=== PATIENT | female | born 1935 | race Caucasian/White ===

== ENCOUNTER → 2016-06-30 | Outpatient (CLI) | payer MEDICARE, BC ==
--- NOTE | 2016-06-30 11:53 | CT ---
EXAMINATION TYPE: CT chest wo con DATE OF EXAM: 06/30/2016 9:58 AM COMPARISON: 04/14/2016 HISTORY: Pulmonary Nodule CT DLP: 116 mGycm, Automated exposure control for dose reduction was used. CONTRAST: None, abnormal laboratory results TECHNIQUE: Axial images were obtained at 5 mm thick sections. Reconstructed images are reviewed on [employer] computer in the coronal plane. FINDINGS: Portion of the thyroid visualized is normal. Previous 0.5 cm nodule in the right upper lobe is again evident and appears stable. Series 4 image 24 . The area of pneumonitis within the right peripheral midlung was present previously. No enlarged mediastinal or hilar adenopathy is evident. The ascending aorta diameter at the level o f the main pulmonary artery is 3.5 cm. The main pulmonary artery diameter at the bifurcation is 2.4 cm. Coronary artery calcification is present. Vascular calcifications within the aorta. Limited CT sections are obtained through the upper abdomen. Small hiatal hernia is present. Proportio n the abdomen is unremarkable. Splenic cyst present previously are less well-visualized on the curren t examination due to lack of intravenous contrast. Old right rib fractures are evident. There is an area of pneumonitis within the periphery of the righ t middle lobe. Series 4 image 22. Follow-up can be performed. IMPRESSIONS: 1. Stable right midlung nodule. Continued follow-up with a chest CT in 6 months is recommended. This should be followed as stable over the course of 2 years.
== END ==
LOC: RADCTMAIN 08:36
PROVIDERS: ATTEND Internal Medicine Critical Care Medicine
DX: R91.1 Solitary pulmonary nodule (principal)
CPT/HCPCS: 36415; 71250; 82565; 84520

== ENCOUNTER 2016-12-17 11:16 | Emergency (ER) | payer MEDICARE, BC ==
[2016-12-17 11:38] LABS: Glucose,Whole Blood 95 mg/dL (75-99)
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
[2016-12-17 12:09] LABS: Basophils # (A) 0.1 k/uL (0-0.2); Basophils % (A) 1 %; CH 31.7; CHCM 33.1; Eosinophils # (A) 0.5 k/uL (0-0.7); Eosinophils % (A) 8 %; HDW 2.31; HGB 13.1 gm/dL (11.4-16.0); Luc # (Auto) 0.24; Luc % (Auto) 4; Lymphocytes # (A) 1.4 k/uL (1.0-4.8); Lymphocytes % (A) 24 %; MCH 31.6 pg (25.0-35.0); MCHC 32.8 g/dL (31.0-37.0); MCV 96.2 fL (80.0-100.0); Mean Platelet Volume 7.8; Monocytes # (A) 0.4 k/uL (0-1.0); Monocytes % (A) 6 %; Neutrophils # (A) 3.4 k/uL (1.3-7.7); Neutrophils % (A) 57 %; RBC 4.15 m/uL (3.80-5.40); RDW 14.6 % (11.5-15.5); WBC 5.9 k/uL (3.8-10.6); WBC (Perox) 6.13
[2016-12-17 12:19] LABS: ALT 28 U/L (9-52); AST 29 U/L (14-36); Alkaline Phosphatase 67 U/L (38-126); Anion Gap 9 mmol/L; Blood Urea Nitrogen 16 mg/dL (7-17); Calcium 9.5 mg/dL (8.4-10.2); Carbon Dioxide 26 mmol/L (22-30); Chloride 105 mmol/L (98-107); Glucose 86 mg/dL (74-99); Non-African American GFR(MDRD) 52 (>60 ml/min/1.73 sqM); Potassium 4.4 mmol/L (3.5-5.1); Sodium 140 mmol/L (137-145); Total Bilirubin 0.4 mg/dL (0.2-1.3); Total Protein 6.7 g/dL (6.3-8.2)
[2016-12-17 12:21] LABS: INR 0.9 (<1.2); Partial Thromboplastin Time 23.7 sec (22.0-30.0); Prothrombin Time 9.7 sec (9.0-12.0)
[2016-12-17 12:34] LABS: Creatine Kinase 114 U/L (30-135)
[2016-12-17 12:47] LABS: Creatine Kinase MB 1.5 ng/mL (0.0-2.4); Troponin I <0.012 ng/mL (0.000-0.034)
--- NOTE | 2016-12-17 12:59 | CT ---
EXAMINATION TYPE: CT brain wo con DATE OF EXAM: 12/17/2016 COMPARISON: Prior brain CT dated 01/18/2015 HISTORY: visual disturbance and neuro deficits CT DLP: 981.7 mGycm Automated exposure control for dose reduction was used. FINDINGS: Helical acquisition of the brain. Cerebral vascular calcifications are present. No hemorrhage or hydrocephalus. Cortical atrophy again noted. White matter low-attenuation changes are stable and compatible with old infarct left frontal r egion and right internal capsule, chronic small vessel ischemia. Postop change noted to the right tem poral bone is stable. IMPRESSION: STABLE EXAM, NO ACUTE ABNORMALITY, CONSIDER BRAIN MRI FOR BETTER EVALUATION
--- NOTE | 2016-12-17 13:02 | XR ---
EXAMINATION TYPE: XR chest 2V DATE OF EXAM: 12/17/2016 COMPARISON: Prior chest x-ray 07/28/2015 HISTORY: Altered mental status TECHNIQUE: Frontal and lateral views of the chest are obtained. FINDINGS: There is no pleural effusion, or pneumothorax seen. Question scarring in the right midlung . The cardiac silhouette size is enlarged although the patient is rotated. The aorta is dense. The o sseous structures are stable, right fourth rib fracture with chest wall deformity again noted. There are overlying cardiac leads. IMPRESSION: No acute cardiopulmonary process.
[2016-12-17 14:20] VITALS: BP 178/88; PULSE 73; RESP 18; TEMP 97.3
== END 2016-12-17 14:21 | disposition left against medical advice (07) ==
LOC: EC 11:16 → UNDOADMIN 13:53 → 6SEL 13:53 → EC 14:21
DX: I63.9 Cerebral infarction, unspecified (principal); I10 Essential (primary) hypertension; E78.5 Hyperlipidemia, unspecified; Z87.891 Personal history of nicotine dependence; Z53.29 Procedure and treatment not carried out because of patient's decision for other reasons; Z79.01 Long term (current) use of anticoagulants; Z79.899 Other long term (current) drug therapy
CPT/HCPCS: 36415; 70450; 71020; 80053; 82550; 82553; 84484; 85025; 85610; 85730; 93005; 99284

== ENCOUNTER 2017-12-07 13:06 | Emergency (ER) | payer BC, MEDICARE ==
[2017-12-07 13:14] VITALS: RESP 16
[2017-12-07] MEDS ORDERED: SODIUM CHLORIDE 0.9% 500 ML IV STA (13:22)
[2017-12-07] MEDS ORDERED: LORazepam 2 MG/ML INJ IV STA (13:25)
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
[2017-12-07 14:16] LABS: Basophils % (A) 0 %; Eosinophils # (A) 0.1 k/uL (0-0.7); Eosinophils % (A) 1 %; HCT 37.7 % (34.0-46.0); HGB 12.2 gm/dL (11.4-16.0); Lymphocytes # (A) 1.6 k/uL (1.0-4.8); Lymphocytes % (A) 18 %; MCH 30.3 pg (25.0-35.0); MCHC 32.4 g/dL (31.0-37.0); MCV 93.5 fL (80.0-100.0); Mean Platelet Volume 7.1; Monocytes # (A) 0.6 k/uL (0-1.0); Monocytes % (A) 7 %; Neutrophils # (A) 6.3 k/uL (1.3-7.7); Neutrophils % (A) 73 %; Platelet Count 218 k/uL (150-450); RBC 4.04 m/uL (3.80-5.40); RDW 13.5 % (11.5-15.5); WBC 8.7 k/uL (3.8-10.6)
[2017-12-07 14:17] LABS: Albumin 4.3 g/dL (3.5-5.0); Calcium 9.8 mg/dL (8.4-10.2); Magnesium 2.1 mg/dL (1.6-2.3); Potassium 3.3 mmol/L (3.5-5.1); Total Bilirubin 0.4 mg/dL (0.2-1.3); Total Protein 6.9 g/dL (6.3-8.2)
[2017-12-07 14:28] LABS: Creatine Kinase 67 U/L (30-135)
--- NOTE | 2017-12-07 14:39 | XR ---
EXAMINATION TYPE: XR chest 2V DATE OF EXAM: 12/07/2017 COMPARISON: 12/17/2016 HISTORY: 82-year-old female with syncope TECHNIQUE: AP and lateral views FINDINGS: Heart mildly enlarged. Elongation/ectasia of the thoracic aorta. Diffuse interstitial prominence is u nchanged. No consolidation or pleural effusion. IMPRESSION: Mild cardiomegaly. There are chronic changes without acute process seen.
[2017-12-07 14:41] LABS: Creatine Kinase MB 1.3 ng/mL (0.0-2.4); Troponin I <0.012 ng/mL (0.000-0.034)
[2017-12-07 14:43] LABS: Prothrombin Time 9.6 sec (9.0-12.0)
[2017-12-07 14:53] LABS: Partial Thromboplastin Time 18.8 sec (22.0-30.0)
[2017-12-07 15:51] LABS: Appearance,Urine Clear (Clear); Bilirubin,Urine Negative (Negative); Blood,Urine Negative (Negative); Color,Urine Light Yellow; Glucose,Urine (UA) Negative (Negative); Ketones,Urine Negative (Negative); Leukocyte Esterase,Urine Negative (Negative); Nitrite,Urine Negative (Negative); PH, Urine 7.5 (5.0-8.0); Protein,Urine Negative (Negative); Specific Gravity,Urine 1.007 (1.001-1.035); Urobilinogen,Urine <2.0 mg/dL (<2.0)
[2017-12-07 16:40] VITALS: BP 169/85; PULSE 70; TEMP 98
== END 2017-12-07 16:39 | disposition home or self-care (01) ==
LOC: EC 13:06
DX: E86.0 Dehydration (principal); R45.83 Excessive crying of child, adolescent or adult; F43.21 Adjustment disorder with depressed mood; Z63.4 Disappearance and death of family member; E78.5 Hyperlipidemia, unspecified; I10 Essential (primary) hypertension; I69.351 Hemiplegia and hemiparesis following cerebral infarction affecting right dominant side; Z87.891 Personal history of nicotine dependence; Z79.01 Long term (current) use of anticoagulants; Z79.899 Other long term (current) drug therapy; Z87.19 Personal history of other diseases of the digestive system
CPT/HCPCS: 36415; 93005; 80053; 82550; 82553; 83735; 84484; 85025; 85610; 85730; 81003; 71046; 99284; 96374; 96361 ×2; J2060

== ENCOUNTER 2019-04-05 09:56 | Emergency (ER) | payer MEDICARE, BC ==
[2019-04-05 10:06] VITALS: RESP 18; TEMP 97.4
[2019-04-05] MEDS ORDERED: SODIUM CHLORIDE 0.9% 500 ML 500 ML IV STA (10:41)
[2019-04-05] MEDS ORDERED: SODIUM CHLORIDE 0.9% 1,000 ML IV STA (10:41)
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
[2019-04-05 11:22] LABS: Basophils # (A) 0.1 k/uL (0-0.2); Basophils % (A) 1 %; Eosinophils # (A) 0.5 k/uL (0-0.7); Eosinophils % (A) 5 %; HCT 39.8 % (34.0-46.0); HGB 13.1 gm/dL (11.4-16.0); Lymphocytes # (A) 1.1 k/uL (1.0-4.8); Lymphocytes % (A) 13 %; MCH 31.8 pg (25.0-35.0); MCV 96.5 fL (80.0-100.0); Mean Platelet Volume 7.6; Monocytes # (A) 0.4 k/uL (0-1.0); Monocytes % (A) 5 %; Neutrophils # (A) 6.2 k/uL (1.3-7.7); Neutrophils % (A) 74 %; Platelet Count 240 k/uL (150-450); RBC 4.12 m/uL (3.80-5.40); RDW 13.8 % (11.5-15.5); WBC 8.5 k/uL (3.8-10.6)
[2019-04-05 11:28] LABS: Albumin 4.4 g/dL (3.5-5.0); Calcium 10.3 mg/dL (8.4-10.2); Total Bilirubin 0.8 mg/dL (0.2-1.3); Total Protein 7.4 g/dL (6.3-8.2)
--- NOTE | 2019-04-05 11:32 | XR ---
EXAMINATION TYPE: XR chest 2V DATE OF EXAM: 04/05/2019 HISTORY: syncope. REFERENCE: Previous study dated 12/07/2017. FINDINGS: The heart is mildly enlarged. Lungs are clear. Pleural spaces are clear. IMPRESSION: MILD CARDIOMEGALY.
[2019-04-05 11:38] LABS: INR 0.9 (<1.2); Prothrombin Time 9.8 sec (9.0-12.0)
[2019-04-05 11:44] LABS: Partial Thromboplastin Time 21.8 sec (22.0-30.0)
[2019-04-05 12:07] LABS: Potassium 4.6 mmol/L (3.5-5.1)
[2019-04-05] MEDS ORDERED: SODIUM CHLORIDE 0.9% 500 ML 500 ML IV ONE (12:31)
[2019-04-05 13:55] VITALS: BP 163/98; PULSE 65
[2019-04-05 14:06] LABS: Amorphous Sediment,Urine Rare /hpf; Appearance,Urine Turbid (Clear); Bilirubin,Urine Negative (Negative); Blood,Urine Negative (Negative); Color,Urine Yellow; Glucose,Urine (UA) Negative (Negative); Hyaline Casts,Urine 7 /lpf (0-2); Ketones,Urine Negative (Negative); Leukocyte Esterase,Urine Trace (Negative); Mucus,Urine Rare /hpf; Nitrite,Urine Negative (Negative); Protein,Urine Negative (Negative); RBC,Urine 2 /hpf (0-5); Specific Gravity,Urine 1.015 (1.001-1.035); Squamous Epithelial Cell,Urine 1 /hpf (0-4); Urobilinogen,Urine <2.0 mg/dL (<2.0); WBC,Urine 2 /hpf (0-5)
== END 2019-04-05 13:55 | disposition home or self-care (01) ==
LOC: EC 09:56
DX: R42 Dizziness and giddiness (principal); R11.2 Nausea with vomiting, unspecified; E86.0 Dehydration; R53.1 Weakness; R53.83 Other fatigue; E78.5 Hyperlipidemia, unspecified; I11.9 Hypertensive heart disease without heart failure; M19.90 Unspecified osteoarthritis, unspecified site; Z87.891 Personal history of nicotine dependence; Z79.01 Long term (current) use of anticoagulants; Z79.890 Hormone replacement therapy; Z79.899 Other long term (current) drug therapy; Z86.73 Personal history of transient ischemic attack (TIA), and cerebral infarction without residual deficits; Z87.19 Personal history of other diseases of the digestive system; Z90.49 Acquired absence of other specified parts of digestive tract; Z53.8 Procedure and treatment not carried out for other reasons
CPT/HCPCS: 36415; 71046; 80053; 81001; 84484; 85025; 85610; 85730; 93005; 96360; 96361; 99284

== ENCOUNTER → 2019-12-26 | Outpatient (CLI) | payer MEDICARE, BC | END | disposition home or self-care (01) | LOC: RADCTMAIN 15:22 | PROVIDERS: ATTEND Internal Medicine Geriatric Medicine | DX: I65.23 Occlusion and stenosis of bilateral carotid arteries (principal) | CPT/HCPCS: 82565; 84520 ==

== ENCOUNTER 2022-02-22 15:33 | Emergency (ER) | payer BC, MEDICARE ==
[2022-02-22 15:42] LABS: Glucose,Whole Blood 123 mg/dL (70-110)
[2022-02-22 15:43] VITALS: TEMP 97.4
--- NOTE | 2022-02-22 16:04 | CT ---
EXAMINATION TYPE: CT brain wo con DATE OF EXAM: 02/22/2022 HISTORY: Altered mental status CT DLP: 1039.6 mGycm. Automated Exposure Control for Dose Reduction was Utilized. TECHNIQUE: CT scan of the head is performed without contrast. COMPARISON: CT brain December 17, 2016. FINDINGS: There is no acute intracranial hemorrhage or midline shift identified. There is mild to m oderate diffuse ventricular and sulcal prominence consistent with diffuse cerebral atrophy. There is mild to moderate low-attenuation in the periventricular white matter consistent with chronic small v essel ischemic change redemonstrated. Focal encephalomalacia anterior superior left frontal lobe rede monstrated. Old lacunar infarct superior right basal ganglia axial image 29 redemonstrated . The glob es are intact and the visualized sinuses are clear. Persistent anterior metopic suture incidentally n oted. Surgical change right mastoid level redemonstrated. IMPRESSION: No acute intracranial hemorrhage or midline shift. There is mild to moderate diffuse ce rebral atrophy and chronic small vessel ischemic change along with old infarcts redemonstrated. No s ignificant change from 2017 CT.
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
[2022-02-22 16:08] LABS: Basophils # (A) 0.1 k/uL (0-0.2); Basophils % (A) 1 %; Eosinophils # (A) 0.3 k/uL (0-0.7); Eosinophils % (A) 5 %; HCT 38.9 % (34.0-46.0); HGB 12.7 gm/dL (11.4-16.0); Lymphocytes # (A) 1.8 k/uL (1.0-4.8); Lymphocytes % (A) 27 %; MCH 31.3 pg (25.0-35.0); MCHC 32.7 g/dL (31.0-37.0); MCV 95.9 fL (80.0-100.0); Mean Platelet Volume 8.6; Monocytes # (A) 0.4 k/uL (0-1.0); Monocytes % (A) 6 %; Neutrophils # (A) 3.9 k/uL (1.3-7.7); Neutrophils % (A) 59 %; Platelet Count 254 k/uL (150-450); RBC 4.05 m/uL (3.80-5.40); RDW 13.4 % (11.5-15.5); WBC 6.7 k/uL (3.8-10.6)
--- NOTE | 2022-02-22 16:14 | XR ---
EXAMINATION TYPE: XR chest 1V portable DATE OF EXAM: 02/22/2022 COMPARISON: Chest x-ray April 15, 2019 HISTORY: Altered mental status and weakness. TECHNIQUE: Single AP portable follow-up right view of the chest is obtained. FINDINGS: Osseous structures redemonstrated demineralized. Diminished inspiration noted. More promine nt cardiomegaly. New bibasilar opacities. Suspect new small right pleural effusion. 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 IMPRESSION: Diminished inspiration with more prominent cardiomegaly. New bibasilar acute infiltrate and/or atelectasis and likely new small right pleural effusion. Progress study advised.
[2022-02-22 16:15] LABS: Albumin 4.4 g/dL (3.5-5.0); Calcium 10.1 mg/dL (8.4-10.2); Potassium 3.8 mmol/L (3.5-5.1); Total Bilirubin 0.3 mg/dL (0.2-1.3)
[2022-02-22] MEDS ORDERED: ESMOLOL IN SODIUM CHLORIDE PMX 2.5 GM in SALINE 1 250ML.BAG IV ONE (16:41)
[2022-02-22] MEDS ORDERED: LABETALOL SYRINGE 5 MG/ML IVP STA ×2 (16:41→17:33)
[2022-02-22] MEDS ORDERED: ONDANSETRON 4 MG/2 ML VIAL IVP STA (16:42)
[2022-02-22 17:14] LABS: Amorphous Sediment,Urine Rare /hpf; Appearance,Urine Cloudy (Clear); Bacteria,Urine Rare /hpf; Bilirubin,Urine Negative (Negative); Blood,Urine Negative (Negative); Color,Urine Colorless; Glucose,Urine (UA) Negative (Negative); Ketones,Urine Negative (Negative); Leukocyte Esterase,Urine Negative (Negative); Mucus,Urine Rare /hpf; Nitrite,Urine Negative (Negative); PH, Urine 7.5 (5.0-8.0); Protein,Urine Trace (Negative); RBC,Urine 3 /hpf (0-5); Specific Gravity,Urine 1.008 (1.001-1.035); Urobilinogen,Urine <2.0 mg/dL (<2.0); WBC,Urine 2 /hpf (0-5)
[2022-02-22] MEDS ORDERED: Kcentra PER PHARMACY 1 EACH MISC MISCELLANE PRN (17:27)
[2022-02-22 17:43] VITALS: BP 147/87; PULSE 65; RESP 18
[2022-02-22] MEDS ORDERED: HUMAN PROTHROMBIN COMPLX IV ONE ×2 (17:45)
== END 2022-02-22 17:45 | disposition other institution (70) ==
LOC: EC 15:33
DX: I61.4 Nontraumatic intracerebral hemorrhage in cerebellum (principal); I10 Essential (primary) hypertension; G45.9 Transient cerebral ischemic attack, unspecified; E78.5 Hyperlipidemia, unspecified; M19.90 Unspecified osteoarthritis, unspecified site; Z79.811 Long term (current) use of aromatase inhibitors; Z79.899 Other long term (current) drug therapy; Z20.822 Contact with and (suspected) exposure to COVID-19
CPT/HCPCS: 36415; 93005; 83880; 80053; 83605; 84484; 85025; 81001; 87635; 71045; 70450; 99291; 96374; J2405

== ENCOUNTER 2022-04-08 13:19 | Inpatient (IN) | payer MEDICARE ==
[2022-04-08] MEDS ORDERED: PANTOPRAZOLE 40 MG/10 ML VIAL IVP STA (13:53)
[2022-04-08] MEDS ORDERED: SODIUM CHLORIDE 0.9% 1,000 ML IV STA (13:53)
[2022-04-08] MEDS ORDERED: ONDANSETRON 4 MG/2 ML VIAL IM STA (13:53)
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
[2022-04-08 15:09] LABS: Basophils % (A) 0 %; Eosinophils # (A) 0.1 k/uL (0-0.7); Eosinophils % (A) 1 %; HCT 45.3 % (34.0-46.0); Lymphocytes # (A) 0.9 k/uL (1.0-4.8); Lymphocytes % (A) 7 %; MCH 31.8 pg (25.0-35.0); MCV 96.1 fL (80.0-100.0); Mean Platelet Volume 8.8; Monocytes # (A) 0.4 k/uL (0-1.0); Monocytes % (A) 3 %; Neutrophils # (A) 10.8 k/uL (1.3-7.7); Neutrophils % (A) 88 %; Platelet Count 313 k/uL (150-450); RBC 4.71 m/uL (3.80-5.40); RDW 13.6 % (11.5-15.5); WBC 12.3 k/uL (3.8-10.6)
[2022-04-08 15:24] LABS: Albumin 5.2 g/dL (3.5-5.0); Potassium 5.1 mmol/L (3.5-5.1); Total Bilirubin 0.8 mg/dL (0.2-1.3); Total Protein 8.8 g/dL (6.3-8.2)
[2022-04-08 15:35] LABS: INR 0.9 (<1.2); Prothrombin Time 9.4 sec (9.0-12.0)
[2022-04-08 16:00] LABS: Partial Thromboplastin Time 21.2 sec (22.0-30.0)
[2022-04-08] MEDS ORDERED: NALOXONE 0.4 MG/ML 1 ML VIAL IV PRN (16:12)
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
[2022-04-09] MEDS: MELATONIN 3 MG TABLET PO SCH ×2 (06:18→21:46)
[2022-04-09] MEDS: BRIMONIDINE TARTRATE 0.2% DROPS 5 ML BTL BOTH EYES SCH ×3 (06:21→21:46)
--- NOTE | 2022-04-09 07:41 | US ---
EXAMINATION TYPE: US kidneys/renal and bladder DATE OF EXAM: 04/09/2022 COMPARISON: CLINICAL HISTORY: LESLIE. Patient states she is bleeding from somewhere. Abnormal labs. Inpatient. EXAM MEASUREMENTS: Right Kidney: 8.0 x 3.3 x 3.4 cm Left Kidney: 6.8 x 3.4 x 3.9 cm Right Kidney: No hydronephrosis or masses seen, prominent pyramids Left Kidney: No hydronephrosis or masses seen, limited visualization due to bowel Bladder: Mildly distended, anechoic Bilateral Jets not seen Peristalsing bowel visualized Incidental finding: Large heterogenous right adnexal area seen of unknown etiology, internal echoe s slightly mobile= 9.9 x 8.9 x 5.4 cm In There is no evidence for hydronephrosis at this point in time. No nephrolithiasis is seen. No rufus s are identified. The urinary bladder is anechoic. Bilateral ureteral jets are seen. IMPRESSION: 1. Prominent right right-sided medullary pyramids. 2. Large heterogenous right adnexal mass. Neoplasm not excluded.
[2022-04-09] MEDS: PANTOPRAZOLE 40 MG/10 ML VIAL IVP SCH ×2 (08:20→21:46)
[2022-04-09] MEDS: LEVOTHYROXINE 50 MCG TAB PO SCH (08:20)
[2022-04-09] MEDS: cloNIDine HCL 0.1 MG TAB PO SCH ×3 (08:20→21:41)
[2022-04-09] MEDS: amLODIPine 10 MG TAB PO SCH (08:20)
[2022-04-09 09:47] LABS: Basophils # (A) 0.02 X 10*3/uL (0.00-0.10); Basophils % (A) 0.2 %; Eosinophils # (A) 0.01 X 10*3/uL (0.04-0.35); Eosinophils % (A) 0.1 %; HCT 41.9 % (37.2-46.3); HGB 13.3 g/dL (12.0-15.0); Immature Grans, Automated 0.5 %; Lymphocytes % (A) 5.6 %; MCHC 31.7 g/dL (32.0-37.0); MCV 97.7 fL (80.0-97.0); Mean Platelet Volume 11.1 fL (9.5-12.2); Monocytes # (A) 1.01 X 10*3/uL (0.20-1.00); NRBC Per 100 WBC 0 /100 WBCS (0.0-0.0); Neutrophils # (A) 10.81 X 10*3/uL (1.80-7.70); Neutrophils % (A) 85.6 %; Platelet Count 298 X 10*3/uL (140-440); RBC 4.29 X 10*6/uL (4.10-5.20); RDW 13.6 % (11.5-14.5); WBC 12.61 X 10*3/uL (4.50-10.00)
[2022-04-09 09:55] LABS: African American GFR (CKD) 16.3 (60.0-200.0); Albumin 4.3 g/dL (3.8-4.9); Albumin/Globulin Ratio 1.79 (1.60-3.17); Anion Gap 16.2 mmol/L (10.00-18.00); BUN/Creat Ratio 22.34 Ratio (12.00-20.00); Blood Urea Nitrogen 64.8 mg/dL (9.0-27.0); Calcium 10.5 mg/dL (8.7-10.3); Carbon Dioxide 26.8 mmol/L (20.0-27.5); Globulin 2.4 g/dL (1.6-3.3); Non-African American GFR(CKD) 14.1 (60.0-200.0); Potassium 3.5 mmol/L (3.5-5.5); Total Bilirubin 0.7 mg/dL (0.30-1.20); Total Protein 6.7 g/dL (6.2-8.2)
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
[2022-04-09 14:29] LABS: Creatinine,Urine Random 208.7 mg/dL; Protein/Creatinine Ratio,Urine 0.091
[2022-04-09] MEDS: ATORVASTATIN 10 MG TAB PO SCH (21:46)
[2022-04-09] MEDS: MONTELUKAST 10 MG TAB PO SCH (21:46)
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
[2022-04-10] MEDS: amLODIPine 10 MG TAB PO SCH (08:24)
[2022-04-10] MEDS: PANTOPRAZOLE 40 MG/10 ML VIAL IVP SCH ×2 (08:24→20:32)
[2022-04-10] MEDS: LEVOTHYROXINE 50 MCG TAB PO SCH (08:24)
[2022-04-10] MEDS: cloNIDine HCL 0.1 MG TAB PO SCH ×2 (08:25→20:32)
[2022-04-10 08:59] LABS: African American GFR (CKD) 27.2 (60.0-200.0); Anion Gap 11.7 mmol/L (10.00-18.00); BUN/Creat Ratio 36.47 Ratio (12.00-20.00); Blood Urea Nitrogen 69.3 mg/dL (9.0-27.0); Calcium 9.6 mg/dL (8.7-10.3); Carbon Dioxide 25.3 mmol/L (20.0-27.5); Non-African American GFR(CKD) 23.5 (60.0-200.0); Potassium 3.8 mmol/L (3.5-5.5)
[2022-04-10 09:35] LABS: Basophils # (A) 0.02 X 10*3/uL (0.00-0.10); Basophils % (A) 0.3 %; Eosinophils # (A) 0.05 X 10*3/uL (0.04-0.35); Eosinophils % (A) 0.7 %; HCT 39.6 % (37.2-46.3); HGB 12.3 g/dL (12.0-15.0); Immature Grans, Automated 0.4 %; Lymphocytes # (A) 0.98 X 10*3/uL (0.90-5.00); Lymphocytes % (A) 14.7 %; MCH 30.9 pg (27.0-32.0); MCHC 31.1 g/dL (32.0-37.0); MCV 99.5 fL (80.0-97.0); Mean Platelet Volume 11.2 fL (9.5-12.2); Monocytes # (A) 0.79 X 10*3/uL (0.20-1.00); Monocytes % (A) 11.8 %; NRBC Per 100 WBC 0 /100 WBCS (0.0-0.0); Neutrophils # (A) 4.81 X 10*3/uL (1.80-7.70); Neutrophils % (A) 72.1 %; Platelet Count 245 X 10*3/uL (140-440); RBC 3.98 X 10*6/uL (4.10-5.20); RDW 13.4 % (11.5-14.5); WBC 6.68 X 10*3/uL (4.50-10.00)
--- NOTE | 2022-04-10 12:32 | XR ---
EXAMINATION TYPE: XR chest 1V portable DATE OF EXAM: 04/10/2022 COMPARISON: 02/22/2022 HISTORY: Shortness of breath TECHNIQUE: Single frontal view of the chest is obtained. FINDINGS: AC joint arthropathy. Right basilar infiltrate. Limited inspiration. Diffuse osteopenia. H eart size normal. Underlying COPD suspected. IMPRESSION: Right basilar infiltrate.
--- NOTE | 2022-04-10 15:16 | P.PN ---
Subjective Progress Note Date: 04/10/22 CHIEF COMPLAINT: Hematemesis HISTORY OF PRESENT ILLNESS: Patient was having coffee-ground emesis at home. This has resolved. Patient did have one episode of vomiting this morning that had red popsicle. No evidence of blood. She did start having diarrhea multiple loose stools. No blood or black stools reported. Patient does report that the abdomen is still slightly distended. She does have a history of peptic ulcer disease. And had been on Xarelto at home for A. fib. Afebrile. WBC has come d own from 12.61-6.68 hemoglobin is trending down from 15-13.3-12.3 sodium 135 potassium 3.8 creatinine 1.9 stool for C. diff negative PHYSICAL EXAM: VITAL SIGNS: Reviewed. GENERAL: Well-developed in no acute distress. HEENT: No sclera icterus. Extraocular movements grossly intact. Moist buccal m ucosa. Head is atraumatic, normocephalic. ABDOMEN: Soft. Mildly distended. Epigastric tenderness NEUROLOGIC: Alert and oriented. Cranial nerves II through XII grossly intact. ASSESSMENT: 1. Coffee-ground emesis with epigastric tenderness 2. Abdominal distention 3. History of peptic ulcer disease 4. History of A. fib on Xarelto at home PLAN: -Upper GI with esophagram for further evaluation of patient's vomiting -Clear liquid diet today -Nothing by mouth after midnight for upper GI study -Continue supportive care -Continue PPI -Keep Xarelto on hold Physician Signal Person note has been reviewed by physician. Signing provider agrees with the documented findings, assessment, and plan of care. Objective - Vital Signs Vital signs: Vital Signs Temp 98.1 F 04/10/22 11:10 Pulse 72 04/10/22 11:10 Resp 16 04/10/22 11:10 BP 103/61 04/10/22 11:10 Pulse Ox 95 04/10/22 11:10 FiO2 Intake & Output 04/09/22 04/10/22 04/10/22 18:59 06:59 18:59 Output Total 100 Balance -100 Output: Emesis 100 Other: Voiding Method Bedside Commode Toilet # Voids 1 2 1 # Bowel Movements 1 2 1 - Labs CBC & Chem 7: 04/10/22 05:36 04/10/22 05:36 Labs: Abnormal Lab Results - Last 24 Hours (Table) 04/09/22 04/10/22 04/10/22 Range/Units 13:49 05:36 05:36 RBC 3.98 L (4.10-5.20) X 10*6/uL MCV 99.5 H (80.0-97.0) fL MCHC 31.1 L (32.0-37.0) g/dL BUN 69.3 H (9.0-27.0) mg/dL Creatinine 1.9 H (0.6-1.5) mg/dL Est GFR (CKD-EPI)AfAm 27.2 L (60.0-200.0) Est GFR (CKD-EPI)NonAf 23.5 L (60.0-200.0) BUN/Creatinine Ratio 36.47 H (12.00-20.00) Ratio Glucose 113 H (70-110) mg/dL Ur Random Sodium <20 L (40-220) mmol/L
[2022-04-10] MEDS: ATORVASTATIN 10 MG TAB PO SCH (20:32)
[2022-04-10] MEDS: MONTELUKAST 10 MG TAB PO SCH (20:32)
[2022-04-10] MEDS: MELATONIN 3 MG TABLET PO SCH (20:32)
--- NOTE | 2022-04-10 22:56 | PN ---
PROGRESS NOTE DATE OF SERVICE: 04/10/2022 SUBJECTIVE: This 86-year-old woman, who was admitted with hematemesis, is being seen by Surgery. No chest pain. No palpitations. No fever. OBJECTIVE: VITAL SIGNS: Pulse 72, blood pressure ntd, respirations 16. CHEST: Clear to auscultation. CARDIOVASCULAR: S1, S2. ABDOMEN: Soft. NERVOUS SYSTEM: Nonfocal. LABORATORY DATA: Reviewed. Hemoglobin is 12.3. Creatinine is elevated up to 1.9. ASSESSMENT: 1. Acute hematemesis and upper gastrointestinal bleed. 2. Acute on chronic kidney disease. 3. Paroxysmal atrial fibrillation. 4. History of cerebrovascular accident. 5. Multiple medical issues. RECOMMENDATIONS: I recommend to continue current medications and symptomatic treatment. Otherwise, closely follow with Surgery. Symptomatic treatment, possibly endoscope. Otherwise, closely monitor. Repeat labs in the morning. Guarded prognosis. Further recommendations to follow. Resume the home medications once they are confirmed. MMODL / IJN: [id number] / MTDD
[2022-04-11] MEDS: LEVOTHYROXINE 50 MCG TAB PO SCH (08:58)
[2022-04-11] MEDS: amLODIPine 10 MG TAB PO SCH (08:58)
[2022-04-11] MEDS: cloNIDine HCL 0.1 MG TAB PO SCH ×2 (08:58→23:08)
[2022-04-11] MEDS: PANTOPRAZOLE 40 MG/10 ML VIAL IVP SCH ×2 (09:12→23:07)
[2022-04-11 09:27] LABS: African American GFR (CKD) 45.6 (60.0-200.0); Anion Gap 11.7 mmol/L (10.00-18.00); BUN/Creat Ratio 40.4 Ratio (12.00-20.00); Blood Urea Nitrogen 50.1 mg/dL (9.0-27.0); Calcium 9.2 mg/dL (8.7-10.3); Carbon Dioxide 21.9 mmol/L (20.0-27.5); Non-African American GFR(CKD) 39.3 (60.0-200.0); Potassium 3.6 mmol/L (3.5-5.5)
[2022-04-11 10:16] LABS: Basophils # (A) 0.01 X 10*3/uL (0.00-0.10); Basophils % (A) 0.2 %; Eosinophils # (A) 0.15 X 10*3/uL (0.04-0.35); Eosinophils % (A) 2.4 %; HCT 35.2 % (37.2-46.3); HGB 11.9 g/dL (12.0-15.0); Immature Grans, Automated 0.5 %; Lymphocytes # (A) 1.19 X 10*3/uL (0.90-5.00); Lymphocytes % (A) 18.7 %; MCH 31.4 pg (27.0-32.0); MCHC 33.8 g/dL (32.0-37.0); MCV 92.9 fL (80.0-97.0); Monocytes # (A) 0.84 X 10*3/uL (0.20-1.00); Monocytes % (A) 13.2 %; NRBC Per 100 WBC 0 /100 WBCS (0.0-0.0); Neutrophils # (A) 4.16 X 10*3/uL (1.80-7.70); Platelet Count 242 X 10*3/uL (140-440); RBC 3.79 X 10*6/uL (4.10-5.20); RDW 13.2 % (11.5-14.5); WBC 6.38 X 10*3/uL (4.50-10.00)
[2022-04-11] MEDS ORDERED: IOPAMIDOL CONTRAST (ORAL USE) VIAL PO PRN (11:15)
--- NOTE | 2022-04-11 11:23 | XR ---
EXAMINATION TYPE: XR abdomen 1V DATE OF EXAM: 04/11/2022 11:10 AM CLINICAL HISTORY: Vomiting and abdominal pain. TECHNIQUE: Single upright KUB image of the abdomen is obtained. COMPARISON: None. FINDINGS: Images obtained prior to ordered esophagram/upper GI. Gas prominent dilated small and large bowel loops with multiple air-fluid levels is noted. Findings suspicious for distal obstruction. No free air. IMPRESSION: As above. Overall nonspecific but suspicious for small gas pattern. Case discussed with ordering physician language assistant who was agreeable to canceled upper GI and CT evalua tion to further evaluate.
--- NOTE | 2022-04-11 14:05 | CT ---
EXAMINATION TYPE: CT abdomen pelvis wo con DATE OF EXAM: 04/11/2022 HISTORY: Abdominal distention and nausea/vomiting. Abnormal x-ray. CT DLP: 579 mGycm. Automated Exposure Control for Dose Reduction was Utilized. TECHNIQUE: CT scan of the abdomen and pelvis is attempted with oral but without IV contrast. COMPARISON: Abdominal X-ray earlier today. FINDINGS: Within the limitations of a non-contrast study, the following observations are made. LUNG BASES: Coronary artery calcification is present. Calcification at the level of the mitral valve is noted. LIVER/GB: Gallbladder not seen presumed surgically absent. PANCREAS: No significant abnormality is seen. SPLEEN: Nonspecific 2.8 cm heterogeneous hypodense lesion in the left aspect of the spleen on coronal e image 72. Hounsfield units average near 25. Possible complex cystic lesion or solid lesion. Nonemer gent follow-up advised to further evaluate. ADRENALS: No significant abnormality is seen. KIDNEYS: Cortical thinning bilaterally suggestive of chronic medical renal disease. BOWEL: Surgical clips just below diaphragm. There is small slight hiatal hernia. Contrast is seen in nondistended stomach. Oral contrast seen a slightly prominent duodenal sweep. Contrast extends into p rominent jejunal loops in the left abdomen. There are dilated contrast-filled small bowel loops in th e left abdomen which gradually transition into fluid-filled most prominent small bowel loops. Fluid p rominent bowel loops are noted in the right abdomen. Fluid is seen within the rectum with air-fluid level. Sigmoid colonic diverticula and nondistended si gmoid colon. There is nondistended left colon. There is air-fluid level in nondistended transverse co dmitriy. There is fluid prominent right colon. There is dilated gas-filled cecum occupying the inferior r ight mid abdomen measuring up to 3.6 cm diameter axial image 44. Terminal ileum is nondistended axial image 51. GENITAL ORGANS: Uterus surgically absent or markedly atrophic. LYMPH NODES: No greater than 1cm abdominal or pelvic lymph nodes are appreciated. OSSEOUS STRUCTURES: Old right lateral lower rib fractures are seen. Grade 1 anterolisthesis L4 and L5 . Extra convex scoliosis centered at the mid lumbar spine. [id number] disc space narrowing wi th endplate sclerosis and vacuum disc phenomenon at this level. Moderate axial joint space loss of maggie th hips. OTHER: Moderate calcified plaque of the aorta extends into branch vessels. No free air is seen. IMPRESSION: Overall nonspecific bowel gas pattern. Prominent and dilated small bowel loops throughout the abdomen. Dilated wandering cecum is present. Majority of colon is nondistended. Internal hernia needs too be considered. Possible underlying enterocolitis and/or diarrhea. No definitive transition point to suggest complete small bowel obstruction. Partial obstruction and/or ileus is in differentia l.
--- NOTE | 2022-04-11 15:18 | P.PN ---
Subjective Progress Note Date: 04/11/22 CHIEF COMPLAINT: Hematemesis HISTORY OF PRESENT ILLNESS: Patient was having coffee-ground emesis at home. This has resolved. Patient however does continue to have vomiting. She had episode of vomiting last night. Her abdomen is more distended. She is now having diarrhea. Initially she was scheduled for upper GI today however the radiologist did call and notify us that the bowels were no dilated therefore upper GI was canceled and a computed tomography scan of the abdomen and pelvis was ordered. Computed tomography scan addendum shows one must consider cecal bascule given the abnormal location and dilation of the cecum. Prominent and dilated small bowel loops throughout the abdomen. Dilated wondering cecum is present. Majority of colon Is nondistended. Internal hernia needs to be co nsidered. Possible underlying enterocolitis and/or diarrhea. No definitive transition point to suggest complete small bowel obstruction. Partial obstruction and/or ileus is in the differential. Afebrile . WBC is 6.38 hemoglobin to 11.9 platelets 242 sodium is 132 potassium 3.6 creatinine 1.2 Patient seen and examined with Dr. levy. Computed tomography scan findings reviewed with Dr. levy PHYSICAL EXAM: VITAL SIGNS: Reviewed. GENERAL: Well-developed in no acute distress. HEENT: No sclera icterus. Extraocular movements grossly intact. Moist buccal mucosa. Head is atraumatic, normocephalic. ABDOMEN: Soft. Distended NEUROLOGIC: Alert and oriented. Cranial nerves II through XII grossly intact. ASSESSMENT: 1. 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 Coffee-ground emesis with epigastric tenderness 3. History of peptic ulcer disease 4. History of A. fib on Xarelto at home PLAN: -Patient scheduled for right colectomy tomorrow 04/12/[address] levy -Keep patient nothing by mouth -Start IV fluids. Patient does have mild hyponatremia -Repeat labs in a.m. -Continue supportive care -Continue PPI -Keep Xarelto on hold Physician Seo Consultant note has been reviewed by physician. Signing provider agrees with the documented findings, assessment, and plan of care. Objective - Vital Signs Vital signs: Vital Signs Temp 97.5 F L 04/11/22 12:45 Pulse 60 04/11/22 12:45 Resp 16 04/11/22 12:45 BP 131/66 04/11/22 12:45 Pulse Ox 99 04/11/22 12:45 FiO2 Intake & Output 04/10/22 04/11/22 04/11/22 18:59 06:59 18:59 Intake Total 200 Output Total 100 Balance -100 200 Intake: Oral 200 Output: Emesis 100 Other: Voiding Method Toilet Toilet Diaper Diaper # Voids 1 5 1 # Bowel Movements 1 1 - Labs CBC & Chem 7: 04/11/22 05:52 04/11/22 05:52 Labs: Abnormal Lab Results - Last 24 Hours (Table) 04/11/22 04/11/22 Range/Units 05:52 05:52 RBC 3.79 L (4.10-5.20) X 10*6/uL Hgb 11.9 L (12.0-15.0) g/dL Hct 35.2 L (37.2-46.3) % Sodium 132 L (135-145) mmol/L BUN 50.1 H (9.0-27.0) mg/dL Est GFR (CKD-EPI)AfAm 45.6 L (60.0-200.0) Est GFR (CKD-EPI)NonAf 39.3 L (60.0-200.0) BUN/Creatinine Ratio 40.40 H (12.00-20.00) Ratio Glucose 113 H (70-110) mg/dL
[2022-04-11] MEDS: SODIUM CHLORIDE 0.9% 1,000 ML IV SCH (16:09)
[2022-04-11] MEDS: MONTELUKAST 10 MG TAB PO SCH (23:08)
[2022-04-11] MEDS: ATORVASTATIN 10 MG TAB PO SCH (23:08)
[2022-04-11] MEDS: MELATONIN 3 MG TABLET PO SCH (23:08)
--- NOTE | 2022-04-12 02:19 | PN ---
PROGRESS NOTE DATE OF SERVICE: 04/11/2022 HISTORY OF PRESENT ILLNESS: This 86-year-old woman was admitted with acute hematemesis and acute upper GI bleed, scheduled to have possible endoscopes. No chest pain, no palpitation. Hemoglobin is 11.9. PHYSICAL EXAMINATION: VITAL SIGNS: Pulse is 63, blood pressure 119/70, respirations 16. CHEST: Clear to auscultation. ABDOMEN: Soft, nontender. LEGS: No edema. NERVOUS SYSTEM: No focal deficits. LABS: Reviewed. ASSESSMENT: 1. Acute hematemesis and upper GI bleed for evaluation. 2. Acute on chronic kidney disease. 3. Paroxysmal atrial fibrillation. 4. History of cerebrovascular accident. 5. Multiple medical issues. RECOMMENDATIONS: Recommended to continue current medications, symptomatic treatment. Otherwise, continue with Protonix and possible endoscopy by surgery. I would also hold antiplatelet agents at this time and also Xarelto. Guarded prognosis. Further recommendations to follow. See orders for details. MMODL / IJN: [id number] /
[2022-04-12 07:00] LABS: Basophils % (A) 0 %; Eosinophils # (A) 0.2 k/uL (0-0.7); Eosinophils % (A) 2 %; HCT 36.3 % (34.0-46.0); Lymphocytes # (A) 1.1 k/uL (1.0-4.8); Lymphocytes % (A) 15 %; MCH 31.3 pg (25.0-35.0); MCHC 32.9 g/dL (31.0-37.0); MCV 95.1 fL (80.0-100.0); Mean Platelet Volume 9.1; Monocytes # (A) 0.5 k/uL (0-1.0); Monocytes % (A) 7 %; Neutrophils # (A) 5.1 k/uL (1.3-7.7); Neutrophils % (A) 73 %; Platelet Count 234 k/uL (150-450); RBC 3.82 m/uL (3.80-5.40); RDW 13.1 % (11.5-15.5)
[2022-04-12 07:12] LABS: African American GFR (CKD) 57 (>60 ml/min/1.73 sqM); Anion Gap 5 mmol/L; Blood Urea Nitrogen 36 mg/dL (7-17); Calcium 8.6 mg/dL (8.4-10.2); Carbon Dioxide 22 mmol/L (22-30); Chloride 107 mmol/L (98-107); Glucose 97 mg/dL (74-99); Non-African American GFR(CKD) 49 (>60 ml/min/1.73 sqM); Potassium 3.8 mmol/L (3.5-5.1); Sodium 134 mmol/L (137-145)
[2022-04-12] MEDS: SODIUM CHLORIDE 0.9% 1,000 ML IV SCH ×3 (08:00→17:45)
[2022-04-12] MEDS: cloNIDine HCL 0.1 MG TAB PO SCH ×2 (09:00→22:33)
[2022-04-12] MEDS: LEVOTHYROXINE 50 MCG TAB PO SCH (09:00)
[2022-04-12] MEDS: amLODIPine 10 MG TAB PO SCH (09:00)
[2022-04-12] MEDS: PANTOPRAZOLE 40 MG/10 ML VIAL IVP SCH ×2 (09:00→22:11)
[2022-04-12 12:09] LABS: INR 0.9 (<1.2); Prothrombin Time 9.6 sec (9.0-12.0)
[2022-04-12 12:28] LABS: Partial Thromboplastin Time 21.6 sec (22.0-30.0)
[2022-04-12] MEDS ORDERED: LIDOCAINE 1% (10MG/ML) FOR IV START INTRADERMA ONE (13:40)
[2022-04-12] MEDS ORDERED: LACTATED RINGERS 1,000 ML IV ONE ×2 (13:40→15:24)
[2022-04-12] MEDS ORDERED: HEPARIN SODIUM,PORCINE/PF 5,000 UNIT/0.5 ML SYRINGE SQ ONE (13:58)
[2022-04-12] MEDS ORDERED: HEPARIN SODIUM,PORCINE 5,000 UNIT/ML 1 ML VIAL SQ ONE (14:08)
[2022-04-12] MEDS ORDERED: ONDANSETRON 4 MG/2 ML VIAL IVP ONE (14:21)
[2022-04-12] MEDS ORDERED: DEXAMETHASONE SOD PHOSPHATE 4 MG/ML 1 ML VIAL IVP ONE (14:22)
[2022-04-12] MEDS ORDERED: SUCCINYLCHOLINE CHLORIDE 200 MG/10 ML VIAL IV ONE (14:30)
[2022-04-12] MEDS ORDERED: PHENYLEPHRINE-0.9% NACL SYG 1,000 MCG/10 ML SYRINGE ONE (14:30)
[2022-04-12] MEDS ORDERED: PROPOFOL 10 MG/ML 20 ML VIAL IV ONE (14:30)
[2022-04-12] MEDS ORDERED: LIDOCAINE 2% INJ 20 MG/ML (2 ML VIAL) ONE (14:30)
[2022-04-12] MEDS ORDERED: ROCURONIUM 10 MG/ML (5 ML VIAL) IV ONE (14:30)
[2022-04-12] MEDS ORDERED: GLYCOPYRROLATE 0.2 MG/ML 2 ML VIAL ONE (14:30)
[2022-04-12] MEDS ORDERED: fentaNYL (PF) 50 MCG/ML 2 ML AMP ONE (14:30)
[2022-04-12] MEDS ORDERED: NEOSTIGMINE 1 MG/ML 10 ML VIAL ONE (14:30)
[2022-04-12] MEDS ORDERED: SODIUM CHLORIDE 0.9% 50 ML with ceFAZolin 1,000 MG IV ONE ×2 (14:32)
--- NOTE | 2022-04-12 15:13 | P.PN ---
Subjective Progress Note Date: 04/12/22 This is an 86 year old female who was recently presented to the emergency department with hematemesis along with acute upper GI bleed with surgery following with plans for endoscopy. 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 Labs reviewed this morning and WBC is within normal limits, hemoglobin is 12.0, platelets are 234, current INR 0.9, BMP reviewed and within normal limits with a creatinine of 1.03. C. diff testing was negative. Patient denies chest pain or shortness of breath. Patient is afebrile. Review of systems: Constitutional: No reports of fatigue, fever, or chills Cardiovascular: No reports of chest pain or palpitations Respiratory: No reports of shortness of breath or cough GI: No reports of nausea, vomiting, or diarrhea, reports some abdominal discomfort : No reports of dysuria or retention Neurovascular: reports of generalized weakness All medications have been reviewed Active Medications Amlodipine Besylate (Amlodipine 10 Mg Tab) 10 mg PO DAILY [facility] Last Admin: 04/12/22 09:00 Dose: 10 mg Atorvastatin Calcium (Atorvastatin 10 Mg Tab) 10 mg PO [facility] Last Admin: 04/11/22 23:08 Dose: 10 mg Clonidine (Clonidine Hcl 0.1 Mg Tab) 0.1 mg PO BID [facility] Last Admin: 04/12/22 09:00 Dose: 0.1 mg Sodium Chloride (Saline 0.9%) 1,000 mls @ 75 mls/hr IV .[id number] [facility] Last Admin: 04/12/22 09:01 Dose: 75 mls/hr Levothyroxine Sodium (Levothyroxine 50 Mcg Tab) 50 mcg PO AC-BRKFST [facility] Last Admin: 04/12/22 09:00 Dose: 50 mcg Melatonin (Melatonin 3 Mg Tablet) 3 mg PO [facility] Last Admin: 04/11/22 23:08 Dose: 3 mg Montelukast Sodium (Montelukast 10 Mg Tab) 10 mg PO [facility] Last Admin: 04/11/22 23:08 Dose: 10 mg Naloxone HCl (Naloxone 0.4 Mg/Ml 1 Ml Vial) 0.2 mg IV Q2M PRN PRN Reason: Opioid Reversal Ondansetron HCl (Ondansetron 4 Mg/2 Ml Vial) 4 mg IVP Q8HR PRN PRN Reason: Nausea And Vomiting Pantoprazole Sodium (Pantoprazole 40 Mg/10 Ml Vial) 40 mg IVP BID DON Last Admin: 04/12/22 09:00 Dose: 40 mg PHYSICAL EXAMINATION: GENERAL: The patient is alert and oriented x3 Well developed, well nourished. HEENT: Pupils are round and equally reacting to light. EOMI. no scleral icterus. No conjunctival pallor. Normocephalic, atraumatic. No pharyngeal erythema. No thyromegaly. CARDIOVASCULAR: S1 and S2 muffled PULMONARY: diminished breath sounds bilaterally with no wheezing and some scattered rhonchi noted. ABDOMEN: soft. Nontender on exam. non-distended, normoactive bowel sounds. No palpable organomegaly. MUSCULOSKELETAL: No joint swelling or deformity. EXTREMITIES: No cyanosis, clubbing, or pedal edema. NEUROLOGICAL: Gross neurological examination did not reveal any focal deficits. Diffuse weakness SKIN: No rashes. Assessment: Acute hematemesis and upper GI bleed for evaluation Acute on chronic kidney disease Paroxysmal atrial fibrillation History of CVA GI prophylaxis DVT prophylaxis Full code Plan: Recommend to continue with current medications and management of general surgery service is following. Patient was scheduled for endoscopy by surgery and anticoagulation along with antiplatelets being held. Repeat CT abdomen was ordered as mentioned above and patient was made nothing by mouth per surgery and scheduled tentatively for surgical intervention today. Will await report. Family at the bedside with questions and concerns were answered and awaiting to speak with surgeon at this time. Would recommend a chest x-ray post surgery and will follow-up with some repeat labs. Due to multiple complex medical issues, p rognosis is guarded. Patient was no CODE STATUS per their request although status was changed for surgery procedure and is currently full code until recovered from surgery. Again prognosis is extremely guarded. The impression and plan of care has been dictated by Alexia Frazier, nurse practitioner as directed. Dr. Hardeep MD I have performed a history and examination and MDM of this patient, discussed the same with the dictator, and agree with the dictator's assessment and plan as written ,documented as a scribe. Based on total visit time, I have performed more than 50% of the visit. Any additional findings or plans will be noted. Objective - Vital Signs Vital signs: Vital Signs Temp 98.1 F 04/12/22 13:15 Pulse 73 04/12/22 13:15 Resp 16 04/12/22 13:15 BP 117/53 04/12/22 13:15 Pulse Ox 94 L 04/12/22 13:15 FiO2 Intake & Output 04/11/22 04/12/22 04/12/22 18:59 06:59 18:59 Intake Total 100 Balance 100 Weight 48.534 kg Intake: IV 100 Other: Voiding Method Toilet Toilet Diaper Diaper # Voids 2 2 # Bowel Movements 2 3 1 - Labs CBC & Chem 7: 04/12/22 06:20 04/12/22 06:20 Labs: Abnormal Lab Results - Last 24 Hours (Table) 04/12/22 04/12/22 Range/Units 06:20 11:25 APTT 21.6 L (22.0-30.0) sec Sodium 134 L (137-145) mmol/L BUN 36 H (7-17) mg/dL
--- NOTE | 2022-04-12 15:35 | P.OP ---
Date of Procedure: 04/12/22 Preoperative Diagnosis: Cecal bascule causing colonic obstruction Postoperative Diagnosis: Same Procedure(s) Performed: Right colectomy Partial omentectomy Anesthesia: DEREKA Surgeon: Rishabh Garcia Estimated Blood Loss (ml): 15 Pathology: other (Right colon) Condition: stable Disposition: PACU Description of Procedure: Patient's placed on the operative table in the supine position. She received general endotracheal anesthesia. Her abdomen was prepped and draped usual sterile fashion. The abdomen was entered through a midline incision. Left cautery is a dissect the abdominal wall. The the peritoneal cavity is entered. A pair of abdominal wall retractors placed a wound. The cecum was exposed. The cecum was grossly dilated. It measured approximately 15 cm diameter. There there was evidence of a cecal bascule due to adhesive band of the omentum. This was divided using the Enseal device. The portion of nonviable omentum was then transected with the Enseal device sent to pathology. At this point the terminal ileum was transected with a GI stapler. And then the distal right colon was transected with a GI stapler. The Enseal device used to divide the mesentery the bowel. The specimens of pathology. Next using a ANAM and TA stapler a sessile functional and 10 staple anastomosis created. A 3-0 GI silk sutures using a crotch stitch. The abdomen was irrigated resolving seen. The fascia was closed with looped #1 PDS suture. Skin was closed chelle. Patient top she will sent to recovery room in stable condition.
[2022-04-12] MEDS ORDERED: HYDROmorphone 0.5 MG/0.5 ML SYRINGE IVP ONE ×2 (15:39→15:44)
[2022-04-12] MEDS ORDERED: fentaNYL (PF) 50 MCG/1 ML VIAL IVP ONE ×4 (15:49→16:21)
[2022-04-12] MEDS ORDERED: diphenhydrAMINE 50 MG/ML 1 ML VIAL IVP ONE (16:26)
[2022-04-12] MEDS: HYDROmorphone 1 MG/ML 1 ML SYRINGE IVP PRN ×2 (18:02→22:10)
--- NOTE | 2022-04-12 20:17 | XR ---
EXAMINATION TYPE: XR chest 1V portable DATE OF EXAM: 04/12/2022 7:49 PM COMPARISON: Multiple radiographs, with the most recent on 04/10/2022 TECHNIQUE: XR chest 1V portable Portable AP radiograph of the chest. CLINICAL INDICATION:Female, 86 years old with history of shortness of breath; FINDINGS: Lungs/Pleura: Bibasilar infiltrates are present. There is no evidence of pleural effusion, focal cons olidation, or pneumothorax. Pulmonary vascularity: Unremarkable. Heart/mediastinum: Cardiomediastinal silhouette is unremarkable. Musculoskeletal: No acute osseous pathology. IMPRESSION: Bibasilar infiltrates correlate for aspiration is atelectasis.
[2022-04-12] MEDS: ATORVASTATIN 10 MG TAB PO SCH (22:33)
[2022-04-12] MEDS: MELATONIN 3 MG TABLET PO SCH (22:33)
[2022-04-12] MEDS: MONTELUKAST 10 MG TAB PO SCH (22:33)
[2022-04-13] MEDS: HYDROmorphone 1 MG/ML 1 ML SYRINGE IVP PRN ×5 (00:53→21:00)
[2022-04-13] MEDS: SODIUM CHLORIDE 0.9% 1,000 ML IV SCH ×3 (00:53→21:04)
[2022-04-13 08:55] LABS: Basophils % (A) 0 %; Eosinophils % (A) 0 %; HCT 32.3 % (34.0-46.0); HGB 10.9 gm/dL (11.4-16.0); Lymphocytes # (A) 0.7 k/uL (1.0-4.8); Lymphocytes % (A) 8 %; MCH 32.1 pg (25.0-35.0); MCHC 33.9 g/dL (31.0-37.0); MCV 94.7 fL (80.0-100.0); Mean Platelet Volume 9.2; Monocytes # (A) 0.5 k/uL (0-1.0); Monocytes % (A) 6 %; Neutrophils # (A) 6.9 k/uL (1.3-7.7); Neutrophils % (A) 84 %; Platelet Count 231 k/uL (150-450); RBC 3.41 m/uL (3.80-5.40); RDW 12.9 % (11.5-15.5); WBC 8.3 k/uL (3.8-10.6)
[2022-04-13] MEDS ORDERED: ENOXAPARIN 40 MG/0.4 ML SYRINGE SQ SCH (09:00)
[2022-04-13 09:07] LABS: African American GFR (CKD) 67 (>60 ml/min/1.73 sqM); Anion Gap 7 mmol/L; Blood Urea Nitrogen 22 mg/dL (7-17); Carbon Dioxide 19 mmol/L (22-30); Chloride 114 mmol/L (98-107); Glucose 101 mg/dL (74-99); Non-African American GFR(CKD) 58 (>60 ml/min/1.73 sqM); Potassium 3.9 mmol/L (3.5-5.1); Sodium 140 mmol/L (137-145)
[2022-04-13] MEDS: amLODIPine 10 MG TAB PO SCH (09:13)
[2022-04-13] MEDS: ENOXAPARIN 40 MG/0.4 ML SYRINGE SQ SCH (09:13)
[2022-04-13] MEDS: LEVOTHYROXINE 50 MCG TAB PO SCH (09:13)
[2022-04-13] MEDS: cloNIDine HCL 0.1 MG TAB PO SCH ×2 (09:13→20:47)
[2022-04-13] MEDS: PANTOPRAZOLE 40 MG/10 ML VIAL IVP SCH ×2 (09:14→20:48)
[2022-04-13] MEDS: MORPHINE SULFATE 4 MG/ML SYRINGE IVP PRN (11:23)
[2022-04-13] MEDS ORDERED: IPRATROPIUM-ALBUTEROL 3 ML NEB INHALATION PRN (12:31)
[2022-04-13] MEDS: IPRATROPIUM-ALBUTEROL 3 ML NEB INHALATION SCH ×2 (13:18→21:14)
--- NOTE | 2022-04-13 15:29 | P.PN ---
Subjective Progress Note Date: 04/13/22 This is an 86 year old female who was recently presented to the emergency department with hematemesis along with acute upper GI bleed with surgery following with plans for endoscopy. 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 Labs reviewed this morning and WBC is within normal limits, hemoglobin is 12.0, platelets are 234, current INR 0.9, BMP reviewed and within normal limits with a creatinine of 1.03. C. diff testing was negative. Patient denies chest pain or shortness of breath. Patient is afebrile. 04/13/2022 Patient is seen and evaluated and follow-up this morning appears to be slightly confused just received some IV Dilaudid. Patient is status post right colectomy with partial omentectomy due to a cecal bascule causing colonic obstruction. Patient is currently nothing by mouth per surgery recommendations and continues with severe pain. Did have a follow-up chest x-ray yesterday after surgery which shows bibasilar infiltrates correlate for aspiration and atelectasis. Will decrease IV fluids gently, order incentive spirometer encourage the patient to continue using at least 10 times every hour while awake and will also initiate Rocephin empirically along with DuoNeb treatments. Patient is also having fevers and recommend blood cultures with empiric antibiotics. Patient will need physical therapy with possible ECF. Patient is currently nothing by mouth per surgery. Labs reviewed and WBC within normal limits hemoglobin is stable at 10.9, electrolytes are normal and would recommend follow-up labs in a.m. Will also give DuoNeb treatments. Review of systems: Constitutional: No reports of fatigue, fever, or chills Cardiovascular: No reports of chest pain or palpitations Respiratory: No reports of shortness of breath or cough GI: reports of nausea, no reports of vomiting, or diarrhea, reports severe abdominal discomfort : No reports of dysuria or retention Neurovascular: reports of generalized weakness All medications have been reviewed Active Medications Albuterol/Ipratropium (Ipratropium-Albuterol 3 Ml Neb) 3 ml INHALATION RT-TID PRN PRN Reason: Shortness Of Breath Or Wheezing Albuterol/Ipratropium (Ipratropium-Albuterol 3 Ml Neb) 3 ml INHALATION RT-TID [facility] Last Admin: 04/13/22 13:18 Dose: Not Given Amlodipine Besylate (Amlodipine 10 Mg Tab) 10 mg PO DAILY [facility] Last Admin: 04/13/22 09:13 Dose: 10 mg Atorvastatin Calcium (Atorvastatin 10 Mg Tab) 10 mg PO HS [facility] Last Admin: 04/12/22 22:33 Dose: Not Given Clonidine (Clonidine Hcl 0.1 Mg Tab) 0.1 mg PO BID [facility] Last Admin: 04/13/22 09:13 Dose: 0.1 mg Enoxaparin Sodium (Enoxaparin 40 Mg/0.4 Ml Syringe) 40 mg SQ DAILY [facility] Last Admin: 04/13/22 09:13 Dose: 40 mg Hydromorphone HCl (Hydromorphone 1 Mg/Ml 1 Ml Syringe) 1 mg IVP Q3HR PRN PRN Reason: Pain Last Admin: 04/13/22 09:14 Dose: 1 mg Sodium Chloride (Saline 0.9%) 1,000 mls @ 75 mls/hr IV .[id number] [facility] Last Admin: 04/13/22 09:13 Dose: 100 mls/hr Ceftriaxone Sodium 1 gm/ (Sodium Chloride) 50 mls @ 100 mls/hr IVPB Q24HR [facility]; Protocol Last Admin: 04/13/22 13:17 Dose: 100 mls/hr Levothyroxine Sodium (Levothyroxine 50 Mcg Tab) 50 mcg PO AC-BRKFST [facility] Last Admin: 04/13/22 09:13 Dose: 50 mcg Melatonin (Melatonin 3 Mg Tablet) 3 mg PO HS [facility] Last Admin: 04/12/22 22:33 Dose: Not Given Montelukast Sodium (Montelukast 10 Mg Tab) 10 mg PO HS [facility] Last Admin: 04/12/22 22:33 Dose: Not Given Morphine Sulfate (Morphine Sulfate 4 Mg/Ml Syringe) 4 mg IVP Q1HR PRN PRN Reason: Moderate Breakthrough Pain Last Admin: 04/13/22 11:23 Dose: 4 mg Naloxone HCl (Naloxone 0.4 Mg/Ml 1 Ml Vial) 0.2 mg IV Q2M PRN PRN Reason: Opioid Reversal Ondansetron HCl (Ondansetron 4 Mg/2 Ml Vial) 4 mg IVP Q8HR PRN PRN Reason: Nausea And Vomiting Pantoprazole Sodium (Pantoprazole 40 Mg/10 Ml Vial) 40 mg IVP BID DON Last Admin: 04/13/22 09:14 Dose: 40 mg PHYSICAL EXAMINATION: GENERAL: The patient is alert and oriented x2-3, restless, appears uncomfortable and in pain Well developed, well nourished. HEENT: Pupils are round and equally reacting to light. EOMI. no scleral icterus. No conjunctival pallor. Normocephalic, atraumatic. No pharyngeal erythema. No thyromegaly. CARDIOVASCULAR: S1 and S2 muffled PULMONARY: diminished breath sounds bilaterally with no wheezing and some scattered rhonchi noted. ABDOMEN: soft. Extremely tender on light palpation on exam. Mildly distended, hypoactive bowel sounds. No palpable organomegaly. MUSCULOSKELETAL: No joint swelling or deformity. EXTREMITIES: No cyanosis, clubbing, or pedal edema. NEUROLOGICAL: Gross neurological examination did not reveal any focal deficits. Diffuse weakness SKIN: No rashes. Assessment: Acute hematemesis and upper GI bleed for evaluation Status post right colectomy with partial omentectomy secondary to cecal bascule causing colonic obstruction, postop day 1 Fevers of unknown origin, rule out possible pneumonia Acute on chronic kidney disease Paroxysmal atrial fibrillation History of CVA GI prophylaxis DVT prophylaxis no code Plan: Recommend to continue with current medications and management of general surgery service is following. Patient is postop right colectomy with partial omentectomy due to a cecal bascule causing colonic obstruction. Patient is currently nothing by mouth per surgery recommendations and reporting severe 10/10 pain. Patient is weak and recommend physical therapy. Patient did have a follow-up chest x-ray after surgery showing possible infiltrate versus atelectasis. Incentive spirometer ordered and patient to be encouraged to continue using at least 10 times every hour while awake. Recommend pain management on the cautious side with IV narcotics due to age and mentation. Patient is having fevers and have ordered blood cultures and initiating Rocephin empirically with concerns for possible pneumonia. IV fluids decreased and will follow-up with repeat labs. Encouraged increase activity as tolerated. Patient is not having any bowel movements or passing gas as of yet. Due to multiple complex medical issues, prognosis is guarded. CODE STATUS was addressed and changed back to no code per family request. Due to multiple complex medical issues, prognosis is extremely guarded. The impression and plan of care has been dictated by Alexia Frazier, nurse pract itioner as directed. Dr. Hardeep MD I have performed a history and examination and MDM of this patient, discussed the same with the dictator, and agree with the dictator's assessment and plan as written ,documented as a scribe. Based on total visit time, I have performed more than 50% of the visit. Any additional findings or plans will be noted. Objective - Vital Signs Vital signs: Vital Signs Temp 99.7 F H 04/13/22 11:15 Pulse 114 H 04/13/22 11:15 Resp 18 04/13/22 11:15 BP 156/74 04/13/22 11:15 Pulse Ox 94 L 04/13/22 11:15 FiO2 Intake & Output 04/12/22 04/13/22 04/13/22 18:59 06:59 18:59 Intake Total 1550 Output Total 65 550 Balance 1485 -550 Weight 48.534 kg Intake: IV 1550 Output: Urine 50 550 Estimated Blood Loss 15 Other: Voiding Method Toilet Indwelling Catheter Diaper # Bowel Movements 1 - Labs CBC & Chem 7: 04/13/22 08:24 04/13/22 08:24 Labs: Abnormal Lab Results - Last 24 Hours (Table) 04/13/22 04/13/22 Range/Units 08:24 08:24 RBC 3.41 L (3.80-5.40) m/uL Hgb 10.9 L (11.4-16.0) gm/dL Hct 32.3 L (34.0-46.0) % Lymphocytes # 0.7 L (1.0-4.8) k/uL Chloride 114 H (98-107) mmol/L Carbon Dioxide 19 L (22-30) mmol/L BUN 22 H (7-17) mg/dL Glucose 101 H (74-99) mg/dL Calcium 8.0 L (8.4-10.2) mg/dL
--- NOTE | 2022-04-13 15:46 | P.PN ---
Subjective Progress Note Date: 04/13/22 CHIEF COMPLAINT: Hematemesis HISTORY OF PRESENT ILLNESS: Patient is postop day #1 right colectomy and partial omentectomy. She is complaining of abdominal pain. She does have mild nausea. She did have a low-grade temp of her 0.3. She's been mildly tachycardic. Morphine added this morning for pain control. Patient does have improvement of pain with ice packs. WBC 8.3 Hgb 10.9 platelets 231 seconds 140 potassium 3.9 creatinine 0.9. Medicine service did add Rocephin and nebulizer treatments due to low-grade fever Patient seen and examined with Dr. levy PHYSICAL EXAM: VITAL SIGNS: Reviewed. GENERAL: Well-developed in no acute distress. HEENT: No sclera icterus. Extraocular movements grossly intact. Moist buccal mucosa. Head is atraumatic, normocephalic. ABDOMEN: Soft. Distended. Incisional dressing clean dry and intact NEUROLOGIC: Alert and oriented. Cranial nerves II through XII grossly intact. ASSESSMENT: 1. 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 History of A. fib on Xarelto at home 3. Low-grade temp likely due to atelectasis PLAN: -IV Tylenol added for pain -Encouraged deep breathing exercises and incentive spirometer use -Continue ice packs -Continue IV morphine as needed for pain -Keep patient nothing by mouth -Increase activity as tolerated -Continue IV fluids -Continue PPI -Keep Xarelto on hold -GI prophylaxis Protonix and DVT prophylaxis Lovenox Physician Drag [place] note has been reviewed by physician. Signing provider agrees with the documented findings, assessment, and plan of care. Objective - Vital Signs Vital signs: Vital Signs Temp 99.7 F H 04/13/22 11:15 Pulse 114 H 04/13/22 11:15 Resp 18 04/13/22 11:15 BP 156/74 04/13/22 11:15 Pulse Ox 94 L 04/13/22 11:15 FiO2 Intake & Output 04/12/22 04/13/22 04/13/22 18:59 06:59 18:59 Intake Total 1550 Output Total 65 550 Balance 1485 -550 Weight 48.534 kg Intake: IV 1550 Output: Urine 50 550 Estimated Blood Loss 15 Other: Voiding Method Toilet Indwelling Catheter Diaper # Bowel Movements 1 - Labs CBC & Chem 7: 04/13/22 08:24 12 08:24 Labs: Abnormal Lab Results - Last 24 Hours (Table) 04/13/22 04/13/22 Range/Units 08:24 08:24 RBC 3.41 L (3.80-5.40) m/uL Hgb 10.9 L (11.4-16.0) gm/dL Hct 32.3 L (34.0-46.0) % Lymphocytes # 0.7 L (1.0-4.8) k/uL Chloride 114 H (98-107) mmol/L Carbon Dioxide 19 L (22-30) mmol/L BUN 22 H (7-17) mg/dL Glucose 101 H (74-99) mg/dL Calcium 8.0 L (8.4-10.2) mg/dL
[2022-04-13] MEDS: ACETAMINOPHEN IV (For NPO) 750 MG in EMPTY BAG 1 BAG IVPB SCH (16:58)
[2022-04-13] MEDS: ATORVASTATIN 10 MG TAB PO SCH (20:47)
[2022-04-13] MEDS: MONTELUKAST 10 MG TAB PO SCH (20:47)
[2022-04-13] MEDS: MELATONIN 3 MG TABLET PO SCH (20:47)
[2022-04-14] MEDS: ACETAMINOPHEN IV (For NPO) 750 MG in EMPTY BAG 1 BAG IVPB SCH ×3 (00:06→15:03)
[2022-04-14] MEDS: MORPHINE SULFATE 4 MG/ML SYRINGE IVP PRN (00:07)
[2022-04-14] MEDS: HYDROmorphone 1 MG/ML 1 ML SYRINGE IVP PRN ×5 (01:09→20:28)
[2022-04-14] MEDS: amLODIPine 10 MG TAB PO SCH (08:58)
[2022-04-14] MEDS: PANTOPRAZOLE 40 MG/10 ML VIAL IVP SCH ×2 (08:58→20:26)
[2022-04-14] MEDS: cloNIDine HCL 0.1 MG TAB PO SCH ×2 (08:58→20:26)
[2022-04-14] MEDS: LEVOTHYROXINE 50 MCG TAB PO SCH (08:58)
[2022-04-14] MEDS: ENOXAPARIN 40 MG/0.4 ML SYRINGE SQ SCH (08:59)
[2022-04-14 09:00] LABS: Basophils % (A) 0 %; Eosinophils # (A) 0.4 k/uL (0-0.7); Eosinophils % (A) 5 %; HCT 35.4 % (34.0-46.0); HGB 11.7 gm/dL (11.4-16.0); Lymphocytes # (A) 0.9 k/uL (1.0-4.8); Lymphocytes % (A) 12 %; MCH 31.8 pg (25.0-35.0); MCHC 33.1 g/dL (31.0-37.0); Mean Platelet Volume 9.6; Monocytes # (A) 0.5 k/uL (0-1.0); Monocytes % (A) 7 %; Neutrophils # (A) 5.8 k/uL (1.3-7.7); Neutrophils % (A) 74 %; Platelet Count 235 k/uL (150-450); RBC 3.68 m/uL (3.80-5.40); RDW 13.4 % (11.5-15.5); WBC 7.8 k/uL (3.8-10.6)
[2022-04-14] MEDS: SODIUM CHLORIDE 0.9% 1,000 ML IV SCH (09:00)
[2022-04-14 09:04] LABS: African American GFR (CKD) 86 (>60 ml/min/1.73 sqM); Anion Gap 8 mmol/L; Blood Urea Nitrogen 14 mg/dL (7-17); Calcium 8.3 mg/dL (8.4-10.2); Carbon Dioxide 21 mmol/L (22-30); Chloride 112 mmol/L (98-107); Glucose 86 mg/dL (74-99); Non-African American GFR(CKD) 74 (>60 ml/min/1.73 sqM); Potassium 3.4 mmol/L (3.5-5.1); Sodium 141 mmol/L (137-145)
[2022-04-14] MEDS: IPRATROPIUM-ALBUTEROL 3 ML NEB INHALATION SCH ×3 (09:31→20:24)
[2022-04-14] MEDS ORDERED: Potassium Replacement Protocol 1 EACH MISC MISCELLANE PRN (09:56)
[2022-04-14] MEDS: POTASSIUM CHLORIDE 10 MEQ in WATER FOR INJECTION 1 100ML.BAG IVPB SCH ×4 (12:11→17:09)
[2022-04-14] MEDS ORDERED: ACETAMINOPHEN TAB 325 MG TAB PO PRN (14:47)
--- NOTE | 2022-04-14 14:52 | P.PN ---
Subjective Progress Note Date: 04/14/22 CHIEF COMPLAINT: Hematemesis HISTORY OF PRESENT ILLNESS: Patient is postop day #2 right colectomy and partial omentectomy. Patient appears more comfortable today. She is more awake and alert. She had been up sitting in chair. Her pain is better controlled. She denies any nausea or vomiting. Denies any bowel activity. Afebrile. No longer having low-grade temps. WBC 7.8 Hgb 11.7 platelets 235 seconds 131 potassium is 3.4 creatinine 0.74 Patient seen and examined with Dr. levy PHYSICAL EXAM: VITAL SIGNS: Reviewed. GENERAL: Well-developed in no acute distress. HEENT: No sclera icterus. Extraocular movements grossly intact. Moist buccal mucosa. Head is atraumatic, normocephalic. ABDOMEN: Soft. Nondistended Incisional dressing clean dry and intact NEUROLOGIC: Alert and oriented. Cranial nerves II through XII grossly intact. ASSESSMENT: 1. 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 History of A. fib on Xarelto at home 3. Low-grade temp likely due to atelectasis 4. Hypokalemia PLAN: -Advance diet to full liquids -Tylenol and [place] added for oral pain medication -Consult PT OT -Consult social work for possible ECF placement -Replace potassium -Continue ice packs -Increase activity as tolerated -Encouraged patient to use incentive spirometer -Continue IV fluids -Continue PPI -Keep Xarelto on hold -GI prophylaxis Protonix and DVT prophylaxis Lovenox Physician Dehairer note has been reviewed by physician. Signing provider agrees with the documented findings, assessment, and plan of care. Objective - Vital Signs Vital signs: Vital Signs Temp 98.6 F 04/14/22 11:08 Pulse 91 04/14/22 11:08 Resp 16 04/14/22 11:08 BP 124/71 04/14/22 11:08 Pulse Ox 96 04/14/22 11:08 FiO2 Intake & Output 04/13/22 04/14/22 04/14/22 18:59 06:59 18:59 Output Total 1000 1150 700 Balance -1000 -1150 -700 Weight 48.534 kg Output: Urine 1000 1150 700 Other: Voiding Method Indwelling Catheter Toilet Bedside Commode Diaper # Voids 0 1 # Bowel Movements 0 - Labs CBC & Chem 7: 04/14/22 08:07 04/14/22 08:07 Labs: Abnormal Lab Results - Last 24 Hours (Table) 04/14/22 04/14/22 Range/Units 08:07 08:07 RBC 3.68 L (3.80-5.40) m/uL Lymphocytes # 0.9 L (1.0-4.8) k/uL Potassium 3.4 L (3.5-5.1) mmol/L Chloride 112 H (98-107) mmol/L Carbon Dioxide 21 L (22-30) mmol/L Calcium 8.3 L (8.4-10.2) mg/dL
[2022-04-14] MEDS: HYDROcodone/APAP 5-325MG 1 EACH TAB PO PRN (16:36)
--- NOTE | 2022-04-14 19:49 | P.PN ---
Subjective Progress Note Date: 04/14/22 This is an 86 year old female who was recently presented to the emergency department with hematemesis along with acute upper GI bleed with surgery following with plans for endoscopy. 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 Labs reviewed this morning and WBC is within normal limits, hemoglobin is 12.0, platelets are 234, current INR 0.9, BMP reviewed and within normal limits with a creatinine of 1.03. C. diff testing was negative. Patient denies chest pain or shortness of breath. Patient is afebrile. 04/13/2022 Patient is seen and evaluated and follow-up this morning appears to be slightly confused just received some IV Dilaudid. Patient is status post right colectomy with partial omentectomy due to a cecal bascule causing colonic obstruction. Patient is currently nothing by mouth per surgery recommendations and continues with severe pain. Did have a follow-up chest x-ray yesterday after surgery which shows bibasilar infiltrates correlate for aspiration and atelectasis. Will decrease IV fluids gently, order incentive spirometer encourage the patient to continue using at least 10 times every hour while awake and will also initiate Rocephin empirically along with DuoNeb treatments. Patient is also having fevers and recommend blood cultures with empiric antibiotics. Patient will need physical therapy with possible ECF. Patient is currently nothing by mouth per surgery. Labs reviewed and WBC within normal limits hemoglobin is stable at 10.9, electrolytes are normal and would recommend follow-up labs in a.m. Will also give DuoNeb treatments. 04/14/2022 Patient is seen in follow-up today currently sitting up at the side of the bed working with physical therapy. Patient reports her pain is better controlled today and able to get up and move around although continues to be significantly weak. Patient is maintained on 2 L via nasal cannula and recommend to wean as tolerated. Patient will be encouraged to continue with incentive spirometer at least 10 times every hour while awake. Patient has been started on empiric antibiotics and will continue for now along with DuoNeb breathing treatments. Potassium slightly low and will replace per protocol recommend follow-up labs. Patient is currently afebrile and continues to be nothing by mouth while awaiting for surgery recommendations for possible starting of diet. Recommend physical therapy daily with case management following and working on possible ECF once stabilized. Patient denies passing gas or having bowel movements as of yet. [place] catheter is being replaced. Encouraged increased activity as tolerated. Home Xarelto currently on hold per surgery recommendations and will continue subcutaneous Lovenox for DVT prophylaxis. Review of systems: Constitutional: No reports of fatigue, fever, or chills Cardiovascular: No reports of chest pain or palpitations Respiratory: No reports of shortness of breath or cough GI: No reports of nausea, no reports of vomiting, or diarrhea, reports improvement in abdominal discomfort : No reports of dysuria or retention Neurovascular: reports of generalized weakness All medications have been reviewed Active Medications Acetaminophen (Acetaminophen Tab 325 Mg Tab) 650 mg PO Q4HR PRN PRN Reason: Fever and/ or Pain Hydrocodone Bitart/Acetaminophen (Hydrocodone/Apap 5-325mg 1 Each Tab) 1 each PO Q4HR PRN PRN Reason: Pain Last Admin: 04/14/22 16:36 Dose: 1 each Albuterol/Ipratropium (Ipratropium-Albuterol 3 Ml Neb) 3 ml INHALATION RT-TID PRN PRN Reason: Shortness Of Breath Or Wheezing Albuterol/Ipratropium (Ipratropium-Albuterol 3 Ml Neb) 3 ml INHALATION RT-TID [facility] Last Admin: 04/14/22 16:10 Dose: 3 ml Amlodipine Besylate (Amlodipine 10 Mg Tab) 10 mg PO DAILY [facility] Last Admin: 04/14/22 08:58 Dose: 10 mg Atorvastatin Calcium (Atorvastatin 10 Mg Tab) 10 mg PO HS [facility] Last Admin: 04/13/22 20:47 Dose: 10 mg Clonidine (Clonidine Hcl 0.1 Mg Tab) 0.1 mg PO BID [facility] Last Admin: 04/14/22 08:58 Dose: 0.1 mg Enoxaparin Sodium (Enoxaparin 40 Mg/0.4 Ml Syringe) 40 mg SQ DAILY [facility] Last Admin: 04/14/22 08:59 Dose: 40 mg Hydromorphone HCl (Hydromorphone 1 Mg/Ml 1 Ml Syringe) 1 mg IVP Q3HR PRN PRN Reason: Pain Last Admin: 04/14/22 15:36 Dose: 1 mg Sodium Chloride (Saline 0.9%) 1,000 mls @ 75 mls/hr IV .[id number] [facility] Last Admin: 04/14/22 09:00 Dose: 75 mls/hr Ceftriaxone Sodium 1 gm/ (Sodium Chloride) 50 mls @ 100 mls/hr IVPB Q24HR [facility]; Protocol Last Admin: 04/14/22 08:58 Dose: 100 mls/hr Levothyroxine Sodium (Levothyroxine 50 Mcg Tab) 50 mcg PO [id number] [facility] Last Admin: 04/14/22 08:58 Dose: 50 mcg Melatonin (Melatonin 3 Mg Tablet) 3 mg PO [facility] Last Admin: 04/13/22 20:47 Dose: 3 mg Miscellaneous Information (Potassium Replacement Protocol 1 Each Misc) 1 each MISCELLANE DAILY PRN; Protocol PRN Reason: Per Protocol Montelukast Sodium (Montelukast 10 Mg Tab) 10 mg PO [facility] Last Admin: 04/13/22 20:47 Dose: 10 mg Morphine Sulfate (Morphine Sulfate 4 Mg/Ml Syringe) 4 mg IVP Q1HR PRN PRN Reason: Moderate Breakthrough Pain Last Admin: 04/14/22 00:07 Dose: 4 mg Naloxone HCl (Naloxone 0.4 Mg/Ml 1 Ml Vial) 0.2 mg IV Q2M PRN PRN Reason: Opioid Reversal Ondansetron HCl (Ondansetron 4 Mg/2 Ml Vial) 4 mg IVP Q8HR PRN PRN Reason: Nausea And Vomiting Pantoprazole Sodium (Pantoprazole 40 Mg/10 Ml Vial) 40 mg IVP BID [facility] Last Admin: 04/14/22 08:58 Dose: 40 mg PHYSICAL EXAMINATION: GENERAL: The patient is alert and oriented x-3, appears more comfortable today, Well developed, well nourished. HEENT: Pupils are round and equally reacting to light. EOMI. no scleral icterus. No conjunctival pallor. Normocephalic, atraumatic. No pharyngeal erythema. No thyromegaly. CARDIOVASCULAR: S1 and S2 muffled PULMONARY: diminished breath sounds bilaterally with no wheezing and some scattered rhonchi noted. ABDOMEN: soft. Mildly tender on light palpation on exam. Less distended, hypoac tive bowel sounds. No palpable organomegaly. MUSCULOSKELETAL: No joint swelling or deformity. EXTREMITIES: No cyanosis, clubbing, or pedal edema. NEUROLOGICAL: Gross neurological examination did not reveal any focal deficits. Diffuse weakness SKIN: No rashes. Assessment: Acute hematemesis and upper GI bleed for evaluation Status post right colectomy with partial omentectomy secondary to cecal bascule causing colonic obstruction, postop day 2 Fevers of unknown origin, rule out possible pneumonia Hypokalemia Acute on chronic kidney disease Paroxysmal atrial fibrillation History of CVA GI prophylaxis DVT prophylaxis, subcutaneous Lovenox no code Plan: Recommend to continue with current medications and management of general surgery service is following. Patient is postop right colectomy with partial omentectomy due to a cecal bascule causing colonic obstruction. Patient is currently nothing by mouth and surgery evaluating today recommending possibly advancing diet to monitor for tolerance. Patient denies bowel activity as of yet although appears more comfortable today. Patient is maintained on IV ceftriaxone and will continue for now. Patient is afebrile. Potassium slightly low at 3.3 placed per protocol recommending follow-up labs in the a.m. Patient with significant weakness recommending physical therapy daily. Encouraged increase activity as tolerated. Patient is not having any bowel movements or passing gas as of yet. Cain bandages management is following and will be working on discharge planning to possible ECF once patient is stabilized and discharged. Due to multiple complex medical issues, prognosis is guarded. The impression and plan of care has been dictated by Alexia Frazier, nurse practitioner as directed. Dr. Hardeep MD I have performed a history and examination and MDM of this patient, discussed the same with the dictator, and agree with the dictator's assessment and plan as written ,documented as a scribe. Based on total visit time, I have performed more than 50% of the visit. Any additional findings or plans will be noted. Objective - Vital Signs Vital signs: Vital Signs Temp 98.4 F 04/14/22 17:25 Pulse 113 H 04/14/22 17:25 Resp 18 04/14/22 17:25 BP 123/74 04/14/22 17:25 Pulse Ox 96 04/14/22 17:25 FiO2 Intake & Output 04/14/22 04/14/22 04/15/22 06:59 18:59 06:59 Output Total 1150 700 Balance -1150 -700 Weight 48.534 kg Output: Urine 1150 700 Other: Voiding Method Indwelling Catheter Toilet Bedside Commode Diaper # Voids 0 1 # Bowel Movements 0 - Labs CBC & Chem 7: 04/14/22 08:07 04/14/22 08:07 Labs: Abnormal Lab Results - Last 24 Hours (Table) 04/14/22 04/14/22 Range/Units 08:07 08:07 RBC 3.68 L (3.80-5.40) m/uL Lymphocytes # 0.9 L (1.0-4.8) k/uL Potassium 3.4 L (3.5-5.1) mmol/L Chloride 112 H (98-107) mmol/L Carbon Dioxide 21 L (22-30) mmol/L Calcium 8.3 L (8.4-10.2) mg/dL Microbiology - Last 24 Hours (Table) 04/13/22 15:45 Blood Culture - Preliminary Blood No Growth after 24 hours
[2022-04-14] MEDS: MONTELUKAST 10 MG TAB PO SCH (20:26)
[2022-04-14] MEDS: MELATONIN 3 MG TABLET PO SCH (20:26)
[2022-04-14] MEDS: ATORVASTATIN 10 MG TAB PO SCH (20:26)
[2022-04-15] MEDS: HYDROmorphone 1 MG/ML 1 ML SYRINGE IVP PRN ×3 (01:49→17:05)
[2022-04-15] MEDS: SODIUM CHLORIDE 0.9% 1,000 ML IV SCH ×2 (02:25→17:06)
[2022-04-15] MEDS: HYDROcodone/APAP 5-325MG 1 EACH TAB PO PRN (03:58)
[2022-04-15] MEDS: IPRATROPIUM-ALBUTEROL 3 ML NEB INHALATION SCH ×3 (07:50→19:32)
[2022-04-15] MEDS: MORPHINE SULFATE 4 MG/ML SYRINGE IVP PRN (08:10)
[2022-04-15] MEDS: ONDANSETRON 4 MG/2 ML VIAL IVP PRN (08:14)
[2022-04-15 08:21] LABS: Glucose,Whole Blood 126 mg/dL (70-110)
[2022-04-15 09:06] LABS: Basophils % (A) 0 %; Eosinophils # (A) 0.2 k/uL (0-0.7); Eosinophils % (A) 3 %; HCT 35.8 % (34.0-46.0); HGB 12.1 gm/dL (11.4-16.0); Lymphocytes # (A) 1.2 k/uL (1.0-4.8); Lymphocytes % (A) 19 %; MCH 31.8 pg (25.0-35.0); MCHC 33.7 g/dL (31.0-37.0); MCV 94.5 fL (80.0-100.0); Mean Platelet Volume 8.8; Monocytes # (A) 0.4 k/uL (0-1.0); Monocytes % (A) 7 %; Neutrophils # (A) 4.5 k/uL (1.3-7.7); Neutrophils % (A) 69 %; Platelet Count 272 k/uL (150-450); RBC 3.79 m/uL (3.80-5.40); RDW 13.1 % (11.5-15.5); WBC 6.6 k/uL (3.8-10.6)
[2022-04-15 09:14] LABS: Magnesium 1.4 mg/dL (1.5-2.4)
--- NOTE | 2022-04-15 09:55 | XR ---
EXAMINATION TYPE: XR abdomen 2V DATE OF EXAM: 04/15/2022 9:22 AM INDICATION: Patient age:Female; 86 years old; Reason for study: Abdominal pain; PHH. COMPARISON: Prior CT and abdominal radiograph 04/11/2022. TECHNIQUE: One radiographic view of the abdomen was obtained. FINDINGS: Dilated small bowel abdomen measuring up to 5.2 cm in the right lower quadrant. There is re tained contrast within the colon along the descending colon. No evidence of abnormal calcifications. Skin chelle are present. No acute osseous abnormality. IMPRESSION: Dilated loops of bowel which could represent ileus given recent surgery.
[2022-04-15 09:58] LABS: African American GFR (CKD) 77.4 (60.0-200.0); Anion Gap 12.2 mmol/L (10.00-18.00); BUN/Creat Ratio 16.5 Ratio (12.00-20.00); Blood Urea Nitrogen 13.2 mg/dL (9.0-27.0); Carbon Dioxide 19.8 mmol/L (20.0-27.5); Non-African American GFR(CKD) 66.8 (60.0-200.0)
--- NOTE | 2022-04-15 10:46 | XR ---
EXAMINATION TYPE: XR chest 1V portable DATE OF EXAM: 04/15/2022 10:07 AM COMPARISON: Chest radiographs from 04/12/2022, 04/11/2022 CT TECHNIQUE: XR chest 1V portable Portable AP radiograph of the chest. CLINICAL INDICATION:Female, 86 years old with history of pna; FINDINGS: Lungs/Pleura: Prominent interstitial lung markings are seen scattered throughout the lungs. No eviden ce of focal consolidation, pneumothorax or pleural effusion. Pulmonary vascularity: Unremarkable. Heart/mediastinum: Cardiomediastinal silhouette is unremarkable. Musculoskeletal: No acute osseous pathology. IMPRESSION: Chronic interstitial changes, no definitive airspace opacities. Less prominent opacities on today's e xam compared to immediate prior radiograph, there was no finding on CT in the lower lungs.
--- NOTE | 2022-04-15 11:13 | P.PN ---
Subjective Progress Note Date: 04/15/22 Principal diagnosis: Abdominal pain Patient describes increased abdominal pain to the nursing staff this morning. Some nausea. No vomiting. No bowel function. Abdominal x-rays show adynamic ileus with dilated small bowel loops. White blood cell count is normal. Lactic acid is normal. Objective - Vital Signs Vital signs: Vital Signs Temp 98.6 F 04/15/22 05:00 Pulse 78 04/15/22 08:03 Resp 16 04/15/22 05:00 BP 161/88 04/15/22 05:00 Pulse Ox 94 L 04/15/22 07:50 FiO2 Intake & Output 04/14/22 04/15/22 04/15/22 18:59 06:59 18:59 Output Total 700 Balance -700 Weight 48.534 kg Output: Urine 700 Other: Voiding Method Toilet Toilet Bedside Commode Bedside Commode Diaper Diaper # Voids 1 1 # Bowel Movements 0 - Exam Abdomen: Soft, distended, mild diffuse tenderness, incision clean and dry - Labs CBC & Chem 7: 04/15/22 08:50 04/15/22 05:21 Labs: Abnormal Lab Results - Last 24 Hours (Table) 04/15/22 04/15/22 04/15/22 Range/Units 05:21 05:21 08:18 RBC (3.80-5.40) m/uL Carbon Dioxide 19.8 L (20.0-27.5) mmol/L Glucose 131 H (70-110) mg/dL POC Glucose (mg/dL) 126 H (70-110) mg/dL Magnesium 1.4 L (1.5-2.4) mg/dL Procalcitonin 1.34 H (0.02-0.09) ng/mL 04/15/22 Range/Units 08:50 RBC 3.79 L (3.80-5.40) m/uL Carbon Dioxide (20.0-27.5) mmol/L Glucose (70-110) mg/dL POC Glucose (mg/dL) (70-110) mg/dL Magnesium (1.5-2.4) mg/dL Procalcitonin (0.02-0.09) ng/mL Microbiology - Last 24 Hours (Table) 04/13/22 15:45 Blood Culture - Preliminary Blood No Growth after 24 hours Assessment and Plan (1) Abdominal pain Narrative/Plan: Patient with ileus on today's x-ray. That would explain the patient's increased discomfort and nausea. Will place nasogastric tube to suction. Current Visit: Yes Status: Acute Code(s): R10.9 - UNSPECIFIED ABDOMINAL PAIN [facility] Code(s): 83218291
[2022-04-15] MEDS: PANTOPRAZOLE 40 MG/10 ML VIAL IVP SCH ×2 (11:37→20:12)
[2022-04-15] MEDS: ENOXAPARIN 40 MG/0.4 ML SYRINGE SQ SCH (11:38)
[2022-04-15] MEDS: amLODIPine 10 MG TAB PO SCH (11:44)
[2022-04-15] MEDS: cloNIDine HCL 0.1 MG TAB PO SCH (11:44)
[2022-04-15] MEDS ORDERED: hydrALAZINE HCL 20 MG/ML 1 ML VIAL IVP PRN (13:45)
--- NOTE | 2022-04-15 13:45 | P.PN ---
Subjective This is an 86 year old female who was recently presented to the emergency department with hematemesis along with acute upper GI bleed with surgery f latha with plans for endoscopy. 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 Labs reviewed this morning and WBC is within normal limits, hemoglobin is 12.0, platelets are 234, current INR 0.9, BMP reviewed and within normal limits with a creatinine of 1.03. C. diff testing was negative. Patient denies chest pain or shortness of breath. Patient is afebrile. 04/13/2022 Patient is seen and evaluated and follow-up this morning appears to be slightly confused just received some IV Dilaudid. Patient is status post right colectomy with partial omentectomy due to a cecal bascule causing colonic obstruction. Patient is currently nothing by mouth per surgery recommendations and continues with severe pain. Did have a follow-up chest x-ray yesterday after surgery which shows bibasilar infiltrates correlate for aspiration and atelectasis. Will decrease IV fluids gently, order incentive spirometer encourage the patient to continue using at least 10 times every hour while awake and will also initiate Rocephin empirically along with DuoNeb treatments. Patient is also having fevers and recommend blood cultures with empiric antibiotics. Patient will need physical therapy with possible ECF. Patient is currently nothing by mouth per surgery. Labs reviewed and WBC within normal limits hemoglobin is stable at 10.9, electrolytes are normal and would recommend follow-up labs in a.m. Will also give DuoNeb treatments. 04/14/2022 Patient is seen in follow-up today currently sitting up at the side of the bed working with physical therapy. Patient reports her pain is better controlled today and able to get up and move around although continues to be significantly weak. Patient is maintained on 2 L via nasal cannula and recommend to wean as tolerated. Patient will be encouraged to continue with incentive spirometer at least 10 times every hour while awake. Patient has been started on empiric antibiotics and will continue for now along with DuoNeb breathing treatments. Potassium slightly low and will replace per protocol recommend follow-up labs. Patient is currently afebrile and continues to be nothing by mouth while awaiti ng for surgery recommendations for possible starting of diet. Recommend physical therapy daily with case management following and working on possible ECF once stabilized. Patient denies passing gas or having bowel movements as of yet. Thapa catheter is being replaced. Encouraged increased activity as tolerated. Home Xarelto currently on hold per surgery recommendations and will continue subcutaneous Lovenox for DVT prophylaxis. Resume the care of the patient today 04/15/2020 This is a pleasant 86 years old female who presents with signs and symptoms of bowel obstruction status post right colectomy and partial omentectomy by surgery team on 04/14. Today is postoperative day #1, she has significant abdominal distention with x-ray showing postop ileus. NG tube was placed and that was an immediate return of 500 mL of greenish discharge. Also she has some abdominal pain and tenderness which is expected from her surgery. She is nothing by mouth currently and getting normal saline at 75 mL/h. proCalcitonin is elevated 1.3. Currently she is on ceftriaxone however I think it is more appropriate to change her antibiotics to Zosyn to cover and aerobes especially patient clinically is symptomatic and not improving repeat chest x- ray showed chronic changes with no evidence of aspiration. She had fever yesterday but no more fever today Also she is on normal saline 75 mL/h Patient also has evidence of 9.98.95.4 cm right large adrenal mass, patient informed and she verbalized understanding for the need for outpatient follow-up once stabilized. We change her by mouth Norvasc and clonidine into clonidine patch, and IV levothyroxine send off oral dose Review of systems CONSTITUTIONAL: No fever, no malaise, no fatigue. HEENT: No recent visual problems or hearing problems. Denied any sore throat. CARDIOVASCULAR: No orthopnea, PND, no palpitations, no syncope. PULMONARY: No shortness of breath, no cough, no hemoptysis. NEUROLOGICAL: No headaches, no weakness, no numbness. Active Medications Generic Name Dose Route Start Last Admin Trade Name Freq PRN Reason Stop Dose Admin Acetaminophen 650 mg 04/14/22 14:47 Acetaminophen Tab 325 Mg Tab PO Q4HR PRN Fever and/ or Pain Hydrocodone Bitart/Acetaminophen 1 each 04/14/22 14:47 04/15/22 03:58 Hydrocodone/Apap 5-325mg 1 Each Tab PO 1 each Q4HR PRN Administration Pain Albuterol/Ipratropium 3 ml 04/13/22 12:31 Ipratropium-Albuterol 3 Ml Neb INHALATION RT-TID PRN Shortness Of Breath Or Wheezing Albuterol/Ipratropium 3 ml 04/13/22 13:00 04/15/22 11:49 Ipratropium-Albuterol 3 Ml Neb INHALATION 3 ml RT-TID DON Administration Atorvastatin Calcium 10 mg 04/09/22 21:00 04/14/22 20:26 Atorvastatin 10 Mg Tab PO 10 mg HS DON Administration Clonidine HCl 1 patch 04/15/22 15:00 Clonidine 0.2 Mg/24hr Patch TRANSDERM Q7D DON Enoxaparin Sodium 40 mg 04/13/22 09:00 04/15/22 11:38 Enoxaparin 40 Mg/0.4 Ml Syringe SQ 40 mg DAILY DON Administration Hydromorphone HCl 1 mg 04/12/22 15:35 04/15/22 01:49 Hydromorphone 1 Mg/Ml 1 Ml Syringe IVP 1 mg Q3HR PRN Administration Pain Sodium Chloride 1,000 mls @ 75 mls/hr 04/12/22 15:45 04/15/22 02:25 Saline 0.9% IV 75 mls/hr .[id number] DON Administration Piperacillin Sod/Tazobactam 100 mls @ 25 mls/hr 04/15/22 16:00 Sod 3.375 gm/ Sodium Chloride IVPB Q8HR DON Protocol Levothyroxine Sodium 37.5 mcg 04/16/22 09:00 Levothyroxine Ivp 100 Mcg/5 Ml Vial IV DAILY DON Melatonin 3 mg 04/08/22 23:30 04/14/22 20:26 Melatonin 3 Mg Tablet PO 3 mg HS DON Administration Miscellaneous Information 1 each 04/14/22 09:56 Potassium Replacement Protocol 1 Each Misc MISCELLANE DAILY PRN Per Protocol Protocol Montelukast Sodium 10 mg 04/09/22 21:00 04/14/22 20:26 Montelukast 10 Mg Tab PO 10 mg HS DON Administration Morphine Sulfate 4 mg 04/13/22 11:01 04/15/22 08:10 Morphine Sulfate 4 Mg/Ml Syringe IVP 4 mg Q1HR PRN Administration Moderate Breakthrough Pain Naloxone HCl 0.2 mg 04/08/22 16:12 Naloxone 0.4 Mg/Ml 1 Ml Vial IV Q2M PRN Opioid Reversal Ondansetron HCl 4 mg 04/08/22 16:12 04/15/22 08:14 Ondansetron 4 Mg/2 Ml Vial IVP 4 mg Q8HR PRN Administration Nausea And Vomiting Pantoprazole Sodium 40 mg 04/09/22 09:00 04/15/22 11:37 Pantoprazole 40 Mg/10 Ml Vial IVP 40 mg BID DON Administration Objective - Vital Signs Vital signs: Vital Signs Temp 98.5 F 04/15/22 11:30 Pulse 72 04/15/22 11:59 Resp 20 04/15/22 11:30 BP 145/82 04/15/22 11:30 Pulse Ox 96 04/15/22 11:30 FiO2 Intake & Output 04/14/22 04/15/22 04/15/22 18:59 06:59 18:59 Output Total 700 Balance -700 Weight 48.534 kg Output: Urine 700 Other: Voiding Method Toilet Toilet Bedside Commode Bedside Commode Diaper Diaper # Voids 1 1 # Bowel Movements 0 - Exam GENERAL: The patient is alert and oriented x3, not in any acute distress. Well d eveloped, well nourished. HEENT: Pupils are round and equally reacting to light. EOMI. No scleral icterus. No conjunctival pallor. Normocephalic, atraumatic. No pharyngeal erythema. No thyromegaly. CARDIOVASCULAR: S1 and S2 present. No murmurs, rubs, or gallops. PULMONARY: Chest is clear to auscultation, no wheezing or crackles. -ABDOMEN: Soft, tender, distended, normoactive bowel sounds. No palpable organomegaly. Surgical wound with dressing in a Place soft exam is deferred for surgery team, MUSCULOSKELETAL: No joint swelling or deformity. EXTREMITIES: No cyanosis, clubbing, or pedal edema. NEUROLOGICAL: Gross neurological examination did not reveal any focal deficits. SKIN: No rashes. no petechiae. - Labs CBC & Chem 7: 04/15/22 08:50 04/15/22 05:21 Labs: Abnormal Lab Results - Last 24 Hours (Table) 04/15/22 04/15/22 04/15/22 Range/Units 05:21 05:21 08:18 RBC (3.80-5.40) m/uL Carbon Dioxide 19.8 L (20.0-27.5) mmol/L Glucose 131 H (70-110) mg/dL POC Glucose (mg/dL) 126 H (70-110) mg/dL Magnesium 1.4 L (1.5-2.4) mg/dL Procalcitonin 1.34 H (0.02-0.09) ng/mL 04/15/22 Range/Units 08:50 RBC 3.79 L (3.80-5.40) m/uL Carbon Dioxide (20.0-27.5) mmol/L Glucose (70-110) mg/dL POC Glucose (mg/dL) (70-110) mg/dL Magnesium (1.5-2.4) mg/dL Procalcitonin (0.02-0.09) ng/mL Microbiology - Last 24 Hours (Table) 04/13/22 15:45 Blood Culture - Preliminary Blood No Growth after 24 hours Assessment and Plan Assessment: Acute Bowel obstruction status post right colectomy and partial omentectomy Postoperative ileus Enterocolitis Large right adrenal mass Chronic atrial fibrillation on Xarelto (currently on hold) History of CVA Plan: Continue with normal saline Change antibiotics to Zosyn Keep NG tube Bowel rest Pain management Surgery team consult on the case Labs and medication were reviewed.. Continue same treatment. Continue with symptomatic treatment. Resume home medication. Monitor labs and vitals. DVT and GI prophylaxis. Further recommendations as per clinical course of the patient DVT prophylaxis: Subcutaneous Lovenox while his adult on hold GI Prophylaxis: Ppi PT/OT: Pending Prognosis is guarded
[2022-04-15] MEDS ORDERED: cloNIDine 0.2 MG/24HR PATCH TRANSDERM SCH (15:00)
[2022-04-15] MEDS: PIPERACILLIN-TAZOBACTAM 3.375 GM in SODIUM CHLORIDE 0.9% 100 ML IVPB SCH (15:09)
[2022-04-15] MEDS: LEVOTHYROXINE 50 MCG TAB PO SCH (17:33)
[2022-04-15] MEDS: ACETAMINOPHEN IV (For NPO) 650 MG in EMPTY BAG 1 BAG IVPB PRN (20:11)
[2022-04-15] MEDS: ATORVASTATIN 10 MG TAB PO SCH (20:12)
[2022-04-15] MEDS: MELATONIN 3 MG TABLET PO SCH (20:12)
[2022-04-15] MEDS: MONTELUKAST 10 MG TAB PO SCH (20:13)
[2022-04-15] MEDS ORDERED: Magnesium Replacement Protocol 1 EACH MISC MISCELLANE PRN (21:13)
[2022-04-16] MEDS: HYDROmorphone 1 MG/ML 1 ML SYRINGE IVP PRN ×2 (00:23→03:09)
[2022-04-16] MEDS: PIPERACILLIN-TAZOBACTAM 3.375 GM in SODIUM CHLORIDE 0.9% 100 ML IVPB SCH ×4 (00:24→23:16)
[2022-04-16 04:51] LABS: Glucose,Whole Blood 109 mg/dL (70-110)
[2022-04-16 05:13] LABS: African American GFR (CKD) 90 (>60 ml/min/1.73 sqM); Anion Gap 4 mmol/L; Blood Urea Nitrogen 9 mg/dL (7-17); Calcium 8.5 mg/dL (8.4-10.2); Carbon Dioxide 25 mmol/L (22-30); Chloride 112 mmol/L (98-107); Glucose 114 mg/dL (74-99); Magnesium 1.4 mg/dL (1.6-2.3); Non-African American GFR(CKD) 78 (>60 ml/min/1.73 sqM); Sodium 141 mmol/L (137-145)
[2022-04-16 05:17] LABS: Basophils % (A) 0 %; Eosinophils # (A) 0.2 k/uL (0-0.7); Eosinophils % (A) 4 %; HCT 35.3 % (34.0-46.0); HGB 11.6 gm/dL (11.4-16.0); Lymphocytes # (A) 0.9 k/uL (1.0-4.8); Lymphocytes % (A) 14 %; MCH 30.7 pg (25.0-35.0); MCHC 32.9 g/dL (31.0-37.0); MCV 93.4 fL (80.0-100.0); Mean Platelet Volume 8.8; Monocytes # (A) 0.5 k/uL (0-1.0); Monocytes % (A) 8 %; Neutrophils # (A) 4.4 k/uL (1.3-7.7); Neutrophils % (A) 71 %; Platelet Count 278 k/uL (150-450); RBC 3.78 m/uL (3.80-5.40); RDW 13.5 % (11.5-15.5); WBC 6.2 k/uL (3.8-10.6)
[2022-04-16 05:23] LABS: Potassium 3.3 mmol/L (3.5-5.1)
[2022-04-16] MEDS ORDERED: MORPHINE SULFATE 2 MG/ML SYRINGE IVP PRN (05:41)
[2022-04-16 05:42] LABS: Glucose,Whole Blood 115 mg/dL (70-110)
--- NOTE | 2022-04-16 05:49 | CT ---
EXAMINATION TYPE: CT brain wo con DATE OF EXAM: 04/16/2022 COMPARISON: 02/22/2022 HISTORY: STROKE LIKE SYMPTOMS CT DLP: 2163.2 mGycm Automated exposure control for dose reduction was used. Images obtained of the brain without contrast. There is cerebral atrophy. There is no mass effect or midline shift. No sign of intracranial hemorrha ge. There is hypodensity in the periventricular white matter. There is old left-sided frontal lobe co rtical infarct. The calvarium is intact. IMPRESSION: Cerebral atrophy and chronic small vessel ischemia. Old left frontal lobe cortical infarct. No acute intracranial abnormality. No change compared to old exam.
[2022-04-16] MEDS ORDERED: Magnesium Replacement Protocol 1 EACH MISC MISCELLANE PRN (06:25)
[2022-04-16] MEDS: SODIUM CHLORIDE 0.9% 1,000 ML IV SCH ×2 (06:53→20:24)
[2022-04-16] MEDS: MAGNESIUM SULFATE-D5W PMX 1 GM in DEXTROSE/WATER 1 100ML.BAG IVPB SCH ×3 (06:54→12:05)
[2022-04-16] MEDS: IPRATROPIUM-ALBUTEROL 3 ML NEB INHALATION SCH ×3 (09:33→20:20)
[2022-04-16] MEDS: LEVOTHYROXINE IVP 100 MCG/5 ML VIAL IV SCH (10:00)
[2022-04-16] MEDS: PANTOPRAZOLE 40 MG/10 ML VIAL IVP SCH ×2 (10:01→21:17)
[2022-04-16] MEDS: POTASSIUM CHLORIDE 10 MEQ in WATER FOR INJECTION 1 100ML.BAG IVPB SCH ×7 (10:01→23:16)
[2022-04-16] MEDS: ENOXAPARIN 40 MG/0.4 ML SYRINGE SQ SCH (10:01)
--- NOTE | 2022-04-16 10:01 | P.PN ---
Subjective Progress Note Date: 04/16/22 Principal diagnosis: Abdominal pain Patient was transferred to the ICU last night because of neuro status changes. There was concern for possible CVA. Patient had A. fib last night. Possible TIA per neurology. Doing better this morning. She is somewhat confused. She has not had complaints of abdominal pain per the nursing staff. Nasogastric tube remains in place. Objective - Vital Signs Vital signs: Vital Signs Temp 98.7 F 04/15/22 21:00 Pulse 118 H 04/16/22 09:44 Resp 16 04/15/22 21:00 BP 162/82 04/15/22 21:00 Pulse Ox 93 L 04/15/22 21:00 FiO2 Intake & Output 04/15/22 04/16/22 04/16/22 18:59 06:59 18:59 Intake Total 950 0 Output Total 1350 325 Balance 950 -1350 -325 Intake: IV 0 Sodium Chloride 0.9% 1, 0 000 ml @ 75 mls/hr IV . [id number] DON Rx#:[id number] Intake, IV Titration 950 Amount Sodium Chloride 0.9% 1, 900 000 ml @ 75 mls/hr IV . [id number] DON Rx#:[id number] cefTRIAXone 1 gm In 50 Sodium Chloride 0.9% 50 ml @ 100 mls/hr IVPB Q24HR DON Rx#:[id number] Output: Urine 1350 325 Other: Voiding Method Bedside Commode Bedside Commode # Voids 0 # Bowel Movements 0 - Exam Abdomen: Soft, mild diffuse tenderness, dressing clean and dry - Labs CBC & Chem 7: 04/16/22 04:50 04/16/22 04:50 Labs: Abnormal Lab Results - Last 24 Hours (Table) 04/16/22 04/16/22 04/16/22 Range/Units 04:50 04:50 05:39 RBC 3.78 L (3.80-5.40) m/uL Lymphocytes # 0.9 L (1.0-4.8) k/uL Potassium 3.3 L (3.5-5.1) mmol/L Chloride 112 H (98-107) mmol/L Glucose 114 H (74-99) mg/dL POC Glucose (mg/dL) 115 H (70-110) mg/dL Magnesium 1.4 L (1.6-2.3) mg/dL Microbiology - Last 24 Hours (Table) 04/13/22 15:45 Blood Culture - Preliminary Blood No Growth after 48 hours Assessment and Plan (1) Abdominal pain Narrative/Plan: From an abdominal point of view patient seems to be doing somewhat better today. She is less distended. She is having less discomfort. Keep nasogastric tube to low intermittent suction for now. Continue neuro evaluation. Current Visit: Yes Status: Acute Code(s): R10.9 - UNSPECIFIED ABDOMINAL PAIN SNOMED Code(s): 49730187
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
--- NOTE | 2022-04-16 11:12 | US ---
EXAMINATION TYPE: US carotid duplex BILAT DATE OF EXAM: 04/16/2022 COMPARISON: US 2015 CLINICAL HISTORY: stroke. TECHNIQUE: Carotid duplex ultrasound examination. Indirect Doppler criteria was utilized. FINDINGS: EXAM MEASUREMENTS: RIGHT: Peak Systolic Velocity (PSV) cm/sec ----- Right CCA: 57.7 ----- Right ICA: 60.0 ----- Right ECA: 133.4 ICA/CCA ratio: 1.0 RIGHT: End Diastole cm/sec ----- Right CCA: 10.1 ----- Right ICA: 13.8 ----- Right ECA: 7.4 LEFT: Peak Systolic Velocity (PSV) cm/sec ----- Left CCA: 52.9 ----- Left ICA: 114.0 ----- Left ECA: 123.7 ICA/CCA ratio: 2.2 LEFT: End Diastole cm/sec ----- Left CCA: 10.1 ----- Left ICA: 12.3 ----- Left ECA: 0.0 VERTEBRALS (direction of flow): Right Vertebral: Antegrade Left Vertebral: Antegrade Rhythm: Normal [place]URL[place] MAN NOTES: Somewhat technically difficult due to patient position. Moderate atherosclerotic c hanges without significant velocity increases. IMPRESSION: 1. 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 2. Less than 50% stenosis of the right carotid bifurcation. Criteria for Assigning % of Stenosis / Diameter reduction (Estimation based on the indirect measurements of the internal carotid artery velocities (ICA PSV). 1. Normal (no stenosis)=ICA PSV < 125 cm/s: ratio < 2.0: ICA EDV<40 cm/s. 2. Less than 50% stenosis=ICA PSV < 125 cm/s: ratio < 2.0: ICA EDV<40 cm/s. 3. 50 to 69% stenosis=ICA PSV of 125 to 230 cm/s: ration 2.0 ? 4.0: ICA EDV 40-100 cm/s. 4. Greater than 70% stenosis to near occlusion= ICA PSV > 230 cm/s: ratio > 4.0: ICA EDV > 100 cm/s. 5. Near occlusion= ICA PSV velocities may be low or undetectable: variable ratio and ICA EDV. 6. Total occlusion=unable to detect flow.
[2022-04-16] MEDS: ONDANSETRON 4 MG/2 ML VIAL IVP PRN (13:29)
[2022-04-16 17:20] LABS: Chol/HDL Ratio 2.06 Ratio; LDL Cholesterol,Calculated 30.5 mg/dL (0.0-131.0)
--- NOTE | 2022-04-16 19:28 | P.PN ---
Subjective This is an 86 year old female who was recently presented to the emergency department with hematemesis along with acute upper GI bleed with surgery f latha with plans for endoscopy. 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 Labs reviewed this morning and WBC is within normal limits, hemoglobin is 12.0, platelets are 234, current INR 0.9, BMP reviewed and within normal limits with a creatinine of 1.03. C. diff testing was negative. Patient denies chest pain or shortness of breath. Patient is afebrile. 04/13/2022 Patient is seen and evaluated and follow-up this morning appears to be slightly confused just received some IV Dilaudid. Patient is status post right colectomy with partial omentectomy due to a cecal bascule causing colonic obstruction. Patient is currently nothing by mouth per surgery recommendations and continues with severe pain. Did have a follow-up chest x-ray yesterday after surgery which shows bibasilar infiltrates correlate for aspiration and atelectasis. Will decrease IV fluids gently, order incentive spirometer encourage the patient to continue using at least 10 times every hour while awake and will also initiate Rocephin empirically along with DuoNeb treatments. Patient is also having fevers and recommend blood cultures with empiric antibiotics. Patient will need physical therapy with possible ECF. Patient is currently nothing by mouth per surgery. Labs reviewed and WBC within normal limits hemoglobin is stable at 10.9, electrolytes are normal and would recommend follow-up labs in a.m. Will also give DuoNeb treatments. 04/14/2022 Patient is seen in follow-up today currently sitting up at the side of the bed working with physical therapy. Patient reports her pain is better controlled today and able to get up and move around although continues to be significantly weak. Patient is maintained on 2 L via nasal cannula and recommend to wean as tolerated. Patient will be encouraged to continue with incentive spirometer at least 10 times every hour while awake. Patient has been started on empiric antibiotics and will continue for now along with DuoNeb breathing treatments. Potassium slightly low and will replace per protocol recommend follow-up labs. Patient is currently afebrile and continues to be nothing by mouth while awaiti ng for surgery recommendations for possible starting of diet. Recommend physical therapy daily with case management following and working on possible ECF once stabilized. Patient denies passing gas or having bowel movements as of yet. Thapa catheter is being replaced. Encouraged increased activity as tolerated. Home Xarelto currently on hold per surgery recommendations and will continue subcutaneous Lovenox for DVT prophylaxis. Resume the care of the patient today 04/15/2020 This is a pleasant 86 years old female who presents with signs and symptoms of bowel obstruction status post right colectomy and partial omentectomy by surgery team on 04/14. Today is postoperative day #1, she has significant abdominal distention with x-ray showing postop ileus. NG tube was placed and that was an immediate return of 500 mL of greenish discharge. Also she has some abdominal pain and tenderness which is expected from her surgery. She is nothing by mouth currently and getting normal saline at 75 mL/h. proCalcitonin is elevated 1.3. Currently she is on ceftriaxone however I think it is more appropriate to change her antibiotics to Zosyn to cover and aerobes especially patient clinically is symptomatic and not improving repeat chest x- ray showed chronic changes with no evidence of aspiration. She had fever yesterday but no more fever today Also she is on normal saline 75 mL/h Patient also has evidence of 9.98.95.4 cm right large adrenal mass, patient informed and she verbalized understanding for the need for outpatient follow-up once stabilized. We change her by mouth Norvasc and clonidine into clonidine patch, and IV levothyroxine send off oral dose 04/16/2022 Last night patient developed periods of unresponsiveness, stroke was suspected because of her history of atrial fibrillation, patient was moved to the ICU as3 [facility] unit overflow. 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 Neurology team evaluated the patient and recommended EEG, carotid Doppler's was showing left internal carotid artery stenosis about 50-69% and echocardiogram which is pending. Patient is still is on hold because she had recent surgery and today is postoperative day #4. Anticoagulation is on hold with recommendation from surgery team. We will discuss with surgeons tomorrow about anticoagulation management as well. Currently no signs of active bleeding and hemoglobin stable. Patient remains on Zosyn, normal saline at 75 mL/h. NG tube is in place because of this we switched her by mouth medication to IV, today patient developed some tachycardia because we held her clonidine pills and put her on a clonidine patch. Also she is on IV hydralazine when necessary for high blood pressure Review of systems CONSTITUTIONAL: No fever, no malaise, no fatigue. HEENT: No recent visual problems or hearing problems. Denied any sore throat. CARDIOVASCULAR: No orthopnea, PND, no palpitations, no syncope. PULMONARY: No shortness of breath, no cough, no hemoptysis. NEUROLOGICAL: No headaches, no weakness, no numbness. HEMATOLOGICAL: Denies any bleeding or petechiae. GENITOURINARY: Denies any burning micturition, frequency, or urgency. MUSCULOSKELETAL/RHEUMATOLOGICAL: Denies any joint pain, swelling, or any muscle pain. ENDOCRINE: Denies any polyuria or polydipsia. Active Medications Generic Name Dose Route Start Last Admin Trade Name Freq PRN Reason Stop Dose Admin Acetaminophen 650 mg 04/14/22 14:47 Acetaminophen Tab 325 Mg Tab PO Q4HR PRN Fever and/ or Pain Hydrocodone Bitart/Acetaminophen 1 each 04/16/22 05:42 Hydrocodone/Apap 5-325mg 1 Each Tab PO Q6H PRN Pain Albuterol/Ipratropium 3 ml 04/13/22 12:31 Ipratropium-Albuterol 3 Ml Neb INHALATION RT-TID PRN Shortness Of Breath Or Wheezing Albuterol/Ipratropium 3 ml 04/13/22 13:00 04/16/22 12:34 Ipratropium-Albuterol 3 Ml Neb INHALATION 3 ml RT-TID DON Administration Atorvastatin Calcium 40 mg 04/16/22 21:00 Atorvastatin 40 Mg Tab PO HS DON Clonidine HCl 1 patch 04/15/22 15:00 04/15/22 14:49 Clonidine 0.2 Mg/24hr Patch TRANSDERM 1 patch Q7D DON Administration Enoxaparin Sodium 40 mg 04/13/22 09:00 04/16/22 10:01 Enoxaparin 40 Mg/0.4 Ml Syringe SQ 40 mg DAILY DON Administration Hydralazine HCl 10 mg 04/15/22 13:45 04/16/22 04:51 Hydralazine Hcl 20 Mg/Ml 1 Ml Vial IVP 10 mg Q4HR PRN Administration Blood Pressure - High SBP>160 Sodium Chloride 1,000 mls @ 75 mls/hr 04/12/22 15:45 04/16/22 06:53 Saline 0.9% IV 75 mls/hr .[id number] DON Administration Piperacillin Sod/Tazobactam 100 mls @ 25 mls/hr 04/15/22 16:00 04/16/22 16:47 Sod 3.375 gm/ Sodium Chloride IVPB 25 mls/hr Q8HR DON Administration Protocol Acetaminophen 650 mg/ IV 65 mls @ 260 mls/hr 04/15/22 16:47 04/15/22 20:11 Solution IVPB 260 mls/hr Q6H PRN Administration FEVER/ MILD PAIN Levothyroxine Sodium 37.5 mcg 04/16/22 09:00 04/16/22 10:00 Levothyroxine Ivp 100 Mcg/5 Ml Vial IV 37.5 mcg DAILY DON Administration Melatonin 3 mg 04/08/22 23:30 04/15/22 20:12 Melatonin 3 Mg Tablet PO Not Given HS DON Miscellaneous Information 1 each 04/14/22 09:56 Potassium Replacement Protocol 1 Each Misc MISCELLANE DAILY PRN Per Protocol Protocol Miscellaneous Information 1 each 04/15/22 21:13 Magnesium Replacement Protocol 1 Each Misc MISCELLANE DAILY PRN Per Protocol Protocol Miscellaneous Information 1 each 04/16/22 06:25 Magnesium Replacement Protocol 1 Each Misc MISCELLANE DAILY PRN Per Protocol Protocol Montelukast Sodium 10 mg 04/09/22 21:00 04/15/22 20:13 Montelukast 10 Mg Tab PO Not Given HS DON Morphine Sulfate 2 mg 04/16/22 05:41 Morphine Sulfate 2 Mg/Ml Syringe IVP Q4HR PRN Pain/Discomfort Naloxone HCl 0.2 mg 04/08/22 16:12 Naloxone 0.4 Mg/Ml 1 Ml Vial IV Q2M PRN Opioid Reversal Ondansetron HCl 4 mg 04/08/22 16:12 04/16/22 13:29 Ondansetron 4 Mg/2 Ml Vial IVP 4 mg Q8HR PRN Administration Nausea And Vomiting Pantoprazole Sodium 40 mg 04/09/22 09:00 04/16/22 10:01 Pantoprazole 40 Mg/10 Ml Vial IVP 40 mg BID DON Administration Objective - Vital Signs Vital signs: Vital Signs Temp 98.4 F 04/16/22 08:00 Pulse 118 H 04/16/22 09:44 Resp 24 04/16/22 08:00 BP 158/91 04/16/22 08:00 Pulse Ox 95 04/16/22 08:00 FiO2 Intake & Output 04/15/22 04/16/22 04/16/22 18:59 06:59 18:59 Intake Total 950 0 Output Total 1350 325 Balance 950 -1350 -325 Intake: IV 0 Sodium Chloride 0.9% 1, 0 000 ml @ 75 mls/hr IV . [id number] [facility] Rx#:[id number] Intake, IV Titration 950 Amount Sodium Chloride 0.9% 1, 900 000 ml @ 75 mls/hr IV . [id number] [facility] Rx#:[id number] cefTRIAXone 1 gm In 50 Sodium Chloride 0.9% 50 ml @ 100 mls/hr IVPB Q24HR [facility] Rx#:[id number] Output: Urine 1350 325 Other: Voiding Method Bedside Commode Bedside Commode # Voids 0 # Bowel Movements 0 - Exam GENERAL: The patient is alert and oriented x3, not in any acute distress. Well developed, well nourished. HEENT: Pupils are round and equally reacting to light. EOMI. No scleral icterus. No conjunctival pallor. Normocephalic, atraumatic. No pharyngeal erythema. No thyromegaly. CARDIOVASCULAR: S1 and S2 present. No murmurs, rubs, or gallops. PULMONARY: Chest is clear to auscultation, no wheezing or crackles. -ABDOMEN: Soft, tender, distended, normoactive bowel sounds. No palpable organomegaly. Surgical wound with dressing in a Place soft exam is deferred for surgery team, MUSCULOSKELETAL: No joint swelling or deformity. EXTREMITIES: No cyanosis, clubbing, or pedal edema. NEUROLOGICAL: Gross neurological examination did not reveal any focal deficits. SKIN: No rashes. no petechiae. - Labs CBC & Chem 7: 04/16/22 04:50 04/16/22 04:50 Labs: Abnormal Lab Results - Last 24 Hours (Table) 04/16/22 04/16/22 04/16/22 Range/Units 04:50 04:50 05:39 RBC 3.78 L (3.80-5.40) m/uL Lymphocytes # 0.9 L (1.0-4.8) k/uL Potassium 3.3 L (3.5-5.1) mmol/L Chloride 112 H (98-107) mmol/L Glucose 114 H (74-99) mg/dL POC Glucose (mg/dL) 115 H (70-110) mg/dL Magnesium 1.4 L (1.6-2.3) mg/dL Microbiology - Last 24 Hours (Table) 04/13/22 15:45 Blood Culture - Preliminary Blood No Growth after 48 hours Assessment and Plan Assessment: Acute Bowel obstruction status post right colectomy and partial omentectomy Postoperative ileus Enterocolitis Large right adrenal mass Chronic atrial fibrillation on Xarelto (currently on hold) History of CVA periods of unresponsiveness on 04/16, rule out seizure, less likely stroke Plan: Continue with normal saline Change antibiotics to Zosyn Keep NG tube Continue with the neurologist evaluation and workup Bowel rest Pain management Surgery team consult on the case Xarelto remains on hold until cleared by surgery team, there is risk of stroke but also starting Xarelto in this patient with high risk of bleeding from recent surgery therefore risks more than benefits for this medication at this point. We got to resume anticoagulation once cleared by surgery, we will assess on daily basis as well Labs and medication were reviewed.. Continue same treatment. Continue with symptomatic treatment. Resume home medication. Monitor labs and vitals. DVT and GI prophylaxis. Further recommendations as per clinical course of the patient DVT prophylaxis: Subcutaneous Lovenox while his adult on hold GI Prophylaxis: Ppi PT/OT: Pending Prognosis is guarded
[2022-04-16] MEDS: MELATONIN 3 MG TABLET PO SCH (21:29)
[2022-04-16] MEDS: ATORVASTATIN 40 MG TAB PO SCH (21:29)
[2022-04-16] MEDS: MONTELUKAST 10 MG TAB PO SCH (21:29)
[2022-04-17] MEDS: POTASSIUM CHLORIDE 10 MEQ in WATER FOR INJECTION 1 100ML.BAG IVPB SCH ×3 (00:40→05:32)
[2022-04-17 03:54] LABS: Basophils % (A) 0 %; Eosinophils # (A) 0.2 k/uL (0-0.7); Eosinophils % (A) 2 %; HCT 32.6 % (34.0-46.0); HGB 10.7 gm/dL (11.4-16.0); Lymphocytes # (A) 0.8 k/uL (1.0-4.8); Lymphocytes % (A) 12 %; MCH 31.3 pg (25.0-35.0); MCHC 32.9 g/dL (31.0-37.0); MCV 94.9 fL (80.0-100.0); Mean Platelet Volume 8.7; Monocytes # (A) 0.4 k/uL (0-1.0); Monocytes % (A) 6 %; Neutrophils # (A) 5.3 k/uL (1.3-7.7); Neutrophils % (A) 77 %; Platelet Count 255 k/uL (150-450); RBC 3.43 m/uL (3.80-5.40); WBC 6.8 k/uL (3.8-10.6)
[2022-04-17 04:13] LABS: ALT 15 U/L (4-34); AST 30 U/L (14-36); African American GFR (CKD) >90 (>60 ml/min/1.73 sqM); Albumin 2.7 g/dL (3.5-5.0); Alkaline Phosphatase 58 U/L (38-126); Anion Gap 5 mmol/L; Bilirubin, Delta 0.3 mg/dL (0.0-0.2); Bilirubin,Unconjugated 0.4 mg/dL (0.0-1.1); Blood Urea Nitrogen 6 mg/dL (7-17); Calcium 7.9 mg/dL (8.4-10.2); Carbon Dioxide 24 mmol/L (22-30); Chloride 107 mmol/L (98-107); Glucose 100 mg/dL (74-99); Magnesium 1.6 mg/dL (1.6-2.3); Non-African American GFR(CKD) 82 (>60 ml/min/1.73 sqM); Potassium 3.7 mmol/L (3.5-5.1); Sodium 136 mmol/L (137-145); Total Bilirubin 0.7 mg/dL (0.2-1.3)
[2022-04-17] MEDS: ACETAMINOPHEN IV (For NPO) 650 MG in EMPTY BAG 1 BAG IVPB PRN (04:22)
[2022-04-17] MEDS: MAGNESIUM SULFATE-D5W PMX 1 GM in DEXTROSE/WATER 1 100ML.BAG IVPB SCH ×2 (04:43→05:42)
[2022-04-17] MEDS: SODIUM CHLORIDE 0.9% 1,000 ML IV SCH ×2 (06:37→22:15)
[2022-04-17] MEDS: IPRATROPIUM-ALBUTEROL 3 ML NEB INHALATION SCH ×3 (08:38→19:27)
[2022-04-17] MEDS: PIPERACILLIN-TAZOBACTAM 3.375 GM in SODIUM CHLORIDE 0.9% 100 ML IVPB SCH ×3 (08:56→23:54)
[2022-04-17] MEDS: LEVOTHYROXINE IVP 100 MCG/5 ML VIAL IV SCH (08:56)
[2022-04-17] MEDS: PANTOPRAZOLE 40 MG/10 ML VIAL IVP SCH ×2 (08:56→20:30)
[2022-04-17] MEDS: ENOXAPARIN 40 MG/0.4 ML SYRINGE SQ SCH (08:57)
[2022-04-17 10:42] VITALS: BMI 22.6
--- NOTE | 2022-04-17 12:03 | P.PN ---
Subjective Progress Note Date: 04/17/22 The patient is accompanied by her [id number] who is at bedside. No further episodes of non-verbal. Patient feels she is doing drastically better today compared to yesterday. Objective - Vital Signs Vital signs: Vital Signs Temp 98.1 F 04/17/22 08:00 Pulse 85 04/17/22 08:49 Resp 20 04/17/22 08:00 BP 127/54 04/17/22 08:00 Pulse Ox 97 04/17/22 08:00 FiO2 Intake & Output 04/16/22 04/17/22 04/17/22 18:59 06:59 18:59 Intake Total 1800 950 600 Output Total 1225 800 350 Balance 575 150 250 Weight 50.9 kg 50.9 kg Intake: IV 1800 950 600 Magnesium Sulfate-D5w Pmx 300 1 gm In Dextrose/Water 1 100ml.bag @ 100 mls/hr IVPB Q1H [facility] Rx#: [id number] Piperacillin-Tazobactam 3 200 100 .375 gm In Sodium Chloride 0.9% 100 ml @ 25 mls/hr IVPB Q8HR [facility] Rx# :[id number] Potassium Chloride 10 meq 400 400 In Water For Injection 1 100ml.bag @ 100 mls/hr IVPB Q1HR [facility] Rx#: [id number] Sodium Chloride 0.9% 1, 900 450 600 000 ml @ 75 mls/hr IV . [id number] [facility] Rx#:[id number] Output: Urine 1225 800 350 Other: Voiding Method Indwelling Catheter Indwelling Catheter Indwelling Catheter - Exam GENERAL: The patient is lying in bed and is not in acute distress. NEUROLOGICAL: Higher mental function: The patient is awake, alert, oriented to self, place and time. Is faster responding to questions today compared to yesterday. Patient is following commands. No aphasia and no neglect. Cranial nerves: The pupils are round, equal and reactive to light and accommodation. Visual hazel are full to confrontation throughout. Extraocular movement is intact no nystagmus is noted. Facial sensation is normal to touch throughout. The facial strength is normal throughout. Hearing is moderately decreased bilaterally to hand rub. Tongue is midline and moved [id number] without any difficulty. No dysarthria is noted. Shoulder shrug is normal bilaterally. Motor: The strength is right lower extremity is 4+ (old). Otherwise 5 over 5 throughout. Normal tone and bulk. Cerebellum: Normal finger to nose bilaterally. Sensation: Sensation is normal to touch throughout. Reflexes (right/left): 2+ throughout. Plantars are downgoing bilaterally. SOME OF THE WORK-UP DURING THIS HOSPITAL VISIT CONSISTED OF: Lipid panel: TG 123, cholestrol 107, LDL [address] of the head is reported as cerebral atrophy and chronic small vessel ischemia. Old left frontal lobe cortical infarct. No acute intracranial abnormality. No change compared to old exam. Duplex was reported as 50-69% stenosis of the left carotid bifurcation. Less than 50% stenosis of the right carotid bifurcation. - Labs CBC & Chem 7: 04/17/22 03:12 04/17/22 03:12 Labs: Abnormal Lab Results - Last 24 Hours (Table) 04/16/22 04/17/22 04/17/22 Range/Units 19:30 03:12 03:12 RBC 3.43 L (3.80-5.40) m/uL Hgb 10.7 L (11.4-16.0) gm/dL Hct 32.6 L (34.0-46.0) % Lymphocytes # 0.8 L (1.0-4.8) k/uL Sodium 136 L (137-145) mmol/L Potassium 3.1 L (3.5-5.1) mmol/L BUN 6 L (7-17) mg/dL Glucose 100 H (74-99) mg/dL Calcium 7.9 L (8.4-10.2) mg/dL Delta Bilirubin 0.3 H (0.0-0.2) mg/dL Total Protein 5.0 L (6.3-8.2) g/dL Albumin 2.7 L (3.5-5.0) g/dL Microbiology - Last 24 Hours (Table) 04/13/22 15:45 Blood Culture - Preliminary Blood No Growth after 72 hours Assessment and Plan Assessment: Episode of nonverbal on 04/16/2022: Probable TIA since has hx of atrial fibr illation and her anticoagulation has been held. Cannot exclude seizure especially since has history of old stroke that can cause cortical irritability. 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 Postoperative ileus Enterocolitis Chronic atrial fibrillation on Xarelto (held during this admission) Plan: Pending 2D echo. I consulted vascular surgery team for carotid stenosis ( I wou ld recommend more medical management). Recommend starting ASA 81mg daily for secondary stroke prophylaxis if safe. Xarelto is held since because GI issues and will leave the start decision to primary team and GI team. Increased Lipitor from 10mg to 40mg qhs for secondary stroke prophylaxis. Pending routine EEG for episode of unresponsiveness to rule out any underlying discharges or active seizures. Q4 hour neuro checks PT and OT are consulted. Will defer the rest of medical management to primary team. For DVT prophylaxis on Lovenox. The plan is discussed with patient and her [id number] who is at bedside. Also plan discussed with nurse. Time with Patient: Less than 30
--- NOTE | 2022-04-17 12:31 | CA ---
Transthoracic Echo Report Name: Lorna Le Age: 86 Gender: F : 1935 Exam Date: 04/17/2022 08:23 Exam Location: [place] [facility] Ht (in): 52 Wt (lb): 112 Ordering Physician: Eben Stallings MD Attending/Referring Phys: Food Cashier Mary Ann Berumen RDCS Procedure CPT: Indications: stroke Cardiac Hx: Technical Quality: Contrast 1: Total Dose (mL): Contrast 2: Total Dose (mL): MEASUREMENTS (Male / Female) Normal Values 2D ECHO LV Diastolic Diameter PLAX 3.7 cm 4.2 - 5.9 / 3.9 - 5.3 cm LV Systolic Diameter PLAX 2.3 cm IVS Diastolic Thickness 1.0 cm 0.6 - 1.0 / 0.6 - 0.9 cm LVPW Diastolic Thickness 0.9 cm 0.6 - 1.0 / 0.6 - 0.9 cm LV Relative Wall Thickness 0.5 RV Internal Dim ED PLAX 2.3 cm LA Systolic Diameter LX 2.0 cm 3.0 - 4.0 / 2.7 - 3.8 cm M-MODE Aortic Root Diameter MM 2.4 cm LA Systolic Diameter MM 3.3 cm LA Ao Ratio MM 1.4 MV E Point Septal Separation 0.4 cm AV Cusp Separation MM 1.7 cm DOPPLER MV Area PHT 2.9 cm??? Mitral E Point Velocity 47.9 cm/s Mitral A Point Velocity 96.5 cm/s Mitral E to A Ratio 0.5 MV Deceleration Time 259.1 ms TR Peak Velocity 306.1 cm/s TR Peak Gradient 37.5 mmHg Right Ventricular Systolic Press 42.5 mmHg FINDINGS Left Ventricle Left ventricular ejection fraction is estimated at 55%. Left ventricular cavity size normal. Mildly increased left ventricular wall thickness. Right Ventricle Normal right ventricular size and function. Mild pulmonary hypertension. Right ventricular systolic pressure estimated at 42 mm hg. Right Atrium Normal right atrial size. Left Atrium Normal left atrial size. Mitral Valve Structurally normal mitral valve. Mild to moderate mitral regurgitation. Aortic Valve Trileaflet aortic valve. Tricuspid Valve Structurally normal tricuspid valve. Mild tricuspid regurgitation. Pulmonic Valve Structurally normal pulmonic valve. Mild pulmonic regurgitation. Pericardium Normal pericardium. Aorta Normal size aortic root and proximal ascending aorta. CONCLUSIONS Normal left ventricular dimension and systolic [id number] mitral regurgitation Previewed by: Dr. Cooper Osman MD (Electronically Signed) Final Date: 17 April 2022 12:31
--- NOTE | 2022-04-17 12:59 | P.PN ---
Subjective Progress Note Date: 04/17/22 CHIEF COMPLAINT: Hematemesis HISTORY OF PRESENT ILLNESS: Patient is postop day #5 right colectomy and partial omentectomy. Patient required transfer to the ICU on Sunday due to possible TIA. She is followed by neurology. Vascular surgery following in regards to carotid artery stenosis. She had NG tube placed due to ileus. Patient reports having had bowel movement. She reports her abdominal pain is improving. She denies any nausea. Abdomen still remains slightly distended. NG tube with mini mal output. Afebrile. WBC 6.8 Hgb 10.7 platelets 255 seconds 136 potassium 3.6 creatinine 0.62 Patient seen and examined with Dr. elvy PHYSICAL EXAM: VITAL SIGNS: Reviewed. GENERAL: Well-developed in no acute distress. HEENT: No sclera icterus. Extraocular movements grossly intact. Moist buccal mucosa. Head is atraumatic, normocephalic. ABDOMEN: Soft. Mildly distended. Incision site is clean dry and intact. There is some dry old blood on gauze. NEUROLOGIC: Alert and oriented. Cranial nerves II through XII grossly intact. ASSESSMENT: 1. 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 History of A. fib on Xarelto at home 3. Low-grade temp likely due to atelectasis 4. Ileus PLAN: -Discontinue NG tube -Start clear liquid diet and advanced to full liquids at dinner -Increase activity as tolerated -Okay to resume Xarelto -Encouraged patient to use incentive spirometer -Continue IV fluids -Continue PPI -GI prophylaxis Protonix and DVT prophylaxis Lovenox Physician Product Evangelist note has been reviewed by physician. Signing provider agrees with the documented findings, assessment, and plan of care. Objective - Vital Signs Vital signs: Vital Signs Temp 98.1 F 04/17/22 08:00 Pulse 85 04/17/22 08:49 Resp 20 04/17/22 08:00 BP 127/54 04/17/22 08:00 Pulse Ox 97 04/17/22 08:00 FiO2 Intake & Output 04/16/22 04/17/22 04/17/22 18:59 06:59 18:59 Intake Total 1800 950 600 Output Total 1225 800 350 Balance 575 150 250 Weight 50.9 kg 50.9 kg Intake: IV 1800 950 600 Magnesium Sulfate-D5w Pmx 300 1 gm In Dextrose/Water 1 100ml.bag @ 100 mls/hr IVPB Q1H [facility] Rx#: [id number] Piperacillin-Tazobactam 3 200 100 .375 gm In Sodium Chloride 0.9% 100 ml @ 25 mls/hr IVPB Q8HR [facility] Rx# :[id number] Potassium Chloride 10 meq 400 400 In Water For Injection 1 100ml.bag @ 100 mls/hr IVPB Q1HR [facility] Rx#: [id number] Sodium Chloride 0.9% 1, 900 450 600 000 ml @ 75 mls/hr IV . [id number] [facility] Rx#:[id number] Output: Urine 1225 800 350 Other: Voiding Method Indwelling Catheter Indwelling Catheter Indwelling Catheter - Labs CBC & Chem 7: 04/17/22 03:12 04/17/22 03:12 Labs: Abnormal Lab Results - Last 24 Hours (Table) 04/16/22 04/17/22 04/17/22 Range/Units 19:30 03:12 03:12 RBC 3.43 L (3.80-5.40) m/uL Hgb 10.7 L (11.4-16.0) gm/dL Hct 32.6 L (34.0-46.0) % Lymphocytes # 0.8 L (1.0-4.8) k/uL Sodium 136 L (137-145) mmol/L Potassium 3.1 L (3.5-5.1) mmol/L BUN 6 L (7-17) mg/dL Glucose 100 H (74-99) mg/dL Calcium 7.9 L (8.4-10.2) mg/dL Delta Bilirubin 0.3 H (0.0-0.2) mg/dL Total Protein 5.0 L (6.3-8.2) g/dL Albumin 2.7 L (3.5-5.0) g/dL Microbiology - Last 24 Hours (Table) 04/13/22 15:45 Blood Culture - Preliminary Blood No Growth after 72 hours
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
[2022-04-17 14:18] LABS: Magnesium 1.9 mg/dL (1.6-2.3); Phosphorus 1.6 mg/dL (2.5-4.5)
[2022-04-17 14:24] LABS: Ionized Calcium 4.7 mg/dL (4.5-5.3)
--- NOTE | 2022-04-17 15:26 | CT ---
EXAMINATION TYPE: CT angio head neck DATE OF EXAM: 04/17/2022 HISTORY: Left ICA stenosis on carotid duplex, TIA COMPARISON: Ultrasound carotid 04/16/2022 CT DLP: 368 mGycm. Automated Exposure Control for Dose Reduction was Utilized. TECHNIQUE: CTA scan of the neck is performed with IV Contrast, patient injected with 65ml mL of Isov ue 370, axial images are obtained, coronal and sagittal reformatted images are reviewed. Three-D za nstructed images are created on an independent workstation and reviewed. Source images are reviewed. FINDINGS: Carotid/Vascular Structures: There is a three-vessel arch. Vertebral arteries are codominant. Common carotid arteries appear normal. Atheromatous plaquing is at the carotid bifurcations on the left cont ributing to stenosis estimated between 60 and 70%.. This measures 62% based on NASCET Criteria. Steno sis of less than 50% is present on the right. Cervical of [place]: Vertebral basilar system appears normal. Posterior cerebral vasculature is unrema rkable. Internal carotid arteries bifurcate normally into A1 and M1 segments. Left A1 segment appears somewhat hypoplastic. A2 segments are normal. The anterior communicating artery is patent. Left Post erior communicating artery is patent. Right posterior communicating artery is patent. IMPRESSION: 1. 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 2. Normal [place] of [place] NASCET criteria was used in interpretation of this exam?
[2022-04-17] MEDS ORDERED: RIVAROXABAN 15 MG TAB PO SCH (17:30)
[2022-04-17 19:50] LABS: Glucose,Whole Blood 172 mg/dL (70-110)
--- NOTE | 2022-04-17 20:24 | P.PN ---
Subjective This is an 86 year old female who was recently presented to the emergency department with hematemesis along with acute upper GI bleed with surgery f latha with plans for endoscopy. 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 Labs reviewed this morning and WBC is within normal limits, hemoglobin is 12.0, platelets are 234, current INR 0.9, BMP reviewed and within normal limits with a creatinine of 1.03. C. diff testing was negative. Patient denies chest pain or shortness of breath. Patient is afebrile. 04/13/2022 Patient is seen and evaluated and follow-up this morning appears to be slightly confused just received some IV Dilaudid. Patient is status post right colectomy with partial omentectomy due to a cecal bascule causing colonic obstruction. Patient is currently nothing by mouth per surgery recommendations and continues with severe pain. Did have a follow-up chest x-ray yesterday after surgery which shows bibasilar infiltrates correlate for aspiration and atelectasis. Will decrease IV fluids gently, order incentive spirometer encourage the patient to continue using at least 10 times every hour while awake and will also initiate Rocephin empirically along with DuoNeb treatments. Patient is also having fevers and recommend blood cultures with empiric antibiotics. Patient will need physical therapy with possible ECF. Patient is currently nothing by mouth per surgery. Labs reviewed and WBC within normal limits hemoglobin is stable at 10.9, electrolytes are normal and would recommend follow-up labs in a.m. Will also give DuoNeb treatments. 04/14/2022 Patient is seen in follow-up today currently sitting up at the side of the bed working with physical therapy. Patient reports her pain is better controlled today and able to get up and move around although continues to be significantly weak. Patient is maintained on 2 L via nasal cannula and recommend to wean as tolerated. Patient will be encouraged to continue with incentive spirometer at least 10 times every hour while awake. Patient has been started on empiric antibiotics and will continue for now along with DuoNeb breathing treatments. Potassium slightly low and will replace per protocol recommend follow-up labs. Patient is currently afebrile and continues to be nothing by mouth while awaiti ng for surgery recommendations for possible starting of diet. Recommend physical therapy daily with case management following and working on possible ECF once stabilized. Patient denies passing gas or having bowel movements as of yet. Thapa catheter is being replaced. Encouraged increased activity as tolerated. Home Xarelto currently on hold per surgery recommendations and will continue subcutaneous Lovenox for DVT prophylaxis. Resume the care of the patient today 04/15/2020 This is a pleasant 86 years old female who presents with signs and symptoms of bowel obstruction status post right colectomy and partial omentectomy by surgery team on 04/14. Today is postoperative day #1, she has significant abdominal distention with x-ray showing postop ileus. NG tube was placed and that was an immediate return of 500 mL of greenish discharge. Also she has some abdominal pain and tenderness which is expected from her surgery. She is nothing by mouth currently and getting normal saline at 75 mL/h. proCalcitonin is elevated 1.3. Currently she is on ceftriaxone however I think it is more appropriate to change her antibiotics to Zosyn to cover and aerobes especially patient clinically is symptomatic and not improving repeat chest x- ray showed chronic changes with no evidence of aspiration. She had fever yesterday but no more fever today Also she is on normal saline 75 mL/h Patient also has evidence of 9.98.95.4 cm right large adrenal mass, patient informed and she verbalized understanding for the need for outpatient follow-up once stabilized. We change her by mouth Norvasc and clonidine into clonidine patch, and IV levothyroxine send off oral dose 04/16/2022 Last night patient developed periods of unresponsiveness, stroke was suspected because of her history of atrial fibrillation, patient was moved to the ICU as3 [facility] unit overflow. 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 Neurology team evaluated the patient and recommended EEG, carotid Doppler's was showing left internal carotid artery stenosis about 50-69% and echocardiogram which is pending. Patient is still is on hold because she had recent surgery and today is postoperative day #4. Anticoagulation is on hold with recommendation from surgery team. We will discuss with surgeons tomorrow about anticoagulation management as well. Currently no signs of active bleeding and hemoglobin stable. Patient remains on Zosyn, normal saline at 75 mL/h. NG tube is in place because of this we switched her by mouth medication to IV, today patient developed some tachycardia because we held her clonidine pills and put her on a clonidine patch. Also she is on IV hydralazine when necessary for high blood pressure 04/17/2022 The morning patient was awake and alert, no abdominal distention or pain, NG tube was in place. After evaluation the plan for her is to remove NG tube tonight. Also I discussed the case with surgery team recommended to start Xarelto tonight. Labs look stable She remains on Zosyn and normal saline advance diet as per surgery team Objective - Vital Signs Vital signs: Vital Signs Temp 98.1 F 04/17/22 08:00 Pulse 85 04/17/22 08:49 Resp 20 04/17/22 08:00 BP 127/54 04/17/22 08:00 Pulse Ox 97 04/17/22 08:00 FiO2 Intake & Output 04/16/22 04/17/22 04/17/22 18:59 06:59 18:59 Intake Total 1800 950 600 Output Total 1225 800 350 Balance 575 150 250 Weight 50.9 kg 50.9 kg Intake: IV 1800 950 600 Magnesium Sulfate-D5w Pmx 300 1 gm In Dextrose/Water 1 100ml.bag @ 100 mls/hr IVPB Q1H DON Rx#: [id number] Piperacillin-Tazobactam 3 200 100 .375 gm In Sodium Chloride 0.9% 100 ml @ 25 mls/hr IVPB Q8HR DON Rx# :[id number] Potassium Chloride 10 meq 400 400 In Water For Injection 1 100ml.bag @ 100 mls/hr IVPB Q1HR DON Rx#: [id number] Sodium Chloride 0.9% 1, 900 450 600 000 ml @ 75 mls/hr IV . [id number] DON Rx#:[id number] Output: Urine 1225 800 350 Other: Voiding Method Indwelling Catheter Indwelling Catheter Indwelling Catheter - Exam GENERAL: The patient is alert and oriented x3, not in any acute distress. Well developed, well nourished. HEENT: Pupils are round and equally reacting to light. EOMI. No scleral icterus. No conjunctival pallor. Normocephalic, atraumatic. No pharyngeal erythema. No thyromegaly. CARDIOVASCULAR: S1 and S2 present. No murmurs, rubs, or gallops. PULMONARY: Chest is clear to auscultation, no wheezing or crackles. -ABDOMEN: Soft, tender, distended, normoactive bowel sounds. No palpable organomegaly. Surgical wound with dressing in a Place soft exam is deferred for surgery team, MUSCULOSKELETAL: No joint swelling or deformity. EXTREMITIES: No cyanosis, clubbing, or pedal edema. NEUROLOGICAL: Gross neurological examination did not reveal any focal deficits. SKIN: No rashes. no petechiae. - Labs CBC & Chem 7: 04/17/22 03:12 04/17/22 03:12 Labs: Abnormal Lab Results - Last 24 Hours (Table) 04/16/22 04/17/22 04/17/22 Range/Units 19:30 03:12 03:12 RBC 3.43 L (3.80-5.40) m/uL Hgb 10.7 L (11.4-16.0) gm/dL Hct 32.6 L (34.0-46.0) % Lymphocytes # 0.8 L (1.0-4.8) k/uL Sodium 136 L (137-145) mmol/L Potassium 3.1 L (3.5-5.1) mmol/L BUN 6 L (7-17) mg/dL Glucose 100 H (74-99) mg/dL Calcium 7.9 L (8.4-10.2) mg/dL Delta Bilirubin 0.3 H (0.0-0.2) mg/dL Total Protein 5.0 L (6.3-8.2) g/dL Albumin 2.7 L (3.5-5.0) g/dL Microbiology - Last 24 Hours (Table) 04/13/22 15:45 Blood Culture - Preliminary Blood No Growth after 72 hours Assessment and Plan Assessment: Acute Bowel obstruction status post right colectomy and partial omentectomy Postoperative ileus Enterocolitis Large right adrenal mass Chronic atrial fibrillation on Xarelto (currently on hold) History of CVA periods of unresponsiveness on 04/16, rule out seizure, less likely stroke Plan: Continue with normal saline Change antibiotics to Zosyn discontinue NG tubeas per surgery team and advanced diet as tolerated per surgery team recommendation Continue with the neurologist evaluation and workup Bowel rest Pain management Surgery team consult on the case Labs and medication were reviewed.. Continue same treatment. Continue with symptomatic treatment. Resume home medication. Monitor labs and vitals. DVT and GI prophylaxis. Further recommendations as per clinical course of the patient DVT prophylaxis: Xarelto GI Prophylaxis: Ppi PT/OT: Pending Prognosis is guarded
[2022-04-17] MEDS: MELATONIN 3 MG TABLET PO SCH (20:30)
[2022-04-17] MEDS: MONTELUKAST 10 MG TAB PO SCH (20:30)
[2022-04-17] MEDS: ATORVASTATIN 40 MG TAB PO SCH (20:30)
[2022-04-17] MEDS: RIVAROXABAN 15 MG TAB PO SCH (20:31)
[2022-04-17] MEDS ORDERED: ENOXAPARIN 60 MG/0.6 ML SYRINGE SQ SCH (21:00)
--- NOTE | 2022-04-17 22:19 | EEG ---
ELECTROENCEPHALOGRAM REPORT CLINICAL HISTORY: This is an 86-year-old woman with episode of unresponsiveness. The video EEG is obtained to evaluate for seizure epileptiform activity. ANTIEPILEPTIC DRUGS: The patient is not on any antiepileptic drugs. EEG TYPE: A routine 21-channel EEG is performed with video using the 10/20 electrode placement system. DESCRIPTION: Wakefulness is only obtained. During awake state, the background consists of low to moderate voltage of 8 hertz that is well modulated, well sustained and at times, the background consists of diffuse 5 hertz theta activity. There is no physiological focal slowing. Interictal and ictal is none. ACTIVATION PROCEDURE: Photic stimulation did not evoke a posterior driving response. There is no abnormality during the photic stimulation. Hyperventilation is not performed. CLINICAL INTERPRETATION: This is an abnormal routine EEG. The background slowing is suggestive of moderate encephalopathy. There is no focal slowing, epileptiform discharge or seizure on the EEG. Clinical correlation is recommended. LESLIE / RENEA: [id number] /
[2022-04-18] MEDS: HYDROcodone/APAP 5-325MG 1 EACH TAB PO PRN ×3 (03:14→19:58)
[2022-04-18 06:00] LABS: Glucose,Whole Blood 104 mg/dL (70-110)
[2022-04-18 08:24] LABS: African American GFR (CKD) >90 (>60 ml/min/1.73 sqM); Anion Gap 1 mmol/L; Blood Urea Nitrogen 6 mg/dL (7-17); Calcium 7.9 mg/dL (8.4-10.2); Carbon Dioxide 26 mmol/L (22-30); Chloride 110 mmol/L (98-107); Glucose 93 mg/dL (74-99); Magnesium 1.6 mg/dL (1.6-2.3); Non-African American GFR(CKD) 83 (>60 ml/min/1.73 sqM); Phosphorus 2.2 mg/dL (2.5-4.5); Potassium 3.3 mmol/L (3.5-5.1); Sodium 137 mmol/L (137-145)
[2022-04-18] MEDS: IPRATROPIUM-ALBUTEROL 3 ML NEB INHALATION SCH ×3 (08:58→21:22)
[2022-04-18] MEDS: PIPERACILLIN-TAZOBACTAM 3.375 GM in SODIUM CHLORIDE 0.9% 100 ML IVPB SCH ×3 (09:11→23:32)
[2022-04-18] MEDS: LEVOTHYROXINE IVP 100 MCG/5 ML VIAL IV SCH (09:12)
[2022-04-18] MEDS: PANTOPRAZOLE 40 MG/10 ML VIAL IVP SCH ×2 (09:12→19:59)
--- NOTE | 2022-04-18 10:06 | P.PN ---
Subjective Progress Note Date: 04/18/22 Principal diagnosis: Left ICA stenosis Patient was seen and examined today as a follow-up for consult for left ICA stenosis. She had a CT angiogram head and neck yesterday that confirms 60-70% left ICA stenosis. Today patient states she the best that she has. She denies any focal deficits. Neurology is following and she had an EEG done yesterday that reported abnormal routine EEG with background slowing suggestive of moderate encephalopathy. No focal slowing, or deformed discharge or seizure on EEG. In speaking with neurology deeply patient's symptoms may have been related to a TIA as she had been off of her Xarelto for surgery and also has a history of previous CVA. Objective - Vital Signs Vital signs: Vital Signs Temp 98.4 F 04/18/22 03:09 Pulse 85 04/18/22 03:09 Resp 16 04/18/22 03:09 BP 153/75 04/18/22 03:09 Pulse Ox 96 04/18/22 03:09 FiO2 Intake & Output 04/17/22 04/18/22 04/18/22 18:59 06:59 18:59 Intake Total 840 Output Total 1075 1200 Balance -235 -1200 Weight 50.9 kg Intake: IV 600 Sodium Chloride 0.9% 1, 600 000 ml @ 75 mls/hr IV . [id number] [facility] Rx#:[id number] Oral 240 Output: Urine 1075 1200 Other: Voiding Method Indwelling Catheter Indwelling Catheter # Bowel Movements 3 - Exam General appearance: The patient is alert, oriented, appears in no acute distress. HET: Head is normocephalic and atraumatic. Pupils are equal and reactive. Neck: Supple without lymphadenopathy. Trachea midline. No audible carotid bruit. Heart: Regular. Lungs: Equal expansion, normal respiratory effort. Abdomen: Soft, nontender, nondistended. Extremities: Normal skin color and turgor. No cyanosis, rash, ulceration, clubbing, or edema. Radial and pedal pulses are 2/4 bilaterally. Neurological: No focal deficits. - Labs CBC & Chem 7: 04/17/22 03:12 04/18/22 07:20 Labs: Abnormal Lab Results - Last 24 Hours (Table) 04/17/22 04/17/22 04/18/22 Range/Units 13:52 19:48 07:20 Potassium 3.3 L (3.5-5.1) mmol/L Chloride 110 H (98-107) mmol/L BUN 6 L (7-17) mg/dL POC Glucose (mg/dL) 172 H (70-110) mg/dL Calcium 7.9 L (8.4-10.2) mg/dL Phosphorus 1.6 L 2.2 L (2.5-4.5) mg/dL Microbiology - Last 24 Hours (Table) 04/13/22 15:45 Blood Culture - Preliminary Blood No Growth after 96 hours Assessment and Plan Assessment: 1. Left ICA stenosis, 50-69% per carotid duplex 2. Nonverbal episode on 04/16/2021, neurology believes probable TIA A related to history of atrial fibrillation with anticoagulation on hold 3. History of stroke left frontal with residual right lower extremity weakness 4. Postoperative ileus 5. Chronic atrial fibrillation on Xarelto, currently on hol Plan: Carotid duplex reviewed, CT angiogram ordered. Recommend Plavix, hold aspirin and start anticoagulation when cleared by general surgery. We will follow-up with patient in 1-2 weeks and discuss further surgical intervention, chelitai joseng probable trans-carotid artery stent. Q for this consultation, she is cleared from vascular surgery for discharge. We will sign off at this time. The impression and plan of care has been dictated as directed. I performed a history and examination of this patient, discussed the same with the dictator. I agree with the dictator's note ,documented as a scribe. Any additional findings or plans will be noted.
--- NOTE | 2022-04-18 10:35 | P.PN ---
Subjective This is an 86 year old female who was recently presented to the emergency department with hematemesis along with acute upper GI bleed with surgery f latha with plans for endoscopy. 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 Labs reviewed this morning and WBC is within normal limits, hemoglobin is 12.0, platelets are 234, current INR 0.9, BMP reviewed and within normal limits with a creatinine of 1.03. C. diff testing was negative. Patient denies chest pain or shortness of breath. Patient is afebrile. 04/13/2022 Patient is seen and evaluated and follow-up this morning appears to be slightly confused just received some IV Dilaudid. Patient is status post right colectomy with partial omentectomy due to a cecal bascule causing colonic obstruction. Patient is currently nothing by mouth per surgery recommendations and continues with severe pain. Did have a follow-up chest x-ray yesterday after surgery which shows bibasilar infiltrates correlate for aspiration and atelectasis. Will decrease IV fluids gently, order incentive spirometer encourage the patient to continue using at least 10 times every hour while awake and will also initiate Rocephin empirically along with DuoNeb treatments. Patient is also having fevers and recommend blood cultures with empiric antibiotics. Patient will need physical therapy with possible ECF. Patient is currently nothing by mouth per surgery. Labs reviewed and WBC within normal limits hemoglobin is stable at 10.9, electrolytes are normal and would recommend follow-up labs in a.m. Will also give DuoNeb treatments. 04/14/2022 Patient is seen in follow-up today currently sitting up at the side of the bed working with physical therapy. Patient reports her pain is better controlled today and able to get up and move around although continues to be significantly weak. Patient is maintained on 2 L via nasal cannula and recommend to wean as tolerated. Patient will be encouraged to continue with incentive spirometer at least 10 times every hour while awake. Patient has been started on empiric antibiotics and will continue for now along with DuoNeb breathing treatments. Potassium slightly low and will replace per protocol recommend follow-up labs. Patient is currently afebrile and continues to be nothing by mouth while awaiti ng for surgery recommendations for possible starting of diet. Recommend physical therapy daily with case management following and working on possible ECF once stabilized. Patient denies passing gas or having bowel movements as of yet. Thapa catheter is being replaced. Encouraged increased activity as tolerated. Home Xarelto currently on hold per surgery recommendations and will continue subcutaneous Lovenox for DVT prophylaxis. Resume the care of the patient today 04/15/2020 This is a pleasant 86 years old female who presents with signs and symptoms of bowel obstruction status post right colectomy and partial omentectomy by surgery team on 04/14. Today is postoperative day #1, she has significant abdominal distention with x-ray showing postop ileus. NG tube was placed and that was an immediate return of 500 mL of greenish discharge. Also she has some abdominal pain and tenderness which is expected from her surgery. She is nothing by mouth currently and getting normal saline at 75 mL/h. proCalcitonin is elevated 1.3. Currently she is on ceftriaxone however I think it is more appropriate to change her antibiotics to Zosyn to cover and aerobes especially patient clinically is symptomatic and not improving repeat chest x- ray showed chronic changes with no evidence of aspiration. She had fever yesterday but no more fever today Also she is on normal saline 75 mL/h Patient also has evidence of 9.98.95.4 cm right large adrenal mass, patient informed and she verbalized understanding for the need for outpatient follow-up once stabilized. We change her by mouth Norvasc and clonidine into clonidine patch, and IV levothyroxine send off oral dose 04/16/2022 Last night patient developed periods of unresponsiveness, stroke was suspected because of her history of atrial fibrillation, patient was moved to the ICU as3 [facility] unit overflow. 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 Neurology team evaluated the patient and recommended EEG, carotid Doppler's was showing left internal carotid artery stenosis about 50-69% and echocardiogram which is pending. Patient is still is on hold because she had recent surgery and today is postoperative day #4. Anticoagulation is on hold with recommendation from surgery team. We will discuss with surgeons tomorrow about anticoagulation management as well. Currently no signs of active bleeding and hemoglobin stable. Patient remains on Zosyn, normal saline at 75 mL/h. NG tube is in place because of this we switched her by mouth medication to IV, today patient developed some tachycardia because we held her clonidine pills and put her on a clonidine patch. Also she is on IV hydralazine when necessary for high blood pressure 04/17/2022 The morning patient was awake and alert, no abdominal distention or pain, NG tube was in place. After evaluation the plan for her is to remove NG tube tonight. Also I discussed the case with surgery team recommended to start Xarelto tonight. Labs look stable She remains on Zosyn and normal saline advance diet as per surgery team 04/18/2022 patient NG tube is out, she is tolerating liquid diet, no abdominal pain. No bowel movement yet. Her blood pressure is stable, she has mild basilar crepitations therefore we will lower her fluids to 50 mL per hour. Continue with Zosyn Vascular surgery recommended Plavix and follow-up outpatient Xarelto was restarted yesterday, monitor hemoglobin Patient is very weak and PT OT, rehab recommended Objective - Vital Signs Vital signs: Vital Signs Temp 97.9 F 04/18/22 08:00 Pulse 76 04/18/22 08:00 Resp 17 04/18/22 08:00 BP 155/76 04/18/22 08:00 Pulse Ox 93 L 04/18/22 08:00 FiO2 Intake & Output 04/17/22 04/18/22 04/18/22 18:59 06:59 18:59 Intake Total 840 Output Total 1075 1200 Balance -235 -1200 Weight 50.9 kg Intake: IV 600 Sodium Chloride 0.9% 1, 600 000 ml @ 75 mls/hr IV . [id number] [facility] Rx#:[id number] Oral 240 Output: Urine 1075 1200 Other: Voiding Method Indwelling Catheter Indwelling Catheter # Bowel Movements 3 - Exam GENERAL: The patient is alert and oriented x3, not in any acute distress. Well developed, well nourished. HEENT: Pupils are round and equally reacting to light. EOMI. No scleral icterus. No conjunctival pallor. Normocephalic, atraumatic. No pharyngeal erythema. No thyromegaly. CARDIOVASCULAR: S1 and S2 present. No murmurs, rubs, or gallops. PULMONARY: Chest is clear to auscultation, no wheezing or crackles. -ABDOMEN: Soft, tender, distended, normoactive bowel sounds. No palpable organomegaly. Surgical wound with dressing in a Place soft exam is deferred for surgery team, MUSCULOSKELETAL: No joint swelling or deformity. EXTREMITIES: No cyanosis, clubbing, or pedal edema. NEUROLOGICAL: Gross neurological examination did not reveal any focal deficits. SKIN: No rashes. no petechiae. - Labs CBC & Chem 7: 04/17/22 03:12 04/18/22 07:20 Labs: Abnormal Lab Results - Last 24 Hours (Table) 04/17/22 04/17/22 04/18/22 Range/Units 13:52 19:48 07:20 Potassium 3.3 L (3.5-5.1) mmol/L Chloride 110 H (98-107) mmol/L BUN 6 L (7-17) mg/dL POC Glucose (mg/dL) 172 H (70-110) mg/dL Calcium 7.9 L (8.4-10.2) mg/dL Phosphorus 1.6 L 2.2 L (2.5-4.5) mg/dL Microbiology - Last 24 Hours (Table) 04/13/22 15:45 Blood Culture - Preliminary Blood No Growth after 96 hours Assessment and Plan Assessment: Acute Bowel obstruction status post right colectomy and partial omentectomy Postoperative ileus Enterocolitis Large right adrenal mass Chronic atrial fibrillation on Xarelto (currently on hold) History of CVA periods of unresponsiveness on 04/16, rule out seizure, less likely stroke Plan: Continue with normal saline Change antibiotics to Zosyn discontinue NG tubeas per surgery team and advanced diet as tolerated per surgery team recommendation Continue with the neurologist evaluation and workup Advanced diet per surgery team Pain management Follow-up with vascular surgery as an outpatient Surgery team consult on the case Labs and medication were reviewed.. Continue same treatment. Continue with symptomatic treatment. Resume home medication. Monitor labs and vitals. DVT and GI prophylaxis. Further recommendations as per clinical course of the patient DVT prophylaxis: Xarelto GI Prophylaxis: Ppi PT/OT: Pending Prognosis is guarded
[2022-04-18] MEDS ORDERED: MVI, ADULT NO.4 WITH VIT K 10 ML, TRACE (CONC-1ML/DOSE) 1 ML in AMINO ACID 5%-D15W+LYTE... IV SCH ×3 (11:00)
[2022-04-18] MEDS ORDERED: FAT EMULSION 20% 250 ML IV SCH (11:00)
[2022-04-18] MEDS: SODIUM CHLORIDE 0.9% 1,000 ML IV SCH (11:12)
[2022-04-18] MEDS: POTASSIUM BICARBONATE/CIT AC 20 MEQ TABLET.EFF PO SCH ×2 (11:12→12:54)
[2022-04-18 11:33] LABS: Basophils % (A) 0 %; Eosinophils # (A) 0.5 k/uL (0-0.7); Eosinophils % (A) 5 %; HCT 33.3 % (34.0-46.0); HGB 10.3 gm/dL (11.4-16.0); Hypochromasia Slight; Lymphocytes # (A) 0.9 k/uL (1.0-4.8); Lymphocytes % (A) 9 %; MCH 30.2 pg (25.0-35.0); MCV 97.3 fL (80.0-100.0); Mean Platelet Volume 9.5; Monocytes # (A) 0.5 k/uL (0-1.0); Monocytes % (A) 5 %; Neutrophils # (A) 7.9 k/uL (1.3-7.7); Neutrophils % (A) 79 %; Platelet Count 271 k/uL (150-450); RBC 3.42 m/uL (3.80-5.40); RDW 13.5 % (11.5-15.5)
[2022-04-18 11:48] LABS: Glucose,Whole Blood 100 mg/dL (70-110)
--- NOTE | 2022-04-18 13:39 | P.PN ---
Subjective Progress Note Date: 04/18/22 CHIEF COMPLAINT: Hematemesis HISTORY OF PRESENT ILLNESS: Patient is postop day #6 right colectomy and partial omentectomy. Patient transferred out of the ICU yesterday. Currently on cardiac floor. She is followed by neurology regarding a possible TIA. She's followed by vascular surgery regarding left internal carotid artery stenosis. NG tube was discontinued yesterday. Patient tolerated her clear liquid dinner last night she had 100% and 50% of her breakfast this morning. Patient denies any abdominal pain. Denies any nausea vomiting. She is having loose bowel movements. Afebrile. WBCs 10 Hgb is 10.3 platelets 271 symptoms 137 potassium is 3.3 creatinine 0.60 magnesium 1.6 Patient seen and examined with Dr. levy PHYSICAL EXAM: VITAL SIGNS: Reviewed. GENERAL: Well-developed in no acute distress. HEENT: No sclera icterus. Extraocular movements grossly intact. Moist buccal m ucosa. Head is atraumatic, normocephalic. ABDOMEN: Soft. Mildly distended. Incision site is clean dry and intact. There is some dry old blood on gauze. NEUROLOGIC: Alert and oriented. Cranial nerves II through XII grossly intact. ASSESSMENT: 1. 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 History of A. fib on Xarelto at home 3. Low-grade temp likely due to atelectasis 4. Postoperative ileus 5. TIA 6. Hypokalemia and hypomagnesemia PLAN: -Advanced at full liquids for lunch and regular diet for breakfast tomorrow -Replace electrolytes -Increase activity as tolerated -Okay to resume Xarelto -Encouraged patient to use incentive spirometer -Discontinue IV fluids -Discontinue order for PICC line and TPN. Patient is tolerating diet -GI prophylaxis Protonix Physician Car Supervisor note has been reviewed by physician. Signing provider agrees with the documented findings, assessment, and plan of care. Objective - Vital Signs Vital signs: Vital Signs Temp 98.0 F 04/18/22 12:00 Pulse 74 04/18/22 12:00 Resp 16 04/18/22 12:00 BP 155/82 04/18/22 12:00 Pulse Ox 98 04/18/22 12:00 FiO2 Intake & Output 04/17/22 04/18/22 04/18/22 18:59 06:59 18:59 Intake Total 840 Output Total 1075 1200 Balance -235 -1200 Weight 50.9 kg Intake: IV 600 Sodium Chloride 0.9% 1, 600 000 ml @ 50 mls/hr IV . Q[facility]H [facility] Rx#:[id number] Oral 240 Output: Urine 1075 1200 Other: Voiding Method Indwelling Catheter Indwelling Catheter Indwelling Catheter # Bowel Movements 3 1 - Labs CBC & Chem 7: 04/18/22 07:20 04/18/22 07:20 Labs: Abnormal Lab Results - Last 24 Hours (Table) 04/17/22 04/17/22 04/18/22 Range/Units 13:52 19:48 07:20 RBC (3.80-5.40) m/uL Hgb (11.4-16.0) gm/dL Hct (34.0-46.0) % Neutrophils # (1.3-7.7) k/uL Lymphocytes # (1.0-4.8) k/uL Potassium 3.3 L (3.5-5.1) mmol/L Chloride 110 H (98-107) mmol/L BUN 6 L (7-17) mg/dL POC Glucose (mg/dL) 172 H (70-110) mg/dL Calcium 7.9 L (8.4-10.2) mg/dL Phosphorus 1.6 L 2.2 L (2.5-4.5) mg/dL 04/18/22 Range/Units 07:20 RBC 3.42 L (3.80-5.40) m/uL Hgb 10.3 L (11.4-16.0) gm/dL Hct 33.3 L (34.0-46.0) % Neutrophils # 7.9 H (1.3-7.7) k/uL Lymphocytes # 0.9 L (1.0-4.8) k/uL Potassium (3.5-5.1) mmol/L Chloride (98-107) mmol/L BUN (7-17) mg/dL POC Glucose (mg/dL) (70-110) mg/dL Calcium (8.4-10.2) mg/dL Phosphorus (2.5-4.5) mg/dL Microbiology - Last 24 Hours (Table) 12/15/22 15:45 Blood Culture - Preliminary Blood No Growth after 96 hours
[2022-04-18] MEDS: MAGNESIUM SULFATE-D5W PMX 1 GM in DEXTROSE/WATER 1 100ML.BAG IVPB SCH ×2 (14:20→16:07)
--- NOTE | 2022-04-18 15:45 | P.PN ---
Subjective Progress Note Date: 04/18/22 The patient is seen at bedside and feels is doing better. No further non-verbal episodes. Objective - Vital Signs Vital signs: Vital Signs Temp 98.0 F 04/18/22 12:00 Pulse 74 04/18/22 12:00 Resp 16 04/18/22 12:00 BP 155/82 04/18/22 12:00 Pulse Ox 98 04/18/22 12:00 FiO2 Intake & Output 04/17/22 04/18/22 04/18/22 18:59 06:59 18:59 Intake Total 840 Output Total 1075 1200 Balance -235 -1200 Weight 50.9 kg 50.9 kg Intake: IV 600 Sodium Chloride 0.9% 1, 600 000 ml @ 50 mls/hr IV . Q20H [facility] Rx#:[id number] Oral 240 Output: Urine 1075 1200 Other: Voiding Method Indwelling Catheter Indwelling Catheter External Catheter # Bowel Movements 3 1 - Exam GENERAL: The patient is lying in bed and is not in acute distress. NEUROLOGICAL: Higher mental function: The patient is awake, alert, oriented to self, place and time. Is faster responding to questions today compared to yesterday. Patient is following commands. No aphasia and no neglect. Cranial nerves: The pupils are round, equal and reactive to light and accommodation. Visual hazel are full to confrontation throughout. Extraocular movement is intact no nystagmus is noted. Facial sensation is normal to touch throughout. The facial strength is normal throughout. Hearing is moderately decreased bilaterally to hand rub. Tongue is midline and moved [id number] without any difficulty. No dysarthria is noted. Shoulder shrug is normal bilaterally. Motor: The strength is right lower extremity is 4+ (old). Otherwise 5 over 5 throughout. Normal tone and bulk. Cerebellum: Normal finger to nose bilaterally. Sensation: Sensation is normal to touch throughout. Reflexes (right/left): 2+ throughout. Plantars are downgoing bilaterally. SOME OF THE WORK-UP DURING THIS HOSPITAL VISIT CONSISTED OF: Lipid panel: TG 123, cholestrol 107, LDL [address] of the head is reported as cerebral atrophy and chronic small vessel ischemia. Old left frontal lobe cortical infarct. No acute intracranial abnormality. No change compared to old exam. Carotid Duplex was reported as 50-69% stenosis of the left carotid bifurcation. Less than 50% stenosis of the right carotid bifurcation. CT angiography of the head and neck is reported as moderate stenosis of the left ICA between 60-70%. Normal [place] of [place]. Routine EEG: It is reported as abnormal. The background slowing is suggestive of moderate encephalopathy. There is no focal slowing, epileptiform discharges or seizure on the EEG 2-D echo was reported as normal left ventricular dye mention and systolic. Mild to moderate mitral regurgitation. - Labs CBC & Chem 7: 04/18/22 07:20 04/18/22 07:20 Labs: Abnormal Lab Results - Last 24 Hours (Table) 04/17/22 04/18/22 04/18/22 Range/Units 19:48 07:20 07:20 RBC 3.42 L (3.80-5.40) m/uL Hgb 10.3 L (11.4-16.0) gm/dL Hct 33.3 L (34.0-46.0) % Neutrophils # 7.9 H (1.3-7.7) k/uL Lymphocytes # 0.9 L (1.0-4.8) k/uL Potassium 3.3 L (3.5-5.1) mmol/L Chloride 110 H (98-107) mmol/L BUN 6 L (7-17) mg/dL POC Glucose (mg/dL) 172 H (70-110) mg/dL Calcium 7.9 L (8.4-10.2) mg/dL Phosphorus 2.2 L (2.5-4.5) mg/dL Microbiology - Last 24 Hours (Table) 04/13/22 15:45 Blood Culture - Preliminary Blood No Growth after 96 hours Assessment and Plan Assessment: Episode of nonverbal on 04/16/2022: Probable TIA since has hx of atrial fibrillation and her anticoagulation has been held. Cannot exclude seizure especially since has history of old stroke that can cause cortical irritability. 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 Postoperative ileus Enterocolitis Chronic atrial fibrillation on Xarelto (held during this admission) Plan: Vascular surgery team is consulted for carotid stenosis ( I would recommend more medical management). Recommend starting ASA 81mg daily or Plavix for carotid stenosis and will decision to vascular surgery team.. Xarelto is held since because GI issues and will leave the start decision to primary team and GI team but it seems it was restarted by primary for later today. Increased Lipitor from 10mg to 40mg qhs for secondary stroke prophylaxis. Q4 hour neuro checks PT and OT are consulted. Will defer the rest of medical management to primary team. For DVT prophylaxis on Lovenox. The plan is discussed with patient and her nurse. There is no further neurological work-up. Please notify neurology team if any further concerns. Time with Patient: Less than 30
[2022-04-18 16:54] LABS: Glucose,Whole Blood 132 mg/dL (70-110)
[2022-04-18] MEDS: RIVAROXABAN 15 MG TAB PO SCH (17:52)
[2022-04-18 19:54] LABS: Glucose,Whole Blood 150 mg/dL (70-110)
[2022-04-18] MEDS: MONTELUKAST 10 MG TAB PO SCH (19:58)
[2022-04-18] MEDS: MELATONIN 3 MG TABLET PO SCH (19:58)
[2022-04-18] MEDS: ATORVASTATIN 40 MG TAB PO SCH (19:58)
[2022-04-19] MEDS: HYDROcodone/APAP 5-325MG 1 EACH TAB PO PRN ×3 (02:34→20:26)
[2022-04-19 08:15] LABS: African American GFR (CKD) >90 (>60 ml/min/1.73 sqM); Anion Gap 3 mmol/L; Blood Urea Nitrogen 7 mg/dL (7-17); Calcium 8.5 mg/dL (8.4-10.2); Carbon Dioxide 28 mmol/L (22-30); Chloride 105 mmol/L (98-107); Glucose 88 mg/dL (74-99); Non-African American GFR(CKD) 80 (>60 ml/min/1.73 sqM); Potassium 3.4 mmol/L (3.5-5.1); Sodium 136 mmol/L (137-145)
[2022-04-19] MEDS: IPRATROPIUM-ALBUTEROL 3 ML NEB INHALATION SCH ×3 (08:33→19:10)
[2022-04-19 08:43] LABS: Basophils % (A) 0 %; Eosinophils # (A) 0.4 k/uL (0-0.7); Eosinophils % (A) 4 %; HCT 35.5 % (34.0-46.0); HGB 11.5 gm/dL (11.4-16.0); Lymphocytes # (A) 1.3 k/uL (1.0-4.8); Lymphocytes % (A) 11 %; MCHC 32.5 g/dL (31.0-37.0); MCV 95.2 fL (80.0-100.0); Mean Platelet Volume 9.3; Monocytes # (A) 0.5 k/uL (0-1.0); Monocytes % (A) 4 %; Neutrophils # (A) 8.8 k/uL (1.3-7.7); Neutrophils % (A) 79 %; Platelet Count 301 k/uL (150-450); RBC 3.73 m/uL (3.80-5.40); RDW 13.6 % (11.5-15.5); WBC 11.1 k/uL (3.8-10.6)
[2022-04-19] MEDS: PANTOPRAZOLE 40 MG/10 ML VIAL IVP SCH ×2 (08:52→20:26)
[2022-04-19] MEDS: LEVOTHYROXINE IVP 100 MCG/5 ML VIAL IV SCH (08:53)
[2022-04-19] MEDS: PIPERACILLIN-TAZOBACTAM 3.375 GM in SODIUM CHLORIDE 0.9% 100 ML IVPB SCH ×3 (08:53→23:43)
[2022-04-19] MEDS ORDERED: 1: AMINO ACID 5%-D15W+LYTES*E* 1,000 ML 2: MVI, ADULT NO.4 WITH VIT K 10 ML, TRACE (CON IV SCH ×3 (11:00)
[2022-04-19] MEDS ORDERED: POTASSIUM BICARBONATE/CIT AC 20 MEQ TABLET.EFF PO ONE (12:00)
--- NOTE | 2022-04-19 12:46 | P.PN ---
Subjective Progress Note Date: 04/19/22 CHIEF COMPLAINT: Hematemesis HISTORY OF PRESENT ILLNESS: Patient is postop day #7 right colectomy and partial omentectomy. Patient is currently on the cardiac floor. She does complain of abdominal pain. She did have a bowel movement. Denies any nausea or vomiting. She did eat a small amount of regular diet today. Afebrile. WBC is up from 10 to 11.1 H Pieter 0.5 platelets are 1 sodium is 136 potassium 3.4 creatinine 0.67. Patient had Thapa catheter placed for urinary retention. Xarelto has been restarted Patient seen and examined with Dr. levy PHYSICAL EXAM: VITAL SIGNS: Reviewed. GENERAL: Well-developed in no acute distress. HEENT: No sclera icterus. Extraocular movements grossly intact. Moist buccal mucosa. Head is atraumatic, normocephalic. ABDOMEN: Soft. Mildly distended. Incision site is clean dry and intact. NEUROLOGIC: Alert and oriented. Cranial nerves II through XII grossly intact. ASSESSMENT: 1. 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 History of A. fib on Xarelto at home 3. Low-grade temp likely due to atelectasis 4. Postoperative ileus 5. TIA and left internal carotid artery stenosis 6. Hypokalemia and hypomagnesemia PLAN: -Okay from surgical standpoint to start Plavix -continue regular diet -Continue supportive care -Replace potassium -Check magnesium level -Increase activity as tolerated -Encouraged patient to use incentive spirometer -GI prophylaxis Protonix And DVT prophylaxis Xarelto Physician Auto Electrical Technician note has been reviewed by physician. Signing provider agrees with the documented findings, assessment, and plan of care. Objective - Vital Signs Vital signs: Vital Signs Temp 98.3 F 04/19/22 04:00 Pulse 80 04/19/22 11:34 Resp 16 04/19/22 08:00 BP 127/75 04/19/22 08:00 Pulse Ox 97 04/19/22 08:00 FiO2 Intake & Output 04/18/22 04/19/22 04/19/22 18:59 06:59 18:59 Intake Total 180 Output Total 950 Balance -950 180 Weight 50.9 kg Intake: Oral 180 Output: Urine 950 Straight 950 Other: Voiding Method External Catheter # Bowel Movements 1 1 1 - Labs CBC & Chem 7: 04/19/22 07:24 04/19/22 07:24 Labs: Abnormal Lab Results - Last 24 Hours (Table) 04/18/22 04/18/22 04/19/22 Range/Units 16:52 19:52 07:24 WBC 11.1 H (3.8-10.6) k/uL RBC 3.73 L (3.80-5.40) m/uL Neutrophils # 8.8 H (1.3-7.7) k/uL Sodium (137-145) mmol/L Potassium (3.5-5.1) mmol/L POC Glucose (mg/dL) 132 H 150 H (70-110) mg/dL 04/19/22 Range/Units 07:24 WBC (3.8-10.6) k/uL RBC (3.80-5.40) m/uL Neutrophils # (1.3-7.7) k/uL Sodium 136 L (137-145) mmol/L Potassium 3.4 L (3.5-5.1) mmol/L POC Glucose (mg/dL) (70-110) mg/dL Microbiology - Last 24 Hours (Table) 04/13/22 15:45 Blood Culture - Preliminary Blood No Growth after 120 hours
--- NOTE | 2022-04-19 13:17 | P.PN ---
Subjective This is an 86 year old female who was recently presented to the emergency department with hematemesis along with acute upper GI bleed with surgery f latha with plans for endoscopy. 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 Labs reviewed this morning and WBC is within normal limits, hemoglobin is 12.0, platelets are 234, current INR 0.9, BMP reviewed and within normal limits with a creatinine of 1.03. C. diff testing was negative. Patient denies chest pain or shortness of breath. Patient is afebrile. 04/13/2022 Patient is seen and evaluated and follow-up this morning appears to be slightly confused just received some IV Dilaudid. Patient is status post right colectomy with partial omentectomy due to a cecal bascule causing colonic obstruction. Patient is currently nothing by mouth per surgery recommendations and continues with severe pain. Did have a follow-up chest x-ray yesterday after surgery which shows bibasilar infiltrates correlate for aspiration and atelectasis. Will decrease IV fluids gently, order incentive spirometer encourage the patient to continue using at least 10 times every hour while awake and will also initiate Rocephin empirically along with DuoNeb treatments. Patient is also having fevers and recommend blood cultures with empiric antibiotics. Patient will need physical therapy with possible ECF. Patient is currently nothing by mouth per surgery. Labs reviewed and WBC within normal limits hemoglobin is stable at 10.9, electrolytes are normal and would recommend follow-up labs in a.m. Will also give DuoNeb treatments. 04/14/2022 Patient is seen in follow-up today currently sitting up at the side of the bed working with physical therapy. Patient reports her pain is better controlled today and able to get up and move around although continues to be significantly weak. Patient is maintained on 2 L via nasal cannula and recommend to wean as tolerated. Patient will be encouraged to continue with incentive spirometer at least 10 times every hour while awake. Patient has been started on empiric antibiotics and will continue for now along with DuoNeb breathing treatments. Potassium slightly low and will replace per protocol recommend follow-up labs. Patient is currently afebrile and continues to be nothing by mouth while awaiti ng for surgery recommendations for possible starting of diet. Recommend physical therapy daily with case management following and working on possible ECF once stabilized. Patient denies passing gas or having bowel movements as of yet. Thapa catheter is being replaced. Encouraged increased activity as tolerated. Home Xarelto currently on hold per surgery recommendations and will continue subcutaneous Lovenox for DVT prophylaxis. Resume the care of the patient today 04/15/2020 This is a pleasant 86 years old female who presents with signs and symptoms of bowel obstruction status post right colectomy and partial omentectomy by surgery team on 04/14. Today is postoperative day #1, she has significant abdominal distention with x-ray showing postop ileus. NG tube was placed and that was an immediate return of 500 mL of greenish discharge. Also she has some abdominal pain and tenderness which is expected from her surgery. She is nothing by mouth currently and getting normal saline at 75 mL/h. proCalcitonin is elevated 1.3. Currently she is on ceftriaxone however I think it is more appropriate to change her antibiotics to Zosyn to cover and aerobes especially patient clinically is symptomatic and not improving repeat chest x- ray showed chronic changes with no evidence of aspiration. She had fever yesterday but no more fever today Also she is on normal saline 75 mL/h Patient also has evidence of 9.98.95.4 cm right large adrenal mass, patient informed and she verbalized understanding for the need for outpatient follow-up once stabilized. We change her by mouth Norvasc and clonidine into clonidine patch, and IV levothyroxine send off oral dose 04/16/2022 Last night patient developed periods of unresponsiveness, stroke was suspected because of her history of atrial fibrillation, patient was moved to the ICU as3 [facility] unit overflow. 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 Neurology team evaluated the patient and recommended EEG, carotid Doppler's was showing left internal carotid artery stenosis about 50-69% and echocardiogram which is pending. Patient is still is on hold because she had recent surgery and today is postoperative day #4. Anticoagulation is on hold with recommendation from surgery team. We will discuss with surgeons tomorrow about anticoagulation management as well. Currently no signs of active bleeding and hemoglobin stable. Patient remains on Zosyn, normal saline at 75 mL/h. NG tube is in place because of this we switched her by mouth medication to IV, today patient developed some tachycardia because we held her clonidine pills and put her on a clonidine patch. Also she is on IV hydralazine when necessary for high blood pressure 04/17/2022 The morning patient was awake and alert, no abdominal distention or pain, NG tube was in place. After evaluation the plan for her is to remove NG tube tonight. Also I discussed the case with surgery team recommended to start Xarelto tonight. Labs look stable She remains on Zosyn and normal saline advance diet as per surgery team 04/18/2022 patient NG tube is out, she is tolerating liquid diet, no abdominal pain. No bowel movement yet. Her blood pressure is stable, she has mild basilar crepitations therefore we will lower her fluids to 50 mL per hour. Continue with Zosyn Vascular surgery recommended Plavix and follow-up outpatient Xarelto was restarted yesterday, monitor hemoglobin Patient is very weak and PT OT, rehab recommended 04/19/2022 Diet is advanced to regular diet, no significant abdominal pain. Patient is having bowel movement. We'll monitor for another 24 hours and if she gets cleared by surgery team by tomorrow we will consider discharge to rehab and patient is agreeable to go to rehab upon discharge Neurology team recommended no further necrotic workup while vascular surgery team. The patient for discharge and follow-up outpatient in 1 week for possible stent placement, also they initiated Plavix instead of aspirin which is cleared by surgery team patient is tolerating Xarelto and her hemoglobin is normal today at 11.5 Objective - Vital Signs Vital signs: Vital Signs Temp 98.3 F 04/19/22 04:00 Pulse 111 H 04/19/22 12:00 Resp 16 04/19/22 12:00 BP 139/78 04/19/22 12:00 Pulse Ox 97 04/19/22 12:00 FiO2 Intake & Output 04/18/22 04/19/22 04/19/22 18:59 06:59 18:59 Intake Total 180 Output Total 950 Balance -950 180 Weight 50.9 kg Intake: Oral 180 Output: Urine 950 Straight 950 Other: Voiding Method External Catheter # Bowel Movements 1 1 1 - Exam GENERAL: The patient is alert and oriented x3, not in any acute distress. Well developed, well nourished. HEENT: Pupils are round and equally reacting to light. EOMI. No scleral icterus. No conjunctival pallor. Normocephalic, atraumatic. No pharyngeal erythema. No thyromegaly. CARDIOVASCULAR: S1 and S2 present. No murmurs, rubs, or gallops. PULMONARY: Chest is clear to auscultation, no wheezing or crackles. -ABDOMEN: Soft, tender, distended, normoactive bowel sounds. No palpable organomegaly. Surgical wound with dressing in a Place soft exam is deferred for surgery team, MUSCULOSKELETAL: No joint swelling or deformity. EXTREMITIES: No cyanosis, clubbing, or pedal edema. NEUROLOGICAL: Gross neurological examination did not reveal any focal deficits. SKIN: No rashes. no petechiae. - Labs CBC & Chem 7: 04/19/22 07:24 04/19/22 07:24 Labs: Abnormal Lab Results - Last 24 Hours (Table) 04/18/22 04/18/22 04/19/22 Range/Units 16:52 19:52 07:24 WBC 11.1 H (3.8-10.6) k/uL RBC 3.73 L (3.80-5.40) m/uL Neutrophils # 8.8 H (1.3-7.7) k/uL Sodium (137-145) mmol/L Potassium (3.5-5.1) mmol/L POC Glucose (mg/dL) 132 H 150 H (70-110) mg/dL 04/19/22 Range/Units 07:24 WBC (3.8-10.6) k/uL RBC (3.80-5.40) m/uL Neutrophils # (1.3-7.7) k/uL Sodium 136 L (137-145) mmol/L Potassium 3.4 L (3.5-5.1) mmol/L POC Glucose (mg/dL) (70-110) mg/dL Microbiology - Last 24 Hours (Table) 04/13/22 15:45 Blood Culture - Preliminary Blood No Growth after 120 hours Assessment and Plan Assessment: Acute Bowel obstruction status post right colectomy and partial omentectomy Postoperative ileus Enterocolitis Large right adrenal mass Chronic atrial fibrillation on Xarelto (currently on hold) History of CVA periods of unresponsiveness on 04/16, rule out seizure, less likely stroke Plan: Discontinue normal saline Change antibiotics to Zosyn, can be changed to Augmentin upon discharge discontinue NG tubeas per surgery team and advanced diet as tolerated per surgery team recommendation Continue with the neurologist evaluation and workup Advanced diet per surgery team Pain management Start Plavix per surgery team clearance and vascular surgery recommendation Follow-up with vascular surgery as an outpatient Surgery team consult on the case Labs and medication were reviewed.. Continue same treatment. Continue with symptomatic treatment. Resume home medication. Monitor labs and vitals. DVT and GI prophylaxis. Further recommendations as per clinical course of the jose ent DVT prophylaxis: Xarelto GI Prophylaxis: Ppi PT/OT: Rehab Prognosis is guarded
[2022-04-19] MEDS: RIVAROXABAN 15 MG TAB PO SCH (16:53)
[2022-04-19] MEDS: CLOPIDOGREL 75 MG TAB PO SCH (16:53)
[2022-04-19] MEDS: MELATONIN 3 MG TABLET PO SCH (20:26)
[2022-04-19] MEDS: ATORVASTATIN 40 MG TAB PO SCH (20:26)
[2022-04-19] MEDS: MONTELUKAST 10 MG TAB PO SCH (20:26)
[2022-04-19 21:24] VITALS: RESP 16
[2022-04-20] MEDS: HYDROcodone/APAP 5-325MG 1 EACH TAB PO PRN (04:07)
[2022-04-20] MEDS: IPRATROPIUM-ALBUTEROL 3 ML NEB INHALATION SCH ×2 (08:42→12:50)
[2022-04-20] MEDS: PANTOPRAZOLE 40 MG/10 ML VIAL IVP SCH (08:57)
[2022-04-20] MEDS: PIPERACILLIN-TAZOBACTAM 3.375 GM in SODIUM CHLORIDE 0.9% 100 ML IVPB SCH ×2 (08:57→16:33)
[2022-04-20] MEDS: LEVOTHYROXINE IVP 100 MCG/5 ML VIAL IV SCH (08:57)
[2022-04-20] MEDS: CLOPIDOGREL 75 MG TAB PO SCH (08:58)
--- NOTE | 2022-04-20 10:51 | XR ---
EXAMINATION TYPE: XR chest 1V DATE OF EXAM: 04/20/2022 COMPARISON: 04/15/2022 HISTORY: 86-year-old female with cough TECHNIQUE: Single frontal view of the chest is obtained. FINDINGS: Heart borderline enlarged. Atherosclerotic calcifications throughout the thoracic aorta. Old right-si ded rib fracture deformities. Some focal opacity at the periphery of the right midlung has increased. Additional mild patchy density at the left base also increased. No sizable pleural effusion. IMPRESSION: 1. Mild cardiomegaly and chronic appearing interstitial changes. Correlate to exclude mild pulmonary vascular congestion. 2. Unable to exclude developing infiltrate/pneumonia at the periphery of the right midlung and at the left base. 3. Right-sided rib fracture deformities which appear to have been present on the prior exam as well.
[2022-04-20 12:03] VITALS: BP 113/67; TEMP 97.9
[2022-04-20 13:00] VITALS: PULSE 94
--- NOTE | 2022-04-20 14:27 | P.PN ---
Progress Note - Text Progress Note Date: 04/20/22 patient is resting in her bed. She is alert and orientated today. She has had some crampy abdominal pain. On exam vital signs are stable. Abdomen is soft. Incision is clean dry intact. Status post right colectomy for colonic obstruction secondary to cecal bascule. Patient is progressing. She will continue receive supportive care. She will most likely need inpatient rehab prior to discharge home.
--- NOTE | 2022-04-20 15:13 | P.DS ---
Providers Date of admission: 04/08/22 16:12 Attending physician: Ruddy Galvan Consults: 04/08/22 16:12 Consult Physician Urgent Consulting Provider: Rishabh Garcia Consult Reason/Comments: hematemesis Do you want consulting provider notified?: Already Contacted 04/16/22 05:09 Consult Physician Urgent Consulting Provider: George Carrillo Consult Reason/Comments: stroke symptoms Do you want consulting provider notified?: Yes Primary care physician: Vencor Hospital Course: Diagnoses Acute Bowel obstruction status post right colectomy and partial omentectomy Postoperative ileus, improved Enterocolitis Large right adrenal mass Chronic atrial fibrillation on Xarelto History of CVA periods of unresponsiveness on 04/16, rule out seizure, less likely stroke Left internal carotid artery stenosis 50-69% Hospital course: This is an 86 year old female who was recently presented to the emergency department with hematemesis along with acute upper GI bleed with surgery team were following the case closely since admission. CT abdomen and pelvis was ordered showing concerns for possible cecal bascule given the abnormal location and dilatation of the cecum, prominent and dilated small bowel loops throughout the abdomen with a dilated wandering cecum with possible internal hernia that needs to be considered with possible underlying enterocolitis and/or diarrhea with no definite transition point to suggest complete bowel obstruction partial bowel obstruction . Eventually patient underwent right colectomy and partial omentectomy with surgery team on 04/12. Postoperatively she developed some ileus and NG tube has to be placed, also shows some evidence of infection and enteritis with fever and also possible bilateral pneumonia suspected and causes a aspiration pneumonia suspected patient antibiotic was adjusted to Zosyn, patient showed interval improvement. At least 50%, abdominal pain control and she's been having bowel movements, today patient was cleared for discharge by s urgery team. Currently she is able to consume diet She has some cough and so repeat chest x-ray showing no acute abnormality concerning. She is saturating 97% on room air Patient is fully awake oriented to time place and person, no chest pain or dyspnea, she has some mild occasional coughing. No abdominal pain. No urinary complaints, no headache weakness or numbness. Glucose was completed by previous of unresponsiveness, evaluated by neurologist, workup showing Left internal carotid artery stenosis 50-69%. Vascular surgery evaluated the patient, they recommended Plavix and continue with conservative management and follow-up as an outpatient, informed and she agrees currently patient placed on her home dose of Xarelto as she has chronic/paroxysmal A. fib and Plavix and tolerates that well. Hemoglobin checked yesterday was within the normal limits at 11.5. Also patient was informed about her right large adrenal mass 9.9 cm 8.9 cm 5.4 cm with a recommendation for outpatient follow-up with her PCP as well as with the surgeon Dr. Matamoros (risks including but not limited to cancer are explained to her and she verbalized understanding and acceptance) Patient is Evaluated and cleared by neurologist for discharge. Patient was cleared for discharge by all consultants including surgery team, vascular surgery, neurologist Problems and management plan were discussed with the patient and he verbalized understanding and acceptance Patient was found stable and can be discharged to [facility] for subacute rehab in guarded prognosis however he needs follow-up as an outpatient. Patient was in structed to follow up with PCP Dr. Goel within one week and patient agrees Patient was instructed to follow up with the surgeon Dr. Matamoros in one week. Patient also was instructed to follow up with vascular surgeon Dr. gomez in 1- 2 weeks and she agrees. Patient will benefit from neurology evaluation as an outpatient with Dr. Cerda in 1 to 2 weeks Physical exam -Gen: patient is a AAOx3, no distress. Generally weak CVS: S1-S2, RRR, no murmur Lungs: B/L CTA, no wheezing -Abdomen: soft, no distention, no tenderness, positive bowel sounds. Surgical wound is healinghim a dressing in place, Extremity: no leg edema or induration Time spent more than 35 minutes Patient Condition at Discharge: Stable Plan - Discharge Summary Discharge Rx Participant: No New Discharge Prescriptions: New Clopidogrel [Plavix] 75 mg PO DAILY #90 tablet No Action Levothyroxine Sodium [Synthroid] 50 mcg PO AC-BRKFST Rivaroxaban [Xarelto] 15 mg PO HS Montelukast [Singulair] 10 mg PO HS amLODIPine [Norvasc] 10 mg PO DAILY Atorvastatin [Lipitor] 10 mg PO HS Brimonidine Tartrate [Alphagan P 0.1% Ophth Soln] 1 drop BOTH EYES BID cloNIDine HCL [Catapres] 0.1 mg PO TID Melatonin 3 mg PO HS Discharge Medication List Levothyroxine Sodium [Synthroid] 50 mcg PO AC-BRKFST 12/07/17 [History] Montelukast [Singulair] 10 mg PO HS 12/07/17 [History] Rivaroxaban [Xarelto] 15 mg PO HS 12/07/17 [History] Atorvastatin [Lipitor] 10 mg PO HS 04/08/22 [History] Brimonidine Tartrate [Alphagan P 0.1% Ophth Soln] 1 drop BOTH EYES BID 04/08/22 [History] Melatonin 3 mg PO HS 04/08/22 [History] amLODIPine [Norvasc] 10 mg PO DAILY 04/08/22 [History] cloNIDine HCL [Catapres] 0.1 mg PO TID 04/08/22 [History] Clopidogrel [Plavix] 75 mg PO DAILY #90 tablet 04/19/22 [Rx] Follow up Appointment(s)/Referral(s): Petey Honeycutt DO [STAFF PHYSICIAN] - 1 Week (Vascular surgeon for your carotid artery disease) Saman Bautista MD [Primary Care Provider] - 1-2 days [facility], [NON-STAFF] - 1 Week Rishabh Garcia MD [STAFF PHYSICIAN] - 1 Week
--- NOTE | 2022-04-23 17:05 | CDI ---
Documentation Clarification Form Date: 04/23/2022 04:01:20 PM From: Daniela Oh Phone: Admit Date: 04/08/2022 04:12:00 PM Patient Name: Lorna Le Visit Number: [id number] Discharge Date: 04/20/2022 06:53:00 PM ATTENTION: The Clinical Documentation Specialists (CDI) and [facility] Coding Staff appreciate your assistance in clarifying documentation. Please respond to the clarification below the line at the bottom and electronically sign. The CDI & [facility] Coding staff will review the response and follow-up if needed. Please note: Queries are made part of the Legal Health Record. If you have any questions, please contact the author of this message via ITS. Dr. Eben Stallings TIA is documented per Consult Note 04/16/22. Additional clarification regarding the etiology of the TIA is requested. Patient history/risk factors: 86yo F, Acute LBO s/p colectomy and partial omentectomy, postop ileus, enterocolitis, RT adrenal mass, chronic AFib, Hx CVA, periods of unresponsiveness, LICA stenosis Clinical indicators: CT head: Moderate Stenosis of the LICA between 60 and 70%. Normal [place] of [place] Carotid US: 50-69% stenosis of the LC bifurcation. 2. Less than 50% stenosis of the RC bifurcation. Echo: Normal left ventricular dimension and systolic. [id number] regurgitation Treatment: Vascular surgery team is consulted forcarotid stenosis(I would recommend more medical management). Recommend starting ASA 81mg daily or Plavix forcarotid stenosisand will decision to vascular surgery team. Xarelto is held since because GI issues and will leave the start decision to primary team and GI team but it seems it was restarted by primary for later today. Increased Lipitor from 10mg to 40mg qhs for secondarystrokeprophylaxis. Q4 hour neuro checks PTandOTare consulted. Will defer the rest of medical management to primary team. ForDVTprophylaxison Lovenox. Consult: Episode of nonverbal on04/16/2022:ProbableTIAsince has hx AFib and her anticoagulation has been held. Cannot excludeseizure especially since Hx CVAthatcan causecorticalirritability. Please clarify the etiology of the TIA, if known: [ ] Carotid Stenosis (LICA stenosis) [ ] Sequelae of Cerebrovascular Disease [ ] Other (please specify): [ ] Etiology unknown or Unable to determine (Template Last Revised: June 2020) Etiology is unknown. Could be due to A-fib or carotid stenosis. MTDD
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
== END 2022-04-20 18:53 | DRG 329 ==
LOC: EC 13:19 → 5NMEDONC 16:12 → 2SICU 04-16 05:30 → 3SCARD 04-17 16:01 → 5NMEDONC 04-19 21:17
PROVIDERS: ADMIT Internal Medicine; ATTEND Internal Medicine
PROC: 0DBU0ZZ Excision of Omentum, Open Approach (ICD-10-PCS; 2022-04-12)
PROC: 0DTF0ZZ Resection of Right Large Intestine, Open Approach (ICD-10-PCS; principal; 2022-04-12 07:30)
PROC: 0D9670Z Drainage of Stomach with Drainage Device, Via Natural or Artificial Opening (ICD-10-PCS; 2022-04-15)
DX: K56.2 Volvulus (principal); N17.0 Acute kidney failure with tubular necrosis; K92.0 Hematemesis; I48.20 Chronic atrial fibrillation, unspecified; G45.9 Transient cerebral ischemic attack, unspecified; I69.351 Hemiplegia and hemiparesis following cerebral infarction affecting right dominant side; J98.11 Atelectasis; E27.8 Other specified disorders of adrenal gland; I12.9 Hypertensive chronic kidney disease with stage 1 through stage 4 chronic kidney disease, or unspecified chronic kidney disease; N18.30 Chronic kidney disease, stage 3 unspecified; I08.1 Rheumatic disorders of both mitral and tricuspid valves; I65.22 Occlusion and stenosis of left carotid artery; E78.5 Hyperlipidemia, unspecified; I49.1 Atrial premature depolarization; K56.0 Paralytic ileus; R00.0 Tachycardia, unspecified; R33.9 Retention of urine, unspecified; K52.9 Noninfective gastroenteritis and colitis, unspecified; E87.5 Hyperkalemia; E87.6 Hypokalemia; E83.42 Hypomagnesemia; R47.89 Other speech disturbances; I69.322 Dysarthria following cerebral infarction; Z79.01 Long term (current) use of anticoagulants; Z79.899 Other long term (current) drug therapy; Z79.890 Hormone replacement therapy; Z87.11 Personal history of peptic ulcer disease; Z87.891 Personal history of nicotine dependence
CPT/HCPCS: 36415; 70450; 70496; 70498; 71045; 74018; 74019; 74176; 76770; 80048; 80053; 80061; 80076; 82330; 82570; 83605; 83690; 83735; 84100; 84132; 84145; 84156; 84300; 85025; 85610; 85730; 86850; 86900; 86901; 87040; 87324; 87635; 88307; 93005; 93306; 93880; 94640; 94760; 95816; 96361; 96372; 96374; 99285

== ENCOUNTER 2022-05-09 19:11 | Emergency (ER) | payer MEDICARE ==
[2022-05-09 19:19] VITALS: TEMP 97.3
[2022-05-09] MEDS ORDERED: ACETAMINOPHEN TAB 325 MG TAB PO STA (19:32)
--- NOTE | 2022-05-09 20:28 | CT ---
EXAMINATION TYPE: CT brain wo con CT DLP: 1099.4 mGycm, Automated exposure control for dose reduction was used. DATE OF EXAM: 05/09/2022 8:04 PM COMPARISON: 04/16/2022 CLINICAL INDICATION:Female, 86 years old with history of Head trauma, mod-severe, fall. head trauma. TECHNIQUE: Brain: Axial CT images of the brain were obtained with coronal and sagittal reformats created and rev iewed. Contrast used: None. Oral contrast used: None. FINDINGS: Brain: Extra-axial spaces: No abnormal extra-axial fluid collections. Ventricular system: Dilatation in proportion to cerebral atrophy. Cerebral parenchyma: Remote left frontal lobe injury with encephalomalacia similar prior. Right coron a radiata injuries similar prior No acute intraparenchymal hemorrhage or mass effect. Cerebral atroph y is present. The remainder of the conroy-white junctions are well differentiated. Scattered hypoattenu ating areas are seen within the white matter. Cerebellum: Unremarkable. Mass effect: No evidence of midline shift. Intracranial vasculature: Atherosclerotic calcifications of the intracranial vessels. Soft tissues: Posterior right scalp hematoma measuring up to 5.3 x 1.8 cm. Calvarium/osseous structures: No depressed skull fracture. Paranasal sinuses and mastoid air cells: Mild scattered paranasal sinus disease. Remote left zygomati c arch injury Visualized orbits: Bilateral aphakia IMPRESSION: 1. No acute intracranial process. 2. Posterior right scalp hematoma without evidence of fracture. 3. Remote injury to the left frontal lobe and right parsons radiata. 4. Nonspecific white matter changes.
[2022-05-09 20:38] VITALS: RESP 16
--- NOTE | 2022-05-09 20:40 | XR ---
EXAMINATION TYPE: XR elbow complete RT DATE OF EXAM: 05/09/2022 8:29 PM INDICATION: Patient age:Female; 86 years old; Reason for study: fracture; COMPARISON: None TECHNIQUE: The right elbow was examined in AP, lateral, and oblique projections. FINDINGS: No evidence of any acute osseous pathology, joint dislocation, or soft tissue swelling is n oted. No evidence of joint effusion is present. IMPRESSION: No evidence of acute fracture.
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
[2022-05-09 22:25] VITALS: BP 141/78; PULSE 75
== END 2022-05-09 22:29 | disposition home or self-care (01) ==
LOC: SUPCPDRO 19:11 → EC 19:11
DX: S50.01XA Contusion of right elbow, initial encounter (principal); S09.90XA Unspecified injury of head, initial encounter; Z86.73 Personal history of transient ischemic attack (TIA), and cerebral infarction without residual deficits; E78.5 Hyperlipidemia, unspecified; M19.90 Unspecified osteoarthritis, unspecified site; I12.9 Hypertensive chronic kidney disease with stage 1 through stage 4 chronic kidney disease, or unspecified chronic kidney disease; N18.30 Chronic kidney disease, stage 3 unspecified; Z87.891 Personal history of nicotine dependence; Z79.01 Long term (current) use of anticoagulants; Z79.899 Other long term (current) drug therapy; W01.0XXA Fall on same level from slipping, tripping and stumbling without subsequent striking against object, initial encounter; Y92.009 Unspecified place in unspecified non-institutional (private) residence as the place of occurrence of the external cause
CPT/HCPCS: 70450; 99285

== ENCOUNTER 2022-06-19 05:38 | Inpatient (IN) | payer MEDICARE ==
[2022-06-19] MEDS ORDERED: ASPIRIN 81 MG PO PRN (05:45)
[2022-06-19] MEDS ORDERED: MIDAZOLAM 2 MG/2 ML VIAL IV PRN (05:45)
[2022-06-19] MEDS ORDERED: ALPRAZolam 0.25 MG TAB PO PRN (05:45)
[2022-06-19] MEDS ORDERED: ONDANSETRON 4 MG/2 ML VIAL IVP ONE (05:45)
[2022-06-19] MEDS ORDERED: DEXAMETHASONE SOD PHOSPHATE 4 MG/ML 1 ML VIAL IV ONE (05:45)
[2022-06-19] MEDS ORDERED: NITROGLYCERIN SL TABS 0.4 MG TAB SUBLINGUAL PRN (05:45)
[2022-06-19] MEDS ORDERED: ASPIRIN 325 MG TAB PO PRN (05:45)
[2022-06-19] MEDS ORDERED: SODIUM CHLORIDE 0.9% 1,000 ML in EMPTY BAG 1 BAG IV ONE (05:45)
[2022-06-19] MEDS ORDERED: CLOPIDOGREL 75 MG TAB PO PRN (05:45)
[2022-06-19 06:30] LABS: Glucose,Whole Blood 93 mg/dL (70-110)
[2022-06-19 06:45] LABS: Basophils # (A) 0.1 k/uL (0-0.2); Basophils % (A) 1 %; Eosinophils # (A) 0.8 k/uL (0-0.7); Eosinophils % (A) 12 %; HGB 10.9 gm/dL (11.4-16.0); Hypochromasia Slight; Lymphocytes # (A) 1.6 k/uL (1.0-4.8); Lymphocytes % (A) 24 %; MCH 28.6 pg (25.0-35.0); MCV 92.4 fL (80.0-100.0); Mean Platelet Volume 7.6; Monocytes # (A) 0.5 k/uL (0-1.0); Monocytes % (A) 8 %; Neutrophils # (A) 3.6 k/uL (1.3-7.7); Neutrophils % (A) 53 %; Platelet Count 337 k/uL (150-450); RBC 3.79 m/uL (3.80-5.40); RDW 14.8 % (11.5-15.5); WBC 6.7 k/uL (3.8-10.6)
[2022-06-19] MEDS ORDERED: ceFAZolin 2 GM in SODIUM CHLORIDE 0.9% 500 ML 500 ML IRRIGATION PRN (07:00)
[2022-06-19 07:10] LABS: Calcium 9.9 mg/dL (8.4-10.2); Potassium 4.8 mmol/L (3.5-5.1)
[2022-06-19] MEDS ORDERED: DEXMEDETOMIDINE 200 MCG/2 ML VIAL IV ONE (07:34)
[2022-06-19] MEDS ORDERED: GLYCOPYRROLATE 0.2 MG/ML 2 ML VIAL ONE (07:34)
[2022-06-19] MEDS ORDERED: ePHEDrine 50 MG/ML 1 ML VIAL ONE (07:34)
[2022-06-19] MEDS ORDERED: MIDAZOLAM 2 MG/2 ML VIAL ONE ×2 (07:34→18:33)
[2022-06-19] MEDS ORDERED: HEPARIN SODIUM,PORCINE 10,000 UNIT/ML 1 ML VIAL ONE (07:34)
[2022-06-19] MEDS ORDERED: fentaNYL (PF) 50 MCG/ML 2 ML AMP ONE ×2 (07:34→18:33)
[2022-06-19] MEDS ORDERED: LIDOCAINE 1% INJ 10MG/ML (30 ML VIAL-PF) SQ ONE (08:04)
[2022-06-19] MEDS ORDERED: RX INFO: IV CONTRAST WAS GIVEN 1 EACH MISC MISCELLANE PRN (09:00)
[2022-06-19] MEDS ORDERED: IOPAMIDOL-250 100ML BTL INTRAARTER ONE (09:17)
[2022-06-19] MEDS ORDERED: IV FLUID CONTINUATION 1,000 ML IV ONE ×3 (09:23→18:15)
[2022-06-19] MEDS ORDERED: MAG HYDROX/AL HYDROX/SIMETH 30 ML CUP PO PRN (09:28)
[2022-06-19] MEDS ORDERED: ATROPINE SULFATE 0.1 MG/ML 10ML SYRINGE IV PRN (09:28)
--- NOTE | 2022-06-19 09:28 | P.OP ---
Description of Procedure: Date: 06/19/2022 Preoperative diagnosis: Symptomatic carotid stenosis left ICA greater than 55% Postoperative diagnosis: Same Procedure: Left Transcarotid artery revascularization with stenting Surgeon: Petey Honeycutt DO Classroom Teacher: None Anesthesia: Conscious sedation and local Complications: None Condition: Stable Flow reversal time: 7 minutes Indication for procedure: 86-year-old female with history of 4 strokes with right-sided weakness presented to the office secondary to CTA and carotid Doppler demonstrating 50-69% stenosis of the left internal carotid artery. Due to the fact that she has had multiple strokes we discussed options including medical management versus TCAR. After long discussion patient opted for TCAR procedure. Operative narrative: After written and informed consent was obtained the patient all risks benefits and complications were described the patient was brought to the Health And Safety Manager and laid in a supine position. The area of the neck and groins were prepped and draped in usual sterile fashion after appropriate anesthetic was performed per the anesthesiologist. A timeout was performed in normal f ashion and antibiotics were administered prior to incision. Utilizing ultrasound the left common carotid artery was located and a transverse incision was created overlying this area. Dissection was carried between the sternocleidomastoid musculature down to the carotid sheath. The sheath was then incised and the common carotid artery was located and dissected free in a circumferential manner and controlled with umbilical tape. Once controlled attention was placed down to the common femoral vein on the right and utilizing ultrasound the vein was cannulated and the 8-[place] sheath was placed in normal fashion. Attention was then placed back to the carotid artery and the patient was administered heparin and followed with ACTs and redosed as needed for ACT above 200. A pursestring suture was then placed at the common carotid artery with 6-0 Prolene and utilizing a multipurpose needle the common carotid artery was accessed and wire was placed followed by a 4-[place] sheath. Carotid an giogram was then obtained demonstrating significant stenosis greater than 55% in the internal carotid artery. Stiff wire was then placed followed by the 8 [place] sheath. Flow reversal was then established with the enroute DIGITAL ASSOCIATE MEDIA DIRECTOR system after patient's blood pressure was increased to above 160, heart rate above 60 and ACT above 250. 014 wire was then placed across the lesion followed by a 6 x 15 mm balloon and balloon angioplasty was performed followed by an 9 x 30 mm [place] stent. Postdilatation was performed and final angiogram was obtained demonstrating complete resolution of the stenosis. All guidewires and catheters were removed and the sheath was removed and the arteriotomy was secured with the previously placed pursestring suture. Hemostasis was assured with Gelfoam and thrombin. The femoral sheath was also removed and pressure was held for hemostasis. The patient all procedure well and was moving all extremities and following commands. She was then sent to PACU for recovery.
--- NOTE | 2022-06-19 09:56 | IR ---
EXAMINATION TYPE: IR stent intravas non coronary DATE OF EXAM: 06/19/2022 CLINICAL HISTORY: Left carotid stenosis TECHNIQUE: Fluoroscopy. COMPARISON: None. FINDINGS: Fluoroscopic guidance was provided during carotid angiogram procedure performed by Dr. David roberson. A total of 6.9 minutes of fluoroscopic time was utilized during the procedure and 418 spot hannah ges was acquired. Please refer to procedure note for further details. Total DAP 6.13 Gy cm2 IMPRESSION: As Above.
[2022-06-19] MEDS: HYDROmorphone 0.5 MG/0.5 ML SYRINGE IVP PRN ×3 (10:42→12:59)
[2022-06-19] MEDS: LACTATED RINGERS 1,000 ML IV SCH (14:23)
--- NOTE | 2022-06-19 14:30 | P.PN ---
Progress Note - Text Progress Note Date: 06/19/22 Patient is a status post left trans-carotid artery revascularization with stent from this morning with access through the right groin. Patient in postop recovery room, initially seen around 1300 with concerns for swelling of her left neck. Patient did have swelling and ecchymosis surrounding incision site with dressing intact and small amount of bleeding noted. Posterior aspect surrounding incision with swelling and some firmness along with tenderness to palpation. Instructed nursing to keep ice and apply IV back to the left neck for pressure. Right groin with dressing with small amount of blood noted on dressing without any hematoma or active bleeding. Patient then reevaluated nathan roximately 1400 with no increase in swelling or ecchymosis. Neuro exam intact. Blood pressure has been stable when 133/63, heart rate 83 respiratory rate 18 O2 saturation 100% on 2 L of nasal cannula. Patient was able to take small sips of water without any difficulty. Discussed with postop nurse Angie to apply pressure and keep ice to the left side of her neck checked hourly. If there is any increase in swelling or hematoma nor any changes in neuro exam notify Dr. Honeycutt. This was all discussed with Dr. Honeycutt, and patient is stable to go to selective care unit. The impression and plan of care has been dictated as directed. I performed a history and examination of this patient, discussed the same with the dictator. I agree with the dictator's note ,documented as a scribe. Any additional findings or plans will be noted.
[2022-06-19] MEDS ORDERED: ACETAMINOPHEN TAB 325 MG TAB PO PRN (15:42)
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
[2022-06-19 17:06] LABS: Glucose,Whole Blood 156 mg/dL (70-110)
[2022-06-19] MEDS ORDERED: NOREPINEPHRIN 4 MG-0.9% NS PMX 4 MG/250 ML ML IV ONE (17:07)
[2022-06-19] MEDS: NOREPINEPHRINE 4 MG in SODIUM CHLORIDE 0.9% 250 ML IV SCH (17:10)
--- NOTE | 2022-06-19 17:40 | XR ---
EXAMINATION TYPE: XR chest 1V portable DATE OF EXAM: 06/19/2022 5:33 PM COMPARISON: Chest radiographs from 04/18/2022 TECHNIQUE: XR chest 1V portable Portable AP radiograph of the chest. CLINICAL INDICATION:Female, 86 years old with history of intubation; FINDINGS: Lungs/Pleura: Scattered airspace opacities with interstitial edema. Low lung volumes are present. No pneumothorax. No large pleural effusion. Pulmonary vascularity: Unremarkable. Heart/mediastinum: Cardiomediastinal silhouette is partially obscured due to overlying and adjacent o pacities. Musculoskeletal: No acute osseous pathology. Remote right rib fracture suggested. Other findings: None Lines/Tubes: Endotracheal tube at the elio. Consider retraction of 3 to 4 cm for optimal placement. Nasogastric tube with distal tip and side-port within the stomach lumen. IMPRESSION: 1. Endotracheal tube in low position, retraction of 3-4 cm for optimal placement is recommended. 2. Nasogastric tube within the gastric lumen. There is some redundant tubing in the stomach consider retraction 6 to 7 cm for optimal placement 3. Scattered airspace opacities which have worsened since 04/18/2022. Correlate for congestive heart failure.
[2022-06-19 17:51] LABS: HCT 24.3 % (34.0-46.0); HGB 7.3 gm/dL (11.4-16.0); Hypochromasia Marked; MCH 28.7 pg (25.0-35.0); MCHC 30.1 g/dL (31.0-37.0); MCV 95.2 fL (80.0-100.0); Mean Platelet Volume 8.3; Platelet Count 294 k/uL (150-450); RBC 2.56 m/uL (3.80-5.40); RDW 14.7 % (11.5-15.5); WBC 12.1 k/uL (3.8-10.6)
[2022-06-19 17:52] LABS: ABG Base Excess -3.2 mmol/L; ABG HCO3 23 mmol/L (21-25); ABG PCO2 42 mmHg (35-45); ABG PH 7.34 (7.35-7.45); ABG PO2 314 mmHg (83-108); ABG TCO2 24 mmol/L (19-24); Allen Test Performed? Yes
[2022-06-19 17:53] LABS: Calcium 7.7 mg/dL (8.4-10.2)
[2022-06-19 17:58] LABS: INR 0.9 (<1.2)
[2022-06-19] MEDS: ACETAMINOPHEN IV (For NPO) 1,000 MG in EMPTY BAG 1 BAG IVPB SCH ×2 (18:01→23:04)
[2022-06-19] MEDS ORDERED: ROCURONIUM 10 MG/ML (5 ML VIAL) IV ONE (18:33)
--- NOTE | 2022-06-19 18:43 | P.PN ---
Progress Note - Text Progress Note Date: 06/19/22 Called regarding increasing size of hematoma and increased work of breathing with evidence of stridor. Had patient transferred to ICU and evaluation which then subsequently led to intubation to protect the airway. Laboratories were reviewed, blood as ordered. Planning to take the patient back emergently for open hematoma evacuation, exploration and control of hemorrhage. Risks discussed with family. They seemingly understand. They understand and are in agreement that during the surgery patient is full code. After surgery she had preserved to no code. They also discussed that she would not like any life supportive measures, we discussed that in the perioperative period we will con tinue to reevaluate this regularly and try to extubate and decrease the IV pressor support when able.
[2022-06-19] MEDS: ALBUTEROL HFA INHALER INHALATION SCH (18:58)
--- NOTE | 2022-06-19 19:53 | P.PN ---
Subjective Progress Note Date: 06/19/22 Preoperative diagnosis: Left neck hematoma Postoperative diagnosis: Same Procedure: Evacuation of hematoma, control of hemorrhage, drain placement Surgeon: Day Thapa D.O. Asst.: Yinka EBL: 10 mL IV fluids: 400 mL Urine output: See records Drains: 10 Asad-Tanner Complications: None immediately apparent Condition: Critical but stable to ICU Operative indication and findings: Patient is 86 showed female who previously underwent a left transverse carotid artery revascularization and stent. She subsequently started developing worsening hematoma and eventually did develop into stridor with breathing difficulty. She was intubated and brought urgently to the operating room for evacuation and control bleeding. Patient was brought to the operative suite and placed in supine position. The left neck was prepped and draped in usual sterile fashion. A preprocedure timeout was performed, all parties were in agreement. Previous incision was opened. Hematoma was expressed. There was a moderate amount of clot and more collagenous-appearing clot. There was significant amount of swelling through the muscle. There was a bleeding vessel in the muscle belly that was treated with electrocautery. The area was then copiously irrigated. The access sites were investigated showing no evidence of active bleeding. Again the area was copiously irrigated. The thrombin and Gelfoam previously placed was removed. Further areas of possible site oozing were controlled with electrocautery. The drain was placed. The drain was sutured in place with a 3-0 nylon. The platysma was reapproximated with interrupted sutures of 3-0 Vicryl. The skin was approximate using running 4-0 Monocryl. Patient was left intubated at the conclusion of the procedure and transported back to ICU Objective - Vital Signs Vital signs: Vital Signs Temp 98.2 F 06/19/22 17:30 Pulse 64 06/19/22 18:30 Resp 20 06/19/22 18:30 BP 86/53 06/19/22 18:30 Pulse Ox 100 06/19/22 18:30 FiO2 50 06/19/22 18:00 Intake & Output 06/19/22 06/19/22 06/20/22 06:59 18:59 06:59 Intake Total 100 2922.646 310 Output Total 1830 160 Balance 100 1092.646 150 Weight 50.6 kg 50.6 kg Intake: IV 100 2900 0.9 1050 Intake, IV Titration 22.646 Amount Norepinephrine 4 mg In 7.389 Sodium Chloride 0.9% 250 ml @ 0.03 MCG/KG/MIN 5. 784 mls/hr IV .Q24H [facility] Rx#:[id number] propofoL 1,000 mg In 15.257 Empty Bag 1 bag @ 15 MCG/ KG/MIN 4.554 mls/hr IV . [id number] [facility] Rx#:[id number] Blood Product 310 Rc As-1 Unit 310 [id number] Output: Urine 1630 150 Estimated Blood Loss 200 10 Other: Voiding Method Indwelling Catheter ABP, PAP, CO, CI - Last Documented Arterial Blood Pressure 102/45 - Labs CBC & Chem 7: 06/19/22 17:30 06/19/22 17:30 Labs: Abnormal Lab Results - Last 24 Hours (Table) 06/19/22 06/19/22 06/19/22 Range/Units 06:15 06:15 06:15 WBC (3.8-10.6) k/uL RBC 3.79 L (3.80-5.40) m/uL Hgb 10.9 L (11.4-16.0) gm/dL Hct (34.0-46.0) % MCHC (31.0-37.0) g/dL Eosinophils # 0.8 H (0-0.7) k/uL ABG pH (7.35-7.45) ABG pO2 (83-108) mmHg ABG O2 Saturation (94-97) % Chloride (98-107) mmol/L Carbon Dioxide (22-30) mmol/L BUN 25 H (7-17) mg/dL Glucose (74-99) mg/dL POC Glucose (mg/dL) (70-110) mg/dL Calcium (8.4-10.2) mg/dL Crossmatch See Detail 06/19/22 06/19/22 06/19/22 Range/Units 17:03 17:30 17:30 WBC 12.1 H (3.8-10.6) k/uL RBC 2.56 L (3.80-5.40) m/uL Hgb 7.3 L D (11.4-16.0) gm/dL Hct 24.3 L (34.0-46.0) % MCHC 30.1 L (31.0-37.0) g/dL Eosinophils # (0-0.7) k/uL ABG pH (7.35-7.45) ABG pO2 (83-108) mmHg ABG O2 Saturation (94-97) % Chloride 113 H (98-107) mmol/L Carbon Dioxide 21 L (22-30) mmol/L BUN 21 H (7-17) mg/dL Glucose 126 H (74-99) mg/dL POC Glucose (mg/dL) 156 H (70-110) mg/dL Calcium 7.7 L (8.4-10.2) mg/dL Crossmatch 06/19/22 Range/Units 17:47 WBC (3.8-10.6) k/uL RBC (3.80-5.40) m/uL Hgb (11.4-16.0) gm/dL Hct (34.0-46.0) % MCHC (31.0-37.0) g/dL Eosinophils # (0-0.7) k/uL ABG pH 7.34 L (7.35-7.45) ABG pO2 314 H (83-108) mmHg ABG O2 Saturation 100.0 H (94-97) % Chloride (98-107) mmol/L Carbon Dioxide (22-30) mmol/L BUN (7-17) mg/dL Glucose (74-99) mg/dL POC Glucose (mg/dL) (70-110) mg/dL Calcium (8.4-10.2) mg/dL Crossmatch
[2022-06-19] MEDS: CHLORHEXIDINE GLUCONATE 15 ML CUP MUCOUS MEM SCH (20:20)
[2022-06-19] MEDS: ATORVASTATIN 40 MG TAB PO SCH (20:20)
[2022-06-19 23:01] LABS: Basophils % (A) 0 %; Eosinophils # (A) 0.1 k/uL (0-0.7); Eosinophils % (A) 1 %; HGB 8.1 gm/dL (11.4-16.0); Hypochromasia Moderate; Lymphocytes % (A) 9 %; MCH 28.7 pg (25.0-35.0); MCHC 31.2 g/dL (31.0-37.0); Mean Platelet Volume 8.6; Monocytes # (A) 0.5 k/uL (0-1.0); Monocytes % (A) 5 %; Neutrophils # (A) 9.3 k/uL (1.3-7.7); Neutrophils % (A) 84 %; Platelet Count 231 k/uL (150-450); RBC 2.82 m/uL (3.80-5.40); WBC 11.1 k/uL (3.8-10.6)
[2022-06-19 23:20] LABS: Calcium 7.8 mg/dL (8.4-10.2); Potassium 4.7 mmol/L (3.5-5.1)
[2022-06-20 04:21] LABS: Basophils % (A) 1 %; Eosinophils # (A) 0.2 k/uL (0-0.7); Eosinophils % (A) 3 %; HCT 25.6 % (34.0-46.0); HGB 8.2 gm/dL (11.4-16.0); Hypochromasia Moderate; Lymphocytes # (A) 1.1 k/uL (1.0-4.8); Lymphocytes % (A) 14 %; MCH 29.2 pg (25.0-35.0); MCV 91.5 fL (80.0-100.0); Mean Platelet Volume 8.9; Monocytes # (A) 0.4 k/uL (0-1.0); Monocytes % (A) 5 %; Neutrophils # (A) 6.2 k/uL (1.3-7.7); Neutrophils % (A) 75 %; Platelet Count 234 k/uL (150-450); Poikilocytosis Slight; RBC 2.79 m/uL (3.80-5.40); RDW 15.4 % (11.5-15.5); WBC 8.2 k/uL (3.8-10.6)
[2022-06-20 04:32] LABS: Calcium 7.9 mg/dL (8.4-10.2); Potassium 4.5 mmol/L (3.5-5.1)
[2022-06-20] MEDS: LACTATED RINGERS 1,000 ML IV SCH (05:19)
[2022-06-20] MEDS: ACETAMINOPHEN IV (For NPO) 1,000 MG in EMPTY BAG 1 BAG IVPB SCH ×2 (05:21→12:32)
[2022-06-20 06:00] LABS: ABG HCO3 22 mmol/L (21-25); ABG Oxygen Saturation 98.6 % (94-97); ABG PCO2 39 mmHg (35-45); ABG PH 7.35 (7.35-7.45); ABG PO2 101 mmHg (83-108); ABG TCO2 23 mmol/L (19-24); Allen Test Performed? Yes
[2022-06-20] MEDS: ALPRAZolam 0.5 MG TAB PO PRN (06:21)
[2022-06-20] MEDS ORDERED: HYDROcodone/APAP 5-325MG 1 EACH TAB PO PRN (07:34)
--- NOTE | 2022-06-20 08:51 | P.PN ---
Subjective Progress Note Date: 06/20/22 Principal diagnosis: Symptomatic left ICA stenosis status post trans-carotid artery revascularization with stenting Patient is seen and examined today as a follow-up. She is postop day #1 for left trans-carotid artery revascularization with stenting. Patient is currently in the ICU sedated on mechanical ventilation. Yesterday post procedure patient was noted to have a hematoma and some swelling around the incision site. Vascular surgery was notified that the hematoma continued to increase in size and swelling, patient began having difficulty with breathing and stridor. Nursing was instructed to intubate to protect her airway and transfer to the ICU. She was taken back to the operating room for evacuation of hematoma, control of hemorrhage and drain placement. She had approximately 10 mL of serosanguineous drainage from the CECIL drain overnight. Swelling improved, no hematoma noted at this time. Some areas of ecchymosis to the left side of the neck. Patient received 1 unit of blood yesterday with repeat hemoglobin this morning of 8.2. Plan to transfuse 1 unit of blood. Blood pressure 145/53 heart rate 80 FiO2 40 with oxygen saturation 97%. WBC 8.2 hemoglobin 8.2 platelet count 234,000 sodium 136 potassium 4.5 BUN 21 creatinine 0.8 glucose 100 Objective - Vital Signs Vital signs: Vital Signs Temp 98.6 F 06/20/22 04:00 Pulse 80 06/20/22 07:00 Resp 20 06/20/22 07:00 BP 84/43 06/19/22 19:20 Pulse Ox 97 06/20/22 07:00 FiO2 40 06/20/22 07:00 Intake & Output 06/19/22 06/20/22 06/20/22 18:59 06:59 18:59 Intake Total 2922.646 953.078 20 Output Total 1830 540 55 Balance 1092.646 413.078 -35 Weight 50.6 kg 54.6 kg Intake: IV 2900 460 20 0.9 1050 Lactated Ringers 1,000 ml 60 20 @ 20 mls/hr IV .Q24H [facility] Rx#:[id number] Sodium Chloride 0.9% 1, 400 000 ml In Empty Bag 1 bag @ 1 ML/KG/HR 49.895 mls/ hr IV .Q20H3M [facility] Rx#: [id number] Intake, IV Titration 22.646 133.078 Amount Norepinephrine 4 mg In 7.389 Sodium Chloride 0.9% 250 ml @ 0.03 MCG/KG/MIN 5. 784 mls/hr IV .Q24H [facility] Rx#:[id number] propofoL 1,000 mg In 15.257 133.078 Empty Bag 1 bag @ 15 MCG/ KG/MIN 4.554 mls/hr IV . [id number] [facility] Rx#:[id number] Blood Product 310 Rc As-1 Unit 310 [id number] Other 50 Output: Drainage 10 Left Neck 10 Urine 1630 520 55 Estimated Blood Loss 200 10 Other: Voiding Method Indwelling Catheter Indwelling Catheter ABP, PAP, CO, CI - Last Documented Arterial Blood Pressure 145/53 - Exam General appearance: The patient is sedated and intubated. Is arousable. HET: Head is normocephalic and atraumatic. Pupils are equal and reactive. Neck: Left side of neck with incision and CECIL drain with approximately 10 mL serosanguineous drainage. Some noted soft tissue swelling, no hematoma noted. Some surrounding ecchymosis. Heart: Regular. Lungs: Equal expansion, on mechanical ventilation. Abdomen: Soft, nontender, nondistended. Extremities: Right groin access site clean dry and intact, no hematoma or ble eding noted. Normal skin color and turgor. No cyanosis, rash, ulceration, clubbing, or edema. Radial pulses +2 bilaterally. Neurological: Sedated and intubated. - Labs CBC & Chem 7: 06/20/22 04:05 06/20/22 04:05 Labs: Abnormal Lab Results - Last 24 Hours (Table) 06/19/22 06/19/22 06/19/22 Range/Units 06:15 17:03 17:30 WBC 12.1 H (3.8-10.6) k/uL RBC 2.56 L (3.80-5.40) m/uL Hgb 7.3 L D (11.4-16.0) gm/dL Hct 24.3 L (34.0-46.0) % MCHC 30.1 L (31.0-37.0) g/dL Neutrophils # (1.3-7.7) k/uL ABG pH (7.35-7.45) ABG pO2 (83-108) mmHg ABG O2 Saturation (94-97) % Sodium (137-145) mmol/L Chloride (98-107) mmol/L Carbon Dioxide (22-30) mmol/L BUN (7-17) mg/dL Glucose (74-99) mg/dL POC Glucose (mg/dL) 156 H (70-110) mg/dL Calcium (8.4-10.2) mg/dL Crossmatch See Detail 06/19/22 06/19/22 06/19/22 Range/Units 17:30 17:47 22:50 WBC 11.1 H (3.8-10.6) k/uL RBC 2.82 L (3.80-5.40) m/uL Hgb 8.1 L (11.4-16.0) gm/dL Hct 26.0 L (34.0-46.0) % MCHC (31.0-37.0) g/dL Neutrophils # 9.3 H (1.3-7.7) k/uL ABG pH 7.34 L (7.35-7.45) ABG pO2 314 H (83-108) mmHg ABG O2 Saturation 100.0 H (94-97) % Sodium (137-145) mmol/L Chloride 113 H (98-107) mmol/L Carbon Dioxide 21 L (22-30) mmol/L BUN 21 H (7-17) mg/dL Glucose 126 H (74-99) mg/dL POC Glucose (mg/dL) (70-110) mg/dL Calcium 7.7 L (8.4-10.2) mg/dL Crossmatch 06/19/22 06/20/22 06/20/22 Range/Units 22:50 04:05 04:05 WBC (3.8-10.6) k/uL RBC 2.79 L (3.80-5.40) m/uL Hgb 8.2 L (11.4-16.0) gm/dL Hct 25.6 L (34.0-46.0) % MCHC (31.0-37.0) g/dL Neutrophils # (1.3-7.7) k/uL ABG pH (7.35-7.45) ABG pO2 (83-108) mmHg ABG O2 Saturation (94-97) % Sodium 136 L (137-145) mmol/L Chloride 113 H 111 H (98-107) mmol/L Carbon Dioxide 21 L (22-30) mmol/L BUN 22 H 21 H (7-17) mg/dL Glucose 118 H 100 H (74-99) mg/dL POC Glucose (mg/dL) (70-110) mg/dL Calcium 7.8 L 7.9 L (8.4-10.2) mg/dL Crossmatch 06/20/22 Range/Units 05:56 WBC (3.8-10.6) k/uL RBC (3.80-5.40) m/uL Hgb (11.4-16.0) gm/dL Hct (34.0-46.0) % MCHC (31.0-37.0) g/dL Neutrophils # (1.3-7.7) k/uL ABG pH (7.35-7.45) ABG pO2 (83-108) mmHg ABG O2 Saturation 98.6 H (94-97) % Sodium (137-145) mmol/L Chloride (98-107) mmol/L Carbon Dioxide (22-30) mmol/L BUN (7-17) mg/dL Glucose (74-99) mg/dL POC Glucose (mg/dL) (70-110) mg/dL Calcium (8.4-10.2) mg/dL Crossmatch Assessment and Plan Assessment: 1. Postop day #1 left trans-carotid artery revascularization for symptomatic left ICA stenosis 2. Left neck Hematoma status post TCAR status post evacuation of hematoma, control of hemorrhage and drain placement 3. Acute blood loss anemia secondary to #2 4. History atrial fibrillation 5. History of coronary artery disease 6. History of heart failure 7. History of CVA/TIA with residual right-sided weakness 8. Chronic renal disease 9. Hyperlipidemia and hypertension Plan: 1. Continue ICU management, trial extubation per recommendations from critical care team 2. Transfuse 1 unit PRBC 3. Repeat CBC post-transfusion 4. Daily CBC, BMP 5. Recommend PT/OT 6. Medical management per primary medicine team 7. Continue Plavix The impression and plan of care has been dictated as directed. I performed a history and examination of this patient, discussed the same with the dictator. I agree with the dictator's note ,documented as a scribe. Any additional findings or plans will be noted.
[2022-06-20] MEDS: CHLORHEXIDINE GLUCONATE 15 ML CUP MUCOUS MEM SCH ×2 (08:58→21:21)
[2022-06-20] MEDS: CLOPIDOGREL 75 MG TAB PO SCH (08:58)
[2022-06-20] MEDS: ALBUTEROL HFA INHALER INHALATION SCH ×6 (09:24→19:16)
--- NOTE | 2022-06-20 09:56 | XR ---
EXAMINATION TYPE: XR chest 1V portable DATE OF EXAM: 06/20/2022 4:45 AM COMPARISON: Chest radiographs from 06/19/2022 TECHNIQUE: XR chest 1V portable Portable AP radiograph of the chest. CLINICAL INDICATION:Female, 86 years old with history of Tube placement; FINDINGS: Lungs/Pleura: Improved scattered airspace opacities from prior examination. No pleural effusion or pn eumothorax. Pulmonary vascularity: Unremarkable. Heart/mediastinum: Cardiomediastinal silhouette is enlarged and stable. Musculoskeletal: No acute osseous pathology. Remote right-sided rib fractures again suggested. Degene rative changes of the spine. Other findings: None Lines/Tubes: Endotracheal tube in stable position. Nasogastric tube with its distal tip and side-port projecting under the diaphragm. IMPRESSION: 1. Improved scattered airspace opacities from prior examination. 2. Persistent cardiomegaly. 3. Stable support tubes.
[2022-06-20] MEDS: HYDROmorphone 0.5 MG/0.5 ML SYRINGE IVP PRN ×3 (10:03→19:39)
[2022-06-20 12:21] LABS: ABG Base Excess -2.8 mmol/L; ABG HCO3 23 mmol/L (21-25); ABG Oxygen Saturation 99.4 % (94-97); ABG PCO2 41 mmHg (35-45); ABG PH 7.35 (7.35-7.45); ABG PO2 137 mmHg (83-108); ABG TCO2 24 mmol/L (19-24)
[2022-06-20] MEDS: DEXAMETHASONE SOD PHOSPHATE 10 MG/ML 1 ML VIAL IVP SCH ×3 (12:51→23:03)
[2022-06-20 13:56] LABS: HCT 29.3 % (34.0-46.0); HGB 9.4 gm/dL (11.4-16.0); Hypochromasia Slight; MCH 29.2 pg (25.0-35.0); MCV 91.5 fL (80.0-100.0); Mean Platelet Volume 9.3; Platelet Count 203 k/uL (150-450); Poikilocytosis Slight; RDW 15.1 % (11.5-15.5); WBC 7.7 k/uL (3.8-10.6)
[2022-06-20 13:59] VITALS: BMI 24.3
--- NOTE | 2022-06-20 14:55 | P.PN ---
Progress Note - Text Progress Note Date: 06/20/22 Was notified by patient's nurse that a small area of patient's left upper thigh incision opened with ambulation. I went to evaluate approximately 1.5 cm opening with scant to small amount of serosanguineous drainage. 4 x 4 applied, Dr. Honeycutt notified. Will send patient home on antibiotics, Keflex ordered. Patient has reported ALLERGY to penicillin, she states that she was told she had a rash from it as a child. Believes she may have had keflex in the past. Home health care will be visiting tomorrow for dressing change, patient to follow-up with Dr. Honeycutt in one week. The impression and plan of care has been dictated as directed. I performed a history and examination of this patient, discussed the same with the dictator. I agree with the dictator's note ,documented as a scribe. Any additional findings or plans will be noted.
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
--- NOTE | 2022-06-20 15:48 | P.PN ---
Subjective Progress Note Date: 06/20/22 Patient is admitted for elective left and plans carotid artery revascularization by stenting. I saw her postoperatively patient was although she denied any shortness of breath patient is saturating well on 2 L of oxygen. does have multiple other medical problems discussed with vascular surgery consisting stridor, patient is being transferred to ICU and patient will be nothing by mouth patient's home medications are being held as patient is going to be nothing by mouth. Once a stridor resolves patient probably can be initiated back on by mouth medications. 06/20/2022 Patient is evaluated today in intensive care unit. Postoperative day #1 left carotid endartectomy. Patient developed hematoma at surgical site and was taken for evacuation of hematoma by vascular services yesterday evening and control of hemorrhage and drain placement. Hemoglobin had dropped to 7.3 and patient received 1 unit of PRBC and will receive a second unit today. Patient has been resumed on plavix. Patient is currently intubated on mechanical ventilator with FiO2 of 40% and PEEP of 5. Patient is sedated with propofol. There is significant edema surrounding surgical site and plan to continue patient on mechanical ventilator and has been started on decadron and re-evaluation tomorrow for possible extubation. Chest xray today showing improved scattered airspace opacities from prior exam. Persistent cardiomegaly. Labs today showing a white count of 8.2, hemoglobin of 8.2, sodium 136, BUN 21, creatinine 0.86. Unable to complete review of systems currently intubated and sedated. PHYSICAL EXAMINATION: GENERAL: The patient is intubated and sedated in ICU. Pale. Well developed, well nourished. HEENT: Pupils are round and equally reacting to light. EOMI. No scleral icterus. No conjunctival pallor. Normocephalic, atraumatic. Edema surrounding left neck surgical site. CARDIOVASCULAR: S1 and S2 present. No murmurs, rubs, or gallops. PULMONARY: Chest is clear to auscultation, no wheezing or crackles. ABDOMEN: Soft, nontender, nondistended, normoactive bowel sounds. No palpable organomegaly. MUSCULOSKELETAL: No joint swelling or deformity. EXTREMITIES: No cyanosis, clubbing, or pedal edema. NEUROLOGICAL: Gross neurological examination did not reveal any focal deficits. SKIN: No rashes. Assessment and plan Assessment -Left carotid revascularization by stent POD #1: postoperatively had slight stridor and was found to have hematoma and underwent evacuation of hematoma, control of hemorrhage/draine placement and received 2 units PRBC. -Acute hypoxic respiratory failure secondary to stridor/neck hematoma currently intubated and sedated in ICU for airway protection. -Shock hypovolemic acute blood loss from hemorrhage at surgical site hemoglobin dropped to 7.3 and patient receive 2 packed red blood cells. Currently off pressor support. -Atrial fibrillation chronic anticoagulation is currently on hold -Coronary artery disease -Hyperlipidemia -Hypertension -Hypothyroidism -History of multiple stroke GI prophylaxis DVT prophylaxis SCDs and recommend to hold oral anticoagulation for now No Code Plan Intubation/Mechanical ventilator per pulmonary fire investigator Patient has been started on IV decadron Plavix has been resumed on vascular services Protonix added for GI prophylaxis The impression and plan of care has been dictated by Nita Garcia, Nurse Practitioner as directed. Dr. Ania MD I have performed a history and physical examination and medical decision making of this patient, discussed the same with the dictator, and agree with the dictators assessment and plan as written, documented as a scribe. Based on total visit time, I have performed more than 50% of this visit. Objective - Vital Signs Vital signs: Vital Signs Temp 100.0 F H 06/20/22 08:00 Pulse 80 06/20/22 08:00 Resp 20 06/20/22 08:00 BP 84/43 06/19/22 19:20 Pulse Ox 97 06/20/22 08:00 FiO2 40 06/20/22 08:00 Intake & Output 06/19/22 06/20/22 06/20/22 18:59 06:59 18:59 Intake Total 2922.646 953.078 20 Output Total 1830 540 55 Balance 1092.646 413.078 -35 Weight 50.6 kg 54.6 kg Intake: IV 2900 460 20 0.9 1050 Lactated Ringers 1,000 ml 60 20 @ 20 mls/hr IV .Q24H [facility] Rx#:[id number] Sodium Chloride 0.9% 1, 400 000 ml In Empty Bag 1 bag @ 1 ML/KG/HR 49.895 mls/ hr IV .Q20H3M [facility] Rx#: [id number] Intake, IV Titration 22.646 133.078 Amount Norepinephrine 4 mg In 7.389 Sodium Chloride 0.9% 250 ml @ 0.03 MCG/KG/MIN 5. 784 mls/hr IV .Q24H [facility] Rx#:[id number] propofoL 1,000 mg In 15.257 133.078 Empty Bag 1 bag @ 15 MCG/ KG/MIN 4.554 mls/hr IV . [id number] [facility] Rx#:[id number] Blood Product 310 Rc As-1 Unit 310 [id number] Other 50 Output: Drainage 10 Left Neck 10 Urine 1630 520 55 Estimated Blood Loss 200 10 Other: Voiding Method Indwelling Catheter Indwelling Catheter ABP, PAP, CO, CI - Last Documented Arterial Blood Pressure 123/44 - Labs CBC & Chem 7: 06/20/22 13:45 06/20/22 04:05 Labs: Abnormal Lab Results - Last 24 Hours (Table) 06/19/22 06/19/22 06/19/22 Range/Units 06:15 17:03 17:30 WBC 12.1 H (3.8-10.6) k/uL RBC 2.56 L (3.80-5.40) m/uL Hgb 7.3 L D (11.4-16.0) gm/dL Hct 24.3 L (34.0-46.0) % MCHC 30.1 L (31.0-37.0) g/dL Neutrophils # (1.3-7.7) k/uL ABG pH (7.35-7.45) ABG pO2 (83-108) mmHg ABG O2 Saturation (94-97) % Sodium (137-145) mmol/L Chloride (98-107) mmol/L Carbon Dioxide (22-30) mmol/L BUN (7-17) mg/dL Glucose (74-99) mg/dL POC Glucose (mg/dL) 156 H (70-110) mg/dL Calcium (8.4-10.2) mg/dL Crossmatch See Detail 06/19/22 06/19/22 06/19/22 Range/Units 17:30 17:47 22:50 WBC 11.1 H (3.8-10.6) k/uL RBC 2.82 L (3.80-5.40) m/uL Hgb 8.1 L (11.4-16.0) gm/dL Hct 26.0 L (34.0-46.0) % MCHC (31.0-37.0) g/dL Neutrophils # 9.3 H (1.3-7.7) k/uL ABG pH 7.34 L (7.35-7.45) ABG pO2 314 H (83-108) mmHg ABG O2 Saturation 100.0 H (94-97) % Sodium (137-145) mmol/L Chloride 113 H (98-107) mmol/L Carbon Dioxide 21 L (22-30) mmol/L BUN 21 H (7-17) mg/dL Glucose 126 H (74-99) mg/dL POC Glucose (mg/dL) (70-110) mg/dL Calcium 7.7 L (8.4-10.2) mg/dL Crossmatch 06/19/22 06/20/22 06/20/22 Range/Units 22:50 04:05 04:05 WBC (3.8-10.6) k/uL RBC 2.79 L (3.80-5.40) m/uL Hgb 8.2 L (11.4-16.0) gm/dL Hct 25.6 L (34.0-46.0) % MCHC (31.0-37.0) g/dL Neutrophils # (1.3-7.7) k/uL ABG pH (7.35-7.45) ABG pO2 (83-108) mmHg ABG O2 Saturation (94-97) % Sodium 136 L (137-145) mmol/L Chloride 113 H 111 H (98-107) mmol/L Carbon Dioxide 21 L (22-30) mmol/L BUN 22 H 21 H (7-17) mg/dL Glucose 118 H 100 H (74-99) mg/dL POC Glucose (mg/dL) (70-110) mg/dL Calcium 7.8 L 7.9 L (8.4-10.2) mg/dL Crossmatch 06/20/22 Range/Units 05:56 WBC (3.8-10.6) k/uL RBC (3.80-5.40) m/uL Hgb (11.4-16.0) gm/dL Hct (34.0-46.0) % MCHC (31.0-37.0) g/dL Neutrophils # (1.3-7.7) k/uL ABG pH (7.35-7.45) ABG pO2 (83-108) mmHg ABG O2 Saturation 98.6 H (94-97) % Sodium (137-145) mmol/L Chloride (98-107) mmol/L Carbon Dioxide (22-30) mmol/L BUN (7-17) mg/dL Glucose (74-99) mg/dL POC Glucose (mg/dL) (70-110) mg/dL Calcium (8.4-10.2) mg/dL Crossmatch Assessment and Plan Time with Patient: Less than 30
[2022-06-20] MEDS: PANTOPRAZOLE 40 MG/10 ML VIAL IVP SCH (16:14)
[2022-06-20] MEDS: NOREPINEPHRINE 4 MG in SODIUM CHLORIDE 0.9% 250 ML IV SCH (16:29)
[2022-06-20] MEDS: CARBIDOPA-LEVODOPA 10-100 MG 1 EACH TAB PO SCH ×2 (17:40→21:22)
[2022-06-20] MEDS: ATORVASTATIN 40 MG TAB PO SCH (21:21)
[2022-06-20] MEDS: BRIMONIDINE TARTRATE 0.2% DROPS 5 ML BTL BOTH EYES SCH (21:21)
[2022-06-21] MEDS ORDERED: PROPOFOL 10 MG/ML 100 ML VIAL IV ONE (00:04)
[2022-06-21] MEDS ORDERED: HYDROmorphone 0.5 MG/0.5 ML SYRINGE ONE (00:04)
[2022-06-21 05:27] LABS: ABG PCO2 35 mmHg (35-45); ABG PH 7.47 (7.35-7.45); ABG PO2 128 mmHg (83-108); Allen Test Performed? Yes
[2022-06-21 05:28] LABS: ABG Base Excess 1.1 mmol/L; ABG HCO3 25 mmol/L (21-25); ABG TCO2 26 mmol/L (19-24)
[2022-06-21 05:51] LABS: Calcium 9.1 mg/dL (8.4-10.2); Potassium 3.8 mmol/L (3.5-5.1)
[2022-06-21] MEDS ORDERED: Potassium Replacement Protocol 1 EACH MISC MISCELLANE PRN (05:53)
[2022-06-21] MEDS: POTASSIUM CHLORIDE 10 MEQ in WATER FOR INJECTION 1 100ML.BAG IVPB SCH ×2 (05:59→06:49)
[2022-06-21] MEDS: DEXAMETHASONE SOD PHOSPHATE 10 MG/ML 1 ML VIAL IVP SCH ×2 (05:59→11:54)
[2022-06-21 06:08] LABS: Basophils % (A) 0 %; Eosinophils % (A) 0 %; HCT 31.8 % (34.0-46.0); HGB 10.2 gm/dL (11.4-16.0); Hypochromasia Slight; Lymphocytes # (A) 0.7 k/uL (1.0-4.8); Lymphocytes % (A) 7 %; MCH 28.5 pg (25.0-35.0); MCHC 32.1 g/dL (31.0-37.0); MCV 88.7 fL (80.0-100.0); Mean Platelet Volume 8.3; Monocytes # (A) 0.2 k/uL (0-1.0); Monocytes % (A) 2 %; Neutrophils # (A) 9.2 k/uL (1.3-7.7); Neutrophils % (A) 90 %; Platelet Count 239 k/uL (150-450); Poikilocytosis Slight; RBC 3.59 m/uL (3.80-5.40); RDW 15.4 % (11.5-15.5); WBC 10.2 k/uL (3.8-10.6)
[2022-06-21] MEDS: LEVOTHYROXINE 50 MCG TAB PO SCH (06:49)
[2022-06-21] MEDS: ALBUTEROL HFA INHALER INHALATION SCH ×4 (08:12→20:01)
[2022-06-21] MEDS: CHLORHEXIDINE GLUCONATE 15 ML CUP MUCOUS MEM SCH (08:18)
[2022-06-21] MEDS: CARBIDOPA-LEVODOPA 10-100 MG 1 EACH TAB PO SCH ×3 (08:19→18:08)
[2022-06-21] MEDS: PANTOPRAZOLE 40 MG/10 ML VIAL IVP SCH (08:19)
[2022-06-21] MEDS: HYDROmorphone 0.5 MG/0.5 ML SYRINGE IVP PRN ×4 (08:19→20:11)
[2022-06-21] MEDS: CLOPIDOGREL 75 MG TAB PO SCH (08:19)
[2022-06-21] MEDS: BRIMONIDINE TARTRATE 0.2% DROPS 5 ML BTL BOTH EYES SCH (08:20)
--- NOTE | 2022-06-21 08:37 | XR ---
EXAMINATION TYPE: XR chest 1V portable DATE OF EXAM: 06/21/2022 COMPARISON: 06/20/2022 HISTORY: Shortness of breath TECHNIQUE: Single frontal view of the chest is obtained. FINDINGS: Endotracheal tube, nasogastric tube, are in stable position. There is additional tubular s tructures overlying the chest likely external to the patient. There is minor haziness at the lung bases and may represent minor atelectasis. There is no significan t pleural effusion. No pneumothorax. No obvious evidence of pneumonia. Heart appears prominent. Mediastinum is within normal limits. Soft tissues about the chest are grossl y unremarkable. IMPRESSION: No significant change.
[2022-06-21] MEDS ORDERED: DEXTROSE 50% SYRINGE 50 ML IVP PRN ×2 (08:40)
[2022-06-21] MEDS: CLEVIDIPINE BUTYRATE 25 MG in EMPTY BAG 1 BAG IV SCH ×3 (10:30→20:12)
[2022-06-21 11:52] LABS: Glucose,Whole Blood 161 mg/dL (70-110)
[2022-06-21] MEDS: INSULIN ASPART (NovoLOG) 100 UNIT/ML VIAL SQ SCH ×2 (11:54→18:08)
--- NOTE | 2022-06-21 12:43 | P.PN ---
Subjective Progress Note Date: 06/21/22 Patient is admitted for elective left and plans carotid artery revascularization by stenting. I saw her postoperatively patient was although she denied any shortness of breath patient is saturating well on 2 L of oxygen. does have multiple other medical problems discussed with vascular surgery consisting stridor, patient is being transferred to ICU and patient will be nothing by mouth patient's home medications are being held as patient is going to be nothing by mouth. Once a stridor resolves patient probably can be initiated back on by mouth medications. 06/20/2022 Patient is evaluated today in intensive care unit. Postoperative day #1 left carotid endartectomy. Patient developed hematoma at surgical site and was taken for evacuation of hematoma by vascular services yesterday evening and control of hemorrhage and drain placement. Hemoglobin had dropped to 7.3 and patient received 1 unit of PRBC and will receive a second unit today. Patient has been resumed on plavix. Patient is currently intubated on mechanical ventilator with FiO2 of 40% and PEEP of 5. Patient is sedated with propofol. There is significant edema surrounding surgical site and plan to continue patient on mechanical ventilator and has been started on decadron and re-evaluation tomorrow for possible extubation. Chest xray today showing improved scattered airspace opacities from prior exam. Persistent cardiomegaly. Labs today showing a white count of 8.2, hemoglobin of 8.2, sodium 136, BUN 21, creatinine 0.86. 06/21/2022 Patient remains in intensive care unit and is currently intubated and sedated on mechanical ventilator with FiO2 of 40%. ABGs done today showing pH of 7.47, pO2 of 128, pCO2 of 35, Total CO2 of 26, HCO3 of 25. Patient is postoperative day #2 left carotid endartectomy. Chest xray today showing minor atelectasis at the lung bases with no obvious evidence of pneumonia. Labs today showing white count of 10.2, hgb 10.2, electrolytes and kidney function are stable. Patient has been started on enteral tube feeding with vital high protein currently running at 28 ml/hr with free water flush of 30 ml every 4 hours. Blood glucose is elevated in the 160s and novolog will be added today. Plan to undergo sedation holiday today. Neck edema is improving. Unable to complete review of systems currently intubated and sedated. PHYSICAL EXAMINATION: GENERAL: The patient is intubated and sedated in ICU. Well developed, well nourished. HEENT: Pupils are round and equally reacting to light. EOMI. No scleral icterus. No conjunctival pallor. Normocephalic, atraumatic. Edema surrounding left neck surgical site improving. CARDIOVASCULAR: S1 and S2 present. No murmurs, rubs, or gallops. PULMONARY: Chest is clear to auscultation, no wheezing or crackles. ABDOMEN: Soft, nontender, nondistended, normoactive bowel sounds. No palpable organomegaly. MUSCULOSKELETAL: No joint swelling or deformity. EXTREMITIES: No cyanosis, clubbing, or pedal edema. NEUROLOGICAL: Gross neurological examination did not reveal any focal deficits. SKIN: No rashes. Assessment and plan Assessment -Left carotid revascularization by stent POD #2: postoperatively had slight stridor and was found to have hematoma and underwent evacuation of hematoma, control of hemorrhage/draine placement and received 2 units PRBC. -Acute hypoxic respiratory failure secondary to stridor/neck hematoma currently intubated and sedated in ICU for airway protection. -Shock hypovolemic acute blood loss from hemorrhage at surgical site hemoglobin dropped to 7.3 and patient receive 2 packed red blood cells. Currently off pressor support. Hemoglobin stable at 10.2. -Atrial fibrillation chronic anticoagulation is currently on hold resume when cleared by primary -Coronary artery disease -Hyperlipidemia -Hypertension -Hypothyroidism -History of multiple stroke GI prophylaxis DVT prophylaxis SCDs and recommend to hold oral anticoagulation for now No Code Plan Intubation/Mechanical ventilator per pulmonary surveillance director Patient continues on IV decadron Plavix has been resumed on vascular services Resume xarelto when cleared by primary Protonix added for GI prophylaxis Hydralazine added for BP control The impression and plan of care has been dictated by Nita Garcia Nurse Practitioner as directed. Dr. Ania MD I have performed a history and physical examination and medical decision making of this patient, discussed the same with the dictator, and agree with the dictators assessment and plan as written, documented as a scribe. Based on total visit time, I have performed more than 50% of this visit. Objective - Vital Signs Vital signs: Vital Signs Temp 98.3 F 06/21/22 04:00 Pulse 60 06/21/22 07:00 Resp 20 06/21/22 07:00 BP 146/67 06/21/22 07:00 Pulse Ox 98 06/21/22 07:00 FiO2 40 06/21/22 07:37 Intake & Output 06/20/22 06/21/22 06/21/22 18:59 06:59 18:59 Intake Total 782.660 915.828 Output Total 1425 1255 Balance -642.340 -339.172 Weight 54.6 kg 53.7 kg Intake: IV 240 460 0.9 140 260 Lactated Ringers 1,000 ml 100 @ 20 mls/hr IV .Q24H DON Rx#:[id number] Potassium Chloride 10 meq 200 In Water For Injection 1 100ml.bag @ 100 mls/hr IVPB Q1H DON Rx#: [id number] Intake, IV Titration 152.660 69.828 Amount propofoL 1,000 mg In 152.660 69.828 Empty Bag 1 bag @ 15 MCG/ KG/MIN 4.554 mls/hr IV . [id number] DON Rx#:[id number] Tube Feeding 50 246 Blood Product 310 Rc As-1 Unit 310 [id number] Other 30 140 Output: Drainage 5 Left Neck 5 Urine 1425 1250 Other: Voiding Method Indwelling Catheter Indwelling Catheter ABP, PAP, CO, CI - Last Documented Arterial Blood Pressure 161/161 - Labs CBC & Chem 7: 06/21/22 04:43 06/21/22 04:43 Labs: Abnormal Lab Results - Last 24 Hours (Table) 06/19/22 06/20/22 06/20/22 Range/Units 06:15 12:18 13:45 RBC 3.20 L (3.80-5.40) m/uL Hgb 9.4 L (11.4-16.0) gm/dL Hct 29.3 L (34.0-46.0) % Neutrophils # (1.3-7.7) k/uL Lymphocytes # (1.0-4.8) k/uL ABG pH (7.35-7.45) ABG pO2 137 H (83-108) mmHg ABG Total CO2 (19-24) mmol/L ABG O2 Saturation 99.4 H (94-97) % Glucose (74-99) mg/dL Crossmatch See Detail 06/21/22 06/21/22 06/21/22 Range/Units 04:43 04:43 04:48 RBC 3.59 L (3.80-5.40) m/uL Hgb 10.2 L (11.4-16.0) gm/dL Hct 31.8 L (34.0-46.0) % Neutrophils # 9.2 H (1.3-7.7) k/uL Lymphocytes # 0.7 L (1.0-4.8) k/uL ABG pH 7.47 H (7.35-7.45) ABG pO2 128 H (83-108) mmHg ABG Total CO2 26 H (19-24) mmol/L ABG O2 Saturation 100.0 H (94-97) % Glucose 165 H (74-99) mg/dL Crossmatch Microbiology - Last 24 Hours (Table) 06/20/22 04:45 Gram Stain - Preliminary Sputum Sputum Culture - Preliminary Assessment and Plan Time with Patient: Less than 30
--- NOTE | 2022-06-21 14:28 | P.PN ---
Subjective Progress Note Date: 06/21/22 Principal diagnosis: Status post left carotid endarterectomy complicated by postoperative neck hematoma stridor, and respiratory failure This is an 86-year-old female with history of 4 strokes and right-sided weakness, had recent carotid Doppler demonstrating 50-69 stenosis of the left internal carotid. Due to her multiple strokes, and symptoms, patient underwent left carotid artery revascularization with stenting, this was done on 06/19/2022, performed by Dr. Honeycutt postoperatively, patient was sent to a monitor bed on . Late in the afternoon on 06/19/22, patient developed a large left neck hematoma and she also developed increased work of breathing with evidence of stridor. I was notified about this patient around 5 PM, I recommended immediate intubation by FARM LOAN REPRESENTATIVE and immediate transfer to the ICU. In the meantime vascular surgery was notified, pressure was applied on the left neck area, and vascular surgery reevaluated the patient within a relatively short period of time, patient was taken back to the operating room late yesterday, she was found to have a left neck hematoma, she underwent evacuation of hematoma, control of hemorrhage and a drain placement. Post surgery patient was kept on mechanical ventilation, transferred to the ICU, and I was asked to see her on consultation. I saw the patient this morning, she is on assist control rate of 20-2400 FiO2 40% and PEEP of 5. ABG showed a pO2 of 101 pCO2 of 39 pH of 7.35. Patient was on propofol at 50 mcg/kg/m, I considered weaning parameters, however the patient had a relatively good weaning parameters except for leak was noted. Hence I'm recommending Decadron, and we will hold on further weaning until tomorrow morning. CBC showed WBC of 7.7 hemoglobin 9.4. Patient received a total of 2 units of packed RBCs since her neck hematoma yesterday chest x-ray showed multiple opacities consistent with chronic parenchymal changes and atelectasis. No clear-cut evidence of any acute infiltrate Patient was reevaluated today on 06/21/22, patient remains in the ICU, intubated and mechanically ventilated. Remains on assist control rate of 20, tidal volume 400, FiO2 40% and PEEP of 5. ABG showed a pO2 of 128 pCO2 35 pH of 7.47 hence FiO2 was cut down to 35%. Her CBC is basically unremarkable hemoglobin is 10.2. Basic metabolic profile is normal, renal profile is normal, patient is on propofol, patient is not arousable, however we checked today for cough leak, and the patient is actually having a cough leak, went ahead and recommended weaning parameters and they seem to be reasonable, hence proceeded to pressure support and CPAP and eventual extubation of the patient. Patient was extubated to 4 L nasal cannula, O2 saturation 97%. Patient is hemodynamically stable, and her chest x-ray labs were reviewed today. Chest x-ray showed minimal haziness at the bases mostly atelectasis related, no evidence of effusion and no evidence of pneumonia. Objective - Vital Signs Vital signs: Vital Signs Temp 98.7 F 06/21/22 12:00 Pulse 82 06/21/22 13:00 Resp 17 06/21/22 13:00 BP 132/62 06/21/22 13:00 Pulse Ox 97 06/21/22 13:00 FiO2 35 06/21/22 10:42 Intake & Output 06/20/22 06/21/22 06/21/22 18:59 06:59 18:59 Intake Total 782.660 915.828 478.133 Output Total 1425 1255 485 Balance -642.340 -339.172 -6.867 Weight 54.6 kg 53.7 kg Intake: IV 240 460 240 0.9 140 260 140 Lactated Ringers 1,000 ml 100 @ 20 mls/hr IV .Q24H DON Rx#:[id number] Potassium Chloride 10 meq 200 100 In Water For Injection 1 100ml.bag @ 100 mls/hr IVPB Q1H DON Rx#: [id number] Intake, IV Titration 152.660 69.828 152.133 Amount Clevidipine Butyrate 25 52.133 mg In Empty Bag 1 bag @ 1 MG/HR 2 mls/hr IV .Q24H DON Rx#:[id number] propofoL 1,000 mg In 152.660 69.828 100 Empty Bag 1 bag @ 15 MCG/ KG/MIN 4.554 mls/hr IV . [id number] DON Rx#:[id number] Tube Feeding 50 246 56 Blood Product 310 Rc As-1 Unit 310 [id number] Other 30 140 30 Output: Drainage 5 Left Neck 5 Urine 1425 1250 485 Other: Voiding Method Indwelling Catheter Indwelling Catheter Indwelling Catheter ABP, PAP, CO, CI - Last Documented Arterial Blood Pressure 161/161 - Exam Physical Exam: Revealed 86-year-old female sedated, intubated and mechanically ventilated, in no distress. Head: Atraumatic normocephalic. HEENT:[Neck is supple.] [No neck masses.] [No thyromegaly.] [No JVD.] Ecchymos is/Minimal left neck swelling, CECIL drain is noted. Minimal bloody drainage noted. Chest: [Clear throughout, no crackles, no rhonchi, no wheezes.] Cardiac Exam: [Normal S1 and S2, no S3 gallop, no murmur.] Abdomen: [Soft, nontender, no megaly, no rebound, no guarding, normal bowel sounds.] Extremities: [No clubbing, no edema, no cyanosis.] Neurological Exam: Could not assess, patient is sedated Psychiatric: Could not be assessed patient is sedated on propofol - Labs CBC & Chem 7: 06/21/22 04:43 06/21/22 04:43 Labs: Abnormal Lab Results - Last 24 Hours (Table) 06/21/22 06/21/22 06/21/22 Range/Units 04:43 04:43 04:48 RBC 3.59 L (3.80-5.40) m/uL Hgb 10.2 L (11.4-16.0) gm/dL Hct 31.8 L (34.0-46.0) % Neutrophils # 9.2 H (1.3-7.7) k/uL Lymphocytes # 0.7 L (1.0-4.8) k/uL ABG pH 7.47 H (7.35-7.45) ABG pO2 128 H (83-108) mmHg ABG Total CO2 26 H (19-24) mmol/L ABG O2 Saturation 100.0 H (94-97) % Glucose 165 H (74-99) mg/dL POC Glucose (mg/dL) (70-110) mg/dL 06/21/22 Range/Units 11:50 RBC (3.80-5.40) m/uL Hgb (11.4-16.0) gm/dL Hct (34.0-46.0) % Neutrophils # (1.3-7.7) k/uL Lymphocytes # (1.0-4.8) k/uL ABG pH (7.35-7.45) ABG pO2 (83-108) mmHg ABG Total CO2 (19-24) mmol/L ABG O2 Saturation (94-97) % Glucose (74-99) mg/dL POC Glucose (mg/dL) 161 H (70-110) mg/dL Microbiology - Last 24 Hours (Table) 06/20/22 04:45 Gram Stain - Preliminary Sputum Sputum Culture - Preliminary Assessment and Plan Assessment: Impression: Acute hypoxic respiratory failure secondary to stridor secondary to neck hematoma Status post left carotid revascularization and stenting complicated by neck hematoma causing stridor and respiratory failure, postoperative day #2 patient is status post hematoma evacuation control of hemorrhage and drain placement postoperative day #2 Chronic atrial fibrillation, maintained on Xarelto, presently on hold. Coronary arteriosclerosis Hypertension Dyslipidemia Hypothyroidism History of GI bleeding History of multiple strokes/CVA Chronic kidney disease stage III History of macular degeneration right History of right foot drop Recommendation: Continue ventilatory support however I plan to give the patient a trial of pressure support and CPAP, since the patient is having a cough leak, and I would likely proceed to extubation. Hold propofol. Discontinue Decadron. Continue to hold Xarelto Continue GI prophylaxis Continue DVT prophylaxis/SCDs for now Discussed her condition with [id number] at bedside Care time is over 30 minutes Time with Patient: Greater than 30
--- NOTE | 2022-06-21 14:46 | P.PN ---
Subjective Progress Note Date: 06/21/22 Principal diagnosis: carotid stenosis doing well. extubated this morning. per nursing and family at bedside neck has improved. Objective - Vital Signs Vital signs: Vital Signs Temp 98.7 F 06/21/22 12:00 Pulse 101 H 06/21/22 14:00 Resp 13 06/21/22 14:00 BP 140/67 06/21/22 14:00 Pulse Ox 97 06/21/22 14:00 FiO2 35 06/21/22 10:42 Intake & Output 06/20/22 06/21/22 06/21/22 18:59 06:59 18:59 Intake Total 782.660 915.828 508.133 Output Total 1425 1255 535 Balance -642.340 -339.172 -26.867 Weight 54.6 kg 53.7 kg Intake: IV 240 460 270 0.9 140 260 170 Lactated Ringers 1,000 ml 100 @ 20 mls/hr IV .Q24H DON Rx#:[id number] Potassium Chloride 10 meq 200 100 In Water For Injection 1 100ml.bag @ 100 mls/hr IVPB Q1H DON Rx#: [id number] Intake, IV Titration 152.660 69.828 152.133 Amount Clevidipine Butyrate 25 52.133 mg In Empty Bag 1 bag @ 1 MG/HR 2 mls/hr IV .Q24H DON Rx#:[id number] propofoL 1,000 mg In 152.660 69.828 100 Empty Bag 1 bag @ 15 MCG/ KG/MIN 4.554 mls/hr IV . [id number] DON Rx#:[id number] Tube Feeding 50 246 56 Blood Product 310 Rc As-1 Unit 310 [id number] Other 30 140 30 Output: Drainage 5 Left Neck 5 Urine 1425 1250 535 Other: Voiding Method Indwelling Catheter Indwelling Catheter Indwelling Catheter ABP, PAP, CO, CI - Last Documented Arterial Blood Pressure 161/161 - Exam left neck incision site clean, dry and intact, edema improved slightly patient is alert, following commands slowly. moving all extremities. - Constitutional General appearance: Present: average body habitus - EENT Eyes: Present: PERRLA - Respiratory Respiratory: bilateral: CTA - Cardiovascular Rhythm: regular - Psychiatric Psychiatric: Present: A&O x's 3 - Labs CBC & Chem 7: 06/21/22 04:43 06/21/22 04:43 Labs: Abnormal Lab Results - Last 24 Hours (Table) 06/21/22 06/21/22 06/21/22 Range/Units 04:43 04:43 04:48 RBC 3.59 L (3.80-5.40) m/uL Hgb 10.2 L (11.4-16.0) gm/dL Hct 31.8 L (34.0-46.0) % Neutrophils # 9.2 H (1.3-7.7) k/uL Lymphocytes # 0.7 L (1.0-4.8) k/uL ABG pH 7.47 H (7.35-7.45) ABG pO2 128 H (83-108) mmHg ABG Total CO2 26 H (19-24) mmol/L ABG O2 Saturation 100.0 H (94-97) % Glucose 165 H (74-99) mg/dL POC Glucose (mg/dL) (70-110) mg/dL 06/21/22 Range/Units 11:50 RBC (3.80-5.40) m/uL Hgb (11.4-16.0) gm/dL Hct (34.0-46.0) % Neutrophils # (1.3-7.7) k/uL Lymphocytes # (1.0-4.8) k/uL ABG pH (7.35-7.45) ABG pO2 (83-108) mmHg ABG Total CO2 (19-24) mmol/L ABG O2 Saturation (94-97) % Glucose (74-99) mg/dL POC Glucose (mg/dL) 161 H (70-110) mg/dL Microbiology - Last 24 Hours (Table) 06/20/22 04:45 Gram Stain - Preliminary Sputum Sputum Culture - Preliminary Assessment and Plan Assessment: carotid stenosis s/p left TCAR and s/p hematoma evacuation left neck hematoma VDRF Plan: continue supportive care maintain drain till tomorrow. Possible d/c at that time. continue current meds, plavix, asa, statin.
[2022-06-21] MEDS ORDERED: LORazepam 2 MG/ML INJ IV STA (15:41)
[2022-06-21] MEDS: NOREPINEPHRINE 4 MG in SODIUM CHLORIDE 0.9% 250 ML IV SCH (16:47)
[2022-06-21 18:07] LABS: Glucose,Whole Blood 167 mg/dL (70-110)
[2022-06-21 23:28] LABS: Glucose,Whole Blood 149 mg/dL (70-110)
[2022-06-22] MEDS: ATORVASTATIN 40 MG TAB PO SCH ×2 (00:07→21:45)
[2022-06-22] MEDS: CARBIDOPA-LEVODOPA 10-100 MG 1 EACH TAB PO SCH ×5 (00:07→21:45)
[2022-06-22] MEDS: BRIMONIDINE TARTRATE 0.2% DROPS 5 ML BTL BOTH EYES SCH ×2 (00:07→11:23)
[2022-06-22] MEDS: INSULIN ASPART (NovoLOG) 100 UNIT/ML VIAL SQ SCH ×4 (00:08→19:17)
[2022-06-22] MEDS: HYDROmorphone 0.5 MG/0.5 ML SYRINGE IVP PRN ×2 (00:26→12:37)
[2022-06-22] MEDS: CLEVIDIPINE BUTYRATE 25 MG in EMPTY BAG 1 BAG IV SCH ×2 (01:36→11:31)
[2022-06-22 06:08] LABS: Basophils % (A) 0 %; Eosinophils % (A) 0 %; HCT 31.4 % (34.0-46.0); Hypochromasia Slight; Lymphocytes % (A) 8 %; MCH 28.7 pg (25.0-35.0); MCHC 31.7 g/dL (31.0-37.0); MCV 90.4 fL (80.0-100.0); Mean Platelet Volume 8.2; Monocytes % (A) 8 %; Neutrophils # (A) 10.1 k/uL (1.3-7.7); Neutrophils % (A) 81 %; Platelet Count 250 k/uL (150-450); Poikilocytosis Slight; RBC 3.48 m/uL (3.80-5.40); RDW 15.1 % (11.5-15.5); WBC 12.5 k/uL (3.8-10.6)
[2022-06-22 06:18] LABS: Glucose,Whole Blood 120 mg/dL (70-110)
[2022-06-22 06:20] LABS: African American GFR (CKD) >90 (>60 ml/min/1.73 sqM); Anion Gap 5 mmol/L; Blood Urea Nitrogen 22 mg/dL (7-17); Calcium 9.5 mg/dL (8.4-10.2); Carbon Dioxide 26 mmol/L (22-30); Chloride 109 mmol/L (98-107); Glucose 117 mg/dL (74-99); Magnesium 2.1 mg/dL (1.6-2.3); Non-African American GFR(CKD) 79 (>60 ml/min/1.73 sqM); Sodium 140 mmol/L (137-145)
[2022-06-22] MEDS: LEVOTHYROXINE 50 MCG TAB PO SCH (06:38)
[2022-06-22] MEDS: ALBUTEROL HFA INHALER INHALATION SCH ×4 (08:06→21:09)
--- NOTE | 2022-06-22 09:24 | P.PN ---
Subjective Progress Note Date: 06/22/22 Principal diagnosis: Symptomatic left ICA stenosis status post trans-carotid artery revascularization with stenting Patient seen and examined today as a follow-up for trans-carotid artery revascularization. She is postop day #3. He was extubated yesterday. Thapa catheter remains in place. Patient has a oral suction that she is using for increased saliva and patient is initiating cough. She is alert and oriented to self and place. She did state that she thought she was in the hospital and Dr. Garcia did surgery on her. Patient was reoriented that she had TCAR with Dr. Honeycutt on Sunday. EP drain in place with approximately 10 mL of serosanguineous drainage. The swelling improved and neck. She remains on Cleviprex at this time. Yesterday she underwent a speech evaluation and both failed and is currently nothing by mouth. They're to reevaluate patient today. PT and OT are consulted. Patient denies any shortness of breath or chest pain. She has residual right-sided weakness from previous stroke, otherwise no other focal deficits noted. Blood pressures running in the 140s/80s, heart rate 79, oxygen saturation 95% on 2 L nasal cannula, patient has been afebrile. WBC 12.5 hemoglobin 10.0 platelet count 250,000 sodium 140 potassium 4.0 BUN 22 creat inine 0.6 glucose 117 Objective - Vital Signs Vital signs: Vital Signs Temp 98.5 F 06/22/22 00:00 Pulse 79 06/22/22 06:00 Resp 14 06/22/22 06:00 BP 140/83 06/22/22 06:00 Pulse Ox 95 06/22/22 06:00 FiO2 35 06/21/22 10:42 Intake & Output 06/21/22 06/22/22 06/22/22 18:59 06:59 18:59 Intake Total 639.866 439.334 Output Total 985 1085 Balance -345.134 -645.666 Weight 52.4 kg Intake: IV 390 360 0.9 290 360 Potassium Chloride 10 meq 100 In Water For Injection 1 100ml.bag @ 100 mls/hr IVPB Q1H [facility] Rx#: [id number] Intake, IV Titration 163.866 79.334 Amount Clevidipine Butyrate 25 63.866 79.334 mg In Empty Bag 1 bag @ 1 MG/HR 2 mls/hr IV .Q24H DON Rx#:[id number] propofoL 1,000 mg In 100 Empty Bag 1 bag @ 15 MCG/ KG/MIN 4.554 mls/hr IV . [id number] DON Rx#:[id number] Tube Feeding 56 Other 30 Output: Drainage 5 Left Neck 5 Urine 980 1085 Other: Voiding Method Indwelling Catheter Indwelling Catheter ABP, PAP, CO, CI - Last Documented Arterial Blood Pressure 161/161 - Exam General appearance: The patient is alert and oriented. HET: Head is normocephalic and atraumatic. Pupils are equal and reactive. Neck: Left side of neck with incision and CECIL drain with approximately 10 mL serosanguineous drainage. Incision with dressing clean dry and intact. Swelling much improved. Heart: Regular. Lungs: Normal expansion, clear to auscultation. Abdomen: Soft, nontender, nondistended. Extremities: Right groin access site clean dry and intact, no hematoma or bleeding noted. Normal skin color and turgor. No cyanosis, rash, ulceration, clubbing, or edema. Radial pulses +2 bilaterally. Neurological: The patient has some right-sided residual weakness from previous stroke however no other focal deficits noted. Patient able to follow commands, has facial symmetry, is alert and oriented. Reportedly having some difficulty with swallowing, speech to follow up today. - Labs CBC & Chem 7: 06/22/22 05:26 06/22/22 05:26 Labs: Abnormal Lab Results - Last 24 Hours (Table) 06/21/22 06/21/22 06/21/22 Range/Units 11:50 18:05 23:27 WBC (3.8-10.6) k/uL RBC (3.80-5.40) m/uL Hgb (11.4-16.0) gm/dL Hct (34.0-46.0) % Neutrophils # (1.3-7.7) k/uL Chloride (98-107) mmol/L BUN (7-17) mg/dL Glucose (74-99) mg/dL POC Glucose (mg/dL) 161 H 167 H 149 H (70-110) mg/dL 06/22/22 06/22/22 06/22/22 Range/Units 05:26 05:26 06:16 WBC 12.5 H (3.8-10.6) k/uL RBC 3.48 L (3.80-5.40) m/uL Hgb 10.0 L (11.4-16.0) gm/dL Hct 31.4 L (34.0-46.0) % Neutrophils # 10.1 H (1.3-7.7) k/uL Chloride 109 H (98-107) mmol/L BUN 22 H (7-17) mg/dL Glucose 117 H (74-99) mg/dL POC Glucose (mg/dL) 120 H (70-110) mg/dL Microbiology - Last 24 Hours (Table) 06/20/22 04:45 Gram Stain - Preliminary Sputum Sputum Culture - Preliminary Gram Neg Bacilli Assessment and Plan Assessment: 1. Postop day #3 left trans-carotid artery revascularization for symptomatic left ICA stenosis 2. Left neck Hematoma status post TCAR status post evacuation of hematoma, control of hemorrhage and drain placement 3. Acute blood loss anemia secondary to #2 4. History atrial fibrillation 5. History of coronary artery disease 6. History of heart failure 7. History of CVA/TIA with residual right-sided weakness 8. Chronic renal disease 9. Hyperlipidemia and hypertension Plan: 1. Continue supportive care 2. Continue current medications Plavix aspirin and statin 3. Discontinue Thapa catheter 4. Encourage ambulation/getting up to chair 5. PT/OT/ST on consult appreciate their recommendations 6. Diet per recommendations from speech therapy 7. Medical management per primary medicine team 8. Continue with recommendations from ICU user experience developer 9. May resume Xarelto The impression and plan of care has been dictated as directed. I performed a history and examination of this patient, discussed the same with the dictator. I agree with the dictator's note ,documented as a scribe. Any additional findings or plans will be noted.
[2022-06-22] MEDS ORDERED: cloNIDine 0.2 MG/24HR PATCH TRANSDERM SCH (11:00)
[2022-06-22] MEDS: PANTOPRAZOLE 40 MG/10 ML VIAL IVP SCH (11:19)
[2022-06-22] MEDS: CLOPIDOGREL 75 MG TAB PO SCH (11:19)
[2022-06-22] MEDS: SODIUM CHLORIDE 0.9% 1,000 ML IV SCH (11:20)
[2022-06-22 12:49] LABS: Glucose,Whole Blood 113 mg/dL (70-110)
--- NOTE | 2022-06-22 13:31 | P.PN ---
Subjective Progress Note Date: 06/22/22 Principal diagnosis: Status post left carotid endarterectomy complicated by postoperative neck hematoma stridor, and respiratory failure This is an 86-year-old female with history of 4 strokes and right-sided weakness, had recent carotid Doppler demonstrating 50-69 stenosis of the left internal carotid. Due to her multiple strokes, and symptoms, patient underwent left carotid artery revascularization with stenting, this was done on 06/19/2022, performed by Dr. Honeycutt postoperatively, patient was sent to a monitor bed on . Late in the afternoon on 06/19/22, patient developed a large left neck hematoma and she also developed increased work of breathing with evidence of stridor. I was notified about this patient around 5 PM, I recommended immediate intubation by MUSIC CRITIC and immediate transfer to the ICU. In the meantime vascular surgery was notified, pressure was applied on the left neck area, and vascular surgery reevaluated the patient within a relatively short period of time, patient was taken back to the operating room late yesterday, she was found to have a left neck hematoma, she underwent evacuation of hematoma, control of hemorrhage and a drain placement. Post surgery patient was kept on mechanical ventilation, transferred to the ICU, and I was asked to see her on consultation. I saw the patient this morning, she is on assist control rate of 20-2400 FiO2 40% and PEEP of 5. ABG showed a pO2 of 101 pCO2 of 39 pH of 7.35. Patient was on propofol at 50 mcg/kg/m, I considered weaning parameters, however the patient had a relatively good weaning parameters except for leak was noted. Hence I'm recommending Decadron, and we will hold on further weaning until tomorrow morning. CBC showed WBC of 7.7 hemoglobin 9.4. Patient received a total of 2 units of packed RBCs since her neck hematoma yesterday chest x-ray showed multiple opacities consistent with chronic parenchymal changes and atelectasis. No clear-cut evidence of any acute infiltrate Patient was reevaluated today on 06/21/22, patient remains in the ICU, intubated and mechanically ventilated. Remains on assist control rate of 20, tidal volume 400, FiO2 40% and PEEP of 5. ABG showed a pO2 of 128 pCO2 35 pH of 7.47 hence FiO2 was cut down to 35%. Her CBC is basically unremarkable hemoglobin is 10.2. Basic metabolic profile is normal, renal profile is normal, patient is on propofol, patient is not arousable, however we checked today for cough leak, and the patient is actually having a cough leak, went ahead and recommended weaning parameters and they seem to be reasonable, hence proceeded to pressure support and CPAP and eventual extubation of the patient. Patient was extubated to 4 L nasal cannula, O2 saturation 97%. Patient is hemodynamically stable, and her chest x-ray labs were reviewed today. Chest x-ray showed minimal haziness at the bases mostly atelectasis related, no evidence of effusion and no evidence of pneumonia. Reevaluated today on 06/22/22, patient remains in the ICU, she was extubated on 06/21, tolerated the extubation well. However the patient remains nothing by mouth, and she failed the swallow evaluation today. Patient is kept nothing by mouth, her IV fluid is a 50 mL/h, patient is requiring clevidipine X. Hence we are recommending that the patient gets restarted on her Catapres patch, IV fluid is up to 75 mL/h using normal saline. Patient is on 2 L nasal cannula.WBC count is 12.5 hemoglobin is 10 with a normal renal profile is normal Objective - Vital Signs Vital signs: Vital Signs Temp 97.8 F 06/22/22 08:00 Pulse 85 06/22/22 11:00 Resp 17 06/22/22 11:00 BP 136/63 06/22/22 11:00 Pulse Ox 96 06/22/22 11:00 FiO2 35 06/21/22 10:42 Intake & Output 06/21/22 06/22/22 06/22/22 18:59 06:59 18:59 Intake Total 639.866 439.334 200 Output Total 985 1085 520 Balance -345.134 -645.666 -320 Weight 52.4 kg Intake: IV 390 360 150 0.9 290 360 150 Potassium Chloride 10 meq 100 In Water For Injection 1 100ml.bag @ 100 mls/hr IVPB Q1H DON Rx#: [id number] Intake, IV Titration 163.866 79.334 50 Amount Clevidipine Butyrate 25 63.866 79.334 50 mg In Empty Bag 1 bag @ 1 MG/HR 2 mls/hr IV .Q24H DON Rx#:[id number] propofoL 1,000 mg In 100 Empty Bag 1 bag @ 15 MCG/ KG/MIN 4.554 mls/hr IV . [id number] [facility] Rx#:[id number] Tube Feeding 56 Other 30 Output: Drainage 5 Left Neck 5 Urine 980 1085 520 Other: Voiding Method Indwelling Catheter Indwelling Catheter Indwelling Catheter ABP, PAP, CO, CI - Last Documented Arterial Blood Pressure 161/161 - Exam Physical Exam: Revealed 86-year-old female , in no distress, on 2 L nasal cannu la. Head: Atraumatic normocephalic. HEENT:[Neck is supple.] [No neck masses.] [No thyromegaly.] [No JVD.] Left side of neck with incision and CECIL drain with approximately 10 mL serosanguineous drainage. Incision with dressing clean dry and intact. Swelling much improved. Chest: [Clear throughout, no crackles, no rhonchi, no wheezes.] Cardiac Exam: [Normal S1 and S2, no S3 gallop, no murmur.] Abdomen: [Soft, nontender, no megaly, no rebound, no guarding, normal bowel sounds.] Extremities: [No clubbing, no edema, no cyanosis.] Neurological Exam: alert oriented 3, chronic right-sided weakness. Related to previous stroke Psychiatric: anxious, flat affect, normal mental status otherwise. - Labs CBC & Chem 7: 06/22/22 05:26 06/22/22 05:26 Labs: Abnormal Lab Results - Last 24 Hours (Table) 06/21/22 06/21/22 06/22/22 Range/Units 18:05 23:27 05:26 WBC 12.5 H (3.8-10.6) k/uL RBC 3.48 L (3.80-5.40) m/uL Hgb 10.0 L (11.4-16.0) gm/dL Hct 31.4 L (34.0-46.0) % Neutrophils # 10.1 H (1.3-7.7) k/uL Chloride (98-107) mmol/L BUN (7-17) mg/dL Glucose (74-99) mg/dL POC Glucose (mg/dL) 167 H 149 H (70-110) mg/dL 06/22/22 06/22/22 06/22/22 Range/Units 05:26 06:16 12:47 WBC (3.8-10.6) k/uL RBC (3.80-5.40) m/uL Hgb (11.4-16.0) gm/dL Hct (34.0-46.0) % Neutrophils # (1.3-7.7) k/uL Chloride 109 H (98-107) mmol/L BUN 22 H (7-17) mg/dL Glucose 117 H (74-99) mg/dL POC Glucose (mg/dL) 120 H 113 H (70-110) mg/dL Microbiology - Last 24 Hours (Table) 06/20/22 04:45 Gram Stain - Preliminary Sputum Sputum Culture - Preliminary Gram Neg Bacilli Assessment and Plan Assessment: Impression: Acute hypoxic respiratory failure secondary to stridor secondary to neck hematoma Status post left carotid revascularization and stenting complicated by neck hematoma causing stridor and respiratory failure, postoperative day #3 patient is status post hematoma evacuation control of hemorrhage and drain placement postoperative day #2 Chronic atrial fibrillation, maintained on Xarelto, presently on hold. Coronary arteriosclerosis Hypertension Dyslipidemia Hypothyroidism History of GI bleeding History of multiple strokes/CVA Chronic kidney disease stage III History of macular degeneration right History of right foot drop Recommendation: extubated on 06/21/22, tolerated the extubation well. Continue to hold Xareltofor now. Continue GI prophylaxis Continue DVT prophylaxis/SCDs for now continue patient nothing by mouth, speech pathology is reevaluated. Continue to monitor the patient in the ICU for the next 24 hours. Time with Patient: Less than 30
--- NOTE | 2022-06-22 13:50 | P.PN ---
Subjective Progress Note Date: 06/22/22 Patient is admitted for elective left and plans carotid artery revascularization by stenting. I saw her postoperatively patient was although she denied any shortness of breath patient is saturating well on 2 L of oxygen. does have multiple other medical problems discussed with vascular surgery consisting stridor, patient is being transferred to ICU and patient will be nothing by mouth patient's home medications are being held as patient is going to be nothing by mouth. Once a stridor resolves patient probably can be initiated back on by mouth medications. 06/20/2022 Patient is evaluated today in intensive care unit. Postoperative day #1 left carotid endartectomy. Patient developed hematoma at surgical site and was taken for evacuation of hematoma by vascular services yesterday evening and control of hemorrhage and drain placement. Hemoglobin had dropped to 7.3 and patient received 1 unit of PRBC and will receive a second unit today. Patient has been resumed on plavix. Patient is currently intubated on mechanical ventilator with FiO2 of 40% and PEEP of 5. Patient is sedated with propofol. There is significant edema surrounding surgical site and plan to continue patient on mechanical ventilator and has been started on decadron and re-evaluation tomorrow for possible extubation. Chest xray today showing improved scattered airspace opacities from prior exam. Persistent cardiomegaly. Labs today showing a white count of 8.2, hemoglobin of 8.2, sodium 136, BUN 21, creatinine 0.86. 06/21/2022 Patient remains in intensive care unit and is currently intubated and sedated on mechanical ventilator with FiO2 of 40%. ABGs done today showing pH of 7.47, pO2 of 128, pCO2 of 35, Total CO2 of 26, HCO3 of 25. Patient is postoperative day #2 left carotid endartectomy. Chest xray today showing minor atelectasis at the lung bases with no obvious evidence of pneumonia. Labs today showing white count of 10.2, hgb 10.2, electrolytes and kidney function are stable. Patient has been started on enteral tube feeding with vital high protein currently running at 28 ml/hr with free water flush of 30 ml every 4 hours. Blood glucose is elevated in the 160s and novolog will be added today. Plan to undergo sedation holiday today. Neck edema is improving. 06/22/2022 Patient is evaluated in intensive care unit sitting up in the chair. postoperative day #3 left carotid endartectomy. Patient has been extubated and is currently maintaining oxygen saturation on 2L of nasal cannula. Speech hai will re-evaluate the patient today. Patients main complaint is a feeling sore. She is confused alert x 2 at the time of assessment. Neck edema has significantly improved and Dexamethasone has been discontinued. Patient has been started on IV cleviprex overnight for elevated blood pressures which have improved into the 130s systolic and home clonidine patch and amlodipine will be resumed and patient to be weaned off cleviprex. Xarelto has been resumed today. Hemoglobin has remained stable at 10.0 no signs of acute bleeding. Dressing in tact and CECIL drain in place with serosangueinous drainage to left neck. Unable to complete review of systems currently intubated and sedated. PHYSICAL EXAMINATION: GENERAL: The patient is intubated and sedated in ICU. Well developed, well nourished. HEENT: Pupils are round and equally reacting to light. EOMI. No scleral icterus. No conjunctival pallor. Normocephalic, atraumatic. Edema surrounding left neck surgical site improving. CARDIOVASCULAR: S1 and S2 present. No murmurs, rubs, or gallops. PULMONARY: Chest is clear to auscultation, no wheezing or crackles. ABDOMEN: Soft, nontender, nondistended, normoactive bowel sounds. No palpable organomegaly. MUSCULOSKELETAL: No joint swelling or deformity. EXTREMITIES: No cyanosis, clubbing, or pedal edema. NEUROLOGICAL: Gross neurological examination did not reveal any focal deficits. SKIN: No rashes. Assessment and plan Assessment -Left carotid revascularization by stent POD #3: postoperatively had slight stridor and was found to have hematoma and underwent evacuation of hematoma, control of hemorrhage/draine placement and received 2 units PRBC. hemoglobin stable and patient is resumed on xarelto/plavix. -Acute hypoxic respiratory failure secondary to stridor/neck hematoma extubated and currently on 2L nasal cannula. -Shock hypovolemic acute blood loss from hemorrhage at surgical site. resolved. -Atrial fibrillation chronic -Coronary artery disease -Hyperlipidemia -Hypertension -Hypothyroidism -History of multiple stroke GI prophylaxis DVT prophylaxis SCDs and recommend to hold oral anticoagulation for now No Code Plan Patient has been resumed on plavix/xarelto Resume home blood pressure medication and wean off cleviprex PT/OT on consultation The impression and plan of care has been dictated by Nita Garcia Nurse Practitioner as directed. Dr. Ania MD I have performed a history and physical examination and medical decision making of this patient, discussed the same with the dictator, and agree with the dictators assessment and plan as written, documented as a scribe. Based on total visit time, I have performed more than 50% of this visit. Objective - Vital Signs Vital signs: Vital Signs Temp 97.8 F 06/22/22 08:00 Pulse 85 06/22/22 11:00 Resp 17 06/22/22 11:00 BP 136/63 06/22/22 11:00 Pulse Ox 96 06/22/22 11:00 FiO2 35 06/21/22 10:42 Intake & Output 06/21/22 06/22/22 06/22/22 18:59 06:59 18:59 Intake Total 639.866 439.334 200 Output Total 985 1085 520 Balance -345.134 -645.666 -320 Weight 52.4 kg Intake: IV 390 360 150 0.9 290 360 150 Potassium Chloride 10 meq 100 In Water For Injection 1 100ml.bag @ 100 mls/hr IVPB Q1H DON Rx#: [id number] Intake, IV Titration 163.866 79.334 50 Amount Clevidipine Butyrate 25 63.866 79.334 50 mg In Empty Bag 1 bag @ 1 MG/HR 2 mls/hr IV .Q24H DON Rx#:[id number] propofoL 1,000 mg In 100 Empty Bag 1 bag @ 15 MCG/ KG/MIN 4.554 mls/hr IV . [id number] DON Rx#:[id number] Tube Feeding 56 Other 30 Output: Drainage 5 Left Neck 5 Urine 980 1085 520 Other: Voiding Method Indwelling Catheter Indwelling Catheter Indwelling Catheter ABP, PAP, CO, CI - Last Documented Arterial Blood Pressure 161/161 - Labs CBC & Chem 7: 06/22/22 05:26 06/22/22 05:26 Labs: Abnormal Lab Results - Last 24 Hours (Table) 06/21/22 06/21/22 06/22/22 Range/Units 18:05 23:27 05:26 WBC 12.5 H (3.8-10.6) k/uL RBC 3.48 L (3.80-5.40) m/uL Hgb 10.0 L (11.4-16.0) gm/dL Hct 31.4 L (34.0-46.0) % Neutrophils # 10.1 H (1.3-7.7) k/uL Chloride (98-107) mmol/L BUN (7-17) mg/dL Glucose (74-99) mg/dL POC Glucose (mg/dL) 167 H 149 H (70-110) mg/dL 06/22/22 06/22/22 Range/Units 05:26 06:16 WBC (3.8-10.6) k/uL RBC (3.80-5.40) m/uL Hgb (11.4-16.0) gm/dL Hct (34.0-46.0) % Neutrophils # (1.3-7.7) k/uL Chloride 109 H (98-107) mmol/L BUN 22 H (7-17) mg/dL Glucose 117 H (74-99) mg/dL POC Glucose (mg/dL) 120 H (70-110) mg/dL Microbiology - Last 24 Hours (Table) 06/20/22 04:45 Gram Stain - Preliminary Sputum Sputum Culture - Preliminary Gram Neg Bacilli Assessment and Plan Time with Patient: Less than 30
[2022-06-22] MEDS: amLODIPine 2.5 MG TAB PO SCH (14:13)
--- NOTE | 2022-06-22 14:40 | FL ---
EXAMINATION TYPE: FL barium swallow w video DATE OF EXAM: 06/22/2022 CLINICAL HISTORY: 86-year-old female with history of strokes, recent extubation, coughing at the beds yuliya, assess for aspiration. TECHNIQUE: Deglutition study is performed utilizing thin liquid barium, barium thick pudding, and ba rium coated chopped cracker. Total fluoroscopy time: 2 minutes 4 seconds. Total images: None. Real-time fluoroscopy support was provided to speech pathology. Total DAP: 110.52. COMPARISON: None. FINDINGS: Suspect underlying internal carotid artery stent. Degenerative grade 1 or grade 2 anterolisthesis at C3-C4 noted. The oral and pharyngeal phases show satisfactory initiation and propagation with all modalities teste d. Normal mastication is seen with solid modalities tested. There is an episode of transient penetration with thin liquids. Otherwise, no other penetration or as piration is seen. Surgical drain noted anteriorly. IMPRESSION: An episode of transient penetration with thin liquids. No other penetration or aspiration seen. Please refer to speech therapist notes for further details if necessary.
[2022-06-22] MEDS ORDERED: RIVAROXABAN 15 MG TAB PO SCH (21:00)
[2022-06-22] MEDS: ALPRAZolam 0.5 MG TAB PO PRN (21:46)
[2022-06-23] MEDS: hydrALAZINE HCL 20 MG/ML 1 ML VIAL IVP PRN ×2 (00:08→05:39)
[2022-06-23] MEDS: SODIUM CHLORIDE 0.9% 1,000 ML IV SCH (00:23)
[2022-06-23] MEDS: ALPRAZolam 0.5 MG TAB PO PRN ×2 (03:20→09:46)
[2022-06-23 03:59] LABS: Basophils % (A) 0 %; Eosinophils # (A) 0.3 k/uL (0-0.7); Eosinophils % (A) 2 %; HCT 33.5 % (34.0-46.0); HGB 10.7 gm/dL (11.4-16.0); Hypochromasia Slight; Lymphocytes # (A) 1.5 k/uL (1.0-4.8); Lymphocytes % (A) 13 %; MCH 28.4 pg (25.0-35.0); MCHC 31.8 g/dL (31.0-37.0); MCV 89.3 fL (80.0-100.0); Mean Platelet Volume 8.2; Monocytes # (A) 0.9 k/uL (0-1.0); Monocytes % (A) 8 %; Neutrophils # (A) 8.3 k/uL (1.3-7.7); Neutrophils % (A) 73 %; Platelet Count 267 k/uL (150-450); Poikilocytosis Slight; RBC 3.76 m/uL (3.80-5.40); RDW 15.7 % (11.5-15.5); WBC 11.4 k/uL (3.8-10.6)
[2022-06-23 04:16] LABS: African American GFR (CKD) >90 (>60 ml/min/1.73 sqM); Anion Gap 5 mmol/L; Blood Urea Nitrogen 21 mg/dL (7-17); Calcium 9.2 mg/dL (8.4-10.2); Carbon Dioxide 26 mmol/L (22-30); Chloride 107 mmol/L (98-107); Glucose 101 mg/dL (74-99); Non-African American GFR(CKD) 83 (>60 ml/min/1.73 sqM); Potassium 3.7 mmol/L (3.5-5.1); Sodium 138 mmol/L (137-145)
[2022-06-23] MEDS: ALBUTEROL HFA INHALER INHALATION SCH ×2 (08:18→11:19)
--- NOTE | 2022-06-23 09:16 | P.DS ---
Providers Date of admission: 06/19/22 05:38 Attending physician: Petey Honeycutt DO Consults: 06/19/22 12:34 Consult Physician Routine Consulting Provider: Willam Jorge Consult Reason/Comments: Medical Management post TCAR with stent Do you want consulting provider notified?: Yes 06/19/22 16:29 Consult Physician Stat Consulting Provider: Pablo Storm Consult Reason/Comments: ICU management Do you want consulting provider notified?: Already Contacted Primary care physician: Arlene Collis P[facility] Course: 86-year-old female with a history of bilateral carotid artery stenosis, TIAs and CVA 4. She was scheduled and underwent left trans-carotid artery revascularization with stent placement for left ICA stenosis on 06/19/2022. Following surgery patient started having some swelling in her neck region and developed a hematoma and subsequently stridor. She was intubated and transferred to the intensive care unit. She was brought back to the operating room that day for evacuation of hematoma, control of hemorrhage and drain placement. She was extubated on 06/21/2022. She is work with PT and OT as well as speech therapy. Patient initially failed her swallow test on 06/21/2022. S he was reevaluated by speech therapy and underwent a modified barium swallow study however reported episode of transient penetration with thin liquids however no other penetration or aspiration seen. She was started on a dysphasia level to ground diet with thickened liquids. She has tolerated it well. Swelling surrounding patient's neck is significantly improved, there is no noted hematoma. CECIL drain with approximately 10-20 mL out daily. CECIL drain removed today. Patient is without any focal deficits other than her previous right- sided weakness from prior CVA. She currently denies any chest pain, any shortness of breath, abdominal pain, nausea or vomiting. Incentive spirometer at the bedside. Sputum culture came back positive for Enterobacter cloacae, pulmonary started patient on Levaquin 500 mg daily. Plan for discharge to [facility] today or tomorrow. Exam General appearance: The patient is alert and oriented. HET: Head is normocephalic and atraumatic. Pupils are equal and reactive. Neck: Left side of neck with incision and CECIL drain with approximately 10 mL serosanguineous drainage. Incision with dressing clean dry and intact. Swelling much improved. Heart: Regular. Lungs: Normal expansion, clear to auscultation. Abdomen: Soft, nontender, nondistended. Extremities: Right groin access site clean dry and intact, no hematoma or bleeding noted. Normal skin color and turgor. No cyanosis, rash, ulceration, clubbing, or edema. Radial pulses +2 bilaterally. Neurological: The patient has some right-sided residual weakness from previous stroke however no other focal deficits noted. Patient able to follow commands, has facial symmetry, is alert and oriented. Assessment and plan 1. Status post left trans-carotid artery revascularization for symptomatic left ICA stenosis 2. Left neck Hematoma status post TCAR status post evacuation of hematoma, control of hemorrhage and drain placement 3. Acute blood loss anemia secondary to #2 4. History atrial fibrillation 5. History of coronary artery disease 6. History of heart failure 7. History of CVA/TIA with residual right-sided weakness 8. Chronic renal disease 9. Hyperlipidemia and hypertension Plan: 1. Continue supportive care 2. Continue current medications Plavix aspirin and statin 3. May resume Xarelto 4. Encourage ambulation/getting up to chair 5. PT/OT/ST on consult appreciate their recommendations 6. Diet per recommendations from speech therapy 7. Medical management per primary medicine team 8. Levaquin 500 mg every 24 hours started by pulmonary team, patient will be discharged with prescription 9. Plan for discharge to [facility] today The impression and plan of care has been dictated as directed. Dr. Thapa I performed a history and examination of this patient, discussed the same with the dictator. I agree with the dictator's note ,documented as a scribe. Any additional findings or plans will be noted. Procedures: Procedure: Left Transcarotid artery revascularization with stenting Surgeon: Petey Honeycutt DO Plan - Discharge Summary Discharge Rx Participant: No New Discharge Prescriptions: New Atorvastatin [Lipitor] 40 mg PO HS tab Mag Hydrox/Al Hydrox/Simeth [Maalox] 30 ml PO Q4HR PRN ml PRN Reason: Heartburn ALPRAZolam [Xanax] 0.25 mg PO BID #4 tab Nitroglycerin Sl Tabs [Nitrostat] 0.4 mg SUBLINGUAL Q5M PRN tab PRN Reason: Chest Pain Levofloxacin [Levaquin] 500 mg PO DAILY 7 Days #7 tab Continue Levothyroxine Sodium [Synthroid] 50 mcg PO AC-BRKFST Rivaroxaban [Xarelto] 15 mg PO HS Montelukast [Singulair] 10 mg PO HS Melatonin 3 mg PO HS Brimonidine Tartrate [Alphagan P 0.1% Ophth Soln] 1 drop BOTH EYES BID Clopidogrel [Plavix] 75 mg PO DAILY #90 tablet cloNIDine 0.2 MG/24HR PATCH [Catapres-TTS] 1 patch TRANSDERM Q7D patch Pantoprazole Sodium [Protonix] 40 mg PO DAILY #30 tab Acetaminophen Tab [Tylenol] 650 mg PO Q4HR PRN tab PRN Reason: Fever And/ Or Pain Albuterol Inhaler [Ventolin Hfa Inhaler] 2 puff INHALATION QID #8 gm Sertraline [Zoloft] 50 mg PO DAILY Cyanocobalamin [Vitamin B-12] 500 mcg PO DAILY Carbidopa-Levodopa 10-100 mg [Sinemet 10-100 mg] 1 each PO QID HYDROcodone/APAP 5-325MG [Crane 5-325] 1 each PO Q12H PRN #6 tab PRN Reason: Pain Changed amLODIPine BESYLATE 5 mg PO DAILY #0 Discontinued Heparin Sodium,Porcine [Heparin Sodium] 5,000 unit SQ Q12HR Atorvastatin [Lipitor] 10 mg PO HS Atorvastatin [Lipitor] 10 mg PO HS Discharge Medication List Levothyroxine Sodium [Synthroid] 50 mcg PO AC-BRKFST 12/07/17 [History] Montelukast [Singulair] 10 mg PO HS 12/07/17 [History] Rivaroxaban [Xarelto] 15 mg PO HS 12/07/17 [History] Brimonidine Tartrate [Alphagan P 0.1% Oph Soln] 1 drop BOTH EYES BID 04/08/22 [History] Clopidogrel [Plavix] 75 mg PO DAILY #90 tablet 04/19/22 [Rx] Acetaminophen Tab [Tylenol] 650 mg PO Q4HR PRN tab 04/20/22 [Rx] Albuterol Inhaler [Ventolin Hfa Inhaler] 2 puff INHALATION QID #8 gm 04/20/22 [Rx] Pantoprazole Sodium [Protonix] 40 mg PO DAILY #30 tab 04/20/22 [Rx] cloNIDine 0.2 MG/24HR PATCH [Catapres-TTS] 1 patch TRANSDERM Q7D patch 12/22/22 [Rx] Carbidopa-Levodopa 10-100 mg [Sinemet 10-100 mg] 1 each PO QID 06/14/22 [History] Cyanocobalamin [Vitamin B-12] 500 mcg PO DAILY 06/14/22 [History] Melatonin 3 mg PO HS 06/14/22 [History] Sertraline [Zoloft] 50 mg PO DAILY 06/14/22 [History] ALPRAZolam [Xanax] 0.25 mg PO BID #4 tab 06/23/22 [Rx] Atorvastatin [Lipitor] 40 mg PO HS tab 06/23/22 [Rx] HYDROcodone/APAP 5-325MG [Crane 5-325] 1 each PO Q12H PRN #6 tab 06/23/22 [Rx] Levofloxacin [Levaquin] 500 mg PO DAILY 7 Days #7 tab 06/23/22 [Rx] Mag Hydrox/Al Hydrox/Simeth [Maalox] 30 ml PO Q4HR PRN ml 06/23/22 [Rx] Nitroglycerin Sl Tabs [Nitrostat] 0.4 mg SUBLINGUAL Q5M PRN tab 06/23/22 [Rx] amLODIPine BESYLATE 5 mg PO DAILY #0 06/23/22 [Rx] Follow up Appointment(s)/Referral(s): Arlene Rojas MD [Primary Care Provider] - 3 Days Petey Honeycutt DO [STAFF PHYSICIAN] - 2 Weeks Patient Instructions/Handouts: Carotid Artery Stent Placement (DC) Activity/Diet/Wound Care/Special Instructions: No strenuous activity or heavy lifting greater than 10 pounds. May shower but no tub bathing or soaking. Watch incision site for infection including redness, drainage, or temperature greater than 100.4. If you notice he symptoms please call office Activity as tolerated Patient encouraged to take Levaquin daily for the next 1 week Continue current diet, patient chopped diet, nectar thickened liquids Continue Xanax low-dose as needed, recommend holding if drowsy Discharge Disposition: TRANSFER TO SNF/ECF
[2022-06-23] MEDS: BRIMONIDINE TARTRATE 0.2% DROPS 5 ML BTL BOTH EYES SCH ×2 (09:46→09:48)
[2022-06-23] MEDS: CARBIDOPA-LEVODOPA 10-100 MG 1 EACH TAB PO SCH ×2 (09:47→13:01)
[2022-06-23] MEDS: PANTOPRAZOLE 40 MG/10 ML VIAL IVP SCH (09:47)
[2022-06-23] MEDS: amLODIPine 2.5 MG TAB PO SCH (09:47)
[2022-06-23] MEDS: LEVOTHYROXINE 50 MCG TAB PO SCH (09:48)
[2022-06-23] MEDS: CLOPIDOGREL 75 MG TAB PO SCH (09:49)
[2022-06-23] MEDS ORDERED: LEVOFLOXACIN 500 MG TAB PO SCH (11:00)
[2022-06-23 11:53] LABS: Glucose,Whole Blood 115 mg/dL (70-110)
[2022-06-23 12:44] VITALS: TEMP 98.4
--- NOTE | 2022-06-23 13:05 | P.PN ---
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 Due to her multiple strokes, and symptoms, patient underwent left carotid artery revascularization with stenting, this was done on 06/19/2022, performed by Dr. Honeycutt postoperatively, patient was sent to a monitor bed on . Late in the afternoon on 06/19/22, patient developed a large left neck hematoma and she also developed increased work of breathing with evidence of stridor. I was notified about this patient around 5 PM, I recommended immediate intubation by [employer] ASSISTANT and immediate transfer to the ICU. In the meantime vascular surgery was notified, pressure was applied on the left neck area, and vascular surgery reevaluated the patient within a relatively short period of time, patient was taken back to the operating room late yesterday, she was found to have a left neck hematoma, she underwent evacuation of hematoma, control of hemorrhage and a drain placement. Post surgery patient was kept on mechanical ventilation, transferred to the ICU, and I was asked to see her on consultation. I saw the patient this morning, she is on assist control rate of 20-2400 FiO2 40% and PEEP of 5. ABG showed a pO2 of 101 pCO2 of 39 pH of 7.35. Patient was on propofol at 50 mcg/kg/m, I considered weaning parameters, however the patient had a relatively good weaning parameters except for leak was noted. Hence I'm recommending Decadron, and we will hold on further weaning until tomorrow morning. CBC showed WBC of 7.7 hemoglobin 9.4. Patient received a total of 2 units of packed RBCs since her neck hematoma yesterday chest x-ray showed multiple opacities consistent with chronic parenchymal changes and atelectasis. No clear-cut evidence of any acute infiltrate Patient was reevaluated today on 06/21/22, patient remains in the ICU, intubated and mechanically ventilated. Remains on assist control rate of 20, tidal volume 400, FiO2 40% and PEEP of 5. ABG showed a pO2 of 128 pCO2 35 pH of 7.47 hence FiO2 was cut down to 35%. Her CBC is basically unremarkable hemoglobin is 10.2. Basic metabolic profile is normal, renal profile is normal, patient is on propofol, patient is not arousable, however we checked today for cough leak, and the patient is actually having a cough leak, went ahead and recommended weaning parameters and they seem to be reasonable, hence proceeded to pressure support and CPAP and eventual extubation of the patient. Patient was extubated to 4 L nasal cannula, O2 saturation 97%. Patient is hemodynamically stable, and her chest x-ray labs were reviewed today. Chest x-ray showed minimal haziness at the bases mostly atelectasis related, no evidence of effusion and no evidence of pneumonia. Reevaluated today on 06/22/22, patient remains in the ICU, she was extubated on 06/21, tolerated the extubation well. However the patient remains nothing by mouth, and she failed the swallow evaluation today. Patient is kept nothing by mouth, her IV fluid is a 50 mL/h, patient is requiring clevidipine X. Hence we are recommending that the patient gets restarted on her Catapres patch, IV fluid is up to 75 mL/h using normal saline. Patient is on 2 L nasal cannula.WBC count is 12.5 hemoglobin is 10 with a normal renal profile is normal Reevaluated today on 06/23/22, patient remains in the ICU, she was extubated actu ally 2 days ago, tolerated the extubation well, his sputum is positive for Enterobacter cloaca, hence I'm recommending Levaquin for at least 7-10 days. Patient is being considered for discharge to rehab/prison, I will clear the patient for discharge, however the decision will have to be made by vascular surgery as when to restart Xarelto. If cleared by vascular surgery, the patient should go back on her usual Xarelto dose Objective - Vital Signs Vital signs: Vital Signs Temp 98.4 F 06/23/22 12:00 Pulse 87 06/23/22 12:00 Resp 16 06/23/22 12:00 BP 147/73 06/23/22 12:00 Pulse Ox 93 L 06/23/22 12:00 FiO2 35 06/21/22 10:42 Intake & Output 06/22/22 06/23/22 06/23/22 18:59 06:59 18:59 Intake Total 1089.867 900 300 Output Total 1210 1390 215 Balance -120.133 -490 85 Weight 49.4 kg Intake: IV 675 900 300 0.9 675 900 300 Intake, IV Titration 64.867 Amount Clevidipine Butyrate 25 64.867 mg In Empty Bag 1 bag @ 1 MG/HR 2 mls/hr IV .Q24H [facility] Rx#:[id number] Oral 350 Output: Urine 1210 1390 215 Other: Voiding Method Indwelling Catheter Indwelling Catheter # Voids 1 # Bowel Movements 1 ABP, PAP, CO, CI - Last Documented Arterial Blood Pressure 161/161 - Exam Physical Exam: Revealed 86-year-old female , in no distress, on room air, O2 saturations 93-94% Head: Atraumatic normocephalic. HEENT:[Neck is supple.] [No neck masses.] [No thyromegaly.] [No JVD.] Neck [Hematoma has been resolved and CECIL drain has been removed Chest: [Clear throughout, no crackles, no rhonchi, no wheezes.] Cardiac Exam: [Normal S1 and S2, no S3 gallop, no murmur.] Abdomen: [Soft, nontender, no megaly, no rebound, no guarding, normal bowel sounds.] Extremities: [No clubbing, no edema, no cyanosis.] Neurological Exam: alert oriented 3, chronic right-sided weakness. Related to previous stroke Psychiatric: anxious, flat affect, normal mental status otherwise. - Labs CBC & Chem 7: 06/23/22 03:28 06/23/22 03:28 Labs: Abnormal Lab Results - Last 24 Hours (Table) 06/23/22 06/23/22 06/23/22 Range/Units 03:28 03:28 11:52 WBC 11.4 H (3.8-10.6) k/uL RBC 3.76 L (3.80-5.40) m/uL Hgb 10.7 L (11.4-16.0) gm/dL Hct 33.5 L (34.0-46.0) % RDW 15.7 H (11.5-15.5) % Neutrophils # 8.3 H (1.3-7.7) k/uL BUN 21 H (7-17) mg/dL Glucose 101 H (74-99) mg/dL POC Glucose (mg/dL) 115 H (70-110) mg/dL Microbiology - Last 24 Hours (Table) 06/20/22 04:45 Gram Stain - Final Sputum Sputum Culture - Final Enterobacter cloacae Assessment and Plan Assessment: Impression: Acute hypoxic respiratory failure secondary to stridor secondary to neck hematoma Status post left carotid revascularization and stenting complicated by neck hematoma causing stridor and respiratory failure, postoperative day #3 patient is status post hematoma evacuation control of hemorrhage and drain pl acement postoperative day #3 Chronic atrial fibrillation, maintained on Xarelto, presently on hold. Coronary arteriosclerosis Hypertension Dyslipidemia Hypothyroidism History of GI bleeding History of multiple strokes/CVA Chronic kidney disease stage III History of macular degeneration right History of right foot drop Recommendation: extubated on 06/21/22, tolerated the extubation well. Recommended Levaquin 500 milligrams daily for her Enterobacter cloaca he in the sputum. Patient to be restarted back on Xarelto apparently this was cleared by vascular surgery on the case. Continue GI prophylaxis Continue DVT prophylaxis/SCDs for now Agree with discharge planning if cleared by primary admitting service Time with Patient: Less than 30
[2022-06-23 13:30] VITALS: BP 141/77; PULSE 105; RESP 18
--- NOTE | 2022-06-23 13:59 | P.PN ---
Subjective Progress Note Date: 06/23/22 Chief complaint: Admitted under vascular surgery services for left carotid artery revascularization Patient is admitted for elective left and plans carotid artery revascularization by stenting. I saw her postoperatively patient was although she denied any shortness of breath patient is saturating well on 2 L of oxygen. does have multiple other medical problems discussed with vascular surgery consisting stridor, patient is being transferred to ICU and patient will be nothing by mouth patient's home medications are being held as patient is going to be nothing by mouth. Once a stridor resolves patient probably can be initiated back on by mouth medications. 06/20/2022 Patient is evaluated today in intensive care unit. Postoperative day #1 left carotid endartectomy. Patient developed hematoma at surgical site and was taken for evacuation of hematoma by vascular services yesterday evening and control of hemorrhage and drain placement. Hemoglobin had dropped to 7.3 and patient received 1 unit of PRBC and will receive a second unit today. Patient has been resumed on plavix. Patient is currently intubated on mechanical ventilator with FiO2 of 40% and PEEP of 5. Patient is sedated with propofol. There is significant edema surrounding surgical site and plan to continue patient on [facility] anical ventilator and has been started on decadron and re-evaluation tomorrow for possible extubation. Chest xray today showing improved scattered airspace opacities from prior exam. Persistent cardiomegaly. Labs today showing a white count of 8.2, hemoglobin of 8.2, sodium 136, BUN 21, creatinine 0.86. 06/21/2022 Patient remains in intensive care unit and is currently intubated and sedated on mechanical ventilator with FiO2 of 40%. ABGs done today showing pH of 7.47, pO2 of 128, pCO2 of 35, Total CO2 of 26, HCO3 of 25. Patient is postoperative day #2 left carotid endartectomy. Chest xray today showing minor atelectasis at the lung bases with no obvious evidence of pneumonia. Labs today showing white count of 10.2, hgb 10.2, electrolytes and kidney function are stable. Patient has been started on enteral tube feeding with vital high protein currently running at 28 ml/hr with free water flush of 30 ml every 4 hours. Blood glucose is elevated in the 160s and novolog will be added today. Plan to undergo sedation holiday today. Neck edema is improving. 06/22/2022 Patient is evaluated in intensive care unit sitting up in the chair. postoperative day #3 left carotid endartectomy. Patient has been extubated and is currently maintaining oxygen saturation on 2L of nasal cannula. Speech therapy will re-evaluate the patient today. Patients main complaint is a feeling sore. She is confused alert x 2 at the time of assessment. Neck edema has significantly improved and Dexamethasone has been discontinued. Patient has been started on IV cleviprex overnight for elevated blood pressures which have improved into the 130s systolic and home clonidine patch and amlodipine will be resumed and patient to be weaned off cleviprex. Xarelto has been resumed today. Hemoglobin has remained stable at 10.0 no signs of acute bleeding. Dressing in tact and CECIL drain in place with serosangueinous drainage to left neck. 06/23/2022 Patient is seen and evaluated in follow-up this morning in the ICU with multiple medical consultations following. Patient was extubated successfully maintained on 2 L via nasal cannula. Patient is tolerating oral intake and has been resumed on appropriate medications. Patient has been cleared by consultations including pulmonary and were awaiting for sputum culture which finalized showing Enterobacter cloacae with some sensitivities and will be given Levaquin and instructed to continue for 1 week. Patient also resumed on Xarelto with no further bleeding noted. Patient is going to [facility] and hasn't returned there and has received authorization. Patient is currently afebrile with no reports of chest pain or shortness of breath. Patient is a little drowsy although arousable and nursing staff reports she did receive a Xanax this morning. Recommend to continue with Xanax low-dose only as needed and if patient is lethargic during the day would recommend holding. Recommend outpatient follow- up with vascular surgery as instructed. Patient is medically stable for transfer to [facility] today. Active Medications Hydrocodone Bitart/Acetaminophen (Hydrocodone/Apap 5-325mg 1 Each Tab) 1 each PO Q6HR PRN PRN Reason: Pain Al Hydroxide/Mg Hydroxide (Mag Hydrox/Al Hydrox/Simeth 30 Ml Cup) 30 ml PO Q4HR PRN PRN Reason: Heartburn Albuterol Sulfate (Albuterol Hfa Inhaler) 2 puff INHALATION RT-QID DON Last Admin: 06/23/22 11:19 Dose: Not Given Alprazolam (Alprazolam 0.25 Mg Tab) 0.25 mg PO Q6HR PRN PRN Reason: Mild Anxiety Alprazolam (Alprazolam 0.5 Mg Tab) 0.5 mg PO Q6HR PRN PRN Reason: Moderate Anxiety Last Admin: 06/23/22 09:46 Dose: 0.5 mg Amlodipine Besylate (Amlodipine 2.5 Mg Tab) 2.5 mg PO DAILY [facility] Last Admin: 06/23/22 09:47 Dose: 2.5 mg Atorvastatin Calcium (Atorvastatin 40 Mg Tab) 40 mg PO HS [facility] Last Admin: 06/22/22 21:45 Dose: 40 mg Atropine Sulfate (Atropine Sulfate 0.1 Mg/Ml 10ml Syringe) 0.5 mg IV ONCE PRN PRN Reason: Symptomatic Bradycardia Brimonidine Tartrate (Brimonidine Tartrate 0.2% Drops 5 Ml Btl) 1 drops BOTH EYES BID [facility] Last Admin: 06/23/22 09:48 Dose: 1 drops Carbidopa/Levodopa (Carbidopa-Levodopa 10-100 Mg 1 Each Tab) 1 each PO QID [facility] Last Admin: 06/23/22 13:01 Dose: 1 each Clonidine HCl (Clonidine 0.2 Mg/24hr Patch) 1 patch TRANSDERM Q7D [facility] Last Admin: 06/22/22 11:17 Dose: 1 patch Clopidogrel Bisulfate (Clopidogrel 75 Mg Tab) 75 mg PO DAILY [facility] Last Admin: 06/23/22 09:49 Dose: 75 mg Dextrose/Water (Dextrose 50% Syringe 50 Ml) 25 ml IVP PER PROTOCOL PRN; Protocol PRN Reason: Hypoglycemia Dextrose/Water (Dextrose 50% Syringe 50 Ml) 50 ml IVP PER PROTOCOL PRN; Protocol PRN Reason: Hypoglycemia Hydralazine HCl (Hydralazine Hcl 20 Mg/Ml 1 Ml Vial) 10 mg IVP Q4HR PRN PRN Reason: Blood Pressure - High Last Admin: 06/23/22 05:39 Dose: 10 mg Hydromorphone HCl (Hydromorphone 0.5 Mg/0.5 Ml Syringe) 0.5 mg IVP Q4HR PRN PRN Reason: Pain Last Admin: 06/22/22 12:37 Dose: 0.5 mg Clevidipine 25 mg/ IV Solution 50 mls @ 2 mls/hr IV .Q24H [facility]; Protocol Last Titration: 06/22/22 14:44 Dose: 0 mg/hr, 0 mls/hr Sodium Chloride (Saline 0.9%) 1,000 mls @ 75 mls/hr IV .[id number] [facility] Last Admin: 06/23/22 00:23 Dose: 75 mls/hr Levofloxacin (Levofloxacin 500 Mg Tab) 500 mg PO Q24H [facility]; Protocol Last Admin: 06/23/22 13:00 Dose: 500 mg Levothyroxine Sodium (Levothyroxine 50 Mcg Tab) 50 mcg PO AC-BRKFST [facility] Last Admin: 06/23/22 09:48 Dose: 50 mcg Miscellaneous Information (Potassium Replacement Protocol 1 Each Misc) 1 each MISCELLANE DAILY PRN; Protocol PRN Reason: Per Protocol Nitroglycerin (Nitroglycerin Sl Tabs 0.4 Mg Tab) 0.4 mg SUBLINGUAL Q5M PRN PRN Reason: Chest Pain Pantoprazole Sodium (Pantoprazole 40 Mg/10 Ml Vial) 40 mg IVP DAILY [facility] Last Admin: 06/23/22 09:47 Dose: 40 mg Rivaroxaban (Rivaroxaban 15 Mg Tab) 15 mg PO HS [facility]; Protocol Last Admin: 06/22/22 21:45 Dose: 15 mg PHYSICAL EXAMINATION: GENERAL: The patient is sleeping but arousable, continues in ICU. Well developed, well nourished. Thin built, elderly appearing female HEENT: Pupils are round and equally reacting to light. EOMI. No scleral icterus. No conjunctival pallor. Normocephalic, atraumatic. Edema surrounding left neck surgical site improving. CARDIOVASCULAR: S1 and S2 present. No murmurs, rubs, or gallops. PULMONARY: Chest is clear to auscultation, no wheezing or crackles. ABDOMEN: Soft, nontender, nondistended, normoactive bowel sounds. No palpable organomegaly. MUSCULOSKELETAL: No joint swelling or deformity. EXTREMITIES: No cyanosis, clubbing, or pedal edema. NEUROLOGICAL: Gross neurological examination did not reveal any focal deficits. Diffuse weakness SKIN: No rashes. Assessment: -Left carotid revascularization by stent POD #4: postoperatively had slight stridor and was found to have hematoma and underwent evacuation of hematoma, control of hemorrhage/drained placement and received 2 units PRBC. hemoglobin stable and patient is resumed on xarelto/plavix. -Acute hypoxic respiratory failure secondary to stridor/neck hematoma extubated and currently on 2L nasal cannula. -Shock hypovolemic acute blood loss from hemorrhage at surgical site. resolved. -Atrial fibrillation chronic -Coronary artery disease -Hyperlipidemia -Hypertension -Hypothyroidism -History of multiple stroke -GI prophylaxis -DVT prophylaxis Xarelto -No Code Plan: Patient has been resumed on plavix/xarelto Resume home blood pressure medication and recommend monitoring vital signs closely PT/OT evaluated the patient and patient will be returning to [facility] Patient has received insurance authorization scheduled for discharge today per primary services vascular surgery Pulmonary was also following the patient and sputum culture was obtained showing Enterobacter cloacae and will be started on Levaquin and will continue for 1 week Enclosed outpatient monitoring and follow-up with vascular surgery is scheduled Due to multiple complex medical issues, prognosis is guarded She is medically stable for transfer to [facility] today Thank you Kindly for this consultation The impression and plan of care has been dictated by Alexia Frazier, Nurse Practitioner as directed. Dr. Hardeep MD I have performed a history and examination and MDM of this patient, discussed the same with the dictator, and agree with the dictator's assessment and plan as written ,documented as a scribe. Based on total visit time, I have performed more than 50% of the visit. Objective - Vital Signs Vital signs: Vital Signs Temp 98.3 F 06/23/22 09:00 Pulse 105 H 06/23/22 10:00 Resp 22 06/23/22 10:00 BP 151/85 06/23/22 10:00 Pulse Ox 92 L 06/23/22 10:00 FiO2 35 06/21/22 10:42 Intake & Output 06/22/22 06/23/22 06/23/22 18:59 06:59 18:59 Intake Total 1089.867 900 75 Output Total 1210 1390 65 Balance -120.133 -490 10 Weight 49.4 kg Intake: IV 675 900 75 0.9 675 900 75 Intake, IV Titration 64.867 Amount Clevidipine Butyrate 25 64.867 mg In Empty Bag 1 bag @ 1 MG/HR 2 mls/hr IV .Q24H [facility] Rx#:[id number] Oral 350 Output: Urine 1210 1390 65 Other: Voiding Method Indwelling Catheter Indwelling Catheter # Bowel Movements 1 ABP, PAP, CO, CI - Last Documented Arterial Blood Pressure 161/161 - Labs CBC & Chem 7: 06/23/22 03:28 06/23/22 03:28 Labs: Abnormal Lab Results - Last 24 Hours (Table) 06/22/22 06/23/22 06/23/22 Range/Units 12:47 03:28 03:28 WBC 11.4 H (3.8-10.6) k/uL RBC 3.76 L (3.80-5.40) m/uL Hgb 10.7 L (11.4-16.0) gm/dL Hct 33.5 L (34.0-46.0) % RDW 15.7 H (11.5-15.5) % Neutrophils # 8.3 H (1.3-7.7) k/uL BUN 21 H (7-17) mg/dL Glucose 101 H (74-99) mg/dL POC Glucose (mg/dL) 113 H (70-110) mg/dL Microbiology - Last 24 Hours (Table) 06/20/22 04:45 Gram Stain - Final Sputum Sputum Culture - Final Enterobacter cloacae
[2022-06-25] MEDS ORDERED: cloNIDine 0.2 MG/24HR PATCH TRANSDERM SCH (09:00)
--- NOTE | 2022-06-26 20:11 | CDI ---
Documentation Clarification Form Date: 06/26/2022 7:47:35 PM From: Daniela Oh Phone: Admit Date: 06/19/2022 5:38:00 AM Patient Name: Lorna Le Visit Number: [id number] Discharge Date: 06/23/2022 2:04:00 PM ATTENTION: The Clinical Documentation Specialists (CDI) and [facility] Coding Staff appreciate your assistance in clarifying documentation. Please respond to the clarification below the line at the bottom and electronically sign. The CDI & [facility] Coding staff will review the response and follow-up if needed. Please note: Queries are made part of the Legal Health Record. If you have any questions, please contact the author of this message via ITS. Dr. Willam Jorge AHRecondary tostridor/neck hematoma is documented Progress Note 06/20/22. Additional clarification regarding AHRF is requested. Patients Admitting Diagnosis: SymptomaticLICA greater than 55% Post-Operative Diagnosis: AHRF d/t stridord/tneck hematoma s/p LICA revascularization &stenting Procedure performed: Left Transcarotid artery revascularization withstenting History/Risk Factors: 86yo F, LICA, postop Leftneck Hematomastatus postTCAR, ABLA, A Fib, CAD, CHF, Hx CVA/TIAwithresidualright-sided weakness, LESLIE on CKD, HLD, HTN, Shock hypovolemic Clinical Indicators: Tobacco use: Former Vital signs: 06/20/22Temp 100.0 F; Pulse 80; Resp 20; BP 84/43; Pulse Ox 97; FiO2 40 06/21 06/20 06/20 06/19 ABG PO2 (mmHg) 128H 137H 101 314 ABG PCO2 (mmHg) 35 41 39 42 ABG PH 7.47H 7.35 7.35 7.34L Treatment: intubated andsedated in ICU for airway protection. Please clarify if acute hypoxic respiratory failure is a complication of the surgical procedure? [x ] Yes [ ] No [ ] Other, please specify [ ] Unable to determine (Template Last Revised: June 2020) MTDD
--- NOTE | 2022-06-26 20:21 | CDI ---
Documentation Clarification Form Date: 06/26/2022 7:47:35 PM From: Daniela Oh Phone: Admit Date: 06/19/2022 5:38:00 AM Patient Name: Lorna Le Visit Number: [id number] Discharge Date: 06/23/2022 2:04:00 PM ATTENTION: The Clinical Documentation Specialists (CDI) and [facility] Coding Staff appreciate your assistance in clarifying documentation. Please respond to the clarification below the line at the bottom and electronically sign. The CDI & [facility] Coding staff will review the response and follow-up if needed. Please note: Queries are made part of the Legal Health Record. If you have any questions, please contact the author of this message via ITS. Dr. Willam Jorge [facility] with Hematoma Progress Note 06/20/22. Additional clarification regarding hemorrhage is requested. Patients Admitting Diagnosis: SymptomaticLICA greater than 55% Post-Operative Diagnosis: hemorrhage with neck hematoma s/p LICA revascularization &stenting Procedure performed: Left Transcarotid artery revascularization withstenting History/Risk Factors: 86yo F, LICA, postop Leftneck Hematomastatus postTCAR, ABLA, A Fib, CAD, CHF, Hx CVA/TIAwithresidualright-sided weakness, LESLIE on CKD, HLD, HTN, Shock hypovolemic Clinical Indicators: 06/23 06/22 06/21 06/20 06/19 06/19 HCT (%) 33.5L 31.4L 31.8L 25.6L 26.0L 35.0 HGB (gm/dL) 10.7L 10.0L 10.2L 8.2L 8.1L 10.9L Treatment: Evacuation of hematoma,control of hemorrhage,drainplacement; 2PRBC Please clarify if hemorrhage with neck hematoma is a complication of the surgical procedure? [ x] Yes, complication of the surgical procedure [ ] No, expected outcome [ ] Other, please specify [ ] Unable to determine (Template Last Revised: June 2020) MTDD
== END 2022-06-23 14:04 | DRG 34 ==
LOC: 2ORMAIN 05:38 → EEVIPCON 05:38 → 3SCARD 13:58 → 2SICU 16:50
PROVIDERS: ADMIT Surgery; ATTEND Surgery
PROC: 0W360ZZ Control Bleeding in Neck, Open Approach (ICD-10-PCS; 2022-06-19)
PROC: 0JC50ZZ Extirpation of Matter from Left Neck Subcutaneous Tissue and Fascia, Open Approach (ICD-10-PCS; 2022-06-19)
PROC: 30233N1 Transfusion of Nonautologous Red Blood Cells into Peripheral Vein, Percutaneous Approach (ICD-10-PCS; 2022-06-19)
PROC: 3E033XZ Introduction of Vasopressor into Peripheral Vein, Percutaneous Approach (ICD-10-PCS; 2022-06-19)
PROC: 037L34Z Dilation of Left Internal Carotid Artery with Drug-eluting Intraluminal Device, Percutaneous Approach (ICD-10-PCS; principal; 2022-06-19 07:30)
DX: I65.23 Occlusion and stenosis of bilateral carotid arteries (principal); J95.821 Acute postprocedural respiratory failure; R57.1 Hypovolemic shock; I97.618 Postprocedural hemorrhage of a circulatory system organ or structure following other circulatory system procedure; I13.0 Hypertensive heart and chronic kidney disease with heart failure and stage 1 through stage 4 chronic kidney disease, or unspecified chronic kidney disease; I69.351 Hemiplegia and hemiparesis following cerebral infarction affecting right dominant side; D62 Acute posthemorrhagic anemia; I48.20 Chronic atrial fibrillation, unspecified; I50.9 Heart failure, unspecified; N18.30 Chronic kidney disease, stage 3 unspecified; E03.9 Hypothyroidism, unspecified; I48.0 Paroxysmal atrial fibrillation; R73.9 Hyperglycemia, unspecified; E78.5 Hyperlipidemia, unspecified; R47.02 Dysphasia; Y83.8 Other surgical procedures as the cause of abnormal reaction of the patient, or of later complication, without mention of misadventure at the time of the procedure; M21.371 Foot drop, right foot; B96.89 Other specified bacterial agents as the cause of diseases classified elsewhere; H35.30 Unspecified macular degeneration; I25.10 Atherosclerotic heart disease of native coronary artery without angina pectoris; Z87.11 Personal history of peptic ulcer disease; Z87.891 Personal history of nicotine dependence; Z79.890 Hormone replacement therapy; Z79.899 Other long term (current) drug therapy; Z79.02 Long term (current) use of antithrombotics/antiplatelets; Z79.01 Long term (current) use of anticoagulants; Z87.19 Personal history of other diseases of the digestive system; Z88.0 Allergy status to penicillin
CPT/HCPCS: 37215; 71045; 74230; 80048; 82805; 83036; 83735; 85025; 85027; 85610; 86850; 86900; 86901; 86920; 87070; 87077; 87186; 87205; 94640

== ENCOUNTER 2022-08-14 15:59 | Emergency (ER) | payer MEDICARE ==
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
[2022-08-14 16:52] LABS: Basophils % (A) 0 %; Eosinophils # (A) 0.5 k/uL (0-0.7); Eosinophils % (A) 7 %; HCT 35.1 % (34.0-46.0); Lymphocytes # (A) 1.3 k/uL (1.0-4.8); Lymphocytes % (A) 19 %; MCH 27.5 pg (25.0-35.0); MCHC 31.3 g/dL (31.0-37.0); MCV 88.1 fL (80.0-100.0); Mean Platelet Volume 8.2; Monocytes # (A) 0.5 k/uL (0-1.0); Monocytes % (A) 7 %; Neutrophils # (A) 4.3 k/uL (1.3-7.7); Neutrophils % (A) 64 %; Platelet Count 270 k/uL (150-450); RBC 3.98 m/uL (3.80-5.40); RDW 15.9 % (11.5-15.5); WBC 6.7 k/uL (3.8-10.6)
[2022-08-14 16:55] VITALS: BP 146/67; PULSE 75; RESP 22; TEMP 97.7
[2022-08-14 17:04] LABS: Calcium 9.8 mg/dL (8.4-10.2); Magnesium 2.1 mg/dL (1.6-2.3); Potassium 4.9 mmol/L (3.5-5.1); Total Bilirubin 0.3 mg/dL (0.2-1.3); Total Protein 6.9 g/dL (6.3-8.2)
--- NOTE | 2022-08-14 17:22 | CT ---
EXAMINATION TYPE: CT brain wo con DATE OF EXAM: 08/14/2022 COMPARISON: 05/09/2022 INDICATION: Seizure. Hx CVA. DLP: 1099.4 mGycm, Automated exposure control for dose reduction was used. CONTRAST: None CT of the brain is performed utilizing 3 mm thick sections through the posterior fossa and 3 mm thick sections through the remaining calvarium. Study is performed within 24 hours of arrival to the hosp ital. No abnormal hyperdensity is present to suggest an acute intracranial hemorrhage. No mass lesion is evident. No acute infarcts are evident. There is an old left frontal lobe infarct. Confluent periventricular w remington matter hypodensity is present compatible with microvascular ischemic change. Old lacunar infarct in the right parsons radiata is evident. Ventricles and sulci are prominent for the patient age. Paranasal sinuses and mastoid air cells within the [id number] are clear. IMPRESSIONS: 1. No acute intracranial process. Follow-up MRI can be performed as clinically indicated. 2. Old left frontal lobe infarct with an old right parsons radiata lacunar infarct. Chronic appearing microvascular ischemic change likewise appears stable from comparison.
== END 2022-08-14 19:45 | disposition home or self-care (01) ==
LOC: EC 15:59
DX: R41.82 Altered mental status, unspecified (principal); I13.0 Hypertensive heart and chronic kidney disease with heart failure and stage 1 through stage 4 chronic kidney disease, or unspecified chronic kidney disease; I50.9 Heart failure, unspecified; N18.30 Chronic kidney disease, stage 3 unspecified; I25.10 Atherosclerotic heart disease of native coronary artery without angina pectoris; I48.91 Unspecified atrial fibrillation; E78.5 Hyperlipidemia, unspecified; G20 Parkinson's disease; E07.9 Disorder of thyroid, unspecified; F32.A Depression, unspecified; Z79.01 Long term (current) use of anticoagulants; Z79.890 Hormone replacement therapy; Z79.02 Long term (current) use of antithrombotics/antiplatelets; Z79.899 Other long term (current) drug therapy; Z87.891 Personal history of nicotine dependence; Z86.73 Personal history of transient ischemic attack (TIA), and cerebral infarction without residual deficits
CPT/HCPCS: 36415; 70450; 80053; 83735; 85025; 93005; 99285

== ENCOUNTER 2023-03-24 16:13 | Emergency (ER) | payer MEDICARE ==
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
[2023-03-24 17:05] VITALS: RESP 20; TEMP 98.1
--- NOTE | 2023-03-24 17:27 | XR ---
Pelvis. HISTORY: Pain status post fall. COMPARISON: None TECHNIQUE: Single AP view the pelvis is obtained. FINDINGS: The pelvic ring is intact and there is no fracture or focal intraosseous abnormality. The pubic symph ysis and SI joints normal. The hips are normal and symmetric bilaterally without fracture, dislocation or significant degenerati ve change. IMPRESSION: No significant abnormality seen.
--- NOTE | 2023-03-24 17:28 | XR ---
Right femur. HISTORY: Pain following fall. COMPARISON: None TECHNIQUE: 4 views the right femur were obtained FINDINGS: There is no fracture, focal intraosseous modality, cortical disruption or periosteal reaction. There is marked arteriovascular calcifications in the thigh. IMPRESSION: No acute trauma to the right femur.
--- NOTE | 2023-03-24 18:21 | CT ---
EXAMINATION TYPE: CT brain wo con CT DLP: 1034.4 mGycm, Automated exposure control for dose reduction was used. DATE OF EXAM: 03/24/2023 6:05 PM COMPARISON: 08/14/2022 CLINICAL INDICATION:Female, 87 years old with history of fall on thinners, fall on blood thinners TECHNIQUE: Brain: Axial CT images of the brain were obtained with coronal and sagittal reformats created and rev iewed. Contrast used: None. Oral contrast used: None. FINDINGS: Brain: Extra-axial spaces: No abnormal extra-axial fluid collections. Ventricular system: Appear dilated in proportion to the degree of cerebral atrophy. Cerebral parenchyma: No increased attenuation to suggest acute intraparenchymal hemorrhage. The gra y-white matter interface appears maintained. Moderate to severe generalized brain atrophy. Scattere d hypoattenuating areas are seen within the cerebral white matter, nonspecific but most often seen wi th chronic microvascular ischemic changes; moderate/severe in degree. Remote lacunar infarct in the right anterior periventricular white matter near the caudate in the region of the elio radiata. Rem ote infarct in the left frontal lobe anteromedially. Cerebellum: No acute abnormality. Mass effect: No evidence of mass effect or midline shift. Intracranial vasculature: Atherosclerotic calcifications of the larger arteries near the skull base. Soft tissues: Normal. Visualized orbits: Orbital contents appear grossly intact. Prior ophthalmologic surgery bilaterally . Calvarium/osseous structures: No evidence of calvarial fracture. Paranasal sinuses and mastoid air cells: Clear. Small amount material in the auditory canals likely c erumen. MRI is more sensitive for detecting acute processes such as infarct, and may be considered if clinica lly warranted. IMPRESSION: 1. No acute intracranial CT abnormality. 2. Atrophy and chronic microvascular ischemic white matter changes. Remote left frontal lobe infarct and lacunar right parsons radiata infarct.
[2023-03-24] MEDS ORDERED: ACET/COD 300 MG/30 MG STARTER PACK 6 TAB BTL PO STA (18:52)
[2023-03-24 19:10] VITALS: BP 116/77; PULSE 90
== END 2023-03-24 19:01 | disposition home or self-care (01) ==
LOC: EC 16:13
DX: M25.551 Pain in right hip (principal); I25.10 Atherosclerotic heart disease of native coronary artery without angina pectoris; I48.91 Unspecified atrial fibrillation; E78.5 Hyperlipidemia, unspecified; I13.0 Hypertensive heart and chronic kidney disease with heart failure and stage 1 through stage 4 chronic kidney disease, or unspecified chronic kidney disease; I50.9 Heart failure, unspecified; N18.30 Chronic kidney disease, stage 3 unspecified; M19.90 Unspecified osteoarthritis, unspecified site; E07.9 Disorder of thyroid, unspecified; Z87.891 Personal history of nicotine dependence; Z86.73 Personal history of transient ischemic attack (TIA), and cerebral infarction without residual deficits; Z79.890 Hormone replacement therapy; Z79.02 Long term (current) use of antithrombotics/antiplatelets; Z79.01 Long term (current) use of anticoagulants; W01.0XXA Fall on same level from slipping, tripping and stumbling without subsequent striking against object, initial encounter
CPT/HCPCS: 70450; 72170; 99284

== ENCOUNTER 2023-10-22 11:20 | Emergency (ER) | payer MEDICARE ==
[2023-10-22 11:31] VITALS: RESP 18
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
[2023-10-22] MEDS: MORPHINE SULFATE 2 MG/ML SYRINGE IM STA (11:58)
[2023-10-22] MEDS: KETOROLAC 15 MG/ML 1 ML VIAL IM STA (11:59)
--- NOTE | 2023-10-22 12:42 | XR ---
EXAMINATION TYPE: XR shoulder complete RT DATE OF EXAM: 10/22/2023 12:00 PM CLINICAL INDICATION:Female, 87 years old with history of Fall; COMPARISON: 10/22/2023. CT 04/14/2016 TECHNIQUE: XR shoulder complete RT; examined in AP, internally rotated and scapular Y projections. FINDINGS: No evidence of acute osseous pathology, joint dislocation, or soft tissue swelling. The remaining po rtions of the visualized chest are unremarkable. Degeneration changes of the acromion, distal clavic le with osteophyte formation. There is osteophyte formation of the glenoid and humeral head. There is joint space narrowing of glenohumeral joint. Remote appearing right rib fracture. IMPRESSION: 1. No acute osseous pathology. 2. [id number] shoulder osteoarthrosis.
[2023-10-22] MEDS ORDERED: ACET/COD 300 MG/30 MG STARTER PACK 6 TAB BTL PO STA (13:21)
[2023-10-22 13:32] VITALS: BP 133/80; PULSE 76; TEMP 98.1
== END 2023-10-22 13:32 | disposition home or self-care (01) ==
LOC: EC 11:20
DX: S49.91XA Unspecified injury of right shoulder and upper arm, initial encounter (principal); Z87.891 Personal history of nicotine dependence; W18.30XA Fall on same level, unspecified, initial encounter
CPT/HCPCS: 73030; 99283; 96372 ×2; J2270; J1885

== ENCOUNTER 2023-12-20 12:52 | Emergency (ER) | payer MEDICARE ==
[2023-12-20] MEDS ORDERED: ONDANSETRON 4 MG/2 ML VIAL ONE (14:39)
[2023-12-20] MEDS ORDERED: FAMOTIDINE 20 MG/2 ML VIAL ONE (14:39)
[2023-12-20] MEDS ORDERED: SODIUM CHLORIDE 0.9% 1,000 ML BAG ONE (14:58)
[2023-12-20] MEDS ORDERED: ONDANSETRON 4 MG ODT STARTER PACK 2 TAB BTL ONE (17:29)
== END 2023-12-20 17:40 | disposition home or self-care (01) ==
LOC: EC 12:52
DX: R11.2 Nausea with vomiting, unspecified (principal)
CPT/HCPCS: 96361; 96374; 96375; 99283

== ENCOUNTER 2023-12-25 11:39 | Emergency (ER) | payer MEDICARE ==
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
[2023-12-25] MEDS: SODIUM CHLORIDE 0.9% 500 ML 500 ML IV STA (12:12)
[2023-12-25 12:31] LABS: Basophils % (A) 1 %; Eosinophils # (A) 0.3 k/uL (0-0.7); Eosinophils % (A) 4 %; HCT 38.7 % (34.0-46.0); HGB 12.8 gm/dL (11.4-16.0); Lymphocytes # (A) 1.3 k/uL (1.0-4.8); Lymphocytes % (A) 15 %; MCH 31.2 pg (25.0-35.0); MCV 94.5 fL (80.0-100.0); Mean Platelet Volume 9.1; Monocytes # (A) 0.5 k/uL (0-1.0); Monocytes % (A) 6 %; Neutrophils # (A) 5.9 k/uL (1.3-7.7); Neutrophils % (A) 72 %; Platelet Count 185 k/uL (150-450); RDW 14.2 % (11.5-15.5); WBC 8.2 k/uL (3.8-10.6)
[2023-12-25 12:36] LABS: Appearance,Urine Clear (Clear); Bilirubin,Urine Negative (Negative); Blood,Urine Negative (Negative); Color,Urine Colorless; Glucose,Urine (UA) 3+ (Negative); Ketones,Urine Negative (Negative); Leukocyte Esterase,Urine Negative (Negative); Nitrite,Urine Negative (Negative); Protein,Urine Negative (Negative); Specific Gravity,Urine 1.007 (1.001-1.035); Urobilinogen,Urine <2.0 mg/dL (<2.0)
[2023-12-25 12:39] LABS: ALT <6 U/L (4-34); AST 23 U/L (14-36); African American GFR (CKD) 47 (>60 ml/min/1.73 sqM); Albumin 4.1 g/dL (3.5-5.0); Alkaline Phosphatase 83 U/L (38-126); Anion Gap 3 mmol/L; Blood Urea Nitrogen 33 mg/dL (7-17); Calcium 10.1 mg/dL (8.4-10.2); Carbon Dioxide 31 mmol/L (22-30); Chloride 102 mmol/L (98-107); Glucose 107 mg/dL (74-99); Non-African American GFR(CKD) 41 (>60 ml/min/1.73 sqM); Potassium 3.5 mmol/L (3.5-5.1); Sodium 136 mmol/L (137-145); Total Bilirubin 0.8 mg/dL (0.2-1.3); Total Protein 6.7 g/dL (6.3-8.2)
--- NOTE | 2023-12-25 13:17 | XR ---
EXAMINATION TYPE: XR KUB DATE OF EXAM: 12/25/2023 12:37 PM CLINICAL INDICATION: Female, 88 years old with history of constipation; [facility] COMPARISON: None. TECHNIQUE: One radiographic view of the abdomen was obtained. FINDINGS: There is a moderate to large stool burden, otherwise, the bowel gas pattern is nonspecific without dilated loops of small or large bowel. . Fecal material and gas are demonstrated throughout t he colon and rectum. There is no evidence for organomegaly or pneumoperitoneum. The osseous structures are intact. No ab normal calcifications are present. Scoliosis changes present. IMPRESSION: Moderate to large amount stool in the rectum. Nonspecific bowel gas pattern without radiographic evid ence for acute process.
[2023-12-25] MEDS: ACETAMINOPHEN TAB 500 MG TAB PO STA (20:20)
[2023-12-26 01:15] VITALS: RESP 16
[2023-12-26 02:02] VITALS: BP 150/73; PULSE 63; TEMP 98.2
== END 2023-12-26 03:10 | disposition home or self-care (01) ==
LOC: EC 11:39
DX: E86.0 Dehydration
CPT/HCPCS: 36415; 74018; 80053; 81003; 82075; 83605; 85025; 99285

== ENCOUNTER 2024-01-04 21:31 | Observation (INO) | payer MEDICARE ==
[2024-01-04 22:53] LABS: Basophils % (A) 1 %; Eosinophils # (A) 0.2 k/uL (0-0.7); Eosinophils % (A) 4 %; HCT 36.1 % (34.0-46.0); HGB 11.8 gm/dL (11.4-16.0); Lymphocytes # (A) 0.8 k/uL (1.0-4.8); Lymphocytes % (A) 15 %; MCH 31.1 pg (25.0-35.0); MCHC 32.8 g/dL (31.0-37.0); MCV 94.7 fL (80.0-100.0); Mean Platelet Volume 8.6; Monocytes # (A) 0.5 k/uL (0-1.0); Monocytes % (A) 8 %; Neutrophils % (A) 71 %; Platelet Count 186 k/uL (150-450); RBC 3.81 m/uL (3.80-5.40); RDW 14.2 % (11.5-15.5); WBC 5.7 k/uL (3.8-10.6)
[2024-01-04 22:59] LABS: ALT <6 U/L (4-34); AST 29 U/L (14-36); African American GFR (CKD) 30 (>60 ml/min/1.73 sqM); Albumin 4.2 g/dL (3.5-5.0); Alkaline Phosphatase 62 U/L (38-126); Anion Gap 6 mmol/L; Blood Urea Nitrogen 25 mg/dL (7-17); Calcium 10.7 mg/dL (8.4-10.2); Carbon Dioxide 28 mmol/L (22-30); Chloride 98 mmol/L (98-107); Glucose 113 mg/dL (74-99); Magnesium 2.2 mg/dL (1.6-2.3); Non-African American GFR(CKD) 26 (>60 ml/min/1.73 sqM); Potassium 4.8 mmol/L (3.5-5.1); Sodium 132 mmol/L (137-145); Total Bilirubin 0.9 mg/dL (0.2-1.3); Total Protein 6.8 g/dL (6.3-8.2)
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
[2024-01-05] MEDS ORDERED: NALOXONE 0.4 MG/ML 1 ML VIAL IV PRN
[2024-01-05] MEDS: SODIUM CHLORIDE 0.9% 1,000 ML IV SCH (00:08)
[2024-01-05] MEDS: ACETAMINOPHEN TAB 325 MG TAB PO STA (00:08)
[2024-01-05 00:54] LABS: INR 0.9 (<1.2); Partial Thromboplastin Time 22.2 sec (22.0-30.0)
--- NOTE | 2024-01-05 01:17 | CT ---
EXAM: CT Cervical Spine Without Intravenous Contrast CLINICAL HISTORY: ITS.REASON CT Reason: neck pain TECHNIQUE: Axial computed tomography images of the cervical spine without intravenous contrast. CTDI is 8.1 mGy and DLP is 208.8 mGy-cm. This CT exam was performed using one or more of the following dose reduction techniques: automated exposure control, adjustment of the mA and/or kV according to patient size, and/or use of iterative reconstruction technique. COMPARISON: No relevant prior studies available. FINDINGS: The vertebral body heights are maintained. The craniocervical junction is intact. The atlanto-dens interval is maintained. The dens is intact. Grade 1 anterolisthesis of C3 on C4, measures 3 mm. Multilevel cervical spondylosis and degenerative disc disease. Straightening of the cervical lordosis. The unenhanced neck soft tissues are grossly unremarkable. The visualized lung apices are grossly clear. IMPRESSION: No acute fracture of the cervical spine. Grade 1 anterolisthesis of C3 on C4, measures 3 mm.
--- NOTE | 2024-01-05 01:18 | XR ---
EXAM: XR Thoracic Spine, 2 Views CLINICAL HISTORY: ITS.REASON XR Reason: pain after fall TECHNIQUE: Frontal and lateral views of the thoracic spine. COMPARISON: No relevant prior studies available. FINDINGS: Vertebrae: Multilevel thoracic spondylosis and disc space narrowing. No acute fracture. Normal alignment. Osseous demineralization. Disc spaces: See above. Soft tissues: Unremarkable. IMPRESSION: No acute findings in the thoracic spine.
--- NOTE | 2024-01-05 01:34 | XR ---
EXAM: XR Chest, 1 View CLINICAL HISTORY: ITS.REASON XR Reason: Weakness TECHNIQUE: Frontal view of the chest. COMPARISON: CXR June 21, 2022. FINDINGS: Lungs: Unremarkable. No consolidation. Pleural space: Unremarkable. No pneumothorax. Heart: Cardiomegaly. Mediastinum: Unremarkable. Normal mediastinal contour. Bones/joints: Unremarkable. No acute fracture. IMPRESSION: No acute findings in the chest.
--- NOTE | 2024-01-05 01:37 | XR ---
EXAM: XR Pelvis, 1 or 2 Views CLINICAL HISTORY: ITS.REASON XR Reason: fall, pain TECHNIQUE: Frontal view of the pelvis. COMPARISON: No relevant prior studies available. FINDINGS: Bones/joints: Diffuse osseous demineralization. No acute fracture or subluxation. Soft tissues: Unremarkable. IMPRESSION: No acute fracture or subluxation.
[2024-01-05] MEDS: DEXTROSE 5% IN WATER 250 ML with AMIODARONE 300 MG IV ONE (04:06)
[2024-01-05 04:15] LABS: Appearance,Urine Clear (Clear); Bilirubin,Urine Negative (Negative); Blood,Urine Negative (Negative); Color,Urine Light Yellow; Glucose,Urine (UA) 3+ (Negative); Ketones,Urine Negative (Negative); Leukocyte Esterase,Urine Negative (Negative); Nitrite,Urine Negative (Negative); PH, Urine 6.5 (5.0-8.0); Protein,Urine Negative (Negative); Specific Gravity,Urine 1.013 (1.001-1.035); Urobilinogen,Urine <2.0 mg/dL (<2.0)
[2024-01-05] MEDS: AMIODARONE 360 MG in DEXTROSE 5% IN WATER 200 ML IV ONE (04:24)
[2024-01-05] MEDS: AMIODARONE 450 MG in DEXTROSE 5% IN WATER 250 ML IV SCH (10:22)
[2024-01-05] MEDS ORDERED: LACTULOSE 20 GM/30 ML CUP PO PRN (10:34)
[2024-01-05] MEDS ORDERED: ALBUTEROL HFA INHALER INHALATION PRN (10:34)
[2024-01-05] MEDS ORDERED: ALPRAZolam 0.25 MG TAB PO PRN (10:34)
[2024-01-05] MEDS: ACETAMINOPHEN TAB 500 MG TAB PO PRN (13:34)
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
[2024-01-05] MEDS ORDERED: CARBIDOPA-LEVODOPA 25-250 MG 1 EACH TAB PO SCH (16:00)
[2024-01-05] MEDS: ARTIFICIAL TEARS-HYPROMELLOSE DROPS 15 ML BTL BOTH EYES SCH (16:55)
[2024-01-05] MEDS: CARBIDOPA-LEVODOPA ER 50-200MG 1 EACH TABLET.ER PO SCH (17:00)
[2024-01-05] MEDS: Netarsudil Mesylat/Latanoprost [Rocklatan 0.02%-0.005% Eye Drp] 2.5 ML BOTH EYES SCH (20:31)
[2024-01-05] MEDS: MAGNESIUM OXIDE 400 MG TAB PO SCH (20:31)
[2024-01-05] MEDS: FAMOTIDINE 20 MG TAB PO SCH (20:32)
[2024-01-05] MEDS: traMADol 50 MG TAB PO SCH (20:32)
[2024-01-05] MEDS: traZODone HCL 100 MG TAB PO SCH (20:43)
[2024-01-05] MEDS ORDERED: FAMOTIDINE 20 MG TAB PO SCH (21:00)
[2024-01-06] MEDS: PANTOPRAZOLE 40 MG TABLET PO SCH (06:25)
[2024-01-06] MEDS: LEVOTHYROXINE 50 MCG TAB PO SCH (06:25)
[2024-01-06 06:34] LABS: Basophils % (A) 1 %; Eosinophils # (A) 0.4 k/uL (0-0.7); Eosinophils % (A) 6 %; HCT 35.3 % (34.0-46.0); HGB 11.3 gm/dL (11.4-16.0); Hypochromasia Slight; Lymphocytes # (A) 1.1 k/uL (1.0-4.8); Lymphocytes % (A) 16 %; MCH 30.9 pg (25.0-35.0); MCHC 31.9 g/dL (31.0-37.0); MCV 96.7 fL (80.0-100.0); Mean Platelet Volume 8.3; Monocytes # (A) 0.5 k/uL (0-1.0); Monocytes % (A) 8 %; Neutrophils # (A) 4.5 k/uL (1.3-7.7); Neutrophils % (A) 68 %; Platelet Count 177 k/uL (150-450); RBC 3.65 m/uL (3.80-5.40); WBC 6.6 k/uL (3.8-10.6)
[2024-01-06 06:57] LABS: ALT <6 U/L (4-34); AST 22 U/L (14-36); African American GFR (CKD) 47 (>60 ml/min/1.73 sqM); Albumin 3.3 g/dL (3.5-5.0); Alkaline Phosphatase 67 U/L (38-126); Anion Gap 3 mmol/L; Blood Urea Nitrogen 17 mg/dL (7-17); Calcium 10.3 mg/dL (8.4-10.2); Carbon Dioxide 29 mmol/L (22-30); Chloride 106 mmol/L (98-107); Glucose 96 mg/dL (74-99); Non-African American GFR(CKD) 41 (>60 ml/min/1.73 sqM); Potassium 4.3 mmol/L (3.5-5.1); Sodium 138 mmol/L (137-145); Total Bilirubin 0.4 mg/dL (0.2-1.3); Total Protein 5.7 g/dL (6.3-8.2)
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
[2024-01-06] MEDS: LOSARTAN 25 MG TAB PO SCH (08:41)
[2024-01-06] MEDS: cloNIDine 0.1 MG/24HR PATCH TRANSDERM SCH (08:41)
[2024-01-06] MEDS: DONEPEZIL 10 MG TAB PO SCH (08:42)
[2024-01-06] MEDS: DAPAGLIFLOZIN PROPANEDIOL 5 MG TABLET PO SCH (08:42)
[2024-01-06] MEDS: LORATADINE 10 MG TAB PO SCH (08:42)
[2024-01-06] MEDS: CHOLECALCIFEROL 25 MCG (1000 IU) TABLET PO SCH (08:42)
[2024-01-06] MEDS: ONDANSETRON ODT 4 MG TAB PO SCH (08:42)
[2024-01-06] MEDS: RIVAROXABAN 15 MG TAB PO SCH (08:42)
[2024-01-06] MEDS: ATORVASTATIN 40 MG TAB PO SCH (08:42)
[2024-01-06] MEDS: amLODIPine 5 MG TAB PO SCH (08:42)
[2024-01-06] MEDS ORDERED: FUROSEMIDE 20 MG TAB PO SCH (09:00)
[2024-01-06] MEDS ORDERED: amLODIPine 5 MG TAB PO SCH (09:00)
[2024-01-06] MEDS ORDERED: DOCUSATE 100 MG CAP PO PRN (09:55)
[2024-01-06 10:38] LABS: HCT 36.8 % (34.0-46.0); HGB 12.2 gm/dL (11.4-16.0); Hypochromasia Slight; MCHC 33.1 g/dL (31.0-37.0); MCV 96.7 fL (80.0-100.0); Mean Platelet Volume 8.6; Platelet Count 177 k/uL (150-450); WBC 7.5 k/uL (3.8-10.6)
[2024-01-06 10:44] LABS: ALT 8 U/L (4-34); AST 24 U/L (14-36); African American GFR (CKD) 53 (>60 ml/min/1.73 sqM); Albumin 3.7 g/dL (3.5-5.0); Alkaline Phosphatase 51 U/L (38-126); Anion Gap 6 mmol/L; Blood Urea Nitrogen 19 mg/dL (7-17); Calcium 10.5 mg/dL (8.4-10.2); Carbon Dioxide 27 mmol/L (22-30); Chloride 105 mmol/L (98-107); Glucose 53 mg/dL (74-99); Non-African American GFR(CKD) 46 (>60 ml/min/1.73 sqM); Potassium 4.6 mmol/L (3.5-5.1); Sodium 138 mmol/L (137-145); Total Bilirubin 0.4 mg/dL (0.2-1.3); Total Protein 6.2 g/dL (6.3-8.2)
[2024-01-06 10:51] LABS: NT-Pro-B-Type Natriuretic Pept 485 pg/mL
[2024-01-06] MEDS: PSYLLIUM HUSK 100% 6 GM PACKET PO SCH (12:01)
[2024-01-06 12:04] LABS: Glucose,Whole Blood 78 mg/dL (70-110)
--- NOTE | 2024-01-06 12:36 | CT ---
EXAMINATION TYPE: CT brain wo con DATE OF EXAM: 01/06/2024 COMPARISON: 03/24/2023 HISTORY: Closed head trauma Technique: Multiple axial images are obtained from the skull base to vertex without the use of IV con trast material. Findings: The ventricles, basal cisterns and sulci over the convexities are moderately enlarged consistent with moderate generalized atrophy appropriate for the patient's age. There is no mass effect or shift of midline structures. There is a large area of decreased density involving the left frontal lobe cortex and subcortical whi te matter consistent with a remote left frontal infarct. There is remote infarct in the right centrum semiovale. There is moderate decreased density in the periventricular white matter consistent with chronic ische arabella white matter demyelination. There is no acute intra or extra-axial hemorrhage. The posterior fossa including the brainstem, fourth ventricle and cerebellar pontine angles appear no rmal. Intraorbital contents appear normal and symmetric. Visualized paranasal sinuses and mastoid air cells are well aerated. The calvarium is intact. IMPRESSION: 1. No acute bleed or mass effect. 2. Remote left frontal lobe infarct. 3. Remote white matter infarction the right cerebral hemisphere. 4. No significant interval change compared to previous.
--- NOTE | 2024-01-06 13:05 | P.PN ---
Subjective Progress Note Date: 01/06/24 HISTORY OF PRESENT ILLNESS: 88-year-old with active medical history of A-fib, coronary artery disease, congestive heart failure, previous history of CVA/TIA, hypertension, hyperlip idemia, hypothyroidism, memory loss, mild parkinsonism who has problem with mobility and balance has been living in assisted living and has a guardian. She was seen in the office recently for follow-up complaining of tiredness and fatigue testing are up-to-date she is still suffering from her previous history of stroke with generalized weakness with abnormal balance and gait. Patient had multi fall last few months mostly have been with her balance and gait when she is not using her walker and pain. She sustained a fall where she lives was not witnessed not clear whether she had syncopal episode or not with it that she developed to have severe headache with lightheadedness and generalized fatigue and tiredness ended up coming to the emergency department by EMS where was seen and evaluated her Original assessment including lab value shows worsening kidney function with creatinine at 1.73 with bun 25 GFR down to 26 she usually runs pretty normal. No finding consistent with any abnormality, her cervical spine x-ray shows mostly arthritis with no fracture, thoracic spine showed no acute fracture as well. Chest x-ray shows no infiltrate and pelvic x-ray showed no fracture or dislocation. Original EKG showed sinus bradycardia with pulse running in the 50s with prolonged QT. The patient was started hydration and admitted to the hospital CAT scan of the brain was not done. As she is in the emergency department she developed to have few episode of ventricular tachycardia she was more tired fatigued did not have any syncopal episode. Emergency department started her on amiodarone drip at the time decided to consult cardiology in the morning. I could not place any evidence of V. tach on a monitoring analyst but showing slight tachycardia with narrow PVCs mostly. Cardiology be seen patient in consultation still waiting for an echocardiogram no troponin was done at the time will continue hydration and supportive care at this point till she is seen and evaluated by cardiology. 01/06/2024: She was seen and evaluated by cardiology: And clearly was going on with her is not V. tach at this point but continued to have slight arrhythmia require probably longer-term heart monitor. Of course she is off amiodarone since yesterday did not require to be on any antiarrhythmic medication at this point there is a smaller dose of beta-ty will be helpful. Her kidney function has improved significantly and hydration with creatinine down to 1.3. Patient is back on anticoagulation still confused back on her parkinsonism medication as well. Continue complain of debility with not been able to ambulate and walk require some physical therapy to help her out. REVIEW OF SYSTEMS: CONSTITUTIONAL: Well-developed no acute respiratory distress. EYES: No icterus sclerae, no conjunctivitis. EARS, NOSE, MOUTH, THROAT, and FACE: No sore throat, lymphadenopathy, carotid bruits or deformity. RESPIRATORY: Slight shortness of breath no cough or wheezes. CARDIOVASCULAR: Mild arrhythmia positive PND no orthopnea no angina. GASTROINTESTINAL: No Abd pain, Nausea or vomiting, no Diarrhea or constipation, No GI Bleed, no distention or masses. GENITOURINARY: Negative for Hematuria or UTI, no kidney stones. Has history of incontinence. INTEGUMENT/BREAST: Generalized muscle and joint pain. HEMATOLOGIC/LYMPHATIC: Negative for bleed or purpura. MUSCULOSKELTAL: Negative for Myalgia or arthralgia. NEURLOGICAL: Previous history of stroke with significant balance and gait problem, mild parkinsonism with mild memory loss.. BEHAVIORAL/PSYCH: Negative. ENDOCRINE: Negative. PHYSICAL EXAMINATION: General Appearance: Alert, cooperative, no distress, mildly confused. Neck HEENT: Supple, no lymphadenopathy, no thyroid enlargement, no carotid bruits. Slight bruise on the right forehead. Lungs: Clear to auscultation without crackles or wheezes no rhonchi, no deformity. Chest Wall: Chest wall normal expansion with deep inspiration no tenderness and no deformity was found on exam, no costochondral pain or discomfort. Heart: Irregular rate and rhythm, S1, S2 positive S3 positive bradycardia. Back: Symmetric, no curvature, ROM normal, no CVA tenderness. Abdomen: Soft, non-tender, bowel sounds active all four quadrants, no masses, no organomegaly. Extremities: Extremities normal, atraumatic, no cyanosis or edema. Pulses: 2+ and symmetric. Skin: Skin color, texture, tugor normal, no rashes or lesions. Neurologic: Alert oriented with slight confusion cranial nerves II through XII intact, positive generalized weakness worsening on the left than the right side with severe abnormal balance and gait mild resting tremor. ASSESSMENT AND PLAN: _Fall with possible syncope not a clear etiology: Still no finding of any abnormality consistent with her syncope no V. tach was found patient still require longer-term heart monitor. _Close head trauma no CAT scan of the brain was done when the CAT scan of the brain continue watching for any worsening neuropsych. _Acute kidney injury with acute kidney failure most likely acute tubular necrosis and possible severe dehydration symptoms are much better patient is well-hydrated with creatinine down to 1.08 today with GFR up to 53. _Possible ventricular tachycardia: No V. tach was found she is off amiodarone completely will still require longer-term heart monitor. _Atrial fibrillation with no rapid ventricular response pulse rates under control sometimes she is mildly bradycardic she is remain on a smaller dose of beta-ty still on Xarelto 20 mg daily. _Hypertension: With worsening symptoms, remain on clonidine 0.2 mg patch weekly, still on losartan 25 mg a day, and amlodipine 5 mg daily. _Parkinsonism: Remain on carbidopa levodopa extended release 50/200 mg tablet 3 times a day. _Hypothyroidism: Remain on levothyroxine 50 mcg daily continue medication. _Type 2 diabetes with chronic kidney disease: Has been on Jardiance 10 mg a day will titrate dose up to 25 mg a day Accu-Chek with sliding scales coverage 21. _Chronic diastolic congestive heart failure: Remain on losartan, and furosemide continue medication. _Hyperlipidemia: Remain on atorvastatin 40 mg daily. _Chronic pain syndrome: Continue combination of Butrans 10 mg patch along with tramadol for breakthrough pain she is known to have chronic degenerative disc disease which has been better controlled lately with her medication. _Hiatal hernia and severe GERD: Remain on pantoprazole and Pepcid. _Worsening memory loss and dementia: Was switched to Exelon 3 mg twice a day which seem to tolerate medication very well. Discussion continue hydration, PT OT continue to monitor patient on monitoring analyst and hopefully can be discharged tomorrow with home care and physical therapy. Objective - Vital Signs Vital signs: Vital Signs Temp 98 F 01/05/24 19:31 Pulse 51 L 01/06/24 04:17 Resp 16 01/06/24 04:17 BP 119/75 01/06/24 04:17 Pulse Ox 97 01/06/24 04:17 FiO2 Intake & Output 01/05/24 01/06/24 01/06/24 18:59 06:59 18:59 Weight 52.163 kg 47.9 kg Other: # Voids 1 - Labs CBC & Chem 7: 01/06/24 10:12 01/06/24 10:12 Labs: Abnormal Lab Results - Last 24 Hours (Table) 01/06/24 01/06/24 Range/Units 05:48 05:48 RBC 3.65 L (3.80-5.40) m/uL Hgb 11.3 L (11.4-16.0) gm/dL Creatinine 1.19 H (0.52-1.04) mg/dL Calcium 10.3 H (8.4-10.2) mg/dL Total Protein 5.7 L (6.3-8.2) g/dL Albumin 3.3 L (3.5-5.0) g/dL
[2024-01-06] MEDS: CARBIDOPA-LEVODOPA ER 50-200MG 1 EACH TABLET.ER PO SCH (16:32)
--- NOTE | 2024-01-06 19:21 | P.PN ---
Subjective Progress Note Date: 01/06/24 HISTORY OF PRESENTING ILLNESS 88-year-old female who is known to Dr. Goel presents to the hospital from a independent living facility after she experienced a fall. Patient has a fall alerting system [employer] which detected patient's fall and activated the EMS. On admission to ER she was noticed to have low resting blood pressure with heart rate of 90 bpm. Her ECG shows normal sinus rhythm with normal QRS and QTc durations. It did not show any concerns of any ischemia. Her labs showed a creatinine of 1.7 Her troponin was negative, no concerns of UTI on urinalysis Patient's son provided the history at bedside he denies any prior cardiovascular history with the patient. Progress Note Dec Patient is doing well from cardiovascular standpoint. Blood pressure is optimally controlled. Resting heart rate is around mid 50s. No concerns of ventricular tachycardia on telemetry monitoring. Obtain echocardiogram tomorrow, if no concerning findings, consider signing off. PHYSICAL EXAMINATION Head: Normocephalic. Eyes: Sclerae nonicteric. Neck: Brisk carotid upstroke, no jugular venous distention. Lungs: Clear to auscultation. Diminished breath sounds due to poor inspiratory effort Heart: Regular rate and rhythm, S1-S2, mild systolic murmur audible Abdomen: Soft nontender, positive bowel sounds. Extremities: No edema, intact distal pulses. Neuro: Alert, oritented, no focal deficits. Detailed neuro exam was not performed. ASSESSMENT Concern of ventricular tachycardia noticed on telemetry, most likely artifact History of paroxysmal atrial fibrillation, currently in sinus rhythm Prior history of CVA, resting tremors Fall, likely mechanical Generalized weakness Dehydration Failure to thrive Poor oral intake Protein calorie energy malnutrition LESLIE, creatinine 1.7, likely dehydration related PLAN Obtain echocardiogram for valvular heart disease or LVOT obstruction that might explain fall Continue telemetry monitoring to look for any other arrhythmias Consider 7-day Holter monitor at the time of discharge for extended. Of monitoring making sure there is no other underlying arrhythmias. Patient has resting tremor since her stroke with a frequency of around 200 Hz. This is most likely the reason of her artifact that gave the appearance of ventricular tachycardia on the telemetry monitoring. Patient has some distinct QRS interval which are narrow and are occurring at a rate of mid 50s bpm. Discontinue amiodarone drip. Avoid any further AV padmini blocking agents because of low resting heart rate At home she is on amlodipine 5, losartan 25 mg. I would avoid clonidine to be used She is on Jardiance 10 mg and Lasix 20 mg. I will hold these medications because of concerns of LESLIE and dehydration. Continue Xarelto 15 mg daily for paroxysmal atrial fibrillation CVA prophylaxis Evaluate patient for failure to thrive, dehydration, Fall less likely related to ventricular tachycardia Objective - Vital Signs Vital signs: Vital Signs Temp 97.7 F 01/06/24 08:39 Pulse 59 L 01/06/24 15:07 Resp 18 01/06/24 15:07 BP 135/74 01/06/24 15:07 Pulse Ox 95 01/06/24 15:07 FiO2 Intake & Output 01/06/24 01/06/24 01/07/24 06:59 18:59 06:59 Intake Total 1160 Balance 1160 Weight 47.9 kg Intake: IV 20 Invasive Line 1 20 Oral [id number] Other: # Voids 1 3 - Labs CBC & Chem 7: 01/06/24 10:12 01/06/24 10:12 Labs: Abnormal Lab Results - Last 24 Hours (Table) 01/06/24 01/06/24 01/06/24 Range/Units 05:48 05:48 10:12 RBC 3.65 L (3.80-5.40) m/uL Hgb 11.3 L (11.4-16.0) gm/dL BUN 19 H (7-17) mg/dL Creatinine 1.19 H 1.08 H (0.52-1.04) mg/dL Glucose 53 L (74-99) mg/dL Calcium 10.3 H 10.5 H (8.4-10.2) mg/dL Total Protein 5.7 L 6.2 L (6.3-8.2) g/dL Albumin 3.3 L (3.5-5.0) g/dL
[2024-01-07] MEDS: ACETAMINOPHEN TAB 325 MG TAB PO PRN (06:30)
--- NOTE | 2024-01-07 07:46 | P.PN ---
Subjective Progress Note Date: 01/07/24 HISTORY OF PRESENT ILLNESS: 88-year-old with active medical history of A-fib, coronary artery disease, congestive heart failure, previous history of CVA/TIA, hypertension, hyperlip idemia, hypothyroidism, memory loss, mild parkinsonism who has problem with mobility and balance has been living in assisted living and has a guardian. She was seen in the office recently for follow-up complaining of tiredness and fatigue testing are up-to-date she is still suffering from her previous history of stroke with generalized weakness with abnormal balance and gait. Patient had multi fall last few months mostly have been with her balance and gait when she is not using her walker and pain. She sustained a fall where she lives was not witnessed not clear whether she had syncopal episode or not with it that she developed to have severe headache with lightheadedness and generalized fatigue and tiredness ended up coming to the emergency department by EMS where was seen and evaluated her Original assessment including lab value shows worsening kidney function with creatinine at 1.73 with bun 25 GFR down to 26 she usually runs pretty normal. No finding consistent with any abnormality, her cervical spine x-ray shows mostly arthritis with no fracture, thoracic spine showed no acute fracture as well. Chest x-ray shows no infiltrate and pelvic x-ray showed no fracture or dislocation. Original EKG showed sinus bradycardia with pulse running in the 50s with prolonged QT. The patient was started hydration and admitted to the hospital CAT scan of the brain was not done. As she is in the emergency department she developed to have few episode of ventricular tachycardia she was more tired fatigued did not have any syncopal episode. Emergency department started her on amiodarone drip at the time decided to consult cardiology in the morning. I could not place any evidence of V. tach on a cardiac care unit nurse but showing slight tachycardia with narrow PVCs mostly. Cardiology be seen patient in consultation still waiting for an echocardiogram no troponin was done at the time will continue hydration and supportive care at this point till she is seen and evaluated by cardiology. 01/06/2024: She was seen and evaluated by cardiology: And clearly was going on with her is not V. tach at this point but continued to have slight arrhythmia require probably longer-term heart monitor. Of course she is off amiodarone since yesterday did not require to be on any antiarrhythmic medication at this point there is a smaller dose of beta-ty will be helpful. Her kidney function has improved significantly and hydration with creatinine down to 1.3. Patient is back on anticoagulation still confused back on her parkinsonism medication as well. Continue complain of debility with not been able to ambulate and walk require some physical therapy to help her out. 01/07/2024: Patient is doing well had slight bradycardia on her heart monitor yesterday and through the night otherwise doing well not symptomatic, has not done much physical therapy yet she is in to be evaluated by physical therapy and Occupational Therapy for safety when she is ready to discharge also she is having an echocardiogram still watching her heart on monitor to make sure does not require any pacemaker or defibrillator specially with the possibility of V. tach or A-fib. Memory and strength is better but I still believe patient is not safe to ambulate on her own she needed help when she walks. REVIEW OF SYSTEMS: CONSTITUTIONAL: Well-developed no acute respiratory distress. EYES: No icterus sclerae, no conjunctivitis. EARS, NOSE, MOUTH, THROAT, and FACE: No sore throat, lymphadenopathy, carotid bruits or deformity. RESPIRATORY: Slight shortness of breath no cough or wheezes. CARDIOVASCULAR: Mild arrhythmia positive PND no orthopnea no angina. GASTROINTESTINAL: No Abd pain, Nausea or vomiting, no Diarrhea or constipation, No GI Bleed, no distention or masses. GENITOURINARY: Negative for Hematuria or UTI, no kidney stones. Has history of incontinence. INTEGUMENT/BREAST: Generalized muscle and joint pain. HEMATOLOGIC/LYMPHATIC: Negative for bleed or purpura. MUSCULOSKELTAL: Negative for Myalgia or arthralgia. NEURLOGICAL: Previous history of stroke with significant balance and gait problem, mild parkinsonism with mild memory loss.. BEHAVIORAL/PSYCH: Negative. ENDOCRINE: Negative. PHYSICAL EXAMINATION: General Appearance: Alert, cooperative, no distress, mildly confused. Neck HEENT: Supple, no lymphadenopathy, no thyroid enlargement, no carotid bruits. Slight bruise on the right forehead. Lungs: Clear to auscultation without crackles or wheezes no rhonchi, no deformity. Chest Wall: Chest wall normal expansion with deep inspiration no tenderness and no deformity was found on exam, no costochondral pain or discomfort. Heart: Irregular rate and rhythm, S1, S2 positive S3 positive bradycardia. Back: Symmetric, no curvature, ROM normal, no CVA tenderness. Abdomen: Soft, non-tender, bowel sounds active all four quadrants, no masses, no organomegaly. Extremities: Extremities normal, atraumatic, no cyanosis or edema. Pulses: 2+ and symmetric. Skin: Skin color, texture, tugor normal, no rashes or lesions. Neurologic: Alert oriented with slight confusion cranial nerves II through XII intact, positive generalized weakness worsening on the left than the right side with severe abnormal balance and gait mild resting tremor. ASSESSMENT AND PLAN: _Fall with possible syncope not a clear etiology: Still no finding of any abnormality consistent with her syncope no V. tach was found patient still require longer-term heart monitor. _Close head trauma no CAT scan of the brain was done when the CAT scan of the brain continue watching for any worsening neuropsych. _Acute kidney injury with acute kidney failure most likely acute tubular necrosis and possible severe dehydration symptoms are much better patient is well-hydrated with creatinine down to 1.08 today with GFR up to 53. _ ventricular tachycardia was excluded completely: No V. tach was found she is off amiodarone completely will still require longer-term heart monitor. Will require probably to weeks heart monitor after discharge. _Atrial fibrillation with no rapid ventricular response pulse rates under cont rol sometimes she is mildly bradycardic she is remain on a smaller dose of beta- ty still on Xarelto 20 mg daily. _Hypertension: With worsening symptoms, remain on clonidine 0.2 mg patch weekly, still on losartan 25 mg a day, and amlodipine 5 mg daily. _Parkinsonism: Remain on carbidopa levodopa extended release 50/200 mg tablet 3 times a day. _Hypothyroidism: Remain on levothyroxine 50 mcg daily continue medication. _Type 2 diabetes with chronic kidney disease: Has been on Jardiance 10 mg a day will titrate dose up to 25 mg a day Accu-Chek with sliding scales coverage 21. _Chronic diastolic congestive heart failure: Remain on losartan, and furosemide continue medication. _Hyperlipidemia: Remain on atorvastatin 40 mg daily. _Chronic pain syndrome: Continue combination of Butrans 10 mg patch along with tramadol for breakthrough pain she is known to have chronic degenerative disc disease which has been better controlled lately with her medication. _Hiatal hernia and severe GERD: Remain on pantoprazole and Pepcid. _Worsening memory loss and dementia: Was switched to Exelon 3 mg twice a day which seem to tolerate medication very well. Discussion continue physical therapy and Occupational Therapy waiting for her testing today including her echocardiogram and to be seen by cardiology again hopefully and prepare for discharge tomorrow either back to her assisted living place or possible longterm rehab. Objective - Vital Signs Vital signs: Vital Signs Temp 97.7 F 01/07/24 04:00 Pulse 64 01/07/24 04:00 Resp 18 01/07/24 04:00 BP 131/61 01/07/24 04:00 Pulse Ox 95 01/07/24 04:00 FiO2 Intake & Output 01/06/24 01/06/24 01/07/24 06:59 18:59 06:59 Intake Total 1160 20 Balance 1160 20 Weight 47.9 kg 47.9 kg Intake: IV 20 20 Invasive Line 1 20 20 Oral [id number] Other: # Voids 1 3 5 - Labs CBC & Chem 7: 01/06/24 10:12 01/06/24 10:12 Labs: Abnormal Lab Results - Last 24 Hours (Table) 01/06/24 01/06/24 01/06/24 Range/Units 05:48 05:48 10:12 RBC 3.65 L (3.80-5.40) m/uL Hgb 11.3 L (11.4-16.0) gm/dL BUN 19 H (7-17) mg/dL Creatinine 1.19 H 1.08 H (0.52-1.04) mg/dL Glucose 53 L (74-99) mg/dL Calcium 10.3 H 10.5 H (8.4-10.2) mg/dL Total Protein 5.7 L 6.2 L (6.3-8.2) g/dL Albumin 3.3 L (3.5-5.0) g/dL
--- NOTE | 2024-01-07 10:43 | P.PN ---
Subjective Progress Note Date: 01/07/24 HISTORY OF PRESENTING ILLNESS 88-year-old female who is known to Dr. Goel presents to the hospital from a independent living facility after she experienced a fall. Patient has a fall alerting system [employer] which detected patient's fall and activated the EMS. On admission to ER she was noticed to have low resting blood pressure with heart rate of 90 bpm. Her ECG shows normal sinus rhythm with normal QRS and QTc durations. It did not show any concerns of any ischemia. Her labs showed a creatinine of 1.7 Her troponin was negative, no concerns of UTI on urinalysis Patient's son provided the history at bedside he denies any prior cardiovascular history with the patient. Dec Patient is doing well from cardiovascular standpoint. Blood pressure is optimally controlled. Resting heart rate is around mid 50s. No concerns of ventricular tachycardia on telemetry monitoring. Obtain echocardiogram tomorrow, if no concerning findings, consider signing off. 01/06 Patient denies having any chest pain, no shortness of breath. Echocardiogram is pending. Blood pressure 135/74, heart rate 58, pulse ox 99% on room air. No repeat blood work for today. Telemetry is sinus rhythm. PHYSICAL EXAMINATION Head: Normocephalic. Eyes: Sclerae nonicteric. Neck: Brisk carotid upstroke, no jugular venous distention. Lungs: Clear to auscultation. Diminished breath sounds due to poor inspiratory effort Heart: Regular rate and rhythm, S1-S2, mild systolic murmur audible Abdomen: Soft nontender, positive bowel sounds. Extremities: No edema, intact distal pulses. Neuro: Alert, oritented, no focal deficits. Detailed neuro exam was not performed. ASSESSMENT Concern of ventricular tachycardia noticed on telemetry, most likely artifact History of paroxysmal atrial fibrillation, currently in sinus rhythm Prior history of CVA, resting tremors Fall, likely mechanical Generalized weakness Dehydration Failure to thrive Poor oral intake Protein calorie energy malnutrition LESLIE, creatinine 1.7, likely dehydration related PLAN Obtain echocardiogram for valvular heart disease or LVOT obstruction that might explain fall Continue telemetry monitoring to look for any other arrhythmias Consider 7-day Holter monitor at the time of discharge for extended monitoring making sure there is no other underlying arrhythmias. Current cardiac medications: Amlodipine 5 mg daily, atorvastatin 40 mg daily, clonidine patch 0.1 mg per 24 hours, Farxiga 5 mg daily, losartan 25 mg daily, magnesium oxide 200 mg at bedtime, Xarelto 15 mg daily. Patient has resting tremor since her stroke with a frequency of around 200 Hz. This is most likely the reason of her artifact that gave the appearance of ventricular tachycardia on the telemetry monitoring. Patient has some distinct QRS interval which are narrow and are occurring at a rate of mid 50s bpm. Avoid any further AV padmini blocking agents because of low resting heart rate Nurse practitioner note has been reviewed, I agree with documented findings and plan of care. Patient was seen and examined. Objective - Vital Signs Vital signs: Vital Signs Temp 97.8 F 01/07/24 08:30 Pulse 58 L 01/07/24 08:30 Resp 18 01/07/24 08:30 BP 135/74 01/07/24 08:30 Pulse Ox 99 01/07/24 08:30 FiO2 Intake & Output 01/06/24 01/07/24 01/07/24 18:59 06:59 18:59 Intake Total 1160 20 236 Balance 1160 20 236 Weight 47.9 kg Intake: IV 20 20 Invasive Line 1 20 20 Oral [id number] [id number] Other: # Voids 3 5 - Labs CBC & Chem 7: 01/06/24 10:12 01/06/24 10:12 Labs: Abnormal Lab Results - Last 24 Hours (Table) 01/06/24 Range/Units 10:12 BUN 19 H (7-17) mg/dL Creatinine 1.08 H (0.52-1.04) mg/dL Glucose 53 L (74-99) mg/dL Calcium 10.5 H (8.4-10.2) mg/dL Total Protein 6.2 L (6.3-8.2) g/dL
--- NOTE | 2024-01-07 11:39 | CA ---
Transthoracic Echo Report Name: Lorna Le Age: 88 Gender: F : 1935 Exam Date: 01/05/2024 10:53 Exam Location: [facility] Ht (in): 60 Wt (lb): 115 Ordering Physician: Mary Palacios DO Attending/Referring Phys: [id number], Philip Wood Type Finisher Maricarmen Leggett, SOCORRO Procedure CPT: Indications: near syncope with fall Cardiac Hx: Technical Quality: Good Contrast 1: Total Dose (mL): Contrast 2: Total Dose (mL): MEASUREMENTS (Male / Female) Normal Values 2D ECHO LV Diastolic Diameter PLAX 3.8 cm 4.2 - 5.9 / 3.9 - 5.3 cm LV Systolic Diameter PLAX 2.6 cm IVS Diastolic Thickness 0.8 cm 0.6 - 1.0 / 0.6 - 0.9 cm LVPW Diastolic Thickness 1.1 cm 0.6 - 1.0 / 0.6 - 0.9 cm LV Relative Wall Thickness 0.5 LVOT Diameter 1.9 cm LV Diastolic Volume MOD BP 78.5 cm??? 67 - 155 / 56 - 104 cm??? LV Systolic Volume MOD BP 30.0 cm??? 22 - 58 / 19 - 49 cm??? LV Ejection Fraction MOD BP 61.8 % >= 55 % LV Cardiac Index MOD BP 2016.5 cm???/min???m??? LV Diastolic Volume MOD 4C 65.4 cm??? LV Systolic Volume MOD 4C 25.2 cm??? LV Ejection Fraction MOD 4C 61.5 % LV Cardiac Index MOD 4C 1670.6 cm???/min???m??? LV Diastolic Length 4C 7.7 cm LV Systolic Length 4C 6.0 cm LV Diastolic Volume MOD 2C 94.2 cm??? LV Systolic Volume MOD 2C 34.7 cm??? LV Ejection Fraction MOD 2C 63.2 % LV Cardiac Index MOD 2C 2472.2 cm???/min???m??? LV Diastolic Length 2C 7.9 cm LV Systolic Length 2C 6.3 cm LA Volume 50.3 cm??? 18 - 58 / 22 - 52 cm??? LA Volume Index 33.7 cm???/m??? 16 - 28 cm???/m??? Ascending Aorta Diameter 3.5 cm DOPPLER AV Peak Velocity 144.8 cm/s AV Peak Gradient 8.4 mmHg AV Mean Velocity 88.2 cm/s AV Mean Gradient 3.6 mmHg AV Velocity Time Integral 31.5 cm LVOT Peak Velocity 97.4 cm/s LVOT Peak Gradient 3.8 mmHg LVOT Velocity Time Integral 23.3 cm LVOT Stroke Volume 67.9 cm??? LVOT Stroke Volume Index 46.0 ml/m??? LVOT Cardiac Index 2819.1 cm???/min???m??? AV Area Cont Eq vti 2.2 cm??? AV Area Cont Eq pk 2.0 cm??? MV Peak Velocity 178.1 cm/s MV Peak Gradient 12.7 mmHg MV Mean Velocity 93.2 cm/s MV Mean Gradient 4.2 mmHg MV Velocity Time Integral 52.9 cm MV Area PHT 2.6 cm??? Mitral E Point Velocity 119.6 cm/s Mitral A Point Velocity 127.2 cm/s Mitral E to A Ratio 0.9 MV Deceleration Time 297.2 ms TR Peak Velocity 263.5 cm/s TR Peak Gradient 27.8 mmHg Right Atrial Pressure 5.0 mmHg Pulmonary Artery Systolic Pressu 32.8 mmHg Right Ventricular Systolic Press 32.8 mmHg PV Peak Velocity 78.2 cm/s PV Peak Gradient 2.4 mmHg FINDINGS Left Ventricle Left ventricular ejection fraction is estimated at 60 %. Mildly increased posterior wall thickness. Left ventricular cavity size normal. No obvious regional wall motion abnormalities. Right Ventricle Normal right ventricular size and function. Right ventricular systolic pressure within normal limits. Right Atrium Normal right atrial size. Left Atrium Mildly increased left atrial volume. Patent foramen ovale. Mitral Valve Mitral valve thickened. Mitral annular calcification. No evidence for mitral valve prolapse. No evidence for mitral valve prolapse. No mitral stenosis. Mild mitral regurgitation. Aortic Valve Trileaflet aortic valve. No aortic stenosis. Trace aortic regurgitation. Tricuspid Valve Structurally normal tricuspid valve. No tricuspid stenosis. Mild tricuspid regurgitation. Pulmonic Valve Structurally normal pulmonic valve. No pulmonic stenosis. Mild pulmonic regurgitation. Pericardium No pericardial effusion. Aorta Normal size aortic root and proximal ascending aorta. CONCLUSIONS Normal LV function Mild mitral regurgitation Previewed by: Dr. Lonnie Veliz MD (Electronically Signed) Final Date: 07 January 2024 11:38
[2024-01-08 04:05] VITALS: TEMP 98
[2024-01-08 08:36] VITALS: BP 150/76; PULSE 66; RESP 14
--- NOTE | 2024-01-08 11:15 | P.PN ---
Subjective Progress Note Date: 01/08/24 HISTORY OF PRESENTING ILLNESS 88-year-old female who is known to Dr. Bautista presents to the hospital from a independent living facility after she experienced a fall. Patient has a fall alerting system [employer] which detected patient's fall and activated the EMS. On admission to ER she was noticed to have low resting blood pressure with heart rate of 90 bpm. Her ECG shows normal sinus rhythm with normal QRS and QTc durations. It did not show any concerns of any ischemia. Her labs showed a creatinine of 1.7 Her troponin was negative, no concerns of UTI on urinalysis Patient's son provided the history at bedside he denies any prior cardiovascular history with the patient. Dec Patient is doing well from cardiovascular standpoint. Blood pressure is optimally controlled. Resting heart rate is around mid 50s. No concerns of ventricular tachycardia on telemetry monitoring. Obtain echocardiogram tomorrow, if no concerning findings, consider signing off. 01/06 Patient denies having any chest pain, no shortness of breath. Echocardiogram is pending. Blood pressure 135/74, heart rate 58, pulse ox 99% on room air. No repeat blood work for today. 01/07 Patient is seen today in follow-up. Patient has no new concerns. No ventricular tachycardia seen on telemetry. Telemetry is sinus rhythm. Blood pressure 150/76, heart rate in the 50s and 60s, pulse ox 97% on room air. Patient is scheduled for discharge home today. Echocardiogram reveals EF of 60%. Mild mitral regurgitation. PHYSICAL EXAMINATION Head: Normocephalic. Eyes: Sclerae nonicteric. Lungs: Clear to auscultation. Diminished breath sounds due to poor inspiratory effort Heart: Regular rate and rhythm, S1-S2, mild systolic murmur audible Abdomen: Soft nontender, positive bowel sounds. Extremities: No edema, intact distal pulses. Neuro: Alert, oritented, no focal deficits. Detailed neuro exam was not performed. ASSESSMENT Concern of ventricular tachycardia noticed on telemetry, most likely artifact History of paroxysmal atrial fibrillation, currently in sinus rhythm Prior history of CVA, resting tremors Fall, likely mechanical Generalized weakness Dehydration Failure to thrive Poor oral intake Protein calorie energy malnutrition LESLIE, creatinine 1.7, likely dehydration related PLAN 30-day event monitor to be obtained prior to discharge Continue current cardiac medications: Amlodipine 5 mg daily, atorvastatin 40 mg daily, clonidine patch 0.1 mg per 24 hours, Farxiga 5 mg daily, losartan 25 mg daily, magnesium oxide 200 mg at bedtime, Xarelto 15 mg daily. Patient is cleared for discharge from cardiology and may follow-up in the office in 5 weeks Nurse practitioner note has been reviewed, I agree with documented findings and plan of care. Patient was seen and examined. Objective - Vital Signs Vital signs: Vital Signs Temp 98.0 F 01/08/24 08:00 Pulse 66 01/08/24 08:00 Resp 14 01/08/24 08:00 BP 150/76 01/08/24 08:00 Pulse Ox 97 01/08/24 08:00 FiO2 Intake & Output 01/07/24 01/08/24 01/08/24 18:59 06:59 18:59 Intake Total 610 20 118 Balance 610 20 118 Weight 48.6 kg Intake: IV 20 20 Invasive Line 1 20 20 Oral 590 118 Other: # Voids 1 - Labs CBC & Chem 7: 01/06/24 10:12 01/06/24 10:12
--- NOTE | 2024-01-08 23:23 | P.DS ---
Providers Date of admission: 01/05/24 00:00 Attending physician: Saman Bautista Consults: 01/05/24 10:32 Consult Physician Routine Consulting Provider: Cooper Osman Consult Reason/Comments: V Tach Do you want consulting provider notified?: Yes Primary care physician: Saman Bautista [facility] Course: HISTORY OF PRESENT ILLNESS: 88-year-old with active medical history of A-fib, coronary artery disease, congestive heart failure, previous history of CVA/TIA, hypertension, hyperlipidemia, hypothyroidism, memory loss, mild parkinsonism who has problem with mobility and balance has been living in assisted living and has a guardian. She was seen in the office recently for follow-up complaining of tiredness and fatigue testing are up-to-date she is still suffering from her previous history of stroke with generalized weakness with abnormal balance and gait. Patient had multi fall last few months mostly have been with her balance and gait when she is not using her walker and pain. She sustained a fall where she lives was not witnessed not clear whether she had syncopal episode or not with it that she developed to have severe headache with lightheadedness and generalized fatigue and tiredness ended up coming to the emergency department by EMS where was seen and evaluated her Original assessment including lab value shows worsening kidney function with creatinine at 1.73 with bun 25 GFR down to 26 she usually runs pretty normal. No finding consistent with any abnormality, her cervical spine x-ray shows mostly arthritis with no fracture, thoracic spine showed no acute fracture as well. Chest x-ray shows no infiltrate and pelvic x-ray showed no fracture or dislocation. Original EKG showed sinus bradycardia with pulse running in the 50s with prolonged QT. The patient was started hydration and admitted to the hospital CAT scan of the brain was not done. As she is in the emergency department she developed to have few episode of ventricular tachycardia she was more tired fatigued did not have any syncopal episode. Emergency department started her on amiodarone drip at the time decided to consult cardiology in the morning. I could not place any eviden ce of V. tach on a court recording monitor but showing slight tachycardia with narrow PVCs mostly. Cardiology be seen patient in consultation still waiting for an echocardiogram no troponin was done at the time will continue hydration and supportive care at this point till she is seen and evaluated by cardiology. 01/06/2024: She was seen and evaluated by cardiology: And clearly was going on wi th her is not V. tach at this point but continued to have slight arrhythmia require probably longer-term heart monitor. Of course she is off amiodarone since yesterday did not require to be on any antiarrhythmic medication at this point there is a smaller dose of beta-ty will be helpful. Her kidney function has improved significantly and hydration with creatinine down to 1.3. Patient is back on anticoagulation still confused back on her parkinsonism medication as well. Continue complain of debility with not been able to ambulate and walk require some physical therapy to help her out. 01/07/2024: Patient is doing well had slight bradycardia on her heart monitor yesterday and through the night otherwise doing well not symptomatic, has not done much physical therapy yet she is in to be evaluated by physical therapy and Occupational Therapy for safety when she is ready to discharge also she is having an echocardiogram still watching her heart on monitor to make sure does not require any pacemaker or defibrillator specially with the possibility of V. tach or A-fib. Memory and strength is better but I still believe patient is not safe to ambulate on her own she needed help when she walks. 01/08/2024: The patient is doing very well she is up sitting in the bed feeding herself, again no episode of ventricular tachycardia or any major arrhythmia, patient seems to do well, physical therapy was initiated will be continued from [facility]. Left recommendation for social work lecturer to see if patient can benefit from going to custodial rehab and still waiting for the final decision along with physical therapy if not one of the plan is to have patient discharge home that she lives in [facility] with will require probably some extra help at the time. Reviewed her lab and echocardiogram from yesterday seems to do well also no further sign and symptom of syncope or passing out or seizure. A-fib does not be on heart monitor and pulse rate was running in the 60s and 70s mostly no se manas bradycardia or tachycardia no ventricular tachycardia either. Medication adjusted pain despite the complaint that is not under control she is remain on Butrans and tramadol still doing some muscle relaxer for degenerative back disease and has been doing better. REVIEW OF SYSTEMS: CONSTITUTIONAL: Well-developed no acute respiratory distress. EYES: No icterus sclerae, no conjunctivitis. EARS, NOSE, MOUTH, THROAT, and FACE: No sore throat, lymphadenopathy, carotid bruits or deformity. RESPIRATORY: Slight shortness of breath no cough or wheezes. CARDIOVASCULAR: Mild arrhythmia positive PND no orthopnea no angina. GASTROINTESTINAL: No Abd pain, Nausea or vomiting, no Diarrhea or constipation, No GI Bleed, no distention or masses. GENITOURINARY: Negative for Hematuria or UTI, no kidney stones. Has history of incontinence. INTEGUMENT/BREAST: Generalized muscle and joint pain. HEMATOLOGIC/LYMPHATIC: Negative for bleed or purpura. MUSCULOSKELTAL: Negative for Myalgia or arthralgia. NEURLOGICAL: Previous history of stroke with significant balance and gait problem, mild parkinsonism with mild memory loss.. BEHAVIORAL/PSYCH: Negative. ENDOCRINE: Negative. PHYSICAL EXAMINATION: General Appearance: Alert, cooperative, no distress, mildly confused. Neck HEENT: Supple, no lymphadenopathy, no thyroid enlargement, no carotid bruits. Slight bruise on the right forehead. Lungs: Clear to auscultation without crackles or wheezes no rhonchi, no deformity. Chest Wall: Chest wall normal expansion with deep inspiration no tenderness and no deformity was found on exam, no costochondral pain or discomfort. Heart: Irregular rate and rhythm, S1, S2 positive S3 positive bradycardia. Back: Symmetric, no curvature, ROM normal, no CVA tenderness. Abdomen: Soft, non-tender, bowel sounds active all four quadrants, no masses, no organomegaly. Extremities: Extremities normal, atraumatic, no cyanosis or edema. Pulses: 2+ and symmetric. Skin: Skin color, texture, tugor normal, no rashes or lesions. Neurologic: Alert oriented with slight confusion cranial nerves II through XII intact, positive generalized weakness worsening on the left than the right side with severe abnormal balance and gait mild resting tremor. ASSESSMENT AND PLAN: _Fall with possible syncope not a clear etiology: Still no finding of any ab normality consistent with her syncope no V. tach was found patient still require longer-term heart monitor. _Close head trauma no CAT scan of the brain was done when the CAT scan of the brain continue watching for any worsening neuropsych. _Acute kidney injury with acute kidney failure most likely acute tubular necrosis and possible severe dehydration symptoms are much better patient is well-hydrated with creatinine down to 1.08 today with GFR up to 53. _ ventricular tachycardia was excluded completely: No V. tach was found she is off amiodarone completely will still require longer-term heart monitor. Will require probably to weeks heart monitor after discharge. _Atrial fibrillation with no rapid ventricular response pulse rates under control sometimes she is mildly bradycardic she is remain on a smaller dose of beta-ty still on Xarelto 20 mg daily. _Hypertension: With worsening symptoms, remain on clonidine 0.2 mg patch weekly, still on losartan 25 mg a day, and amlodipine 5 mg daily. _Parkinsonism: Remain on carbidopa levodopa extended release 50/200 mg tablet 3 times a day. _Hypothyroidism: Remain on levothyroxine 50 mcg daily continue medication. _Type 2 diabetes with chronic kidney disease: Has been on Jardiance 10 mg a day will titrate dose up to 25 mg a day Accu-Chek with sliding scales coverage 21. _Chronic diastolic congestive heart failure: Remain on losartan, and furosemide continue medication. _Hyperlipidemia: Remain on atorvastatin 40 mg daily. _Chronic pain syndrome: Continue combination of Butrans 10 mg patch along with tramadol for breakthrough pain she is known to have chronic degenerative disc disease which has been better controlled lately with her medication. _Hiatal hernia and severe GERD: Remain on pantoprazole and Pepcid. _Worsening memory loss and dementia: Was switched to Exelon 3 mg twice a day which seem to tolerate medication very well. Discussion continue physical therapy and Occupational Therapy with debate at this point whether she can benefit from going to custodial rehab or discharge home with health care and physical therapy at home. Hospital course: Patient was hospitalized on 01/05/2024 with unwitnessed fall not a clear whether he had syncopal episode or had seizure activity but developed to have a close head trauma with severe lightheadedness and dizziness she did not leak urine with with slight help around but she is kind of independent she has a guardian and family visit with her on more regular basis. Following her fall with closed head trauma developed to have lightheadedness and dizziness with generalized fatigue and tiredness EMS was called to evaluate patient and the bring her to the emergency department where was seen and evaluated found to be in acute kidne y injury with creatinine 1.73 and bun of 25 with GFR 26 quite different than her baseline, CAT scan of the brain cervical spine was 1 did not show any bleed or hemorrhage cervical spine did not show any sign of fracture, chest x-ray and pelvic x-ray did not show any dislocation or fracture either EKG showed sinus bradycardia with pulse running in the 50s with prolonged QT. Patient started hydration and CT of the brain was performed later on did not show any hemorrhage or bleed. As she is waiting in the emergency department she developed to have an episode of what looks like ventricular tachycardia was initiated on amiodarone drip by the emergency physician and her arrhythmia becomes slightly bit slower request echocardiogram and troponin along with proBNP. Patient was evaluated by cardiology the following day review her rhythm strip and EKG showed no sign of A-fib but mostly PACs and PVCs her arrhythmia with amiodarone currently be quite bradycardia amiodarone was terminated at that point completely patient remain on anticoagulation she has been on Eliquis for a long time for nonsustained A-fib. With hydration her creatinine less than 24 hours dropped to 1.3 with GFR become close to its baseline she is remain in stage IIIa chronic kidney disease which normally should run at 2. Patient was assessed and evaluated by physical therapy and Occupational Therapy continue court recording monitor echocardiogram was performed which showed no normal ejection fraction with no wall motion abnormality. Minimal to mild valvular heart disease. Patient continue to complain of severe pain and decreased mobility initiate PT OT and expectation probably for patient to go eventually to the rehab custodial apparently she was doing better than with expected custodial and decision by her caregiver outpatient and social work lecturer with the assessment of PT and OT that to go back to [facility] with with extra help with PT OT along with visiting nurse. Patient medication reconciliation was performed and done she was apparently still on Macrodantin for recurrent UTI recently which can be continue on for next week that she be discharged home to be seen in the office within the next week. Time spent on patient discharge was over 35 minutes. Patient Condition at Discharge: Serious Plan - Discharge Summary Discharge Rx Participant: No New Discharge Prescriptions: Continue Levothyroxine Sodium [Synthroid] 50 mcg PO DAILY Rivaroxaban [Xarelto] 15 mg PO DAILY Ondansetron Odt [Zofran ODT] 4 mg PO Q8HR PRN PRN Reason: Nausea Cholecalciferol (Vitamin D3) [Vitamin D3 (50 Mcg = 2000 Iu)] 50 mcg PO DAILY Rivastigmine Tartrate [Exelon] 3 mg PO BID-W/MEALS Carboxymethylcell/Glycerin/Pf [Refresh Relieva Pf 0.5-1% Drop] 1 drop BOTH EYES TID Ondansetron Odt [Zofran ODT] 4 mg PO DAILY cloNIDine 0.1 MG/24HR PATCH [Catapres-TTS] 1 patch TRANSDERM NAVARRO Famotidine [Pepcid] 20 mg PO BID Cetirizine HCl [Zyrtec] 10 mg PO DAILY Lactulose 10 - 20 gm PO DAILY PRN #473 ml PRN Reason: Constipation Docusate [Colace] 100 mg PO DAILY PRN PRN Reason: Constipation Buprenorphine [Butrans 10 MCG/HOUR] 1 patch TRANSDERM TH #1 patch traMADol HCL 50 mg PO BID #20 tab Pantoprazole Sodium [Protonix] 40 mg PO DAILY amLODIPine [Norvasc] 5 mg PO DAILY Atorvastatin [Lipitor] 40 mg PO DAILY Albuterol Inhaler [Ventolin Hfa Inhaler] 2 puff INHALATION RT-Q4H PRN PRN Reason: SHORTNESS OF BREATH/WHEEZING Acetaminophen Tab [Tylenol] 500 mg PO Q6HR PRN PRN Reason: Pain traZODone HCL [Desyrel] 100 mg PO HS Netarsudil Mesylat/Latanoprost [Rocklatan 0.02%-0.005% Eye Drp] 1 drop BOTH EYES HS Magnesium Oxide [Mag-Ox] 200 mg PO HS Losartan [Cozaar] 25 mg PO DAILY Furosemide [Lasix] 20 mg PO DAILY Empagliflozin [Jardiance] 10 mg PO DAILY Carbidopa-Levodopa ER 50-200Mg [Sinemet CR 50-200 mg] 1 tab PO TID ALPRAZolam [Xanax] 0.25 mg PO BID PRN #30 tab PRN Reason: Anxiety Discharge Medication List Levothyroxine Sodium [Synthroid] 50 mcg PO DAILY 12/07/17 [History] Rivaroxaban [Xarelto] 15 mg PO DAILY 12/07/17 [History] Albuterol Inhaler [Ventolin Hfa Inhaler] 2 puff INHALATION RT-Q4H PRN 08/14/22 [History] Atorvastatin [Lipitor] 40 mg PO DAILY 08/14/22 [History] Pantoprazole Sodium [Protonix] 40 mg PO DAILY 08/14/22 [History] amLODIPine [Norvasc] 5 mg PO DAILY 08/14/22 [History] Acetaminophen Tab [Tylenol] 500 mg PO Q6HR PRN 12/25/23 [History] Carboxymethylcell/Glycerin/Pf [Refresh Relieva Pf 0.5-1% Drop] 1 drop BOTH EYES TID 12/25/23 [History] Cetirizine HCl [Zyrtec] 10 mg PO DAILY 12/25/23 [History] Cholecalciferol (Vitamin D3) [Vitamin D3 (50 Mcg = 2000 Iu)] 50 mcg PO DAILY 12/25/23 [History] Empagliflozin [Jardiance] 10 mg PO DAILY 12/25/23 [History] Famotidine [Pepcid] 20 mg PO BID 12/25/23 [History] Furosemide [Lasix] 20 mg PO DAILY 12/25/23 [History] Losartan [Cozaar] 25 mg PO DAILY 12/25/23 [History] Magnesium Oxide [Mag-Ox] 200 mg PO HS 12/25/23 [History] Netarsudil Mesylat/Latanoprost [Rocklatan 0.02%-0.005% Eye Drp] 1 drop BOTH EYES HS 12/25/23 [History] Ondansetron Odt [Zofran ODT] 4 mg PO DAILY 12/25/23 [History] Ondansetron Odt [Zofran ODT] 4 mg PO Q8HR PRN 12/25/23 [History] Rivastigmine Tartrate [Exelon] 3 mg PO BID-W/MEALS 12/25/23 [History] cloNIDine 0.1 MG/24HR PATCH [Catapres-TTS] 1 patch TRANSDERM NAVARRO 12/25/23 [History] traZODone HCL [Desyrel] 100 mg PO HS 12/25/23 [History] Lactulose 10 - 20 gm PO DAILY PRN #473 ml 12/26/23 [Rx] Carbidopa-Levodopa ER 50-200Mg [Sinemet CR 50-200 mg] 1 tab PO TID 01/05/24 [History] Docusate [Colace] 100 mg PO DAILY PRN 01/05/24 [History] ALPRAZolam [Xanax] 0.25 mg PO BID PRN #30 tab 01/08/24 [Rx] Buprenorphine [Butrans 10 MCG/HOUR] 1 patch TRANSDERM TH #1 patch 01/08/24 [Rx] traMADol HCL 50 mg PO BID #20 tab 01/08/24 [Rx] Follow up Appointment(s)/Referral(s): [facility] [Provider Group] - 6 Weeks Saman Bautista MD [Primary Care Provider] - 01/10/24 10:45 am Activity/Diet/Wound Care/Special Instructions: [facility] Discharge Disposition: TRANSFER TO SNF/ECF
[2024-01-10] MEDS ORDERED: BUPRENORPHINE TRANSDERM SCH (09:00)
== END 2024-01-08 11:58 ==
LOC: EC 21:31 → 6NMEDSUR 01-05 → 3SCARD 01-05 03:17
PROVIDERS: ADMIT Internal Medicine Geriatric Medicine; ATTEND Internal Medicine Geriatric Medicine
DX: N17.9 Acute kidney failure, unspecified (principal); E86.0 Dehydration; I47.20 Ventricular tachycardia, unspecified; I48.0 Paroxysmal atrial fibrillation; S09.90XA Unspecified injury of head, initial encounter; W19.XXXA Unspecified fall, initial encounter; E11.22 Type 2 diabetes mellitus with diabetic chronic kidney disease; G89.4 Chronic pain syndrome; K21.9 Gastro-esophageal reflux disease without esophagitis; K44.9 Diaphragmatic hernia without obstruction or gangrene; I25.10 Atherosclerotic heart disease of native coronary artery without angina pectoris; I13.0 Hypertensive heart and chronic kidney disease with heart failure and stage 1 through stage 4 chronic kidney disease, or unspecified chronic kidney disease; I50.32 Chronic diastolic (congestive) heart failure; N18.31 Chronic kidney disease, stage 3a; E78.5 Hyperlipidemia, unspecified; R62.7 Adult failure to thrive; E03.9 Hypothyroidism, unspecified; G20.C Parkinsonism, unspecified; F02.80 Dementia in other diseases classified elsewhere, unspecified severity, without behavioral disturbance, psychotic disturbance, mood disturbance, and anxiety; I69.351 Hemiplegia and hemiparesis following cerebral infarction affecting right dominant side; E46 Unspecified protein-calorie malnutrition; Z68.20 Body mass index [BMI] 20.0-20.9, adult; Z87.891 Personal history of nicotine dependence; Z79.890 Hormone replacement therapy; Z79.01 Long term (current) use of anticoagulants; Z79.899 Other long term (current) drug therapy; Z79.84 Long term (current) use of oral hypoglycemic drugs; Z87.440 Personal history of urinary (tract) infections
CPT/HCPCS: 36415; 51798; 70450; 71045; 72070; 72125; 72170; 80053; 81003; 83605; 83735; 83880; 84484; 85025; 85027; 85610; 85730; 93005; 93306; 96365; 96366; 99291

== ENCOUNTER 2024-01-09 10:22 | Observation (INO) | payer MEDICARE ==
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
--- NOTE | 2024-01-09 10:49 | CT ---
EXAMINATION TYPE: CT brain wo con CT DLP: 1099.6 mGycm, Automated exposure control for dose reduction was used. DATE OF EXAM: 01/09/2024 10:41 AM COMPARISON: Prior CT Brain from 01/06/2024, 1125.3, 08/14/2022. CLINICAL INDICATION:Female, 88 years old with history of Neuro deficit, acute, stroke suspected, unre sponsive. code stroke TECHNIQUE: Brain: Multiple axial CT images of the brain were obtained without IV contrast. . Coronal and sagitta l reformats reviewed. FINDINGS: Brain: Extra-axial spaces: No abnormal extra-axial fluid collections. Peripheral sulci are enlarged due to c erebral volume loss. Ventricular system: Dilatation in proportion to cerebral atrophy. Cerebral parenchyma: No acute intraparenchymal hemorrhage or mass effect. The conroy-white junction is well differentiated. Demonstration of a large area of decreased density involving the left frontal c ortex and subcortical white matter anteriorly and inferiorly consistent with encephalomalacia from pr ior infarct. Nonspecific confluent periventricular white matter hypodensity redemonstrated. Remote in farct in the right centrum semiovale redemonstrated. Cerebellum: Unremarkable. Mass effect: No evidence of midline shift. Intracranial vasculature: Atherosclerotic calcifications of the intracranial vessels. Soft tissues: Normal. Calvarium/osseous structures: No depressed skull fracture. Postsurgical changes of the right mastoid region redemonstrated. Paranasal sinuses and mastoid air cells: Clear Visualized orbits: Bilateral aphakia IMPRESSION: 1. No acute intracranial process. 2. Remote left frontal and right centrum semiovale infarcts. 3. Nonspecific white matter changes likely related to small vessel chronic ischemic disease.
[2024-01-09 11:02] LABS: Basophils % (A) 0 %; Eosinophils # (A) 0.4 k/uL (0-0.7); Eosinophils % (A) 3 %; HCT 42.3 % (34.0-46.0); HGB 13.6 gm/dL (11.4-16.0); Hypochromasia Slight; Lymphocytes # (A) 1.5 k/uL (1.0-4.8); Lymphocytes % (A) 13 %; MCH 31.2 pg (25.0-35.0); MCHC 32.3 g/dL (31.0-37.0); MCV 96.8 fL (80.0-100.0); Mean Platelet Volume 8.9; Monocytes # (A) 0.5 k/uL (0-1.0); Monocytes % (A) 4 %; Neutrophils # (A) 9.2 k/uL (1.3-7.7); Neutrophils % (A) 78 %; Platelet Count 194 k/uL (150-450); RBC 4.37 m/uL (3.80-5.40); RDW 14.1 % (11.5-15.5); WBC 11.7 k/uL (3.8-10.6)
[2024-01-09] MEDS: SODIUM CHLORIDE 0.9% 1,000 ML IV STA (11:09)
--- NOTE | 2024-01-09 11:10 | XR ---
EXAMINATION TYPE: XR chest 2V DATE OF EXAM: 01/09/2024 COMPARISON: 01/04/2024 HISTORY: 88-year-old female altered mental status, confusion TECHNIQUE: AP and lateral views FINDINGS: Heart borderline enlarged. Medium diffuse interstitial densities, similar to prior exam. Some patchy bibasilar opacities are also similar. No pleural effusion. IMPRESSION: Bilateral interstitial infiltrates and mild patchy basilar densities remain unchanged.
[2024-01-09 11:14] LABS: Partial Thromboplastin Time 25.6 sec (22.0-30.0); Prothrombin Time 11.1 sec (10.0-12.5)
[2024-01-09 11:18] LABS: ALT <6 U/L (4-34); AST 25 U/L (14-36); African American GFR (CKD) 62 (>60 ml/min/1.73 sqM); Albumin 4.4 g/dL (3.5-5.0); Alkaline Phosphatase 94 U/L (38-126); Anion Gap 8 mmol/L; Blood Urea Nitrogen 24 mg/dL (7-17); Carbon Dioxide 27 mmol/L (22-30); Chloride 103 mmol/L (98-107); Creatine Kinase 49 U/L (30-135); Glucose 140 mg/dL (74-99); Non-African American GFR(CKD) 54 (>60 ml/min/1.73 sqM); Potassium 3.8 mmol/L (3.5-5.1); Sodium 138 mmol/L (137-145); Total Bilirubin 0.8 mg/dL (0.2-1.3)
--- NOTE | 2024-01-09 11:18 | CT ---
EXAMINATION TYPE: CT angio head neck CT DLP: 301.2 mGycm, Automated exposure control for dose reduction was used. DATE OF EXAM: 01/09/2024 10:57 AM COMPARISON: CTA head and neck 04/17/2022. CLINICAL INDICATION:Female, 88 years old with history of Neuro deficit, acute, stroke suspected; PHH, Neuro deficits TECHNIQUE: Axially acquired helical CT angiogram of the head and neck was obtained with contrast util izing 75 cc of Isovue-370 administered intravenously. Axial images are supplemented with 3D reconstru ctions which were post-processed at an independent workstation. NASCET criteria used. FINDINGS: CTA HEAD: No evidence of acute intracranial hemorrhage, mass effect, or midline shift. The ventricles, sulci, a nd cisterns are unremarkable. The visualized portions of the internal carotid arteries, middle cerebral arteries, anterior cerebral arteries, and posterior cerebral arteries are patent. Hypoplastic but patent A1 segment of the left anterior cerebral artery. The basilar and vertebral arteries are patent. Hypoplastic appearance of the distal intracranial port ion of the right vertebral artery. Dominant left vertebral artery. CTA NECK: Right Carotid System: The common carotid artery and external carotid artery are patent. Atherosclerotic calcification at th e proximal internal carotid artery. The carotid bifurcation demonstrates no evidence of hemodynamical ly significant stenosis. Medial deviation of the right internal carotid artery. No significant stenos is identified within the proximal right internal carotid artery. The remaining portions of the consumer insights intern al carotid artery demonstrate normal size without significant narrowing. Left Carotid System: The common carotid artery and external carotid artery are patent. Moderate to severe atherosclerotic plaque at the carotid bulb. Postsurgical from left internal carotid artery stent. Approximately 70% s tenosis at the origin the proximal internal carotid artery. Medial deviation of the left internal car otid artery. The remaining portions of the internal carotid artery demonstrate normal size without si gnificant narrowing. Vertebral arteries are patent without evidence hemodynamically significant stenosis. Hypoplastic appe arance of the distal intracranial portion of the right vertebral artery. Dominant left vertebral viviane ry. There is a three-vessel aortic arch. The origins of the great vessels are patent. No evidence of hemo dynamically significant stenosis. Atherosclerotic calcification of the aorta and its branches. Redemonstration of grouped 1.6 and 1.0 cm right upper lobe pulmonary nodules (series 401, image 1 and 5). May contain some fat internal density. Grossly stable from prior CT 2021 but increased in size f rom prior CT 2017. Multilevel degenerative disc disease of the cervical spine. IMPRESSION: 1. No evidence of dissection of the cervical internal carotid arteries or vertebral arteries. Postsur gical changes from left internal carotid artery stent with approximately 70% stenosis of the origin o f the left internal carotid artery secondary to calcified plaque. No significant stenosis at the orig in of the right internal carotid artery secondary to calcified plaque. 2. No evidence of intracranial high-grade stenosis or intracranial aneurysm. 3. Redemonstration of grouped right upper lobe pulmonary nodules measuring up to 1.6 cm. Grossly stab le from prior CT 2021 but increased from prior CT 2017. Possible internal fat density. Could represen t hamartomas. Consider further evaluation with outpatient CT chest as clinically indicated.
[2024-01-09] MEDS ORDERED: ONDANSETRON 4 MG/2 ML VIAL IVP PRN (12:52)
[2024-01-09] MEDS ORDERED: NALOXONE 0.4 MG/ML 1 ML VIAL IV PRN (12:52)
[2024-01-09] MEDS: SODIUM CHLORIDE 0.9% 1,000 ML IV SCH (13:35)
[2024-01-09] MEDS: ASPIRIN 81 MG PO STA (13:35)
[2024-01-09] MEDS: MORPHINE SULFATE 4 MG/ML SYRINGE IV STA (13:37)
[2024-01-09] MEDS: ARTIFICIAL TEARS-HYPROMELLOSE DROPS 15 ML BTL BOTH EYES SCH (15:45)
[2024-01-09] MEDS: CARBIDOPA-LEVODOPA ER 50-200MG 1 EACH TABLET.ER PO SCH (15:45)
[2024-01-09] MEDS ORDERED: ONDANSETRON ODT 4 MG TAB PO PRN (18:41)
[2024-01-09] MEDS ORDERED: DOCUSATE 100 MG CAP PO PRN (18:41)
[2024-01-09] MEDS ORDERED: LACTULOSE 20 GM/30 ML CUP PO PRN (18:41)
[2024-01-09] MEDS ORDERED: ALBUTEROL NEBULIZED 2.5 MG/3 ML INHALATION PRN (18:41)
[2024-01-09] MEDS: ALPRAZolam 0.25 MG TAB PO SCH (19:15)
[2024-01-09] MEDS: FAMOTIDINE 20 MG TAB PO SCH (20:37)
[2024-01-09] MEDS: traZODone HCL 100 MG TAB PO SCH (20:38)
[2024-01-09] MEDS: MAGNESIUM OXIDE 400 MG TAB PO SCH (20:38)
[2024-01-09] MEDS: traMADol 50 MG TAB PO SCH (20:38)
[2024-01-09] MEDS: PSYLLIUM HUSK 100% 6 GM PACKET PO SCH (20:38)
[2024-01-09] MEDS: NON FORMULARY DRUG (Netarsudil Mesylat/Latanoprost [Rocklatan 0.02%-0.005% Eye Drp] 2.5 ML BOTH EYES SCH (20:53)
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
[2024-01-10] MEDS: LEVOTHYROXINE 50 MCG TAB PO SCH (06:18)
[2024-01-10 08:04] LABS: HCT 35.4 % (34.0-46.0); HGB 11.6 gm/dL (11.4-16.0); MCH 31.4 pg (25.0-35.0); MCHC 32.9 g/dL (31.0-37.0); MCV 95.4 fL (80.0-100.0); Mean Platelet Volume 9.2; Platelet Count 174 k/uL (150-450); RBC 3.71 m/uL (3.80-5.40); RDW 14.5 % (11.5-15.5); WBC 10.1 k/uL (3.8-10.6)
[2024-01-10 08:05] LABS: ALT <6 U/L (4-34); AST 34 U/L (14-36); African American GFR (CKD) 49 (>60 ml/min/1.73 sqM); Albumin 3.5 g/dL (3.5-5.0); Alkaline Phosphatase 80 U/L (38-126); Anion Gap 6 mmol/L; Blood Urea Nitrogen 23 mg/dL (7-17); Calcium 10.3 mg/dL (8.4-10.2); Carbon Dioxide 26 mmol/L (22-30); Chloride 102 mmol/L (98-107); Glucose 89 mg/dL (74-99); Non-African American GFR(CKD) 43 (>60 ml/min/1.73 sqM); Potassium 4.5 mmol/L (3.5-5.1); Sodium 134 mmol/L (137-145); Total Bilirubin 0.9 mg/dL (0.2-1.3); Total Protein 5.8 g/dL (6.3-8.2)
[2024-01-10] MEDS: RIVAROXABAN 15 MG TAB PO SCH (08:24)
[2024-01-10] MEDS: DAPAGLIFLOZIN PROPANEDIOL 5 MG TABLET PO SCH (08:24)
[2024-01-10] MEDS: amLODIPine 5 MG TAB PO SCH (08:25)
[2024-01-10] MEDS: LORATADINE 10 MG TAB PO SCH (08:25)
[2024-01-10] MEDS: ATORVASTATIN 40 MG TAB PO SCH (08:25)
[2024-01-10] MEDS: PANTOPRAZOLE 40 MG TABLET PO SCH (08:25)
[2024-01-10] MEDS: CHOLECALCIFEROL 25 MCG (1000 IU) TABLET PO SCH (08:25)
[2024-01-10] MEDS: DONEPEZIL 10 MG TAB PO SCH (08:25)
[2024-01-10] MEDS: LOSARTAN 25 MG TAB PO SCH (08:25)
[2024-01-10] MEDS: FUROSEMIDE 20 MG TAB PO SCH (08:25)
--- NOTE | 2024-01-10 10:21 | US ---
EXAMINATION TYPE: US carotid duplex BILAT DATE OF EXAM: 01/10/2024 Exam done portable COMPARISON: US 2021 CLINICAL INDICATION: Female, 88 years old with history of Carotid Stenosis; TECHNIQUE: Carotid duplex ultrasound examination. Indirect Doppler criteria was utilized. FINDINGS: EXAM MEASUREMENTS: RIGHT: Peak Systolic Velocity (PSV) cm/sec ----- Right CCA: 82.0 ----- Right ICA: 97.0 ----- Right ECA: 123.2 ICA/CCA ratio: 1.2 RIGHT: End Diastole cm/sec ----- Right CCA: 6.2 ----- Right ICA: 20.0 ----- Right ECA: 0.0 LEFT: Peak Systolic Velocity (PSV) cm/sec ----- Left CCA: 87.4 ----- Left ICA: 76.6 ----- Left ECA: 149.6 ICA/CCA ratio: 0.9 LEFT: End Diastole cm/sec ----- Left CCA: 7.0 ----- Left ICA: 11.6 ----- Left ECA: 0.0 VERTEBRALS (direction of flow): Right Vertebral: Antegrade Left Vertebral: Antegrade Rhythm: Normal Roberson scale images show mild to moderate absence carotid calcification and plaque at the bifurcations. Bulb Filler notes: Stent left ICA Torturous bilateral ICA Elevated velocities - left proximal CCA and proximal ECA No significant stenosis IMPRESSION: 1. Previous left ICA stent. Tortuous bilateral ICAs. 2. No hemodynamically significant internal carotid artery stenosis on either side. 3. Elevated velocities proximal left CCA suggesting a possible mild to moderate upstream stenosis. Criteria for Assigning % of Stenosis / Diameter reduction (Estimation based on the indirect measurements of the internal carotid artery velocities (ICA PSV). 1. Normal (no stenosis)=ICA PSV < 125 cm/s: ratio < 2.0: ICA EDV<40 cm/s. 2. Less than 50% stenosis=ICA PSV < 125 cm/s: ratio < 2.0: ICA EDV<40 cm/s. 3. 50 to 69% stenosis=ICA PSV of 125 to 230 cm/s: ration 2.0 ? 4.0: ICA EDV 40-100 cm/s. 4. Greater than 70% stenosis to near occlusion= ICA PSV > 230 cm/s: ratio > 4.0: ICA EDV > 100 cm/s. 5. Near occlusion= ICA PSV velocities may be low or undetectable: variable ratio and ICA EDV. 6. Total occlusion=unable to detect flow.
[2024-01-10] MEDS: NON FORMULARY DRUG (Buprenorphine [Butrans 10 Mcg/Hour] 10 MCG/HOUR Patch) TRANSDERM SCH (12:10)
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
[2024-01-10 15:18] VITALS: BMI 18.2
[2024-01-10 17:08] LABS: Appearance,Urine Cloudy (Clear); Bilirubin,Urine Negative (Negative); Blood,Urine Negative (Negative); Color,Urine Colorless; Glucose,Urine (UA) 4+ (Negative); Ketones,Urine Negative (Negative); Leukocyte Esterase,Urine Large (Negative); Nitrite,Urine Negative (Negative); PH, Urine 7.5 (5.0-8.0); Protein,Urine Trace (Negative); RBC,Urine 1 /hpf (0-5); Specific Gravity,Urine 1.009 (1.001-1.035); Squamous Epithelial Cell,Urine <1 /hpf (0-4); Triple Phosphate Crystal,Urine Rare /hpf; Urobilinogen,Urine <2.0 mg/dL (<2.0); WBC,Urine 160 /hpf (0-5)
[2024-01-10] MEDS: polyethylene glycoL 3350 17 GM POWD.PACK PO SCH (21:00)
--- NOTE | 2024-01-10 21:43 | EEG ---
ELECTROENCEPHALOGRAM REPORT CLINICAL HISTORY: This is an 88-year-old woman, history of stroke with recurrent falls/syncopal spells. The video EEG is obtained to evaluate for seizure epileptiform activity. RELEVANT MEDICATIONS: 1. Xanax. 2. Trazodone. 3. Aricept. EEG TYPE: A routine 21-channel EEG with video using the 10/20 electrode placement system. DESCRIPTION: Wakefulness is obtained. During awake state, posterior-dominant rhythm consists of low- to-moderate voltage of 8.5 hertz. At times, the background consists of theta delta activity. There was no physiological stage 2 sleep architecture. INTERICTAL AND ICTAL: None. ACTIVATION PROCEDURE: Photic stimulation did not evoke a posterior driving response. There is no abnormality during the photic stimulation. Hyperventilation is not performed. CLINICAL INTERPRETATION: Abnormal routine EEG. The background slowing is suggestive of mild encephalopathy. Otherwise, there is no focal slowing, epileptiform discharge, or seizure on the EEG. Clinical correlation is recommended. MMCONNOR / DERRELLN: [id number] /
--- NOTE | 2024-01-11 08:32 | P.PN ---
Subjective Progress Note Date: 01/11/24 Principal diagnosis: Constipation 88-year-old female brought in by EMS for complaints of falling and reported altered mental status. Apparently patient possibly had some left-sided facial droop and gaze to the right per patient's [id number]. Patient resides at independent living with minimal assistance. She has a past medical history of CVA with residual right-sided weakness, right foot drop and cognitive delay, atrial fibrillation, coronary artery disease, heart failure, hyperlipidemia, hypertension, osteoarthritis, chronic kidney disease, chronic back pain, chronic constipation and thyroid disorder. She does have a history of colon obstruction with right colectomy and partial omentectomy in March [address] Garcia and also cholecystectomy in 2014 and February 2015 underwent colonoscopy With Reported Severe Diverticulosis per Dr. Garcia. Patient and her [id number] states that she has had abdominal pain and constipation since her surgery in 2021. Frequent constipation currently not on any medication for it. Denies any nausea or vomiting. But does get dry heaves but they believe it is related to the constipation and patient living alone and not eating and drinking well. Family is actually stating they would like to consider talking to PCP regarding possible hospice care. Patient currently being worked up as a code stroke. 01/11/2024 Patient is seen and examined today as a follow-up. Started on MiraLAX yesterday. Patient was sleeping. No complaints at this time. No bowel movement yet. Objective - Vital Signs Vital signs: Vital Signs Temp 98.1 F 01/10/24 20:00 Pulse 63 01/11/24 04:00 Resp 16 01/11/24 04:00 BP 122/72 01/11/24 04:00 Pulse Ox 96 01/11/24 04:00 FiO2 Intake & Output 01/10/24 01/10/24 01/11/24 06:59 18:59 06:59 Intake Total 356 540 Output Total 800 Balance 356 -260 Weight 41 kg 41 kg 43.8 kg Intake: IV 20 Invasive Line 1 20 Oral 336 540 Output: Urine 800 Other: Voiding Method Bedpan Toilet Toilet Bedpan Bedpan # Voids 2 - Exam General appearance: The patient is alert, oriented, appears in no acute distress. HET: Head is normocephalic and atraumatic. Conjunctiva pink. Sclera anicteric. Neck: Supple without lymphadenopathy. Abdomen: Soft, lower abdominal tenderness, nondistended with bowel sounds. Extremities: Normal skin color and turgor. No pedal edema Skin: No rashes, no jaundice Neurological: No focal deficits. Alert and oriented. - Labs CBC & Chem 7: 01/10/24 07:04 01/10/24 07:04 Labs: Abnormal Lab Results - Last 24 Hours (Table) 01/10/24 01/10/24 01/10/24 Range/Units 07:04 07:04 07:04 RBC 3.71 L (3.80-5.40) m/uL Sodium 134 L (137-145) mmol/L BUN 23 H (7-17) mg/dL Creatinine 1.15 H (0.52-1.04) mg/dL Calcium 10.3 H (8.4-10.2) mg/dL Total Protein 5.8 L (6.3-8.2) g/dL PTH Intact 82.5 H (14.0-72.0) pg/mL Urine Appearance (Clear) Urine Protein (Negative) Urine Glucose (UA) (Negative) Ur Leukocyte Esterase (Negative) Urine WBC (0-5) /hpf Triple Phos Crystals (None) /hpf 01/10/24 Range/Units 16:44 RBC (3.80-5.40) m/uL Sodium (137-145) mmol/L BUN (7-17) mg/dL Creatinine (0.52-1.04) mg/dL Calcium (8.4-10.2) mg/dL Total Protein (6.3-8.2) g/dL PTH Intact (14.0-72.0) pg/mL Urine Appearance Cloudy H (Clear) Urine Protein Trace H (Negative) Urine Glucose (UA) 4+ H (Negative) Ur Leukocyte Esterase Large H (Negative) Urine WBC 160 H (0-5) /hpf Triple Phos Crystals Rare H (None) /hpf Assessment and Plan (1) Chronic abdominal pain Narrative/Plan: 88-year-old female with history of chronic abdominal pain since her surgery in March 2022 for right colectomy with partial omentectomy for colon obstruction. Since that time patient has had chronic constipation associated with abdominal pain. She also has recurrent dry heaves which family believes is secondary to dehydration and not eating. Abdominal pain likely secondary to constipation. At this time we will plan on treating constipation and discussed with patient and family they can consider outpatient follow-up with general surgery Dr. Garcia for further evaluation of abdominal pain if this does not help. No plans of endoscopic evaluation. Current Visit: Yes Status: Acute Code(s): R10.9 - UNSPECIFIED ABDOMINAL PAIN; G89.29 - OTHER CHRONIC PAIN SNOMED Code(s): 106992232 (2) Chronic constipation Current Visit: Yes Status: Acute Code(s): K59.09 - OTHER CONSTIPATION SNOMED Code(s): 913491840 Plan: 1. Continue symptomatic and supportive care 2. Diet as tolerated 3. MiraLAX daily, may increase to twice a day as needed 4. Protonix 40 mg daily for GI prophylaxis 5. No plans on endoscopic evaluation at this time 6. Can consider outpatient follow-up with patient's general surgeon Dr. Garcia for chronic abdominal pain since abdominal surgery Thank you for this consultation, we will sign off at this time. Dr. Vinh Veliz I agree with the dictator's note, documented as a scribe by Debbie Da Silva.
[2024-01-11] MEDS ORDERED: polyethylene glycoL 3350 17 GM POWD.PACK PO SCH (09:00)
--- NOTE | 2024-01-11 09:07 | P.PN ---
Subjective Progress Note Date: 01/11/24 Principal diagnosis: Carotid stenosis Patient is seen and examined today as a follow-up. No acute changes through the night. No new focal deficits. EEG reports abnormal routine EEG background slowing suggestive of mild encephalopathy otherwise there is no focal slowing, elliptic form discharges or seizure on the EEG clinical correlation recommended awaiting MRI. Objective - Vital Signs Vital signs: Vital Signs Temp 98.1 F 01/10/24 20:00 Pulse 63 01/11/24 04:00 Resp 16 01/11/24 04:00 BP 122/72 01/11/24 04:00 Pulse Ox 96 01/11/24 04:00 FiO2 Intake & Output 01/10/24 01/11/24 01/11/24 18:59 06:59 18:59 Intake Total 356 540 Output Total 800 Balance 356 -260 Weight 41 kg 43.8 kg Intake: IV 20 Invasive Line 1 20 Oral 336 540 Output: Urine 800 Other: Voiding Method Toilet Toilet Bedpan Bedpan # Voids 2 - Exam General appearance: The patient is alert, oriented, appears in no acute distress. HET: Head is normocephalic and atraumatic. Conjunctiva pink. Sclera anicteric. Neck: Supple without lymphadenopathy. No carotid bruit Abdomen: Soft, nondistended. Extremities: Normal skin color and turgor. No pedal edema Skin: No rashes, no jaundice Neurological: Alert oriented to self. Right foot drop. No new focal deficits. - Labs CBC & Chem 7: 01/10/24 07:04 01/10/24 07:04 Labs: Abnormal Lab Results - Last 24 Hours (Table) 01/10/24 01/10/24 01/10/24 Range/Units 07:04 07:04 07:04 RBC 3.71 L (3.80-5.40) m/uL Sodium 134 L (137-145) mmol/L BUN 23 H (7-17) mg/dL Creatinine 1.15 H (0.52-1.04) mg/dL Calcium 10.3 H (8.4-10.2) mg/dL Total Protein 5.8 L (6.3-8.2) g/dL PTH Intact 82.5 H (14.0-72.0) pg/mL Urine Appearance (Clear) Urine Protein (Negative) Urine Glucose (UA) (Negative) Ur Leukocyte Esterase (Negative) Urine WBC (0-5) /hpf Triple Phos Crystals (None) /hpf 01/10/24 Range/Units 16:44 RBC (3.80-5.40) m/uL Sodium (137-145) mmol/L BUN (7-17) mg/dL Creatinine (0.52-1.04) mg/dL Calcium (8.4-10.2) mg/dL Total Protein (6.3-8.2) g/dL PTH Intact (14.0-72.0) pg/mL Urine Appearance Cloudy H (Clear) Urine Protein Trace H (Negative) Urine Glucose (UA) 4+ H (Negative) Ur Leukocyte Esterase Large H (Negative) Urine WBC 160 H (0-5) /hpf Triple Phos Crystals Rare H (None) /hpf Assessment and Plan Assessment: 1. Fall 2. Reported slurred speech resolved, possible TIA 3. Discordant findings on CTA head and neck and carotid duplex. No plans on any vascular surgical intervention 4. History of left carotid stenosis status post transcarotid artery revasculari zation 5. History of CVA with residual right sided weakness and dropfoot 6. Chronic abdominal pain 7. Atrial fibrillation 8. Hypertension 9. Hyperlipidemia 10. Hypothyroidism Plan: Patient is currently being followed and worked up by neurology. EEG was done earlier today currently pending. Plan is for MRI. Patient had recent TCAR in 2021, with tortuous carotid arteries. No significant stenosis per carotid duplex. No plans on carotid intervention, patient can follow-up with Dr. Honeycutt in the office. Continue with further workup and recommendations from neurology. Patient's [id number] also at the bedside and discussed interested in hospice information, discussed with patient and [id number] to further discuss with patient's primary care physician Dr. Bautista. The impression and plan of care has been dictated as directed. Dr. Thapa I performed a history and examination of this patient, discussed the same with the dictator. I agree with the dictator's note ,documented as a scribe. Any additional findings or plans will be noted.
[2024-01-11 11:27] LABS: Basophils % (A) 1 %; Eosinophils # (A) 0.4 k/uL (0-0.7); Eosinophils % (A) 5 %; HCT 37.3 % (34.0-46.0); Lymphocytes # (A) 1.2 k/uL (1.0-4.8); Lymphocytes % (A) 15 %; MCH 30.7 pg (25.0-35.0); MCHC 32.2 g/dL (31.0-37.0); MCV 95.5 fL (80.0-100.0); Mean Platelet Volume 8.5; Monocytes # (A) 0.5 k/uL (0-1.0); Monocytes % (A) 6 %; Neutrophils # (A) 5.8 k/uL (1.3-7.7); Neutrophils % (A) 72 %; Platelet Count 190 k/uL (150-450); RBC 3.91 m/uL (3.80-5.40); RDW 14.2 % (11.5-15.5); WBC 8.1 k/uL (3.8-10.6)
[2024-01-11 12:03] LABS: ALT 7 U/L (4-34); AST 26 U/L (14-36); African American GFR (CKD) 49 (>60 ml/min/1.73 sqM); Albumin 3.7 g/dL (3.5-5.0); Alkaline Phosphatase 90 U/L (38-126); Anion Gap 14 mmol/L; Blood Urea Nitrogen 27 mg/dL (7-17); Calcium 10.3 mg/dL (8.4-10.2); Carbon Dioxide 27 mmol/L (22-30); Chloride 94 mmol/L (98-107); Glucose 109 mg/dL (74-99); Non-African American GFR(CKD) 43 (>60 ml/min/1.73 sqM); Potassium 4.2 mmol/L (3.5-5.1); Sodium 135 mmol/L (137-145); Total Bilirubin 0.7 mg/dL (0.2-1.3); Total Protein 6.2 g/dL (6.3-8.2)
--- NOTE | 2024-01-11 12:54 | P.PN ---
Subjective Progress Note Date: 01/11/24 I am following-up with patient and states she is not feel good today and feels weak throughout. Objective - Vital Signs Vital signs: Vital Signs Temp 98.5 F 01/11/24 08:00 Pulse 66 01/11/24 08:00 Resp 16 01/11/24 08:00 BP 131/73 01/11/24 08:00 Pulse Ox 95 01/11/24 08:06 FiO2 Intake & Output 01/10/24 01/11/24 01/11/24 18:59 06:59 18:59 Intake Total 356 540 Output Total 800 Balance 356 -260 Weight 41 kg 43.8 kg Intake: IV 20 Invasive Line 1 20 Oral 336 540 Output: Urine 800 Other: Voiding Method Toilet Toilet Toilet Bedpan Bedpan Bedpan # Voids 2 3 - Exam General: Lying in bed and does not appear in acute distress. Neuro: Patient appears with somewhat confused and weak. She is oriented to self place and time. Is able to follow simple commands but there is delay in following commands. Pulls are round equal reactive to light. The pupils are round 3 mm bilaterally. No facial weakness. Dysarthria but again is slow. Motor: Strength she briefly raised bilateral upper extremity above gravity. Next Some of the workup during this hospital visit consisted of: Urinalysis is leukocyte Estrace is large, urine white blood cell is 160. CT of the head is reported as no acute intracranial process. Remote left frontal and right centrum semiovale infarct. Nonspecific white matter changes likely related to small vessel chronic small ischemic disease. I personally reviewed the CT and I agree there is no acute or subacute stroke CT angiography of the head and neck is reported as no evidence of dissection of cervical internal carotid artery or vertebral artery. Postsurgical changes from the left internal carotid artery stent with approximate 70% stenosis of the origin of the left internal carotid artery secondary due to calcified plaque. No significant stenosis at the origin of the right internal carotid artery secondary due to calcified plaque. No evidence of intracranial high-grade stenosis or intracranial aneurysm. Redemonstration of grouped right upper lobe pulmonary nodule which is stable from CT in 2021 but increased from 2017. Could represent hamartoma. Carotid duplex is reported as previous left ICA stent. Torturous bilateral ICA. No hemodynamically significant internal carotid artery stenosis on either side. Elevated velocity proximal left common carotid suggesting possible mild to moderate upstream stenosis. EKG is read as sinus rhythm with sinus arrhythmia. Routine EEG is abnormal. The background slowing suggestive of mild encephalopathy. Otherwise there is no focal slowing, OptiForm discharge or seizure on the EEG. - Labs CBC & Chem 7: 01/11/24 11:12 01/11/24 11:12 Labs: Abnormal Lab Results - Last 24 Hours (Table) 01/10/24 01/11/24 Range/Units 16:44 11:12 Sodium 135 L (137-145) mmol/L Chloride 94 L (98-107) mmol/L BUN 27 H (7-17) mg/dL Creatinine 1.15 H (0.52-1.04) mg/dL Glucose 109 H (74-99) mg/dL Calcium 10.3 H (8.4-10.2) mg/dL Total Protein 6.2 L (6.3-8.2) g/dL Urine Appearance Cloudy H (Clear) Urine Protein Trace H (Negative) Urine Glucose (UA) 4+ H (Negative) Ur Leukocyte Esterase Large H (Negative) Urine WBC 160 H (0-5) /hpf Triple Phos Crystals Rare H (None) /hpf Assessment and Plan Assessment: This is an 88-year-old woman with 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 Per daughter patient has poor vision at baseline and has right foot drop and is unsteady walking. Examination patient has right upper extremity weakness and per the daughter this is new. Transient episode left facial weakness with gaze to the right with confusion and recent fall. Currently on examination her symptoms has resolved except right upper extremity weakness but the patient states this is old according to the daughter this is not old and she feels this is new but unsure how long Unsure exact etiology. The routine EEG is negative for any seizure or discharges. Unsure if this is provoked due to acute urinary tract infection. Cannot rule out seizure. Also rule out stroke. Recurrent falls/syncopal episodes: unsure exact etiology. Some of patient's symptoms are possibly seizures especially with old stroke that caused or cortical irritability versus cardiac in etiology. Also some of her falls could be also due to her poor vision with underlying right lower extremity weakness at baseline Left ICA stenosis status post stent and on the current CT angiography it is re ported as 70% stenosis of the left ICA on carotid duplex it is reported as elevated velocity of proximal left common carotid artery suggesting possible mild to moderate upstream stenosis. 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 Patient is resumed on her home dose of Xarelto. I am concerned that the patient is having recurrent falls for the last 2 years and with anticoagulation there is increased risk for bleed. Co nsider only antiplatelet but there is also risk for stroke but again because of her recurrent falls there are frequent for last 2 years there is increased risk for bleed. Will defer the final decision of use of anticoagulation to the cardiology and primary team Patient is on Lipitor 40 mg daily Continue neurochecks Cardiac monitoring PT OT and [employer] are consulted For the carotid stenosis vascular surgery is consulted. They stated no significant stenosis per carotid duplex and we will plan on carotid intervention and the patient to follow-up as an outpatient. For the chronic GI symptoms GI team is consulted Will defer the rest of the medical management to primary and other specialist Upon discharge patient needs to continue to follow-up with her neurologist as an outpatient, Dr. Álvarez within 2 weeks. The daughter wanted more info about hospice. The plan discussed with the primary attending Dr. Carrillo will resume neurology service tomorrow A.M. Time with Patient: Less than 30
--- NOTE | 2024-01-11 13:08 | P.PN ---
Subjective Progress Note Date: 01/10/24 HISTORY OF PRESENT ILLNESS: 88-year-old with active medical history of A-fib, coronary artery disease, congestive heart failure, previous history of CVA/TIA, hypertension, hyperlip idemia, hypothyroidism, memory loss, mild parkinsonism who has problem with mobility and balance has been living in assisted living and has a guardian. She was hospitalized last week for syncopal episode with fall and possible ventricular tachycardia was in the hospital for over 4 days and upon her discharge less than 48 hours ago was supposed to go [facility] to continue doing physical therapy to regain her strength mobility balance and gait. She ended up going surprisingly to the assisted living place she lives then which is [facility]. Apparently arrangement for home care was made the patient did not do well. This morning the patient developed to have strokelike symptoms she had significant altered mental status with droopy face and significant right-sided weakness EMS was called patient brought to the emergency department continue not to act and be well continue to have right-sided weakness with droopy face with severe confusion her responsiveness was limited at the time. Code stroke was called and connected with the stroke center and patient ended up having CT of the brain which showed no intracranial process with remote left frontal and right central infarct with nonspecific small vessel disease. CTA was done as well shows no evidence of dissection of the cervical internal carotid artery and vertebral artery with postsurgical change of left internal carotid artery stent with approximately 70% blockage of its original of the left internal carotid artery secondary to calcification the right side was normal no evidence of intracranial higher grade stenosis or intracranial aneurysm and the test shows incidentally 1.6 cm right upper lobe pulmonary nodule on not changed since the CAT scan 2017. EKG and heart monitor continue to show sinus rhythm with sinus arrhythmia mostly no sign of A-fib no V. tach. Laboratory value continue to matty w normal CBC CMP with exception of calcium is up to 11.0 was around 10.32 days ago. Blood sugar was mildly elevated at 140 no UA was done. After complete her testing patient is back to her baseline but continued to have significant weak fatigue tiredness inability to ambulate and walk she knows where she has she is moving both right and left side. Will be hospitalized for TIA/CVA with the carotid stenosis vascular be seen patient and should be seen neurology. Long discussion with her and her son at this point again patient will need to go to subacute rehab afterward on the testing because she is not safe being by herself with limited help in her assisted living place. 01/10/2024: She is feeling slightly better with slight improvement on her right side weakness along with the droopy face with the slurred speech she is seen today for gastroenterology for chronic abdominal pain and chronic constipation and agree with the MiraLAX daily along with Protonix for EGD the patient apparently had a previous surgery with Dr. Garcia does not require any intervention at this point. Also she was seen vascular and had a stent of the left carotid years ago with significant stenosis at this time can be contributing to the factor of her current TIA. She is going to have an MRI of the brain apparently no intravascular that she has torturous carotid artery with no significant stenosis per carotid duplex was found vascular do not plan to do any intervention at this point. And neurology had agreed this is probably transient episode of facial weakness with right-sided weakness confusion and change consistent probably with TIA versus stroke she is known to have left- sided carotid stenosis about 70 percentile neurology recommending to repeat EEG ordered an MRI of the brain to keep patient on 324 mg of aspirin daily and to continue Xarelto for the time being knowing that the concern patient had to the multiple fall for the last few weeks her risk of having problem with Xarelto is much higher at some point recommending to discontinue Xarelto completely. Patient will be continue physical therapy and Occupational Therapy she is more negative about her progress at this point but keep trying. REVIEW OF SYSTEMS: CONSTITUTIONAL: Well-developed no acute respiratory distress. EYES: No icterus sclerae, no conjunctivitis. EARS, NOSE, MOUTH, THROAT, and FACE: No sore throat, lymphadenopathy, carotid bruits or deformity. RESPIRATORY: Slight shortness of breath no cough or wheezes. CARDIOVASCULAR: Mild arrhythmia positive PND no orthopnea no angina. GASTROINTESTINAL: No Abd pain, Nausea or vomiting, no Diarrhea or constipation, No GI Bleed, no distention or masses. GENITOURINARY: Negative for Hematuria or UTI, no kidney stones. Has history of incontinence. INTEGUMENT/BREAST: Generalized muscle and joint pain. HEMATOLOGIC/LYMPHATIC: Negative for bleed or purpura. MUSCULOSKELTAL: Negative for Myalgia or arthralgia. NEURLOGICAL: Previous history of stroke with significant balance and gait problem, mild parkinsonism with mild memory loss.. BEHAVIORAL/PSYCH: Negative. ENDOCRINE: Negative. PHYSICAL EXAMINATION: General Appearance: Alert, cooperative, no distress, mildly confused. Neck HEENT: Supple, no lymphadenopathy, no thyroid enlargement, no carotid bruits. Slight bruise on the right forehead. Lungs: Clear to auscultation without crackles or wheezes no rhonchi, no deformity. Chest Wall: Chest wall normal expansion with deep inspiration no tenderness and no deformity was found on exam, no costochondral pain or discomfort. Heart: Irregular rate and rhythm, S1, S2 positive S3 positive bradycardia. Back: Symmetric, no curvature, ROM normal, no CVA tenderness. Abdomen: Soft, non-tender, bowel sounds active all four quadrants, no masses, no organomegaly. Extremities: Extremities normal, atraumatic, no cyanosis or edema. Pulses: 2+ and symmetric. Skin: Skin color, texture, tugor normal, no rashes or lesions. Neurologic: Alert oriented with slight confusion cranial nerves II through XII intact, positive generalized weakness worsening on the left than the right side with severe abnormal balance and gait mild resting tremor. ASSESSMENT AND PLAN: _CVA/TIA: Seen neurology will be going for an MRI of the brain also had 70 percentile blockage of carotid was stented before the left side no intervention will be required for now. Will continue anticoagulation along with secondary prevention controlling her blood pressure blood sugar and cholesterol. _Severe critical carotid stenosis of the left side the area was stented previously, apparently reviewed by vascular no reason for intervention at this point I believe this is a tortuous carotid artery on the flex did not show to stenosis seen with her CTA. _History of A-fib nonsustained despite spending this last week few days in the hospital heart monitor did not show any A-fib but patient has been on anticoagulation all along. Has not had any A-fib a long time has been on Xarelto for long time patient had multiple fall with multiple trauma next Xarelto higher risk quitting Xarelto will be probably the best idea at this point. _Close head trauma from this last week still have slight bruise on the left side I do not see any residual and no sign of bleed at this point. _Hypercalcemia: Not clear that this is dehydration hyperparathyroidism continue hydration we will repeat PTH at this point patient is not in any challenging kidney function despite her GFR is 54 to see that she has stage III chronic kidney disease will continue good hydration watch for any further decline in kid horacio function. _Hypertension: With worsening symptoms, remain on clonidine 0.2 mg patch weekly, still on losartan 25 mg a day, and amlodipine 5 mg daily. Keep watching her symptoms to keep her systolic blood pressure below 140. _Parkinsonism: Remain on carbidopa levodopa extended release 50/200 mg tablet 3 times a day. _Hypothyroidism: Remain on levothyroxine 50 mcg daily continue medication. _Type 2 diabetes with chronic kidney disease: Has been on Jardiance 10 mg a day will titrate dose up to 25 mg a day Accu-Chek with sliding scales coverage watch for any hypoglycemia the day of her discharge apparently her sugar was down in the 40 patient is on Jardiance only is not supposed to have any hypoglycemic episode or event. _Chronic diastolic congestive heart failure: Remain on losartan, and furosemide continue medication. _Hyperlipidemia: Remain on atorvastatin 40 mg daily. Probably neurology will advised to increase atorvastatin up to 80 mg. _Chronic pain syndrome: Continue combination of Butrans 10 mg patch along with tramadol for breakthrough pain she is known to have chronic degenerative disc disease which has been better controlled lately with her medication. The patien t despite the combination of the tramadol and Butrans continue to complain of severe pain with pain 4-5 out of 10 not interested to increase medication because I believe this is little bit too much to despite her complaint I cannot ignore her pain at this point. _Worsening dementia: She is remain on Exelon 3 mg twice a day and can add Namenda as a neck step if needed. _Hiatal hernia and severe GERD: Remain on pantoprazole and Pepcid. Discussion: Patient is recovering from stroke versus TIA still have slight residual had multiple risk factor including carotid stenosis the possibility of seizure and other neurology are doing further workup including EEG, MRI and recommended aspirin but the matter of Xarelto or anticoagulation if need to be stopped. Patient will be continue to do physical therapy occupational therapy and prepare hopefully for [facility] sometime in the next day or 2. Objective - Vital Signs Vital signs: Vital Signs Temp 97.7 F 01/09/24 22:45 Pulse 65 01/10/24 04:00 Resp 17 01/10/24 04:00 BP 116/67 01/10/24 04:00 Pulse Ox 97 01/10/24 04:00 FiO2 Intake & Output 09/03/2301/09/24 01/10/24 06:59 18:59 06:59 Weight 54.431 kg 54.5 kg Other: Voiding Method Bedpan - Labs CBC & Chem 7: 01/11/24 11:12 01/11/24 11:12 Labs: Abnormal Lab Results - Last 24 Hours (Table) 01/09/24 01/09/24 Range/Units 10:36 10:36 WBC 11.7 H (3.8-10.6) k/uL Neutrophils # 9.2 H (1.3-7.7) k/uL BUN 24 H (7-17) mg/dL Glucose 140 H (74-99) mg/dL Calcium 11.0 H (8.4-10.2) mg/dL
--- NOTE | 2024-01-11 13:12 | P.PN ---
Subjective Progress Note Date: 01/11/24 HISTORY OF PRESENT ILLNESS: 88-year-old with active medical history of A-fib, coronary artery disease, congestive heart failure, previous history of CVA/TIA, hypertension, hyperlip idemia, hypothyroidism, memory loss, mild parkinsonism who has problem with mobility and balance has been living in assisted living and has a guardian. She was hospitalized last week for syncopal episode with fall and possible ventricular tachycardia was in the hospital for over 4 days and upon her discharge less than 48 hours ago was supposed to go to long-term rehab to continue doing physical therapy to regain her strength mobility balance and gait. She ended up going surprisingly to the assisted living place she lives then which is [facility]. Apparently arrangement for home care was made the patient did not do well. This morning the patient developed to have strokelike symptoms she had significant altered mental status with droopy face and significant right-sided weakness EMS was called patient brought to the emergency department continue not to act and be well continue to have right-sided weakness with droopy face with severe confusion her responsiveness was limited at the time. Code stroke was called and connected with the stroke center and patient ended up having CT of the brain which showed no intracranial process with remote left frontal and right central infarct with nonspecific small vessel disease. CTA was done as well shows no evidence of dissection of the cervical internal carotid artery and vertebral artery with postsurgical change of left internal carotid artery stent with approximately 70% blockage of its original of the left internal carotid artery secondary to calcification the right side was normal no evidence of intracranial higher grade stenosis or intracranial aneurysm and the test shows incidentally 1.6 cm right upper lobe pulmonary nodule on not changed since the CAT scan 2017. EKG and heart monitor continue to show sinus rhythm with sinus arrhythmia mostly no sign of A-fib no V. tach. Laboratory value continue to matty w normal CBC CMP with exception of calcium is up to 11.0 was around 10.32 days ago. Blood sugar was mildly elevated at 140 no UA was done. After complete her testing patient is back to her baseline but continued to have significant weak fatigue tiredness inability to ambulate and walk she knows where she has she is moving both right and left side. Will be hospitalized for TIA/CVA with the carotid stenosis vascular be seen patient and should be seen neurology. Long discussion with her and her son at this point again patient will need to go to subacute rehab afterward on the testing because she is not safe being by herself with limited help in her assisted living place. 01/10/2024: She is feeling slightly better with slight improvement on her right side weakness along with the droopy face with the slurred speech she is seen today for gastroenterology for chronic abdominal pain and chronic constipation and agree with the MiraLAX daily along with Protonix for EGD the patient apparently had a previous surgery with Dr. Garcia does not require any intervention at this point. Also she was seen vascular and had a stent of the left carotid years ago with significant stenosis at this time can be contributing to the factor of her current TIA. She is going to have an MRI of the brain apparently no intravascular that she has torturous carotid artery with no significant stenosis per carotid duplex was found vascular do not plan to do any intervention at this point. And neurology had agreed this is probably transient episode of facial weakness with right-sided weakness confusion and change consistent probably with TIA versus stroke she is known to have left- sided carotid stenosis about 70 percentile neurology recommending to repeat EEG ordered an MRI of the brain to keep patient on 324 mg of aspirin daily and to continue Xarelto for the time being knowing that the concern patient had to the multiple fall for the last few weeks her risk of having problem with Xarelto is much higher at some point recommending to discontinue Xarelto completely. Patient will be continue physical therapy and Occupational Therapy she is more negative about her progress at this point but keep trying. 01/11/2024: Patient scheduled for MRI in the next Few hours apparently she need preauthorization to be able to go to long-term rehab which apparently is like and happen today her Xarelto was stopped and continue aspirin for now continue to follow recommendation by neurology no intervention will be required by vascular surgery the patient doing slightly better with rehab but still can need more help and support than what can provided in her own place as an independent with limited help she need to be in long-term rehab for short period of time and probably start looking into the bed longer acting rehab or any placement. REVIEW OF SYSTEMS: CONSTITUTIONAL: Well-developed no acute respiratory distress. EYES: No icterus sclerae, no conjunctivitis. EARS, NOSE, MOUTH, THROAT, and FACE: No sore throat, lymphadenopathy, carotid bruits or deformity. RESPIRATORY: Slight shortness of breath no cough or wheezes. CARDIOVASCULAR: Mild arrhythmia positive PND no orthopnea no angina. GASTROINTESTINAL: No Abd pain, Nausea or vomiting, no Diarrhea or constipation, No GI Bleed, no distention or masses. GENITOURINARY: Negative for Hematuria or UTI, no kidney stones. Has history of incontinence. INTEGUMENT/BREAST: Generalized muscle and joint pain. HEMATOLOGIC/LYMPHATIC: Negative for bleed or purpura. MUSCULOSKELTAL: Negative for Myalgia or arthralgia. NEURLOGICAL: Previous history of stroke with significant balance and gait problem, mild parkinsonism with mild memory loss.. BEHAVIORAL/PSYCH: Negative. ENDOCRINE: Negative. PHYSICAL EXAMINATION: General Appearance: Alert, cooperative, no distress, mildly confused. Neck HEENT: Supple, no lymphadenopathy, no thyroid enlargement, no carotid b ruits. Slight bruise on the right forehead. Lungs: Clear to auscultation without crackles or wheezes no rhonchi, no deformity. Chest Wall: Chest wall normal expansion with deep inspiration no tenderness and no deformity was found on exam, no costochondral pain or discomfort. Heart: Irregular rate and rhythm, S1, S2 positive S3 positive bradycardia. Back: Symmetric, no curvature, ROM normal, no CVA tenderness. Abdomen: Soft, non-tender, bowel sounds active all four quadrants, no masses, no organomegaly. Extremities: Extremities normal, atraumatic, no cyanosis or edema. Pulses: 2+ and symmetric. Skin: Skin color, texture, tugor normal, no rashes or lesions. Neurologic: Alert oriented with slight confusion cranial nerves II through XII intact, positive generalized weakness worsening on the left than the right side with severe abnormal balance and gait mild resting tremor. ASSESSMENT AND PLAN: _CVA/TIA: Seen neurology will be going for an MRI of the brain also had 70 percentile blockage of carotid was stented before the left side no intervention will be required for now. Will continue anticoagulation along with secondary prevention controlling her blood pressure blood sugar and cholesterol. _Severe critical carotid stenosis of the left side the area was stented previously, apparently reviewed by vascular no reason for intervention at this point I believe this is a tortuous carotid artery on the flex did not show to stenosis seen with her CTA. _Anticoagulation: Patient had been on anticoagulation with Xarelto for the last 10+ years since he was diagnosed with one-time episode of A-fib which have been over 5 years after her original stroke and has been on medication since but lately has been having significant falling episode many times will create higher risk for problem with her fall agree at this point to discontinue Xarelto continue conservative management. I have not seen any further episodes of A-fib lately but despite the fact that even if she has A-fib risk of having stroke or mini stroke from it will be high risk of having bleeding and hemorrhage and major trauma being on Xarelto will be a lot higher for the time being. _Close head trauma from this last week still have slight bruise on the left side I do not see any residual and no sign of bleed at this point. _Hypercalcemia: Not clear that this is dehydration hyperparathyroidism continue hydration we will repeat PTH at this point patient is not in any challenging kidney function despite her GFR is 54 to see that she has stage III chronic kidney disease will continue good hydration watch for any further decline in kidney function. _Hypertension: With worsening symptoms, remain on clonidine 0.2 mg patch weekly, still on losartan 25 mg a day, and amlodipine 5 mg daily. Keep watching her symptoms to keep her systolic blood pressure below 140. _Parkinsonism: Remain on carbidopa levodopa extended release 50/200 mg tablet 3 times a day. _Hypothyroidism: Remain on levothyroxine 50 mcg daily continue medication. _Type 2 diabetes with chronic kidney disease: Has been on Jardiance 10 mg a day will titrate dose up to 25 mg a day Accu-Chek with sliding scales coverage watch for any hypoglycemia the day of her discharge apparently her sugar was down in the 40 patient is on Jardiance only is not supposed to have any hypoglycemic episode or event. _Chronic diastolic congestive heart failure: Remain on losartan, and furosemide continue medication. _Hyperlipidemia: Remain on atorvastatin 40 mg daily. Probably neurology will advised to increase atorvastatin up to 80 mg. _Chronic pain syndrome: Continue combination of Butrans 10 mg patch along with tramadol for breakthrough pain she is known to have chronic degenerative disc disease which has been better controlled lately with her medication. The patient despite the combination of the tramadol and Butrans continue to complain of severe pain with pain 4-5 out of 10 not interested to increase medication because I believe this is little bit too much to despite her complaint I cannot ignore her pain at this point. _Worsening dementia: She is remain on Exelon 3 mg twice a day and can add Namenda as a neck step if needed. _Hiatal hernia and severe GERD: Remain on pantoprazole and Pepcid. Discussion: Pending MRI and EEG the patient will be accepted to [facility] for short-term rehab but she needed preauthorization which is social work administrator are working on it her discharge to [facility] is [facility]-till Sunday we will continue doing physical therapy finalize testing and follow recommendation with neurology that she is ready on Sunday to be transferred to [facility]. Objective - Vital Signs Vital signs: Vital Signs Temp 98.1 F 01/10/24 20:00 Pulse 63 01/11/24 04:00 Resp 16 01/11/24 04:00 BP 122/72 01/11/24 04:00 Pulse Ox 95 01/11/24 08:06 FiO2 Intake & Output 01/10/24 01/11/24 01/11/24 18:59 06:59 18:59 Intake Total 356 540 Output Total 800 Balance 356 -260 Weight 41 kg 43.8 kg Intake: IV 20 Invasive Line 1 20 Oral 336 540 Output: Urine 800 Other: Voiding Method Toilet Toilet Bedpan Bedpan # Voids 2 - Labs CBC & Chem 7: 01/11/24 11:12 01/11/24 11:12 Labs: Abnormal Lab Results - Last 24 Hours (Table) 01/10/24 01/10/24 Range/Units 07:04 16:44 PTH Intact 82.5 H (14.0-72.0) pg/mL Urine Appearance Cloudy H (Clear) Urine Protein Trace H (Negative) Urine Glucose (UA) 4+ H (Negative) Ur Leukocyte Esterase Large H (Negative) Urine WBC 160 H (0-5) /hpf Triple Phos Crystals Rare H (None) /hpf
[2024-01-12] MEDS: ACETAMINOPHEN TAB 500 MG TAB PO PRN (05:55)
[2024-01-12] MEDS: FAMOTIDINE 20 MG TAB PO SCH (09:11)
[2024-01-12] MEDS: ASPIRIN 81 MG PO SCH (12:22)
--- NOTE | 2024-01-12 15:39 | P.PN ---
Subjective Progress Note Date: 01/12/24 Interval History: 88-year-old with active medical history of A-fib, coronary artery disease, congestive heart failure, previous history of CVA/TIA, hypertension, hyperlipidemia, hypothyroidism, memory loss, mild parkinsonism who has problem with mobility and balance has been living in assisted living and has a guardian. She was hospitalized last week for syncopal episode with fall and possible ventricular tachycardia was in the hospital for over 4 days and upon her discharge less than 48 hours ago was supposed to go to long-term rehab to continue doing physical therapy to regain her strength mobility balance and gait. She ended up going surprisingly to the assisted living place she lives then which is [facility]. Apparently arrangement for home care was made the patient did not do well. This morning the patient developed to have strokelike symptoms she had significant altered mental status with droopy face and significant right-sided weakness EMS was called patient brought to the emergency department continue not to act and be well continue to have right-sided weakness with droopy face with severe confusion her responsiveness was limited at the time. Code stroke was called and connected with the stroke center and patient ended up having CT of the brain which showed no intracranial process with remote left frontal and right central infarct with nonspecific small vessel disease. CTA was done as well shows no evidence of dissection of the cervical internal carotid artery and vertebral artery with postsurgical change of left internal carotid artery stent with approximately 70% blockage of its original of the left internal carotid artery secondary to calcification the right side was normal no evidence of intracranial higher grade stenosis or intracranial aneurysm and the test shows incidentally 1.6 cm right upper lobe pulmonary nodule on not changed since the CAT scan 2017. EKG and heart monitor continue to show sinus rhythm with sinus arrhythmia mostly no sign of A-fib no V. tach. Laboratory value continue to show normal CBC CMP with exception of calcium is up to 11.0 was around 10.32 days ago. Blood sugar was mildly elevated at 140 no UA was done. After complete her testing patient is back to her baseline but continued to have significant weak fatigue tiredness inability to ambulate and walk she knows where she has she is moving both right and left side. Will be hospitalized for TIA/CVA with the carotid stenosis vascular be seen patient and should be seen neurology. Long discussion with her and her son at this point again patient will need to go to subacute rehab afterward on the testing because she is not safe being by herself with limited help in her assisted living place. 01/10/2024: She is feeling slightly better with slight improvement on her right side weakness along with the droopy face with the slurred speech she is seen today for gastroenterology for chronic abdominal pain and chronic constipation and agree with the MiraLAX daily along with Protonix for EGD the patient apparently had a previous surgery with Dr. Garcia does not require any intervention at this point. Also she was seen vascular and had a stent of the left carotid years ago with significant stenosis at this time can be contr ibuting to the factor of her current TIA. She is going to have an MRI of the brain apparently no intravascular that she has torturous carotid artery with no significant stenosis per carotid duplex was found vascular do not plan to do any intervention at this point. And neurology had agreed this is probably transient episode of facial weakness with right-sided weakness confusion and change consis tent probably with TIA versus stroke she is known to have left-sided carotid stenosis about 70 percentile neurology recommending to repeat EEG ordered an MRI of the brain to keep patient on 324 mg of aspirin daily and to continue Xarelto for the time being knowing that the concern patient had to the multiple fall for the last few weeks her risk of having problem with Xarelto is much higher at some point recommending to discontinue Xarelto completely. Patient will be continue physical therapy and Occupational Therapy she is more negative about her progress at this point but keep trying. 01/11/2024: Patient scheduled for MRI in the next Few hours apparently she need preauthorization to be able to go to long-term rehab which apparently is like and happen today her Xarelto was stopped and continue aspirin for now continue to follow recommendation by neurology no intervention will be required by vascular surgery the patient doing slightly better with rehab but still can need more help and support than what can provided in her own place as an independent with limited help she need to be in long-term rehab for short period of time and probably start looking into the bed longer acting rehab or any placement.67 01/12/2024--patient was seen and examined today. Son at bedside. Patient confused. MRI is pending. EEG showed mild encephalopathy. Anticipate discharge to subacute rehab. On Rocephin for UTI, urine culture growing gram- negative bacilli. CBC unremarkable. BMP unremarkable, mildly elevated creatinine 1.15. Calcium 10.3. Assessment and plan: _CVA/TIA: Seen neurology will be going for an MRI of the brain also had 70 percentile blockage of carotid was stented before the left side no intervention will be required for now. Will continue anticoagulation along with secondary prevention controlling her blood pressure blood sugar and cholesterol. _Severe critical carotid stenosis of the left side the area was stented previou sly, apparently reviewed by vascular no reason for intervention at this point I believe this is a tortuous carotid artery on the flex did not show to stenosis seen with her CTA. _Anticoagulation: Patient had been on anticoagulation with Xarelto for the last 10+ years since he was diagnosed with one-time episode of A-fib which have been over 5 years after her original stroke and has been on medication since but lately has been having significant falling episode many times will create higher risk for problem with her fall agree at this point to discontinue Xarelto continue conservative management. I have not seen any further episodes of A-fib lately but despite the fact that even if she has A-fib risk of having stroke or mini stroke from it will be high risk of having bleeding and hemorrhage and major trauma being on Xarelto will be a lot higher for the time being. _Close head trauma from this last week still have slight bruise on the left side I do not see any residual and no sign of bleed at this point. _Hypercalcemia: Not clear that this is dehydration hyperparathyroidism continue hydration we will repeat PTH at this point patient is not in any challenging kidney function despite her GFR is 54 to see that she has stage III chronic kidney disease will continue good hydration watch for any further decline in kidney function. _Hypertension: With worsening symptoms, remain on clonidine 0.2 mg patch weekly, still on losartan 25 mg a day, and amlodipine 5 mg daily. Keep watching her symptoms to keep her systolic blood pressure below 140. _Parkinsonism: Remain on carbidopa levodopa extended release 50/200 mg tablet 3 times a day. _Hypothyroidism: Remain on levothyroxine 50 mcg daily continue medication. _Type 2 diabetes with chronic kidney disease: Has been on Jardiance 10 mg a day will titrate dose up to 25 mg a day Accu-Chek with sliding scales coverage watch for any hypoglycemia the day of her discharge apparently her sugar was down in the 40 patient is on Jardiance only is not supposed to have any hypoglycemic episode or event. _Chronic diastolic congestive heart failure: Remain on losartan, and furosemide continue medication. _Hyperlipidemia: Remain on atorvastatin 40 mg daily. Probably neurology will advised to increase atorvastatin up to 80 mg. _Chronic pain syndrome: Continue combination of Butrans 10 mg patch along with tramadol for breakthrough pain she is known to have chronic degenerative disc disease which has been better controlled lately with her medication. The patient despite the combination of the tramadol and Butrans continue to complain of severe pain with pain 4-5 out of 10 not interested to increase medication because I believe this is little bit too much to despite her complaint I cannot ignore her pain at this point. _Worsening dementia: She is remain on Exelon 3 mg twice a day and can add Namenda as a neck step if needed. _Hiatal hernia and severe GERD: Remain on pantoprazole and Pepcid. Discussion: Pending MRI and EEG the patient will be accepted to [facility] for short-term rehab but she needed preauthorization which is web content & social media manager are working on it her discharge to [facility] is [facility]-till Sunday we will continue doing physical therapy finalize testing and follow recommendation with neurology that she is ready on Sunday to be transferred to [facility]. PHYSICAL EXAMINATION: GENERAL: NAD, confused. HEENT: EOMI, Sclerae anicteric, Moist Mucous membranes Neck: Supple, Non tender, No JVD PULMONARY: Equal breath souds B/L, No wheezing, No crackles. CARDIOVASCULAR: S1, S2 present. No murmurs, rubs, or gallops. ABDOMEN: Soft, nontender, nondistended, normoactive bowel sounds. No guarding or rebound tenderness. MUSCULOSKELETAL: No edema, No cyanosis. No clubbing. Normal ROM. Intact peripheral pulses. EXTREMITIES: No cyanosis, clubbing, or pedal edema. NEUROLOGICAL: CN 2-12 grossly intact. No FND Skin: No Rash REVIEW OF SYSTEMS: CONSTITUTIONAL: No fever or chills. CARDIOVASCULAR: No chest pain, palpitations or syncope. PULMONARY: No shortness of breath, no cough, sore throat. GASTROINTESTINAL: No nausea, vomiting, diarrhea, abdominal pain. : No Dysuria, urgency, frequency. Extremities: No edema. NEUROLOGICAL: No headaches, no weakness, or numbness Dictation was produced using [employer] software. please excuse any grammatical, word or spelling errors. Objective - Vital Signs Vital signs: Vital Signs Temp 97.7 F 01/12/24 09:10 Pulse 68 01/12/24 12:23 Resp 16 01/12/24 12:23 BP 110/52 01/12/24 12:23 Pulse Ox 95 01/12/24 12:23 FiO2 Intake & Output 01/11/24 01/12/24 01/12/24 18:59 06:59 18:59 Intake Total 480 540 Output Total 300 350 Balance 180 190 Weight 53 kg Intake: Oral 480 540 Output: Urine 300 350 Other: Voiding Method Toilet Toilet Toilet Bedpan Bedpan Bedpan # Voids 3 1 3 - Labs CBC & Chem 7: 01/11/24 11:12 01/11/24 11:12 Labs: Microbiology - Last 24 Hours (Table) 01/10/24 16:44 Urine Culture - Preliminary Urine,Voided Gram Neg Bacilli
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
[2024-01-13] MEDS: cloNIDine 0.1 MG/24HR PATCH TRANSDERM SCH (16:38)
[2024-01-14] MEDS: ALPRAZolam 0.25 MG TAB PO PRN (00:27)
[2024-01-14 04:52] VITALS: RESP 16
[2024-01-14 06:57] LABS: Basophils % (A) 1 %; Eosinophils # (A) 0.5 k/uL (0-0.7); Eosinophils % (A) 9 %; HGB 12.1 gm/dL (11.4-16.0); Lymphocytes # (A) 1.4 k/uL (1.0-4.8); Lymphocytes % (A) 23 %; MCH 31.1 pg (25.0-35.0); MCHC 32.6 g/dL (31.0-37.0); MCV 95.6 fL (80.0-100.0); Mean Platelet Volume 8.7; Monocytes # (A) 0.4 k/uL (0-1.0); Monocytes % (A) 7 %; Neutrophils # (A) 3.4 k/uL (1.3-7.7); Neutrophils % (A) 58 %; Platelet Count 191 k/uL (150-450); RBC 3.87 m/uL (3.80-5.40); RDW 14.1 % (11.5-15.5); WBC 5.9 k/uL (3.8-10.6)
[2024-01-14 07:14] LABS: African American GFR (CKD) 61 (>60 ml/min/1.73 sqM); Anion Gap 4 mmol/L; Blood Urea Nitrogen 29 mg/dL (7-17); Calcium 10.5 mg/dL (8.4-10.2); Carbon Dioxide 28 mmol/L (22-30); Chloride 105 mmol/L (98-107); Glucose 83 mg/dL (74-99); Non-African American GFR(CKD) 53 (>60 ml/min/1.73 sqM); Potassium 4.7 mmol/L (3.5-5.1); Sodium 137 mmol/L (137-145)
[2024-01-14 09:59] VITALS: PULSE 62
--- NOTE | 2024-01-14 11:27 | MR ---
EXAMINATION TYPE: MR brain wo con DATE OF EXAM: 01/14/2024 11:19 AM CLINICAL INDICATION: Female, 88 years old with history of stroke; PHH, Stroke COMPARISON: 01/09/2024. TECHNIQUE: Multi planar, multi sequence imaging was performed through the brain including: T1, T2, In version recovery, Diffusion weighted imaging, and gradient echo imaging. No gadolinium was given. FINDINGS: Encephalomalacia the left frontal lobe medially along the VIKKI distribution. The conroy-white junctions, ventricular system, basal cisterns appear unremarkable. Scattered foci of high T2 signal intensity are seen within the periventricular white matter. Midline structures show n o abnormality. Diffusion-weighted imaging shows no evidence of restricted diffusion. The susceptibili ty weighted images are scattered throughout the brain including left parsons radiata of the frontal lo be, right thalamus, bilateral cerebellar hemispheres. Susceptibility artifact also within the left fr ontal lobe area of encephalomalacia. Hypoplastic left A1 segment. The bone marrow signal is within normal limits. Paranasal sinuses and mastoid air cells: No significant paranasal sinus disease. Visualized orbits: Bilateral aphakia IMPRESSION: 1. No evidence of intracranial mass or acute/subacute infarct. 2. Remote left VIKKI territory infarct with atrophic/hypoplastic left A1 segment. 3. Nonspecific white matter changes, likely secondary to small vessel ischemic disease. [facility], , 01/14/2024 11:25 AM
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
--- NOTE | 2024-01-14 13:23 | P.DS ---
Providers Date of admission: 01/09/24 12:53 Attending physician: Saman Bautista Consults: 01/09/24 12:37 Consult Physician Routine Consulting Provider: Eben Stallings Consult Reason/Comments: code stroke Do you want consulting provider notified?: Yes 01/10/24 05:52 Consult Physician Routine Consulting Provider: Day Thapa Consult Reason/Comments: L Carotid Stenosis Do you want consulting provider notified?: Yes Primary care physician: [facility] Course: HISTORY OF PRESENT ILLNESS: 88-year-old with active medical history of A-fib, coronary artery disease, alexi estive heart failure, previous history of CVA/TIA, hypertension, hyperlipidemia, hypothyroidism, memory loss, mild parkinsonism who has problem with mobility and balance has been living in assisted living and has a guardian. She was hospitalized last week for syncopal episode with fall and possible ventricular tachycardia was in the hospital for over 4 days and upon her discharge less than 48 hours ago was supposed to go to intermediate rehab to continue doing physical therapy to regain her strength mobility balance and gait. She ended up going surprisingly to the assisted living place she lives then which is [facility]. Apparently arrangement for home care was made the patient did not do well. This morning the patient developed to have strokelike symptoms she had signif icant altered mental status with droopy face and significant right-sided weakness EMS was called patient brought to the emergency department continue not to act and be well continue to have right-sided weakness with droopy face with severe confusion her responsiveness was limited at the time. Code stroke was called and connected with the stroke center and patient ended up having CT of the brain which showed no intracranial process with remote left frontal and right central infarct with nonspecific small vessel disease. CTA was done as well shows no evidence of dissection of the cervical internal carotid artery and vertebral artery with postsurgical change of left internal carotid artery stent with approximately 70% blockage of its original of the left internal carotid artery secondary to calcification the right side was normal no evidence of intracranial higher grade stenosis or intracranial aneurysm and the test shows incidentally 1.6 cm right upper lobe pulmonary nodule on not changed since the CAT scan 2017. EKG and heart monitor continue to show sinus rhythm with sinus arrhythmia mostly no sign of A-fib no V. tach. Laboratory value continue to show normal CBC CMP with exception of calcium is up to 11.0 was around 10.32 days ago. Blood sugar was mildly elevated at 140 no UA was done. After complete her testing patient is back to her baseline but continued to have signi ficant weak fatigue tiredness inability to ambulate and walk she knows where she has she is moving both right and left side. Will be hospitalized for TIA/CVA with the carotid stenosis vascular be seen patient and should be seen neurology. Long discussion with her and her son at this point again patient will need to go to subacute rehab afterward on the testing because she is not safe being by her self with limited help in her assisted living place. 01/10/2024: She is feeling slightly better with slight improvement on her right side weakness along with the droopy face with the slurred speech she is seen today for gastroenterology for chronic abdominal pain and chronic constipation and agree with the MiraLAX daily along with Protonix for EGD the patient apparently had a previous surgery with Dr. Garcia does not require any intervention at this point. Also she was seen vascular and had a stent of the left carotid years ago with significant stenosis at this time can be contributing to the factor of her current TIA. She is going to have an MRI of the brain apparently no intravascular that she has torturous carotid artery with no significant stenosis per carotid duplex was found vascular do not plan to do any intervention at this point. And neurology had agreed this is probably transient episode of facial weakness with right-sided weakness confusion and carlos nge consistent probably with TIA versus stroke she is known to have left-sided carotid stenosis about 70 percentile neurology recommending to repeat EEG ordered an MRI of the brain to keep patient on 324 mg of aspirin daily and to continue Xarelto for the time being knowing that the concern patient had to the multiple fall for the last few weeks her risk of having problem with Xarelto is much higher at some point recommending to discontinue Xarelto completely. Patient will be continue physical therapy and Occupational Therapy she is more negative about her progress at this point but keep trying. 01/11/2024: Patient scheduled for MRI in the next Few hours apparently she need preauthorization to be able to go to intermediate rehab which apparently is like and happen today her Xarelto was stopped and continue aspirin for now continue to follow recommendation by neurology no intervention will be required by vascular surgery the patient doing slightly better with rehab but still can need more help and support than what can provided in her own place as an independent with limited help she need to be in intermediate rehab for short period of time and probably start looking into the bed longer acting rehab or any placement. 01/14/2024: Patient stayed in the hospital over the weekend has done slightly bit better was seen her family she still have slight weakness on the right side, she is an absolute Indication for being on Xarelto specially with multifocal and injury prescription was stopped. MRI of the brain was ordered showed no evidence of intracranial mass or acute or subacute infarct remote left VIKKI territory infarct with atrophic or hypoplastic left A1 segment with nonspecific white matter change. Patient is doing slight better with physical therapy and she will be transferred to [facility] for more rehab and physical therapy. REVIEW OF SYSTEMS: CONSTITUTIONAL: Well-developed no acute respiratory distress. EYES: No icterus sclerae, no conjunctivitis. EARS, NOSE, MOUTH, THROAT, and FACE: No sore throat, lymphadenopathy, carotid bruits or deformity. RESPIRATORY: Slight shortness of breath no cough or wheezes. CARDIOVASCULAR: Mild arrhythmia positive PND no orthopnea no angina. GASTROINTESTINAL: No Abd pain, Nausea or vomiting, no Diarrhea or constipation, No GI Bleed, no distention or masses. GENITOURINARY: Negative for Hematuria or UTI, no kidney stones. Has history of incontinence. INTEGUMENT/BREAST: Generalized muscle and joint pain. HEMATOLOGIC/LYMPHATIC: Negative for bleed or purpura. MUSCULOSKELTAL: Negative for Myalgia or arthralgia. NEURLOGICAL: Previous history of stroke with significant balance and gait problem, mild parkinsonism with mild memory loss.. BEHAVIORAL/PSYCH: Negative. ENDOCRINE: Negative. PHYSICAL EXAMINATION: General Appearance: Alert, cooperative, no distress, mildly confused. Neck HEENT: Supple, no lymphadenopathy, no thyroid enlargement, no carotid bruits. Slight bruise on the right forehead. Lungs: Clear to auscultation without crackles or wheezes no rhonchi, no deformity. Chest Wall: Chest wall normal expansion with deep inspiration no tenderness and no deformity was found on exam, no costochondral pain or discomfort. Heart: Irregular rate and rhythm, S1, S2 positive S3 positive bradycardia. Back: Symmetric, no curvature, ROM normal, no CVA tenderness. Abdomen: Soft, non-tender, bowel sounds active all four quadrants, no masses, no organomegaly. Extremities: Extremities normal, atraumatic, no cyanosis or edema. Pulses: 2+ and symmetric. Skin: Skin color, texture, tugor normal, no rashes or lesions. Neurologic: Alert oriented with slight confusion cranial nerves II through XII intact, positive generalized weakness worsening on the left than the right side with severe abnormal balance and gait mild resting tremor. ASSESSMENT AND PLAN: _CVA/TIA: Seen neurology will be going for an MRI of the brain also had 70 percentile blockage of carotid was stented before the left side no intervention will be required for now. Will continue anticoagulation along with secondary prevention controlling her blood pressure blood sugar and cholesterol. _Severe critical carotid stenosis of the left side the area was stented previously, apparently reviewed by vascular no reason for intervention at this point I believe this is a tortuous carotid artery on the flex did not show to stenosis seen with her CTA. _Anticoagulation: Patient had been on anticoagulation with Xarelto for the last 10+ years since he was diagnosed with one-time episode of A-fib which have been over 5 years after her original stroke and has been on medication since but lately has been having significant falling episode many times will create higher risk for problem with her fall agree at this point to discontinue Xarelto continue conservative management. I have not seen any further episodes of A-fib lately but despite the fact that even if she has A-fib risk of having stroke or mini stroke from it will be high risk of having bleeding and hemorrhage and major trauma being on Xarelto will be a lot higher for the time being. _Close head trauma from this last week still have slight bruise on the left side I do not see any residual and no sign of bleed at this point. _Hypercalcemia: Not clear that this is dehydration hyperparathyroidism continue hydration we will repeat PTH at this point patient is not in any challenging kidney function despite her GFR is 54 to see that she has stage III chronic kidney disease will continue good hydration watch for any further decline in kidney function. _Hypertension: With worsening symptoms, remain on clonidine 0.2 mg patch weekly, still on losartan 25 mg a day, and amlodipine 5 mg daily. Keep watching her symptoms to keep her systolic blood pressure below 140. _Parkinsonism: Remain on carbidopa levodopa extended release 50/200 mg tablet 3 times a day. _Hypothyroidism: Remain on levothyroxine 50 mcg daily continue medication. _Type 2 diabetes with chronic kidney disease: Has been on Jardiance 10 mg a day will titrate dose up to 25 mg a day Accu-Chek with sliding scales coverage watch for any hypoglycemia the day of her discharge apparently her sugar was down in the 40 patient is on Jardiance only is not supposed to have any hypoglycemic episode or event. _Chronic diastolic congestive heart failure: Remain on losartan, and furosemide continue medication. _Hyperlipidemia: Remain on atorvastatin 40 mg daily. Probably neurology will advised to increase atorvastatin up to 80 mg. _Chronic pain syndrome: Continue combination of Butrans 10 mg patch along with tramadol for breakthrough pain she is known to have chronic degenerative disc disease which has been better controlled lately with her medication. The patient despite the combination of the tramadol and Butrans continue to complain of severe pain with pain 4-5 out of 10 not interested to increase medication because I believe this is little bit too much to despite her complaint I cannot ignore her pain at this point. _Worsening dementia: She is remain on Exelon 3 mg twice a day and can add Namenda as a neck step if needed. _Hiatal hernia and severe GERD: Remain on pantoprazole and Pepcid. Discussion: Her MRI of the brain was done, patient is accepted to [facility] the [place] today which will be transfer for more physical therapy. Hospital course: Patient admitted to the hospital on 01/09/2024 less than a week after her discharge she came in with strokelike symptom with significant right-sided weakness her CAT scan of the brain in the ER came back to be negative CTA showed 70 percentile blockage of the original left internal carotid which previously stented. Patient continued to have slight weakness in the right side no sign of V. tach or A-fib found on her EKG and heart monitor. The patient was hospitalized and had long discussion with family and her guardian patient will require to go for rehab or physical therapy little bit more intense than can be provided as an outpatient or in the place she is in. Was seen neurology EEG of the brain did not show any major seizure activity MRI of the brain was requested and did not perform till Sunday which showed remote area of stroke in the VIKKI of the left side showing slightly change in the tissue with more atrophy to claimed this is more subacute or more chronic. Continue physical therapy and Occupational Therapy patient seems to tolerated very well. Patient is not safe to walk without help or without having somebody around her at the time. Medication were adjusted and patient will be ready to be discharged to [facility] the [place] today 01/14/2024. Time spent on discharging patient was over 35 minutes. Patient Condition at Discharge: Fair Plan - Discharge Summary Discharge Rx Participant: No New Discharge Prescriptions: New Aspirin 81 mg PO DAILY tab Cefuroxime [Ceftin] 250 mg PO BID 3 Days #6 tab Psyllium Husk [Metamucil] 0.4 gm PO AC-BID #60 capsule Continue Levothyroxine Sodium [Synthroid] 50 mcg PO DAILY Ondansetron Odt [Zofran ODT] 4 mg PO Q8HR PRN PRN Reason: Nausea Cholecalciferol (Vitamin D3) [Vitamin D3 (50 Mcg = 2000 Iu)] 50 mcg PO DAILY Rivastigmine Tartrate [Exelon] 3 mg PO BID-W/MEALS Carboxymethylcell/Glycerin/Pf [Refresh Relieva Pf 0.5-1% Drop] 1 drop BOTH EYES TID cloNIDine 0.1 MG/24HR PATCH [Catapres-TTS] 1 patch TRANSDERM NAVARRO Famotidine [Pepcid] 20 mg PO BID Cetirizine HCl [Zyrtec] 10 mg PO DAILY Lactulose 10 - 20 gm PO DAILY PRN #473 ml PRN Reason: Constipation Docusate [Colace] 100 mg PO DAILY PRN PRN Reason: Constipation Buprenorphine [Butrans 10 MCG/HOUR] 1 patch TRANSDERM TH #1 patch ALPRAZolam [Xanax] 0.25 mg PO BID PRN #30 tab PRN Reason: Anxiety Pantoprazole Sodium [Protonix] 40 mg PO DAILY amLODIPine [Norvasc] 5 mg PO DAILY Atorvastatin [Lipitor] 40 mg PO DAILY Albuterol Inhaler [Ventolin Hfa Inhaler] 2 puff INHALATION RT-Q4H PRN PRN Reason: SHORTNESS OF BREATH/WHEEZING Acetaminophen Tab [Tylenol] 500 mg PO Q6HR PRN PRN Reason: Pain traZODone HCL [Desyrel] 100 mg PO HS Netarsudil Mesylat/Latanoprost [Rocklatan 0.02%-0.005% Eye Drp] 1 drop BOTH EYES HS Magnesium Oxide [Mag-Ox] 200 mg PO HS Losartan [Cozaar] 25 mg PO DAILY Furosemide [Lasix] 20 mg PO DAILY Empagliflozin [Jardiance] 10 mg PO DAILY Carbidopa-Levodopa ER 50-200Mg [Sinemet CR 50-200 mg] 1 tab PO TID traMADol HCL 50 mg PO BID #20 tab Changed Ondansetron Odt [Zofran ODT] 4 mg PO DAILY PRN #0 PRN Reason: Nausea Discontinued Rivaroxaban [Xarelto] 15 mg PO DAILY Discharge Medication List Levothyroxine Sodium [Synthroid] 50 mcg PO DAILY 12/07/17 [History] Albuterol Inhaler [Ventolin Hfa Inhaler] 2 puff INHALATION RT-Q4H PRN 08/14/22 [History] Atorvastatin [Lipitor] 40 mg PO DAILY 08/14/22 [History] Pantoprazole Sodium [Protonix] 40 mg PO DAILY 08/14/22 [History] amLODIPine [Norvasc] 5 mg PO DAILY 08/14/22 [History] Acetaminophen Tab [Tylenol] 500 mg PO Q6HR PRN 12/25/23 [History] Carboxymethylcell/Glycerin/Pf [Refresh Relieva Pf 0.5-1% Drop] 1 drop BOTH EYES TID 12/25/23 [History] Cetirizine HCl [Zyrtec] 10 mg PO DAILY 12/25/23 [History] Cholecalciferol (Vitamin D3) [Vitamin D3 (50 Mcg = 2000 Iu)] 50 mcg PO DAILY 12/25/23 [History] Empagliflozin [Jardiance] 10 mg PO DAILY 12/25/23 [History] Famotidine [Pepcid] 20 mg PO BID 12/25/23 [History] Furosemide [Lasix] 20 mg PO DAILY 12/25/23 [History] Losartan [Cozaar] 25 mg PO DAILY 12/25/23 [History] Magnesium Oxide [Mag-Ox] 200 mg PO HS 12/25/23 [History] Netarsudil Mesylat/Latanoprost [Rocklatan 0.02%-0.005% Eye Drp] 1 drop BOTH EYES HS 12/25/23 [History] Ondansetron Odt [Zofran ODT] 4 mg PO Q8HR PRN 12/25/23 [History] Rivastigmine Tartrate [Exelon] 3 mg PO BID-W/MEALS 12/25/23 [History] cloNIDine 0.1 MG/24HR PATCH [Catapres-TTS] 1 patch TRANSDERM NAVARRO 12/25/23 [History] traZODone HCL [Desyrel] 100 mg PO HS 12/25/23 [History] Lactulose 10 - 20 gm PO DAILY PRN #473 ml 12/26/23 [Rx] Carbidopa-Levodopa ER 50-200Mg [Sinemet CR 50-200 mg] 1 tab PO TID 01/05/24 [History] Docusate [Colace] 100 mg PO DAILY PRN 01/05/24 [History] ALPRAZolam [Xanax] 0.25 mg PO BID PRN #30 tab 01/14/24 [Rx] Aspirin 81 mg PO DAILY tab 01/14/24 [Rx] Buprenorphine [Butrans 10 MCG/HOUR] 1 patch TRANSDERM TH #1 patch 01/14/24 [Rx] Cefuroxime [Ceftin] 250 mg PO BID 3 Days #6 tab 01/14/24 [Rx] Ondansetron Odt [Zofran ODT] 4 mg PO DAILY PRN #0 01/14/24 [Rx] Psyllium Husk [Metamucil] 0.4 gm PO AC-BID #60 capsule 01/14/24 [Rx] traMADol HCL 50 mg PO BID #20 tab 01/14/24 [Rx] Follow up Appointment(s)/Referral(s): Arlene Rojas MD [STAFF PHYSICIAN] - 1 Week Saman Bautista MD [Primary Care Provider] - 1-2 days Discharge Disposition: TRANSFER TO SNF/ECF
[2024-01-14 15:05] VITALS: BP 129/65; TEMP 98.2
== END 2024-01-14 14:55 ==
LOC: EC 10:22 → INTOOBSV 12:53 → 3SCARD 12:53 → UNDODISIN 01-14 14:55
PROVIDERS: ADMIT Internal Medicine Geriatric Medicine; ATTEND Internal Medicine Geriatric Medicine
DX: I63.9 Cerebral infarction, unspecified (principal); I65.22 Occlusion and stenosis of left carotid artery; M21.371 Foot drop, right foot; I48.91 Unspecified atrial fibrillation; G93.40 Encephalopathy, unspecified; N18.30 Chronic kidney disease, stage 3 unspecified; I69.351 Hemiplegia and hemiparesis following cerebral infarction affecting right dominant side; N39.0 Urinary tract infection, site not specified; R29.6 Repeated falls; R47.81 Slurred speech; R29.810 Facial weakness; I25.10 Atherosclerotic heart disease of native coronary artery without angina pectoris; I13.0 Hypertensive heart and chronic kidney disease with heart failure and stage 1 through stage 4 chronic kidney disease, or unspecified chronic kidney disease; E11.22 Type 2 diabetes mellitus with diabetic chronic kidney disease; E03.9 Hypothyroidism, unspecified; E78.5 Hyperlipidemia, unspecified; E83.52 Hypercalcemia; G20.A1 Parkinson's disease without dyskinesia, without mention of fluctuations; F02.80 Dementia in other diseases classified elsewhere, unspecified severity, without behavioral disturbance, psychotic disturbance, mood disturbance, and anxiety; G89.4 Chronic pain syndrome; R91.8 Other nonspecific abnormal finding of lung field; I50.32 Chronic diastolic (congestive) heart failure; K21.9 Gastro-esophageal reflux disease without esophagitis; K44.9 Diaphragmatic hernia without obstruction or gangrene; K59.09 Other constipation; E11.36 Type 2 diabetes mellitus with diabetic cataract; H35.3210 Exudative age-related macular degeneration, right eye, stage unspecified; Z79.01 Long term (current) use of anticoagulants; Z79.84 Long term (current) use of oral hypoglycemic drugs; Z79.890 Hormone replacement therapy; Z79.899 Other long term (current) drug therapy; Z87.11 Personal history of peptic ulcer disease; Z87.891 Personal history of nicotine dependence; Z90.49 Acquired absence of other specified parts of digestive tract
CPT/HCPCS: 96365; 96361; 96375; 99291; 36415; 94760; 95816; 93005; 97163; 97167; 92610; 92523; 97129; 80053 ×3; 80048; 82550; 84484; 85025 ×3; 85027; 85610; 85730; 81001; 83970; 87086; 87077; 87186; 71046; 93880; 70496; 70450; 70498; 70551; G0378 ×6; J2270; J0696 ×4; Q9967; 96374